=== PATIENT | female | born 1940 | race Caucasian/White ===

== ENCOUNTER 2016-12-08 21:10 | Inpatient (IN) | payer MEDICARE, OTHER ==
[~2016-12-08] VITALS: Ht 160 cm; Wt 63.1 kg
[~2016-12-08 21:10] MED LIST: ADVAI250I PO; AMIT25TA20 PO; CALCCHW6 CHEW; CEPH250 PO; DOCU1CAP39 PO; FERR500T PO; FLAXOIL4 PO; MULT-65 PO; PERC5TAB12 PO; SALM10002 PO
[2016-12-09 19:50] VITALS: BP 138/74; PULSE 93; RESP 16; TEMP 97.3; O2SAT 95
[2016-12-09 20:00] VITALS: PULSE 92
[2016-12-09] MEDS ORDERED: SODIUM CHLORIDE 0.9% FLUSH 5 ML FLUSH FLUSH PRN (21:15)
[2016-12-09] MEDS ORDERED: NALOXONE HCL 0.4 MG/ML AMP IV PRN (21:15)
[2016-12-09] MEDS ORDERED: traMADol HCL 50 MG TAB PO PRN (22:15)
--- NOTE | 2016-12-09 23:37 | HHI.HP ---
[facility] Unknown Admission Diagnosis Diagnoses: Chief Complaint: Transferred from [facility] Travel History International Travel<30 Days: No Contact w/Intl Traveler <30 Da: No Traveled to Known Affected Are: No History of Present Illness This is a 76-year-old female patient with past medical history which includes 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 difficile 2013, pulmonary embolism status post IVC filter. Patient follows with medical oncologist Dr. Leach and radiation oncologist Dr. Osullivan. Patient was in [place] at the [facility] seeking treatment for her when patient began to feel cold. And on Monday12/04/2016 patient proceeded to [facility] she continued to feel unwell mostly feeling chills as well as diarrhea and vomiting. Patient was found to have C. difficile colitis as well as acute kidney injury with a creatinine of 11. Patient was started on by mouth Flagyl was also started on hemodialysis and underwent bilateral nephrostomy tube placement as the acute kidney injury was placed to be secondary to obstructive uropathy with bilateral hydronephrosis.. Patient reports she had 2 treatments of hemodialysis on 12/06/2016 and 12/07/2016. Patient believes that she had her nephrostomy tubes placed on 12/07/2016. Patient reports at this time she is feeling much better than she was is no longer having diarrhea fevers or chills. 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 difficile 2013, pulmonary embolism status post IVC filter Past Surgical History Left mastectomy and left axillary lymph node dissection, right ureteral stent 2014 replaced [address] Sierra, appendectomy, hysterectomy, IVC filter Reported Medications Percocet 5-325 mg (Oxycodone/Acetaminophen) 1 Tab 1-2 Tab PO Q6H PRN Keflex 250 mg Cap (Cephalexin Monohydrate) 250 Mg Cap 250 Mg PO TID Flax Oil (Flaxseed (Linseed)) Oil 1 Cap PO BID Ferriprox (Deferiprone) 500 Mg Tab 1,500 Mg PO BID [place] Oil (Nutritional Supplements) 1,000 Mg Cap 1 Cap PO BID Advair Diskus 250/50 (Salmeterol Xinafoate/Fluticasone) Fluticasone/Salmeterol 250/50 Inh 1 Puff PO BID Viactiv (Calcium Carbonate) Chw 1 Chew CHEW BID Elavil (Amitriptyline HCl) 25 Mg Tab 25 Mg PO HS Colace 100 Mg Cap (Docusate Sodium) 100 Mg Cap 100 Mg PO DAILY Multi-Vitamin Daily (Multivitamins) Daily Tab 1 Tab PO DAILY Allergies: Coded Allergies: Benadryl (Verified Allergy, Severe, THROAT CLOSES, 06/20/16) Active Ordered Medications Current Medications Medications (Trade) Dose Ordered Sig/Randell Route Start Time Stop Time Status Last Admin (NS Flush) 2 ml UNSCH PRN FLUSH 12/09/16 21:15 (NS Flush) 2 ml BID FLUSH 12/10/16 09:00 (Heparin Inj) 5,000 units Q8H SQ 12/10/16 09:00 (Narcan Inj) 0.4 mg UNSCH PRN IV 12/09/16 21:15 (Ultram) 50 mg Q8H PRN PO 12/09/16 22:15 12/10/16 00:59 Family History Denies family medical history including hypertension diabetes CAD or cancer Social History Denies EtOH use tobacco use or illicit drug use currently living with Physical Exam Vital Signs Vital Signs Date Time Temp Pulse Resp B/P Pulse Ox O2 Delivery O2 Flow Rate FiO2 12/09/16 19:50 97.3 93 16 138/74 95 Physical Exam GENERAL: This is a frail 76-year-old female patient, in no apparent distress. SKIN: No rashes, ecchymoses or lesions. Cool and dry. Pale HEAD: Atraumatic. Normocephalic. No temporal or scalp tenderness. EYES: Extraocular motions intact. No scleral icterus. No injection or drainage. ENT: Nose without bleeding, purulent drainage or septal hematoma. Throat without erythema, tonsillar hypertrophy or exudate. Uvula midline. Airway patent. NECK: Trachea midline. No JVD or lymphadenopathy. Supple, nontender, no meningeal signs. CARDIOVASCULAR: Regular rate and rhythm without murmurs, gallops, or rubs. RESPIRATORY: Clear to auscultation. Breath sounds equal bilaterally. No wheezes , rales, or rhonchi. GASTROINTESTINAL: Abdomen soft, non-tender, nondistended. No guarding. GENITOURINARY: Bilateral nephrostomy tubes draining pink tinged urine MUSCULOSKELETAL: Extremities without clubbing, cyanosis, or edema. No joint tenderness, effusion, or edema noted. No calf tenderness. Negative Homans sign bilaterally. NEUROLOGICAL: Awake and alert. No focal deficit appreciated. Motor and sensory grossly within normal limits. 4 out of 5 muscle strength in all muscle groups. Normal speech. 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 difficile 2013, pulmonary embolism status post IVC filter. Patient follows with medical oncologist Dr. Leach and radiation oncologist Dr. Osullivan. Patient was in [place] at the [facility] seeking treatment for her when patient began to feel cold. And on Monday12/04/2016 patient proceeded to [facility] she continued to feel unwell mostly feeling chills as well as diarrhea and vomiting. Patient was found to have C. difficile colitis as well as acute kidney injury with a creatinine of 11. C. difficile colitis- continue oral Flagyl stop date 12/19/2016 Acute kidney injury status post hemodialysis 2 treatments, now with bilateral percutaneous nephrostomy tubes in place BMP in a.m. Consult urology patient known to Dr. Sierra Metastatic breast cancer Patient known to Dr. Leach consult placed Patient with history of pulmonary embolism status post IVC filter placed DVT prophylaxis subcutaneous heparin Awaiting med reconciliation by RN Code status DNR Discussed plan of care with Dr. Leach, patient and RN Written by Aurelia Abdullahi, acting as scribe for Dr. Martinez on 12/10/16 at 01: 47. All or portions of this note were transcribed by scribe [Aurelia Abdullahi]. I , Dr. Kristin Martinez personally performed the history, physical exam, and medical decision making; and confirmed the accuracy of the information in the transcribed note. Authenticated by Dr. Kristin Martinez on 12/10/16 at 0147 Physician Certification 2 Midnight Certification Type: Admission for Inpatient Services Order for Inpatient Services The services are ordered in accordance with Medicare regulations or non- Medicare payer requirements, as applicable. In the case of services not specified as inpatient-only, they are appropriately provided as inpatient services in accordance with the 2-midnight benchmark. Estimated LOS (days): 4 days is the estimated time the patient will need to remain in the hospital, assuming treatment plan goals are met and no additional complications. Post-Hospital Plan: Home Aurelia Abdullahi Dec 09, 2016 23:36 Kristin Martinez MD Dec 28, 2016 08:17
[2016-12-10] VITALS (11 sets, daily range): BP systolic 119–143; BP diastolic 58–73; PULSE 68–104; RESP 16–20; TEMP 96.2–98.7; O2SAT 92–98
[2016-12-10] MEDS: metroNIDAZOLE 500 MG TAB PO SCH ×3 (06:04→22:08)
[2016-12-10 07:17] LABS: AUTOMATED NEUTROPHIL # 6.6 TH/MM3 (1.8-7.7); BASOPHIL % 0.2 % (0.0-2.0); EOSINOPHIL # 0.3 TH/MM3 (0-0.4); EOSINOPHIL % 3.5 % (0.0-4.0); HEMATOCRIT 21.8 % (35.0-46.0); HEMO FLAGS DIFF FINAL; LYMPH % 6.8 % (9.0-44.0); LYMPHOCYTE # 0.5 TH/MM3 (1.0-4.8); MEAN CELL VOLUME 97.7 FL (80.0-100.0); MEAN CORPUSCULAR HEMOGLOBIN 32.5 PG (27.0-34.0); MEAN CORPUSCULAR HGB CONC 33.3 % (32.0-36.0); MONO % 7.3 % (0.0-8.0); NEUT % 82.2 % (16.0-70.0); PLATELET COUNT 172 TH/MM3 (150-450); RED BLOOD COUNT 2.23 MIL/MM3 (4.00-5.30); RED CELL DISTRIBUTION WIDTH 15.1 % (11.6-17.2)
[2016-12-10 07:47] LABS: BICARBONATE 28.2 MEQ/L (21.0-32.0); POTASSIUM 3.8 MEQ/L (3.5-5.1)
[2016-12-10 08:00] LABS: CALCIUM-PROTEIN CORRECTED 8.3 MG/DL (8.5-10.1)
[2016-12-10] MEDS: HEPARIN SODIUM - SQ 10,000 UNITS/ML VIAL SQ SCH ×2 (09:27→17:48)
[2016-12-10] MEDS: SODIUM CHLORIDE 0.9% FLUSH 5 ML FLUSH FLUSH SCH ×2 (09:28→22:08)
[2016-12-10] MEDS ORDERED: ACETAMINOPHEN 325 MG TAB PO PRN (10:30)
[2016-12-10] MEDS ORDERED: SODIUM CHLOR 0.9% 250 ML INJ 250 ML IV ONE (10:30)
[2016-12-10] MEDS: DOCUSATE SODIUM 100 MG CAP PO SCH ×2 (12:29→17:47)
[2016-12-10] MEDS: ONDANSETRON HCL 4 MG/2 ML VIAL IV PUSH PRN (12:32)
--- NOTE | 2016-12-10 13:09 | MB ---
cc: TORRIE SCHAEFER M.D. DATE OF CONSULTATION: 12/10/2016. REASON FOR CONSULTATION: Oncology was consulted to render opinion regarding a patient with metastatic breast cancer transferred here from [place] with C. difficile colitis and renal failure. ATTENDING PHYSICIAN: Dr. Higginbotham. HISTORY OF PRESENT ILLNESS: The patient is very pleasant 76-year-old female with a long history of metastatic breast cancer who transferred here from [facility] in [place] yesterday for further management. She has been under the care of Dr. Leach. She most recently received Herceptin and Navelbine. In October she was found to have new brain metastasis. She just completed palliative whole-brain radiation about a week and a half ago. Last week she went to [place] because her needed back surgery. While she was there she fell ill. She developed chills, diarrhea and vomiting. She was admitted to [facility] in [place] and was found to have C. difficile colitis. She also was found to have acute renal failure with a creatinine of 11. She was given dialysis twice on December 06 and December 07. She also had bilateral nephrostomy tubes placed for obstructive uropathy. She was also started on Flagyl. She stated that her diarrhea has resolved. She however is still very weak. She had pain in the nephrostomy tube site. She took some pain medicine last night and she had dry heaves. She denies any fever or chills. Denies abdominal pain. Denies any bone pain. She has not had any headache. She denies visual changes. She had hearing loss which has not changed. PAST MEDICAL HISTORY: 1. Metastatic breast cancer. 2. Anemia. 3. Pericarditis. 4. Pneumonia. 5. Hydronephrosis. 6. C. difficile colitis. 7. Pulmonary embolism. 8. Cutaneous herpes simplex. PAST SURGICAL HISTORY: 1. IVC filter placement in 2008. 2. Port placement. 3. Left mastectomy. 4. Right ureteral stent placement in May of 2015 and May of 2016. 5. Appendectomy. 6. Hysterectomy. 7. Dialysis catheter placement and removal. FAMILY HISTORY: Noncontributory. SOCIAL HISTORY: No tobacco or alcohol use. ALLERGIES: Benadryl. CURRENT MEDICATIONS: 1. Colace. 2. Heparin. 3. Flagyl. 4. PRN. REVIEW OF SYSTEMS: CONSTITUTIONAL: She has had increased weakness and fatigue. EYES: Denies any blurry vision or double vision. ENT: Denies any mouth sores or voice changes. CARDIOVASCULAR: Denies any chest pressure or palpitations. RESPIRATORY: Denies shortness of breath or cough. GI: As above. : As above. MUSCULOSKELETAL: Has pain around the nephrostomy site. HEMATOLOGIC: Denies any bleeding or bruising. ENDOCRINE: Negative. DERMATOLOGIC: Negative. PSYCHIATRIC: Feels a little depressed. NEUROLOGIC: Negative. PHYSICAL EXAMINATION: VITAL SIGNS: Temperature 98.7, blood pressure 134/73, 02 saturation 93%. GENERAL: She is alert and oriented x3. She looks very weak and cachectic. HEAD, EYES, EARS, NOSE, THROAT: Normocephalic and atraumatic. Pupils equal, round and light. Extraocular muscles intact. No scleral icterus. Oropharynx - dry mucosa. No lesions. NECK: No thyromegaly. No palpable mass. The dressing on the right neck is dry. LYMPHATIC: No palpable cervical, clavicular, axillary lymph nodes. CARDIOVASCULAR: Regular S1 and S2. No murmurs. LUNGS: Clear to auscultation anteriorly. ABDOMEN: Abdomen soft and nontender. Could not palpate liver or spleen. EXTREMITIES: No cyanosis. Trace ankle edema. No calf tenderness. BACK: No paravertebral tenderness. SKIN: No rash or petechiae right chest port site. No erythema. NEUROLOGIC EXAM: Nonfocal. LABORATORY DATA: Data reviewed ASSESSMENT: 1. Metastatic breast cancer. She was first diagnosed with left breast cancer in 2008. She had neoadjuvant dose-dense chemotherapy followed by mastectomy and radiation. She was maintained on letrozole but developed a bone metastasis in April of 2013. She was treated with Xeloda. In August of 2014 she developed liver metastasis. She was given a Faslodex without any improvement. She was then treated with weekly Taxol. Around June of 2015, she was started on Herceptin and Perjeta. She had a reaction to Perjeta and was switched to Herceptin and Navelbine. In October of 2016, she was found to have a new brain metastasis. She just completed whole-brain radiation about a week and a half ago. Her prognosis is very poor. She has a poor performance status at this time. I am not sure she could tolerate any more chemotherapy. Initially she was thinking about going to [facility] for a clinical trial but given her current performance status I do not think she will be a candidate. I have talked to her about hospice care and she agrees to talk to hospice. I told her she could always consider revoking hospice and seek treatment if her performance status improves. She also decided not to have any resuscitation. 2. Acute renal failure due to obstructive uropathy. She had dialysis twice when she was in [place]. She also had bilateral nephrostomy tube placement. Her renal function has trended down. Creatinine has trended down to almost her baseline. She is awaiting evaluation by Dr. Sierra. 3. Anemia, likely a combination of cancer treatment and renal failure. Her hemoglobin trended down to 7.2. We will give her a unit of packed red blood cells transfusion, which may help her feel stronger. 4. C. difficile colitis. She is currently on Flagyl. Her diarrhea has resolved. 5. History of pericarditis. She has no symptoms. 6. History of pulmonary embolism status post IVC filter placement. She is not on anticoagulation. RECOMMENDATIONS: 1. I had an extensive discussion with the patient as above. 2. Consult hospice. 3. Agree with the DNR. 4. Arrange for her to have packed red blood cell transfusion. Thank you, Dr. Higginbotham, for asking me to see this patient. MD THEODORE Mcwilliams/JARET /10:35 AM /12:37 PM KEATON
--- NOTE | 2016-12-10 14:43 | HHI.PR ---
Subjective Remarks no pain complains no nausea or vomiting Objective Vitals Vital Signs Date Time Temp Pulse Resp B/P Pulse Ox O2 Delivery O2 Flow Rate FiO2 12/10/16 14:19 97.8 99 16 120/58 94 12/10/16 13:41 96.4 104 16 126/65 93 12/10/16 12:00 98.5 101 16 143/71 95 12/10/16 08:00 98.7 68 20 134/73 93 12/10/16 07:57 92 12/10/16 04:00 97.5 94 18 119/69 92 12/10/16 00:00 97.5 90 18 136/69 94 12/09/16 20:00 92 12/09/16 19:50 97.3 93 16 138/74 95 I/O 12/09/16 12/09/16 12/09/16 12/10/16 12/10/16 12/10/16 07:00 15:00 23:00 07:00 15:00 23:00 Intake Total 480 ml 630 ml Output Total 200 ml 2150 ml Balance 280 ml -1520 ml Intake Oral 480 ml 630 ml Output Urine Total 200 ml Drainage Total 2150 ml # Voids 1 Result Diagram: 12/10/16 0610 12/10/16 0610 Objective Remarks awake and alert, oriented x 3 anicteric lungs no rales regular rhythm abdomen soft, nontender bilateral nephrostomy tubes in place- extremities no edema neuro exam- unremarkable A/P Assessment and Plan This is a 76-year-old female patient with past medical history which includes 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 difficile 2012, pulmonary embolism status post IVC filter. Patient follows with medical oncologist Dr. Leach and radiation oncologist Dr. Osullivan. Patient was in [place] at the [facility] [place] seeking treatment for her when patient began to feel cold. And on Monday12/04/2016 patient proceeded to [facility] she continued to feel unwell mostly feeling chills as well as diarrhea and vomiting. Patient was found to have C. difficile colitis as well as acute kidney injury with a creatinine of 11. C. difficile colitis- continue oral Flagyl stop date 12/19/2016 Obstructive uropathy bilateral percutaneous nephrostomy tubes in place renal functions near baseline per Oncology service notes Urology ff Metastatic breast cancer Patient known to Dr. Leach prn pain meds Anemia- acute on top of chronic for 1 unit blood transfusion per Oncology Patient with history of pulmonary embolism status post IVC filter placed DVT prophylaxis subcutaneous heparin Code status DNR Gely Higginbotham MD Dec 10, 2016 14:43
--- NOTE | 2016-12-10 18:04 | PD.CONS ---
HPI Service Urology Consult Requested By Reason for Consult Bilateral ureteral obstruction Primary Care Physician Unknown Diagnosis: History of Present Illness 76yo female with history of metastatic breast cancer with bilateral ureteral obstruction seen in consultation for bilateral nephrostomy tubes. Patient was in [place] recently where she developed acute renal failure with Cr >10. Bilateral nephrostomy tubes were placed and her Cr has improved. She currently reports no pain. Patient has been seen by Dr. Sierra where a ureteral stent was placed however this appeared to have failed to extrinsic compression from the metastatic disease, thereby requiring the bilateral nephrostomy tubes. She is also followed by Dr. Leach. Patient currently denies fevers, chills, N/V. 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 difficile 2012, pulmonary embolism status post IVC filter Past Surgical History Left mastectomy and left axillary lymph node dissection, right ureteral stent 05/2015 replaced 05/[address] Sierra appendectomy, hysterectomy, IVC filter Reported Medications Reported Meds & Active Scripts Active Percocet 5-325 mg (Oxycodone/Acetaminophen) 1 Tab 1-2 Tab PO Q6H PRN Keflex 250 mg Cap (Cephalexin Monohydrate) 250 Mg Cap 250 Mg PO TID Reported Flax Oil (Flaxseed (Linseed)) Oil 1 Cap PO BID Ferriprox (Deferiprone) 500 Mg Tab 1,500 Mg PO BID [place] Oil (Nutritional Supplements) 1,000 Mg Cap 1 Cap PO BID Advair Diskus 250/50 (Salmeterol Xinafoate/Fluticasone) Fluticasone/Salmeterol 250/50 Inh 1 Puff PO BID Viactiv (Calcium Carbonate) Chw 1 Chew CHEW BID Elavil (Amitriptyline HCl) 25 Mg Tab 25 Mg PO HS Colace 100 Mg Cap (Docusate Sodium) 100 Mg Cap 100 Mg PO DAILY Multi-Vitamin Daily (Multivitamins) Daily Tab 1 Tab PO DAILY Allergies: Coded Allergies: Benadryl (Verified Allergy, Severe, THROAT CLOSES, 06/20/16) Active Ordered Medications Current Medications Medications (Trade) Dose Ordered Sig/Randell Route Start Time Stop Time Status Last Admin (NS Flush) 2 ml UNSCH PRN FLUSH 12/09/16 21:15 (NS Flush) 2 ml BID FLUSH 12/10/16 09:00 12/10/16 09:28 (Heparin Inj) 5,000 units Q8H SQ 12/10/16 09:00 12/10/16 17:48 (Narcan Inj) 0.4 mg UNSCH PRN IV 12/09/16 21:15 Metronidazole 500 mg 500 mg Q8HR PO 12/10/16 06:00 12/19/16 05:59 12/10/16 13:09 (NS 250 ml Inj) 250 ml @ 15 mls/hr ONCE ONCE IV 12/10/16 10:30 12/11/16 03:09 12/10/16 13:55 (Colace) 100 mg TID PO 12/10/16 13:00 12/10/16 17:47 (Zofran Inj) 4 mg Q6HR PRN IV PUSH 12/10/16 10:30 12/10/16 12:32 (Otis 5-325 Mg) 1 tab Q4H PRN PO 12/10/16 10:45 (Otis 10-325 Mg) 1 tab Q4H PRN PO 12/10/16 10:45 (Phenergan) 25 mg Q4H PRN PO 12/10/16 10:45 Family History Denies family medical history including hypertension diabetes CAD or cancer Social History Denies EtOH use tobacco use or illicit drug use currently living with Physical Exam Vital Signs Vital Signs Date Time Temp Pulse Resp B/P Pulse Ox O2 Delivery O2 Flow Rate FiO2 12/10/16 16:00 97.5 88 18 122/62 98 12/10/16 14:19 97.8 99 16 120/58 94 12/10/16 13:41 96.4 104 16 126/65 93 2/18/17 12:00 98.5 101 16 143/71 95 12/10/16 08:00 98.7 68 20 134/73 93 12/10/16 07:57 92 12/10/16 04:00 97.5 94 18 119/69 92 12/10/16 00:00 97.5 90 18 136/69 94 12/09/16 20:00 92 12/09/16 19:50 97.3 93 16 138/74 95 Physical Exam GENERAL: This is a well-nourished, well-developed patient, in no apparent distress. SKIN: No rashes, ecchymoses or lesions. Cool and dry. HEAD: Atraumatic. Normocephalic. EYES: Extraocular motions intact. No scleral icterus. No injection or drainage. ENT: Nose without bleeding, purulent drainage. Airway patent. NECK: Trachea midline. No JVD or lymphadenopathy. CARDIOVASCULAR: Normal pulses, extremities well perfused RESPIRATORY: nonlabored respiration, equal chest rise GASTROINTESTINAL: Abdomen soft, non-tender, nondistended. GENITOURINARY: Bilateral nephrostomy tubes in place, draining light pink urine. Insertion site clean and dry, dressings in place MUSCULOSKELETAL: Extremities without clubbing, cyanosis NEUROLOGICAL: Awake and alert. Motor and sensory grossly within normal limits. Normal speech. Laboratory Laboratory Tests Test 12/10/16 12/10/16 06:10 10:40 White Blood Count 8.0 Red Blood Count 2.23 Hemoglobin 7.2 Hematocrit 21.8 Mean Corpuscular Volume 97.7 Mean Corpuscular Hemoglobin 32.5 Mean Corpuscular Hemoglobin 33.3 Concent Red Cell Distribution Width 15.1 Platelet Count 172 Mean Platelet Volume 7.7 Neutrophils (%) (Auto) 82.2 Lymphocytes (%) (Auto) 6.8 Monocytes (%) (Auto) 7.3 Eosinophils (%) (Auto) 3.5 Basophils (%) (Auto) 0.2 Neutrophils # (Auto) 6.6 Lymphocytes # (Auto) 0.5 Monocytes # (Auto) 0.6 Eosinophils # (Auto) 0.3 Basophils # (Auto) 0.0 CBC Comment DIFF FINAL Differential Comment Sodium Level 143 Potassium Level 3.8 Chloride Level 109 Carbon Dioxide Level 28.2 Anion Gap 6 Blood Urea Nitrogen 18 Creatinine 1.57 Estimat Glomerular Filtration 32 Rate Random Glucose 116 Calcium Level 7.1 Protein Corrected Calcium 8.3 Total Protein 4.9 Blood Type B POSITIVE Antibody Screen NEGATIVE Crossmatch Leukocyte-Reduced Red Blood Cells Blood Bank Comment Result Diagram: 12/10/1660912/10/16609 Assessment and Plan Problem List: (1) CKD (chronic kidney disease) stage 3, GFR 30-59 ml/min ICD Code: N18.3 Status: Chronic (2) Metastatic breast cancer ICD Code: C50.919 Status: Chronic (3) Breast carcinoma metastatic to multiple sites ICD Code: C50.919 Status: Acute Assessment and Plan 76yo female with metastatic breast cancer and bilateral nephrostomy tubes due to obstruction and renal failure Cr improved to 1.57 Maintain bilateral nephrostomy tubes in place until evaluation by Dr. Leach. If any further treatment planned, recommend maintaining nephrostomy tubes in place to allow adequate renal drainage May consider internalization of tubes if no treatment planned, however given her history of indwelling stent and recent episode of renal failure due to obstruction, it is likely any internal stents would fail due to the extrinsic compression of her ureters. Will notify Dr. Sierra regarding patient on Monday David Dudley MD Dec 10, 2016 18:04
[2016-12-10] MEDS: ACETAMINOPHEN/HYDROcodone 325 MG/5 MG TAB PO PRN (22:09)
[2016-12-11] VITALS (7 sets, daily range): BP systolic 116–125; BP diastolic 58–69; PULSE 73–108; RESP 14–17; TEMP 97.3–98.1; O2SAT 92–99
[2016-12-11] MEDS: HEPARIN SODIUM - SQ 10,000 UNITS/ML VIAL SQ SCH ×3 (01:59→16:54)
[2016-12-11] MEDS: metroNIDAZOLE 500 MG TAB PO SCH ×3 (04:10→21:08)
[2016-12-11] MEDS: ONDANSETRON HCL 4 MG/2 ML VIAL IV PUSH PRN (04:10)
[2016-12-11] MEDS: DOCUSATE SODIUM 100 MG CAP PO SCH (09:12)
[2016-12-11] MEDS: SODIUM CHLORIDE 0.9% FLUSH 5 ML FLUSH FLUSH SCH ×2 (09:13→21:08)
--- NOTE | 2016-12-11 09:23 | PD.ONC.PN ---
Subjective Subjective Remarks Afebrile overnight. Patient talked with hospice yesterday and has decided to wait until Monday to meet with Dr. Leach before making a final decision. She slept ok overnight. pain is controlled. She is concerned about how she will manage her bilateral PN tubes at home. Objective Data Date Time Temp Pulse Resp B/P Pulse Ox O2 Delivery O2 Flow Rate FiO2 12/11/16 08:00 97.9 73 14 116/65 94 12/11/16 04:00 97.8 81 16 123/69 92 12/10/16 23:00 96.2 92 18 126/58 92 12/10/16 20:16 94 12/10/16 19:00 96.8 99 18 143/67 96 12/10/16 16:00 97.5 88 18 122/62 98 12/10/16 14:19 97.8 99 16 120/58 94 12/10/16 13:41 96.4 104 16 126/65 93 12/10/16 12:00 98.5 101 16 143/71 95 12/11/16 12/11/16 12/11/16 07:00 15:00 23:00 Intake Total 120 ml Output Total 950 ml 700 ml Balance -830 ml -700 ml Result Diagram: 12/10/16 0610 12/10/16 0610 Laboratory Results Laboratory Tests Test 12/10/16 10:40 Blood Type B POSITIVE Antibody Screen NEGATIVE Crossmatch Leukocyte-Reduced Red Blood Cells Blood Bank Comment Administered Medications Medications (Trade) Dose Ordered Sig/Randell Route PRN Reason Start Time Stop Time Status Last Admin Dose Admin IV Flush (NS Flush) 2 ml BID FLUSH 12/10/16 09:00 12/10/16 22:08 Heparin Sodium (Porcine) (Heparin Inj) 5,000 units Q8H SQ 12/10/16 09:00 12/11/16 01:59 Metronidazole (Flagyl) 500 mg Q8HR PO 12/10/16 06:00 12/19/16 05:59 12/11/16 04:10 Docusate Sodium (Colace) 100 mg TID PO 12/10/16 13:00 12/10/16 17:47 Ondansetron HCl (Zofran Inj) 4 mg Q6HR PRN IV PUSH nausea 12/10/16 10:30 12/11/16 04:10 Acetaminophen/ Hydrocodone Bitart ([place] 5-325 Mg) 1 tab Q4H PRN PO PAIN SCALE 1 TO 5 12/10/16 10:45 12/10/16 22:09 Objective Remarks GENERAL: Chronically ill appearing female, lying in bed in nad. SKIN: Warm and dry. HEAD: Normocephalic. EYES: No injection or drainage. NECK: Supple, trachea midline. CARDIOVASCULAR: +S1/S2 RESPIRATORY: anterior charles clear. GASTROINTESTINAL: Abdomen soft, non-tender, nondistended. EXTREMITIES: No cyanosis BACK: percutaneous nephrostomy tubes in place NEUROLOGICAL: No obvious focal deficit. Awake, alert, and oriented x3. Assessment/Plan Problem List: (1) Metastatic breast cancer Status: Chronic Plan: --she is currently considering hospice. History: --first diagnosed [id number]. had neoadjuvant dose-dense chemotherapy followed by mastectomy and radiation. --maintained on letrozole but developed a bone metastasis in April of 2013. then treated with Xeloda. --August of 2014 developed liver metastasis. given a Faslodex without any improvement. then treated with weekly Taxol. --June of 2015, started on Herceptin and Perjeta. had a reaction to Perjeta and was switched to Herceptin and Navelbine. 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 --had dialysis twice when she was in [place]. --had bilateral nephrostomy tube placement. --Creatinine has now trended to almost her baseline. --urology following-->they recommend consider internalization of tubes if no treatment planned, however given her history of indwelling stent and recent episode of renal failure due to obstruction, it is likely any internal stents would fail due to the extrinsic compression of her ureters. (3) History of Clostridium difficile Status: Acute Plan: -- currently on Flagyl. Her diarrhea has resolved. Now she is constipated Assessment 76y/o female with metastatic breast cancer transferred here from [place] with C. difficile colitis and renal failure. h/o Anemia. Pericarditis. Pneumonia. Hydronephrosis. C. difficile colitis. Pulmonary embolism--IVC filter, 2009 Cutaneous herpes simplex. +Port placement. Left mastectomy. Right ureteral stent placement in May of 2015 and May of 2016. Appendectomy. Hysterectomy. Dialysis catheter placement and removal. Plan 1. will start on naveen-colace for constipation 2. continue supportive care 3. check H/H and creatinine Attending Statement The exam, history, and the medical decision-making described in the above note were completed with the assistance of the mid-level provider. I reviewed and agree with the findings presented. I attest that I had a [id number] encounter with the patient on the same day, and personally performed and documented my assessment and findings in the medical record. Feeling stronger after the transfusion. +Constipation. No abdominal pain. Talked to hospice yesterday but she would like to discuss with tomorrow before deciding on hospice. Monitor CBC and renal function. Mallory Agosto Dec 11, 2016 09:23 Jamil Juarez MD Dec 11, 2016 11:15
[2016-12-11] MEDS ORDERED: MAGNESIUM HYDROXIDE SUSP 30 ML CUP PO PRN (09:30)
[2016-12-11 12:32] LABS: HEMATOCRIT 28.4 % (35.0-46.0); REVIEW FLAG FINAL
[2016-12-11] MEDS: DOCUSATE SODIUM 50 MG/SENNA 8.6 MG TAB PO PRN (13:28)
--- NOTE | 2016-12-11 14:19 | HHI.PR ---
Subjective Remarks no complains her concern is how to get around with the nephrostomy tubes Objective Vitals Vital Signs Date Time Temp Pulse Resp B/P Pulse Ox O2 Delivery O2 Flow Rate FiO2 12/11/16 08:00 97.9 73 14 116/65 94 12/11/16 07:48 84 12/11/16 04:00 97.8 81 16 123/69 92 12/10/16 23:00 96.2 92 18 126/58 92 12/10/16 20:16 94 12/10/16 19:00 96.8 99 18 143/67 96 12/10/16 16:00 97.5 88 18 122/62 98 12/10/16 14:19 97.8 99 16 120/58 94 I/O 12/10/16 12/10/16 12/10/16 12/11/16 12/11/16 12/11/16 07:00 15:00 23:00 07:00 15:00 23:00 Intake Total 480 ml 630 ml 120 ml 600 ml Output Total 200 ml 2150 ml 950 ml 700 ml Balance 280 ml -1520 ml -830 ml -100 ml Intake Oral 480 ml 630 ml 120 ml 600 ml Output Urine Total 200 ml Drainage Total 2150 ml 950 ml 700 ml # Voids 1 # Bowel Movements 0 Result Diagram: 12/11/16 1200 12/11/16 1200 Objective Remarks awake and alert, oriented x 3 anicteric lungs no rales regular rhythm abdomen soft, nontender bilateral nephrostomy tubes in place- left tube- draining light pink urine, right tue draining clear urine extremities no edema neuro exam- unremarkable A/P Assessment and Plan This is a 76-year-old female patient with past medical history which includes 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 difficile 2013, pulmonary embolism status post IVC filter. Patient follows with medical oncologist Dr. Leach and radiation oncologist Dr. Osullivan. Patient was in [place] at the [facility] [place] seeking treatment for her when patient began to feel cold. And on Monday12/04/2016 patient proceeded to [facility] she continued to feel unwell mostly feeling chills as well as diarrhea and vomiting. Patient was found to have C. difficile colitis as well as acute kidney injury with a creatinine of 11. C. difficile colitis- no episodes of diarrhea while here. continue oral Flagyl stop date 12/19/2016 Obstructive uropathy bilateral percutaneous nephrostomy tubes in place renal functions near baseline Urology ff will consult PT to recommend- gadgets, ? belt instead of leg bags to get around with grayson. nephrostomy tubes Metastatic breast cancer Patient known to Dr. Leach prn pain meds Anemia- acute on top of chronic S/P 1 unit of RBC Patient with history of pulmonary embolism status post IVC filter placed DVT prophylaxis subcutaneous heparin Code status DNR CM consult for [facility] nursing arrangement- going home with nephrostomy tubes Gely Higginbotham MD Dec 11, 2016 14:19
--- NOTE | 2016-12-11 14:20 | HHI.FF ---
Face to Face Verification Diagnosis: (1) bilateral nephrostomy tube Physical Therapy Order: Improve ambulation Home Health Nursing Order: Medication education-adverse effect Wound care and dressing changes Gallegos catheter maintenance Legal Billing Specialist Order: To Evaluate: Support services I have seen patient Kandy Carrion on 12/11/16. My clinical findings support the need for the requested home health care services because: Ltd mobility - disease progression I certify that my clinical findings support that this patient is homebound because: Unsafe to leave home unassisted Need for psychosocial assistance Gely Higginbotham MD Dec 11, 2016 14:20
[2016-12-12] VITALS (8 sets, daily range): BP systolic 114–144; BP diastolic 62–78; PULSE 71–91; RESP 16–19; TEMP 96.5–98.7; O2SAT 94–99
[2016-12-12] MEDS: HEPARIN SODIUM - SQ 10,000 UNITS/ML VIAL SQ SCH ×4 (02:40→23:28)
[2016-12-12] MEDS: DOCUSATE SODIUM 50 MG/SENNA 8.6 MG TAB PO PRN (02:46)
[2016-12-12] MEDS: metroNIDAZOLE 500 MG TAB PO SCH ×3 (05:14→21:46)
--- NOTE | 2016-12-12 08:12 | PD.ONC.PN ---
Subjective Subjective Remarks Patient was seen and examined today, she reports feeling improved today, yesterday she was able to walk in the hallways without difficulty. She continues to have swelling of the lower extremities. The patient's chart from the [facility] in [place] as well as events from over the weekend were reviewed. Her renal function is improving, she is no longer requiring hemodialysis. Her dialysis catheter has been removed. She has bilateral percutaneous nephrostomy tubes. She tells me she has not urinated over the past 24 hours or so. Objective Data Date Time Temp Pulse Resp B/P Pulse Ox O2 Delivery O2 Flow Rate FiO2 12/12/16 05:00 97.5 86 19 136/62 94 12/12/16 00:00 98.7 91 17 114/68 95 12/11/16 20:07 108 12/11/16 20:00 98.1 89 17 124/58 99 12/11/16 16:00 97.3 91 14 125/67 96 12/11/16 12:00 97.8 88 16 116/65 94 Result Diagram: 12/11/16 1200 12/11/16 1200 Laboratory Results Laboratory Tests Test 12/11/16 12:00 Hemoglobin 9.6 GM/DL Hematocrit 28.4 % Creatinine 1.36 MG/DL Estimat Glomerular Filtration 38 ML/MIN Rate Administered Medications Medications (Trade) Dose Ordered Sig/Randell Route PRN Reason Start Time Stop Time Status Last Admin Dose Admin IV Flush (NS Flush) 2 ml BID FLUSH 12/10/16 09:00 12/11/16 21:08 Heparin Sodium (Porcine) (Heparin Inj) 5,000 units Q8H SQ 12/10/16 09:00 12/12/16 02:40 Metronidazole (Flagyl) 500 mg Q8HR PO 12/10/16 06:00 12/19/16 05:59 12/12/16 05:14 Ondansetron HCl (Zofran Inj) 4 mg Q6HR PRN IV PUSH nausea 12/10/16 10:30 12/11/16 04:10 Acetaminophen/ Hydrocodone Bitart ([place] 5-325 Mg) 1 tab Q4H PRN PO PAIN SCALE 1 TO 5 12/10/16 10:45 12/10/16 22:09 Senna/Docusate Sodium (Licha-Colace) 1 tab BID PRN PO constipation 12/11/16 09:30 12/12/16 02:46 Heparin Sodium (Porcine) (Heparin Central Flush) 250 units UNSCH PRN IVF SEE PROTOCOL TABLE 12/11/16 13:00 12/12/16 05:25 Objective Remarks GENERAL: Elderly female, sitting up in bed, appears to be no acute distress. Somewhat pale appearing. SKIN: No rashes, ecchymoses or lesions. Cool and dry. HEAD: Atraumatic. Normocephalic. EYES: Extraocular motions intact. No scleral icterus. No injection or drainage. ENT: Nose without bleeding, purulent drainage. Airway patent. NECK: Trachea midline. No JVD or lymphadenopathy. CARDIOVASCULAR: Normal pulses, extremities well perfused RESPIRATORY: nonlabored respiration, equal chest rise GASTROINTESTINAL: Abdomen soft, non-tender, nondistended. Bruising over the lower abdomen at the site of injections. GENITOURINARY: Bilateral nephrostomy tubes in place, draining light pink urine. Insertion site clean and dry, dressings in place MUSCULOSKELETAL: Extremities without clubbing, cyanosis NEUROLOGICAL: Awake and alert. Motor and sensory grossly within normal limits. Normal speech. Assessment/Plan Problem List: (1) Metastatic breast cancer Status: Chronic Plan: History: --first diagnosed [id number]. had neoadjuvant dose-dense chemotherapy followed by mastectomy and radiation. --maintained on letrozole but developed a bone metastasis in April of 2013. then treated with Xeloda. --August of 2014 developed liver metastasis. given a Faslodex without any improvement. then treated with weekly Taxol. --June of 2015 disease was rebiopsied and she was now found to have HER-2 positive disease (previously HER-2 negative), started on Herceptin and Perjeta. had a reaction to Perjeta and was switched to Herceptin and Navelbine. --October of 2016, found to have a new brain metastasis.completed WBRT, this was completed about a week ago. The plan was to initiate intrathecal chemotherapy with cytarabine. While continuing systemic therapy with Herceptin based chemotherapy. (2) CKD (chronic kidney disease) stage 3, GFR 30-59 ml/min Status: Chronic Plan: -- Acute renal failure due to obstructive uropathy. -- had dialysis twice when he was in [place]. -- had bilateral nephrostomy tube placement. -- Creatinine has now trended to almost her baseline. -- Urology following--> they recommend consider internalization of tubes if no treatment planned, however given her history of indwelling stent and recent episode of renal failure due to obstruction, it is likely any internal stents would fail due to the extrinsic compression of her ureters. (3) History of Clostridium difficile Status: Acute Plan: -- currently on Flagyl. Her diarrhea has resolved. Now she is constipated Assessment 76y/o female with metastatic breast cancer transferred here from [place] with C. difficile colitis and renal failure. h/o Anemia. Pericarditis. Pneumonia. Hydronephrosis. C. difficile colitis. Pulmonary embolism--IVC filter, 2008 Cutaneous herpes simplex. +Port placement. Left mastectomy. Right ureteral stent placement in May of 2015 and May of 2016. Appendectomy. Hysterectomy. Dialysis catheter placement and removal. Plan 1. Metastatic breast carcinoma (systemic disease to the liver and extensive bone involvement, leptomeningeal metastases as well as brain parenchymal metastases ) her disease is HER-2/sosa amplified. I did talk to the patient today about goals of care, I think we should continue to aim for intrathecal injection of palliative chemotherapy for management of her intracranial disease as well as consider resumption of systemic chemotherapy to help prolong survival. 2. Acute renal failure: Likely secondary to post renal obstruction versus prerenal failure, perhaps she had a combination of both given her diarrhea. Her creatinine is back to baseline, she continues to have percutaneous nephrostomy tubes in place. I appreciate the urology attending's recommendations from over the weekend. Internalization of the percutaneous nephrostomy tubes can be considered, however those run the risk of obstruction. However, the patient's quality of life is impacted negatively by having the percutaneous nephrostomy tubes in place indefinitely as it impacts her mobility. I will discuss the case with urology. Continue supportive care. Demario Leach MD Dec 12, 2016 08:12
[2016-12-12] MEDS: SODIUM CHLORIDE 0.9% FLUSH 5 ML FLUSH FLUSH SCH ×2 (09:49→21:00)
[2016-12-12] MEDS ORDERED: ALTEPLASE RECOMBINANT 2 MG VIAL INTRACATH ONE (11:30)
--- NOTE | 2016-12-12 12:21 | HHI.PR ---
Subjective Remarks Tolerating bilateral nephrostomy tubes well however would like to have them internalized if possible. Denies hematuria. Spontaneously voiding small amounts of urine. Objective Vital Signs Vital Signs Date Time Temp Pulse Resp B/P Pulse Ox O2 Delivery O2 Flow Rate FiO2 12/12/16 08:05 77 12/12/16 08:00 96.9 71 18 136/70 95 12/12/16 05:00 97.5 86 19 136/62 94 12/12/16 00:00 98.7 91 17 114/68 95 12/11/16 20:07 108 12/11/16 20:00 98.1 89 17 124/58 99 12/11/16 16:00 97.3 91 14 125/67 96 I/O 12/11/16 12/11/16 12/11/16 12/12/16 12/12/16 12/12/16 07:00 15:00 23:00 07:00 15:00 23:00 Intake Total 120 ml 600 ml Output Total 950 ml 700 ml 300 ml 600 ml Balance -830 ml -100 ml -300 ml -600 ml Intake Oral 120 ml 600 ml Drainage Total 950 ml 700 ml 300 ml 600 ml # Bowel Movements 0 0 Result Diagram: 12/11/16 1200 12/11/16 1200 Objective Remarks Bilateral nephrostomy tubes in place and draining nubia urine. Increased output from the left side in comparison to the right. Assessment and Plan Problem List: (1) CKD (chronic kidney disease) stage 3, GFR 30-59 ml/min ICD Code: N18.3 Status: Chronic (2) Metastatic breast cancer ICD Code: C50.919 Status: Chronic (3) Breast carcinoma metastatic to multiple sites ICD Code: C50.919 Status: Acute Assessment and Plan Urologic impression: Bilateral ureteral obstruction related to metastatic breast cancer status post placement of nephrostomy tubes. Plan: #1 nothing by mouth after midnight #2 patient scheduled for cystoscopy, bilateral retrograde pyelogram studies and bilateral alf ureteral stent placement tomorrow #3 discussed that I would leave the nephrostomy tubes in place but capped off and assess stent function prior to removing the nephrostomy tubes Iban Sierra MD Dec 12, 2016 12:21
--- NOTE | 2016-12-12 13:21 | HHI.PR ---
Subjective Remarks no complains voided a little Objective Vitals Vital Signs Date Time Temp Pulse Resp B/P Pulse Ox O2 Delivery O2 Flow Rate FiO2 12/12/16 08:05 77 12/12/16 08:00 96.9 71 18 136/70 95 12/12/16 05:00 97.5 86 19 136/62 94 12/12/16 00:00 98.7 91 17 114/68 95 12/11/16 20:07 108 12/11/16 20:00 98.1 89 17 124/58 99 12/11/16 16:00 97.3 91 14 125/67 96 I/O 12/11/16 12/11/16 12/11/16 12/12/16 12/12/16 12/12/16 07:00 15:00 23:00 07:00 15:00 23:00 Intake Total 120 ml 600 ml Output Total 950 ml 700 ml 300 ml 600 ml Balance -830 ml -100 ml -300 ml -600 ml Intake Oral 120 ml 600 ml Drainage Total 950 ml 700 ml 300 ml 600 ml # Bowel Movements 0 0 Result Diagram: 12/11/16 1200 12/11/16 1200 Objective Remarks awake and alert, oriented x 3 anicteric lungs no rales regular rhythm abdomen soft, nontender bilateral nephrostomy tubes in place- extremities no edema neuro exam- unremarkable A/P Assessment and Plan This is a 76-year-old female patient with past medical history which includes 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 difficile 2012, pulmonary embolism status post IVC filter. Patient follows with medical oncologist Dr. Leach and radiation oncologist Dr. Osullivan. Patient was in [place] at the [facility] [place] seeking treatment for her when patient began to feel cold. And on Monday12/04/2016 patient proceeded to [facility] she continued to feel unwell mostly feeling chills as well as diarrhea and vomiting. Patient was found to have C. difficile colitis as well as acute kidney injury with a creatinine of 11. C. difficile colitis- improved continue oral Flagyl stop date 12/19/2016 Obstructive uropathy bilateral percutaneous nephrostomy tubes in place renal functions near baseline Urology ff - plan for cystoscopy with stent placement in am Metastatic breast cancer Patient known to Dr. Leach prn pain meds Anemia- acute on top of chronic S/P 1 unit of RBC Patient with history of pulmonary embolism status post IVC filter placed DVT prophylaxis subcutaneous heparin Code status DNR CM consult for [facility] nursing arrangement- going home with nephrostomy tubes Gely Higginbotham MD Dec 12, 2016 13:21
[2016-12-12 15:46] LABS: AUTOMATED NEUTROPHIL # 5.2 TH/MM3 (1.8-7.7); BASOPHIL % 0.3 % (0.0-2.0); EOSINOPHIL # 0.2 TH/MM3 (0-0.4); HEMATOCRIT 25.9 % (35.0-46.0); HEMO FLAGS DIFF FINAL; LYMPHOCYTE # 0.4 TH/MM3 (1.0-4.8); MEAN CELL VOLUME 94.4 FL (80.0-100.0); MEAN CORPUSCULAR HEMOGLOBIN 31.4 PG (27.0-34.0); MEAN CORPUSCULAR HGB CONC 33.3 % (32.0-36.0); MONO % 6.6 % (0.0-8.0); NEUT % 83.1 % (16.0-70.0); PLATELET COUNT 173 TH/MM3 (150-450); RED BLOOD COUNT 2.75 MIL/MM3 (4.00-5.30); RED CELL DISTRIBUTION WIDTH 17.1 % (11.6-17.2); WHITE BLOOD COUNT 6.3 TH/MM3 (4.0-11.0)
[2016-12-12 16:14] LABS: ALT (GPT) 13 U/L (10-53); ANION GAP 8 MEQ/L (5-15); AST (GOT) 15 U/L (15-37); BICARBONATE 25.9 MEQ/L (21.0-32.0); BLOOD UREA NITROGEN 12 MG/DL (7-18); CHLORIDE 108 MEQ/L (98-107); GLOMERULAR FILTRATION RATE 45 ML/MIN (>89); POTASSIUM 3.9 MEQ/L (3.5-5.1); SODIUM (NA) 142 MEQ/L (136-145)
[2016-12-12 16:17] LABS: ALKALINE PHOSPHATASE 60 U/L (45-117); TOTAL BILIRUBIN ADULT 0.4 MG/DL (0.2-1.0)
[2016-12-13 00:30] VITALS: BP 135/64; PULSE 84; RESP 16; TEMP 97.7; O2SAT 94
[2016-12-13 04:45] VITALS: BP 156/75; PULSE 81; RESP 18; TEMP 97.4; O2SAT 95
[2016-12-13] MEDS: metroNIDAZOLE 500 MG TAB PO SCH ×3 (05:14→21:30)
[2016-12-13 07:01] VITALS: PULSE 76
[2016-12-13 08:00] VITALS: BP 142/65; PULSE 79; RESP 18; TEMP 97.5; O2SAT 95
--- NOTE | 2016-12-13 08:34 | PD.ONC.PN ---
Subjective Subjective Remarks Patient denies acute complaints, she reports not having had a bowel movement in over 3 days despite laxatives. She is awaiting her cystoscopy with replacement of the ureteric stents later this morning. And is hoping to be discharged home tomorrow or the day after. Objective Data Date Time Temp Pulse Resp B/P Pulse Ox O2 Delivery O2 Flow Rate FiO2 12/13/16 04:45 97.4 81 18 156/75 95 12/13/16 00:30 97.7 84 16 135/64 94 12/12/16 21:00 97.3 82 16 139/65 95 12/12/16 20:00 79 12/12/16 16:00 97.4 75 16 144/78 99 12/12/16 12:00 96.5 75 18 136/78 97 12/13/16 12/13/16 12/13/16 07:00 15:00 23:00 Output Total 1125 ml Balance -1125 ml Result Diagram: 12/12/16 1425 12/12/16 1425 Laboratory Results Laboratory Tests Test 12/12/16 14:25 White Blood Count 6.3 TH/MM3 Red Blood Count 2.75 MIL/MM3 Hemoglobin 8.6 GM/DL Hematocrit 25.9 % Mean Corpuscular Volume 94.4 FL Mean Corpuscular Hemoglobin 31.4 PG Mean Corpuscular Hemoglobin 33.3 % Concent Red Cell Distribution Width 17.1 % Platelet Count 173 TH/MM3 Mean Platelet Volume 8.2 FL Neutrophils (%) (Auto) 83.1 % Lymphocytes (%) (Auto) 7.0 % Monocytes (%) (Auto) 6.6 % Eosinophils (%) (Auto) 3.0 % Basophils (%) (Auto) 0.3 % Neutrophils # (Auto) 5.2 TH/MM3 Lymphocytes # (Auto) 0.4 TH/MM3 Monocytes # (Auto) 0.4 TH/MM3 Eosinophils # (Auto) 0.2 TH/MM3 Basophils # (Auto) 0.0 TH/MM3 CBC Comment DIFF FINAL Differential Comment Sodium Level 142 MEQ/L Potassium Level 3.9 MEQ/L Chloride Level 108 MEQ/L Carbon Dioxide Level 25.9 MEQ/L Anion Gap 8 MEQ/L Blood Urea Nitrogen 12 MG/DL Creatinine 1.16 MG/DL Estimat Glomerular Filtration 45 ML/MIN Rate Random Glucose 78 MG/DL Calcium Level 7.6 MG/DL Total Bilirubin 0.4 MG/DL Aspartate Amino Transf 15 U/L (AST/SGOT) Alanine Aminotransferase 13 U/L (ALT/SGPT) Alkaline Phosphatase 60 U/L Total Protein 5.6 GM/DL Albumin 2.7 GM/DL Administered Medications Medications (Trade) Dose Ordered Sig/Randell Route PRN Reason Start Time Stop Time Status Last Admin Dose Admin IV Flush (NS Flush) 2 ml BID FLUSH 12/10/16 09:00 12/12/16 21:00 Heparin Sodium (Porcine) (Heparin Inj) 5,000 units Q8H SQ 12/10/16 09:00 12/12/16 09:49 Metronidazole (Flagyl) 500 mg Q8HR PO 12/10/16 06:00 12/19/16 05:59 12/12/16 21:46 Ondansetron HCl (Zofran Inj) 4 mg Q6HR PRN IV PUSH nausea 12/10/16 10:30 12/11/16 04:10 Acetaminophen/ Hydrocodone Bitart ([place] 5-325 Mg) 1 tab Q4H PRN PO PAIN SCALE 1 TO 5 12/10/16 10:45 12/10/16 22:09 Senna/Docusate Sodium (Licha-Colace) 1 tab BID PRN PO constipation 12/11/16 09:30 12/12/16 02:46 Magnesium Hydroxide (Milk Of Magnesia Liq) 30 ml DAILY PRN PO constipation 12/11/16 09:30 12/12/16 17:23 Heparin Sodium (Porcine) (Heparin Central Flush) 250 units UNSCH PRN IVF SEE PROTOCOL TABLE 12/11/16 13:00 12/12/16 05:25 Objective Remarks GENERAL: Elderly female, sitting up in bed, appears to be no acute distress. Somewhat pale appearing. SKIN: No rashes, ecchymoses or lesions. Cool and dry. HEAD: Atraumatic. Normocephalic. EYES: Extraocular motions intact. No scleral icterus. No injection or drainage. ENT: Nose without bleeding, purulent drainage. Airway patent. NECK: Trachea midline. No JVD or lymphadenopathy. CARDIOVASCULAR: Normal pulses, extremities well perfused RESPIRATORY: nonlabored respiration, equal chest rise GASTROINTESTINAL: Abdomen soft, non-tender, nondistended. Bruising over the lower abdomen at the site of injections. GENITOURINARY: Bilateral nephrostomy tubes in place, draining light pink urine. Insertion site clean and dry, dressings in place MUSCULOSKELETAL: Extremities without clubbing, cyanosis NEUROLOGICAL: Awake and alert. Motor and sensory grossly within normal limits. Normal speech. Assessment/Plan Problem List: (1) Metastatic breast cancer Status: Chronic Plan: History: --first diagnosed [id number]. had neoadjuvant dose-dense chemotherapy followed by mastectomy and radiation. --maintained on letrozole but developed a bone metastasis in April of 2013. then treated with Xeloda. --August of 2014 developed liver metastasis. given a Faslodex without any improvement. then treated with weekly Taxol. --June of 2015 disease was rebiopsied and she was now found to have HER-2 positive disease (previously HER-2 negative), started on Herceptin and Perjeta. had a reaction to Perjeta and was switched to Herceptin and Navelbine. --October of 2016, found to have a new brain metastasis.completed WBRT, this was completed about a week ago. The plan was to initiate intrathecal chemotherapy with cytarabine. While continuing systemic therapy with Herceptin based chemotherapy. (2) CKD (chronic kidney disease) stage 3, GFR 30-59 ml/min Status: Chronic Plan: -- Acute renal failure due to obstructive uropathy. -- had dialysis twice when he was in [place]. -- had bilateral nephrostomy tube placement. -- Creatinine has now trended to almost her baseline. -- Urology following--> they recommend consider internalization of tubes if no treatment planned, however given her history of indwelling stent and recent episode of renal failure due to obstruction, it is likely any internal stents would fail due to the extrinsic compression of her ureters. (3) History of Clostridium difficile Status: Acute Plan: -- currently on Flagyl. Her diarrhea has resolved. Now she is constipated Assessment 76y/o female with metastatic breast cancer transferred here from [place] with C. difficile colitis and renal failure. h/o Anemia. Pericarditis. Pneumonia. Hydronephrosis. C. difficile colitis. Pulmonary embolism--IVC filter, 2008 Cutaneous herpes simplex. +Port placement. Left mastectomy. Right ureteral stent placement in May of 2015 and May of 2016. Appendectomy. Hysterectomy. Dialysis catheter placement and removal. Plan 1. Metastatic breast carcinoma (systemic disease to the liver and extensive bone involvement, leptomeningeal metastases as well as brain parenchymal metastases ) her disease is HER-2/sosa amplified. I did talk to the patient today about goals of care, I think we should continue to aim for intrathecal injection of palliative chemotherapy for management of her intracranial disease as well as consider resumption of systemic chemotherapy to help prolong survival. Goals remain unchanged. 2. Acute renal failure: Resolving with placement of bilateral percutaneous nephrostomy tubes. Later today she will undergo replacement of bilateral ureteric stents. Following this we will attempt to The percutaneous nephrostomy tubes to determine if she is able to maintain renal function and antegrade urine flow. Appreciate the assistance of our urology service as well as the hospitalist service. Continue supportive care. Demario Leach MD Dec 13, 2016 08:34
[2016-12-13] MEDS: HEPARIN SODIUM - SQ 10,000 UNITS/ML VIAL SQ SCH ×2 (09:46→18:02)
[2016-12-13] MEDS: SODIUM CHLORIDE 0.9% FLUSH 5 ML FLUSH FLUSH SCH ×2 (09:46→21:30)
[2016-12-13] MEDS ORDERED: IOHEXOL 300 MG/ML 50 ML BTL (for RAD DIAG) ONE (11:56)
[2016-12-13] MEDS ORDERED: ONDANSETRON HCL 4 MG/2 ML VIAL IV PUSH ONE (12:00)
[2016-12-13] MEDS ORDERED: PROPOFOL 200 MG/20 ML AMP IV ONE (12:00)
--- NOTE | 2016-12-13 12:11 | PD.OP ---
Operative Report Date of Surgery: Dec 13, 2016 Preoperative Diagnosis: (1) Bilateral ureteral obstruction Postoperative Diagnosis: (1) Bilateral ureteral obstruction Procedure: Cystoscopy, bilateral retrograde pyelograms, right ureteral stent exchange and left ureteral stent insertion Anesthesia: General Surgeon: Iban Sierra Fitness Instructor(s): None Operation and Findings: Indication for procedure: Case of a pleasant 76-year-old female with bilateral ureteral obstruction related to metastatic breast cancer. Presents today for cystoscopy, bilateral retrograde pyelogram studies, right ureteral stent exchange and placement of left ureteral stent. She is status post recent bilateral nephrostomy tube placement. Procedure in detail: Patient was brought to the operating room suite and placed supine on the cystoscopy table. She was then placed under general anesthesia. She was then repositioned in the dorsolithotomy position and prepped and draped in normal sterile fashion. After an appropriate timeout was undertaken I proceeded with cystoscopic evaluation utilizing the rigid cystoscope with a 20 Somali sheath and 30 lens. Upon immediately placing the cystoscope some purulent drainage was evacuated and a specimen sent for culture and sensitivity. Cystoscopic evaluation was next performed after the bladder was irrigated with sterile water. The distal aspect of the previously passed right ureteral stent could be seen protruding from the right orifice. There was no efflux of urine noted on the left side. I next used a flexible grasper and grasped the right stent and removed it in its entirety. A sensor 0.035 wire was then advanced up the patient's right ureter and a A 6 Somali open ended ureteral catheter was then advanced over the wire and the wire withdrawn. A right retrograde pyelogram study was performed. There was poor drainage of contrast from the collecting system. The wire was reintroduced and the open- ended catheter was exchanged for a 6 Somali 22 cm care home stent. The stent was passed in the both cystoscopic and fluoroscopic guidance without difficulty. Once the stent was in proper position the trailing string was removed. In similar fashion the contralateral side was accomplished. The left retrograde problem study again demonstrated poor drainage of contrast from the collecting system. With both ureteral stents in place the bladder was drained of clear fluid and the cystoscope was withdrawn. The patient tolerated the procedures without complications and was transferred to the PACU in satisfactory condition. Iban Sierra MD Dec 13, 2016 12:11
[2016-12-13] MEDS ORDERED: DO NOT ADM ANY ANTICOAGULANT DRUGS XX PRN (12:15)
[2016-12-13] MEDS ORDERED: fentaNYL CITRATE 250 MCG/5 ML AMP ONE (12:22)
[2016-12-13] MEDS ORDERED: *morphine SULFATE 8 MG/ML PERIprocedure ONLY ONE (12:36)
[2016-12-13] MEDS: ONDANSETRON HCL 4 MG/2 ML VIAL IV PUSH PRN (13:03)
[2016-12-13] MEDS: ACETAMINOPHEN/HYDROcodone 325 MG/10 MG TAB PO PRN ×2 (13:03→22:23)
--- NOTE | 2016-12-13 13:38 | HHI.PR ---
Subjective Remarks patient back from bilateral stent procedure no complains of pain feels tired patient voided spontaneously 700 cc Objective Vitals Vital Signs Date Time Temp Pulse Resp B/P Pulse Ox O2 Delivery O2 Flow Rate FiO2 12/13/16 12:45 97.2 71 12 158/80 96 Room Air 12/13/16 12:30 69 12 161/81 96 Room Air 12/13/16 12:15 97.2 70 12 157/86 99 Nasal Cannula 2 12/13/16 08:00 97.5 79 18 142/65 95 12/13/16 07:01 76 12/13/16 04:45 97.4 81 18 156/75 95 12/13/16 00:30 97.7 84 16 135/64 94 12/12/16 21:00 97.3 82 16 139/65 95 12/12/16 20:00 79 12/12/16 16:00 97.4 75 16 144/78 99 I/O 12/12/16 12/12/16 12/12/16 12/13/16 12/13/16 12/13/16 07:00 15:00 23:00 07:00 15:00 23:00 Intake Total 600 ml 300 ml Output Total 875 ml 1125 ml Balance -275 ml -825 ml Intake Oral 600 ml Other 300 ml Drainage Total 875 ml 1125 ml Result Diagram: 12/12/16 1425 12/12/16 1425 Objective Remarks awake and alert, oriented x 3 anicteric lungs no rales regular rhythm abdomen soft, nontender bilateral nephrostomy tubes in place- capped extremities no edema neuro exam- unremarkable Procedures 12/13- cystoscopy with bilateral stent insertion- right ureteral stent exchange, left ureteral stent insertion A/P Assessment and Plan This is a 76-year-old female patient with past medical history which includes Metastatic breast cancer with metastases included liver brain and bone currently undergoing chemotherapy/radiation, anemia, pericarditis, pneumonia, hydronephrosis with hydroureter, cutaneous herpes simplex, C. difficile 2012, pulmonary embolism status post IVC filter. Patient follows with medical oncologist Dr. Leach and radiation oncologist Dr. Osullivan. Patient was in [place] at the [facility] [place] seeking treatment for her when patient began to feel cold. And on Monday12/04/2016 patient proceeded to [facility] she continued to feel unwell mostly feeling chills as well as diarrhea and vomiting. Patient was found to have C. difficile colitis as well as acute kidney injury with a creatinine of 11. C. difficile colitis- improved continue oral Flagyl stop date 12/19/2016 Obstructive uropathy s/p cystoscopy with bilateral stent insertion 12/13 renal functions near baseline Dr. Mariela beck Metastatic breast cancer Patient known to Dr. Leach prn pain meds plan for chemotherapy Anemia- acute on top of chronic S/P 1 unit of RBC 12/12 Patient with history of pulmonary embolism status post IVC filter placed DVT prophylaxis subcutaneous heparin Code status DNR DC planning hopefully tomorrow CM consult for home health care nursing Gely Higginbotham MD Dec 13, 2016 13:38
--- NOTE | 2016-12-13 13:45 | HHI.FF ---
Face to Face Verification Diagnosis: (1) Metastatic breast cancer (2) History of Clostridium difficile (3) Bilateral ureteral obstruction Physical Therapy Order: Evaluate and Treat, Improve ambulation Occupational Therapy Order: Improve ADL Home Health Nursing Order: Medical education Signs/symptoms of disease process Wound care and dressing changes Regional Safety Manager Order: To Evaluate: Support services I have seen patient Kandy Carrion on 12/13/16. My clinical findings support the need for the requested home health care services because: Ltd mobility - disease progression Deconditioned w/ increased weakness Need for psychosocial assistance I certify that my clinical findings support that this patient is homebound because: Need for psychosocial assistance Gely Higginbotham MD Dec 13, 2016 13:45
[2016-12-13] MEDS: PROMETHAZINE HCL 25 MG TAB PO PRN (15:47)
[2016-12-13 16:00] VITALS: BP 139/67; PULSE 77; RESP 16; TEMP 96.8; O2SAT 94
[2016-12-13] MEDS: ACETAMINOPHEN/HYDROcodone 325 MG/5 MG TAB PO PRN (18:07)
[2016-12-13 20:00] VITALS: BP 125/62; PULSE 80; RESP 16; TEMP 96.4; O2SAT 95
[2016-12-14 00:30] VITALS: BP 118/57; PULSE 76; RESP 16; TEMP 97.1; O2SAT 94
[2016-12-14] MEDS: HEPARIN SODIUM - SQ 10,000 UNITS/ML VIAL SQ SCH ×3 (01:00→17:10)
[2016-12-14 04:00] VITALS: BP 134/62; PULSE 86; RESP 18; TEMP 97.7; O2SAT 94
[2016-12-14] MEDS: metroNIDAZOLE 500 MG TAB PO SCH ×3 (05:26→22:34)
[2016-12-14] MEDS ORDERED: LACTULOSE SYRUP 20 GM/30 ML CUP PO PRN (05:45)
[2016-12-14] MEDS ORDERED: BISACODYL 10 MG SUPP PR PRN (05:45)
[2016-12-14] MEDS ORDERED: HYDR-3583 PO (05:46)
[2016-12-14] MEDS ORDERED: WALKER WHEELS/F1 MIS (05:49)
[2016-12-14] MEDS ORDERED: LACTCHW3 CHEW (05:49)
--- NOTE | 2016-12-14 07:08 | EKG ---
Date Performed: 12/13/2016 Time Performed: 09:26:42 PTAGE: 76 years EKG: Sinus rhythm Compared to prior tracing ST elevation has almost completely resolved NORMAL ECG PREVIOUS TRACING : 01/10/2016 10.27 DOCTOR: Pavan Shore Interpretating Date/Time 12/14/2016 07:08:27
[2016-12-14] MEDS: ONDANSETRON HCL 4 MG/2 ML VIAL IV PUSH PRN ×3 (07:19→22:34)
[2016-12-14 08:00] VITALS: BP 104/67; PULSE 96; RESP 18; TEMP 98.4; O2SAT 94
[2016-12-14] MEDS: LACTOBACILLUS ACIDOPHILUS TAB PO SCH ×4 (09:00→17:09)
[2016-12-14] MEDS: DOCUSATE SODIUM 50 MG/SENNA 8.6 MG TAB PO SCH ×2 (09:00→20:05)
--- NOTE | 2016-12-14 09:28 | HHI.PR ---
Subjective Remarks Follow-up obstructive uropathy. Complains of nausea especially when she is standing. Vomited 1. Still no BM denies abdominal pain and distention. Discussed with RN Objective Vitals Vital Signs Date Time Temp Pulse Resp B/P Pulse Ox O2 Delivery O2 Flow Rate FiO2 12/14/16 08:00 98.4 96 18 104/67 94 12/14/16 04:00 97.7 86 18 134/62 94 12/14/16 00:30 97.1 76 16 118/57 94 12/13/16 20:00 96.4 80 16 125/62 95 12/13/16 19:07 16 12/13/16 16:00 96.8 77 16 139/67 94 12/13/16 15:57 16 12/13/16 12:45 97.2 71 12 158/80 96 Room Air 12/13/16 12:30 69 12 161/81 96 Room Air 12/13/16 12:15 97.2 70 12 157/86 99 Nasal Cannula 2 I/O 12/13/16 12/13/16 12/13/16 12/14/16 12/14/16 12/14/16 07:00 15:00 23:00 07:00 15:00 23:00 Intake Total 300 ml 240 ml Output Total 1825 ml 550 ml Balance -1525 ml -550 ml 240 ml Intake Oral 240 ml Other 300 ml Output Urine Total 700 ml 550 ml Drainage Total 1125 ml # Voids 1 Result Diagram: 12/12/16 1425 12/12/16 1425 Objective Remarks GENERAL: Well-developed, well-nourished in distress secondary to nausea SKIN: Warm and dry. HEAD: Atraumatic. Normocephalic. EYES: Pupils equal and round. No scleral icterus. No injection or drainage. ENT: No nasal bleeding or discharge. Mucous membranes pink and moist. NECK: Trachea midline. No JVD. CARDIOVASCULAR: Regular rate and rhythm. RESPIRATORY: No accessory muscle use. Clear to auscultation. Breath sounds equal bilaterally. GASTROINTESTINAL: Abdomen soft, non-tender, nondistended. Nephrostomy tubes MUSCULOSKELETAL: Extremities without clubbing, cyanosis, or edema. No obvious deformities. NEUROLOGICAL: Awake and alert. No obvious cranial nerve deficits. Motor grossly within normal limits. Five out of 5 muscle strength in the arms and legs. Normal speech. PSYCHIATRIC: Appropriate mood and affect; insight and judgment normal. Procedures 12/13- cystoscopy with bilateral stent insertion- right ureteral stent exchange, left ureteral stent insertion A/P Problem List: (1) Bilateral ureteral obstruction ICD Code: N13.5 Status: Acute (2) Metastatic breast cancer ICD Code: C50.919 Status: Chronic Assessment and Plan This is a 76-year-old female patient with past medical history which includes Metastatic breast cancer with metastases included liver brain and bone currently undergoing chemotherapy/radiation, anemia, pericarditis, pneumonia, hydronephrosis with hydroureter, cutaneous herpes simplex, C. difficile 2012, pulmonary embolism status post IVC filter. Patient follows with medical oncologist Dr. Leach and radiation oncologist Dr. Osullivan. Patient was in [place] at the [facility] spine [place] seeking treatment for her when patient began to feel cold. And on Monday12/04/2016 patient proceeded to [facility] she continued to feel unwell mostly feeling chills as well as diarrhea and vomiting. Patient was found to have C. difficile colitis as well as acute kidney injury with a creatinine of 11. C. difficile colitis- improved continue oral Flagyl stop date 12/19/2016 Constipation. Start Licha-Colace and Lactinex Obstructive uropathy s/p cystoscopy with bilateral stent insertion 12/13 renal functions near baseline Dr. Sierra ff Bilateral ureteral stents were placed and the nephrostomy tubes capped off. The bilateral ureteral stents appear to be working well. Will repeat a basic metabolic profile tomorrow interventional radiology to remove the bilateral nephrostomy tubes under fluoroscopy tomorrow. Metastatic breast cancer Patient known to Dr. Leach prn pain meds plan for chemotherapy Nausea secondary to above. Continue Zofran and start IV fluids. If persistent vomiting obtain KUB. Anemia- acute on top of chronic S/P 1 unit of RBC 12/12 Patient with history of pulmonary embolism status post IVC filter placed DVT prophylaxis subcutaneous heparin Code status DNR Discharge Planning DC planning hopefully tomorrow CM consult for home health care nursing Alvin Bernardo MD Dec 14, 2016 09:28
[2016-12-14] MEDS: PROMETHAZINE HCL 25 MG TAB PO PRN ×2 (09:31→17:09)
[2016-12-14] MEDS: SODIUM CHLORIDE 0.9% FLUSH 5 ML FLUSH FLUSH SCH ×2 (10:30→20:05)
--- NOTE | 2016-12-14 11:38 | HHI.PR ---
Subjective Remarks Status post placement of bilateral ureteral stents yesterday. Denies any pain or discomfort. Urinating well. Her only complaint is some leakage of urine from the left nephrostomy tube cap Objective Vital Signs Vital Signs Date Time Temp Pulse Resp B/P Pulse Ox O2 Delivery O2 Flow Rate FiO2 12/14/16 08:00 98.4 96 18 104/67 94 12/14/16 04:00 97.7 86 18 134/62 94 12/14/16 00:30 97.1 76 16 118/57 94 12/13/16 20:00 96.4 80 16 125/62 95 12/13/16 19:07 16 12/13/16 16:00 96.8 77 16 139/67 94 12/13/16 15:57 16 12/13/16 12:45 97.2 71 12 158/80 96 Room Air 12/13/16 12:30 69 12 161/81 96 Room Air 12/13/16 12:15 97.2 70 12 157/86 99 Nasal Cannula 2 I/O 12/13/16 12/13/16 12/13/16 12/14/16 12/14/16 12/14/16 07:00 15:00 23:00 07:00 15:00 23:00 Intake Total 300 ml 240 ml Output Total 1825 ml 550 ml Balance -1525 ml -550 ml 240 ml Intake Oral 240 ml Other 300 ml Output Urine Total 700 ml 550 ml Drainage Total 1125 ml # Voids 1 Result Diagram: 12/12/16 1425 12/12/16 1425 Objective Remarks Bilateral nephrostomy tubes clamped off. The left cap was loose and easily tightened. Assessment and Plan Problem List: (1) CKD (chronic kidney disease) stage 3, GFR 30-59 ml/min ICD Code: N18.3 Status: Chronic (2) Metastatic breast cancer ICD Code: C50.919 Status: Chronic (3) Breast carcinoma metastatic to multiple sites ICD Code: C50.919 Status: Acute Assessment and Plan Urologic impression: #1 Bilateral ureteral obstruction related to metastatic breast cancer status post placement of nephrostomy tubes. #2 Bilateral ureteral stents were placed yesterday and the nephrostomy tubes capped off. #3 The bilateral ureteral stents appear to be working well. Plan: #1 repeat a basic metabolic profile tomorrow #2 interventional radiology to remove the bilateral nephrostomy tubes under fluoroscopy tomorrow. Iban Sierra MD Dec 14, 2016 11:38
[2016-12-14 13:00] VITALS: BP 101/57; PULSE 91; RESP 18; TEMP 98.8; O2SAT 93
[2016-12-14 21:00] VITALS: BP 127/61; PULSE 90; RESP 18; TEMP 100.4; O2SAT 95
[2016-12-14] MEDS: ACETAMINOPHEN/HYDROcodone 325 MG/5 MG TAB PO PRN (22:34)
[2016-12-15] VITALS (13 sets, daily range): BP systolic 66–143; BP diastolic 34–76; PULSE 68–130; RESP 16–28; TEMP 96.8–102.9; O2SAT 90–98
[2016-12-15] MEDS: HEPARIN SODIUM - SQ 10,000 UNITS/ML VIAL SQ SCH ×3 (01:48→15:47)
[2016-12-15] MEDS: ACETAMINOPHEN/HYDROcodone 325 MG/5 MG TAB PO PRN (03:39)
[2016-12-15] MEDS: metroNIDAZOLE 500 MG TAB PO SCH ×3 (05:28→20:03)
[2016-12-15 06:39] LABS: BICARBONATE 26.1 MEQ/L (21.0-32.0); MAGNESIUM 1.8 MG/DL (1.5-2.5); POTASSIUM 3.9 MEQ/L (3.5-5.1)
--- NOTE | 2016-12-15 07:45 | HHI.PR ---
Subjective Remarks Follow-up nausea and vomiting. Had a total of 4 episodes of vomiting yesterday. Improved today. MAXIMUM TEMPERATURE 100.4. Urinary bladder fluid culture grew Morganella Morgagni sensitive to Levaquin. Discussed with , hold off with removal of nephrostomy chew secondary to elevated creatinine. If worsening creatinine, nephrostomy tubes to be uncapped. Patient to follow-up with outpatient Objective Vitals Vital Signs Date Time Temp Pulse Resp B/P Pulse Ox O2 Delivery O2 Flow Rate FiO2 12/15/16 04:00 100.2 99 18 143/76 96 12/15/16 00:30 99.3 89 18 123/57 96 12/14/16 21:00 100.4 90 18 127/61 95 12/14/16 13:00 98.8 91 18 101/57 93 12/14/16 08:00 98.4 96 18 104/67 94 I/O 12/14/16 12/14/16 12/14/16 12/15/16 12/15/16 12/15/16 07:00 15:00 23:00 07:00 15:00 23:00 Intake Total 240 ml 180 ml 240 ml Output Total 300 ml 500 ml 200 ml Balance 240 ml -120 ml -500 ml 40 ml Intake Oral 240 ml 180 ml 240 ml Output Urine Total 300 ml 500 ml 200 ml # Voids 1 Result Diagram: 12/12/16 1425 12/15/16 0530 Objective Remarks GENERAL: Well-developed, well-nourished in no distress. Signs of dehydration with dry oral mucosa SKIN: Warm and dry. HEAD: Atraumatic. Normocephalic. EYES: Pupils equal and round. No scleral icterus. No injection or drainage. ENT: No nasal bleeding or discharge. Mucous membranes pink and moist. NECK: Trachea midline. No JVD. CARDIOVASCULAR: Regular rate and rhythm. RESPIRATORY: No accessory muscle use. Clear to auscultation. Breath sounds equal bilaterally. GASTROINTESTINAL: Abdomen soft, non-tender, nondistended. Nephrostomy tubes in place MUSCULOSKELETAL: Extremities without clubbing, cyanosis, or edema. No obvious deformities. NEUROLOGICAL: Awake and alert. No obvious cranial nerve deficits. Motor grossly within normal limits. Five out of 5 muscle strength in the arms and legs. Normal speech. PSYCHIATRIC: Appropriate mood and affect; insight and judgment normal. Procedures 12/13- cystoscopy with bilateral stent insertion- right ureteral stent exchange, left ureteral stent insertion A/P Problem List: (1) Bilateral ureteral obstruction ICD Code: N13.5 Status: Acute (2) Metastatic breast cancer ICD Code: C50.919 Status: Chronic Assessment and Plan This is a 76-year-old female patient with past medical history which includes Metastatic breast cancer with metastases included liver brain and bone currently undergoing chemotherapy/radiation, anemia, pericarditis, pneumonia, hydronephrosis with hydroureter, cutaneous herpes simplex, C. difficile 2012, pulmonary embolism status post IVC filter. Patient follows with medical oncologist Dr. Leach and radiation oncologist Dr. Osullivan. Patient was in [place] at the [facility] spine [place] seeking treatment for her when patient began to feel cold. And on Monday12/04/2016 patient proceeded to [facility] she continued to feel unwell mostly feeling chills as well as diarrhea and vomiting. Patient was found to have C. difficile colitis as well as acute kidney injury with a creatinine of 11. C. difficile colitis- improved continue oral Flagyl stop date 12/19/2016 Constipation. Still no BM continue Licha-Colace and Lactinex and as needed medicines for constipation Obstructive uropathy s/p cystoscopy with bilateral stent insertion 12/13 renal functions slightly worse today, acute on chronic kidney disease stage III. Repeat BMP and magnesium in the morning. Avoid nephrotoxins Discussed with Dr. Sierra ff Bilateral ureteral stents were placed and the nephrostomy tubes capped off. Holding off to remove the bilateral nephrostomy tubes under fluoroscopy secondary to worsening kidney function may need nephrostomy tubes to be uncapped. Patient to follow-up with outpatient Metastatic breast cancer Patient known to Dr. Leach prn pain meds plan for chemotherapy Nausea secondary to above and UTI. Improved Continue Zofran and start IV fluids. If persistent vomiting obtain KUB. UTI. Urinary bladder fluid culture grew Morganella Morgagni sensitive to Levaquin. We'll start Levaquin Anemia- acute on top of chronic S/P 1 unit of RBC 12/12 Patient with history of pulmonary embolism status post IVC filter placed DVT prophylaxis subcutaneous heparin Code status DNR Discharge Planning DC planning hopefully tomorrow CM consult for home health care nursing Alvin Bernardo MD Dec 15, 2016 07:45
[2016-12-15] MEDS: SODIUM CHLORIDE 0.9% FLUSH 5 ML FLUSH FLUSH SCH ×2 (09:56→20:03)
[2016-12-15] MEDS: LACTOBACILLUS ACIDOPHILUS TAB PO SCH ×3 (09:56→17:20)
[2016-12-15] MEDS: DOCUSATE SODIUM 50 MG/SENNA 8.6 MG TAB PO SCH ×2 (09:56→20:03)
[2016-12-15] MEDS: SODIUM CHLOR 0.9% 1000 ML INJ 1,000 ML IV SCH ×2 (10:02→20:03)
[2016-12-15] MEDS ORDERED: LACT PO (12:12)
--- NOTE | 2016-12-15 12:21 | HHI.PR ---
Subjective Remarks Tolerating bilateral ureteral stents well Bilateral nephrostomy tubes have remained capped off and denies leakage from or around tubes. Was having problems with vomiting yesterday presently feels fine Objective Vital Signs Vital Signs Date Time Temp Pulse Resp B/P Pulse Ox O2 Delivery O2 Flow Rate FiO2 12/15/16 08:00 96.8 68 16 110/61 96 12/15/16 04:00 100.2 99 18 143/76 96 12/15/16 00:30 99.3 89 18 123/57 96 12/14/16 21:00 100.4 90 18 127/61 95 12/14/16 13:00 98.8 91 18 101/57 93 I/O 12/14/16 12/14/16 12/14/16 12/15/16 12/15/16 12/15/16 07:00 15:00 23:00 07:00 15:00 23:00 Intake Total 240 ml 180 ml 240 ml Output Total 300 ml 500 ml 200 ml 200 ml Balance 240 ml -120 ml -500 ml 40 ml -200 ml Intake Oral 240 ml 180 ml 240 ml Output Urine Total 300 ml 500 ml 200 ml 200 ml # Voids 1 Result Diagram: 12/12/16 1425 12/15/16 0530 Objective Remarks Bilateral nephrostomy tubes remain clamped off. Assessment and Plan Problem List: (1) CKD (chronic kidney disease) stage 3, GFR 30-59 ml/min ICD Code: N18.3 Status: Chronic (2) Metastatic breast cancer ICD Code: C50.919 Status: Chronic (3) Breast carcinoma metastatic to multiple sites ICD Code: C50.919 Status: Acute Assessment and Plan Urologic impression: #1 Bilateral ureteral obstruction related to metastatic breast cancer status post placement of nephrostomy tubes. #2 Bilateral ureteral stents were placed on the nephrostomy tubes capped off. #3 mild increase in serum creatinine this morning possibly related to bouts of vomiting Plan: #1 repeat a basic metabolic profile tomorrow #2 interventional radiology to remove the bilateral nephrostomy tubes under fluoroscopy tomorrow if serum creatinine levels improved. Iban Sierra MD Dec 15, 2016 12:21
[2016-12-15] MEDS ORDERED: LEVOFLOXACIN 250 MG TAB PO SCH (13:00)
[2016-12-15] MEDS: ONDANSETRON HCL 4 MG/2 ML VIAL IV PUSH PRN ×2 (13:49→20:02)
[2016-12-15] MEDS ORDERED: PROMETHAZINE INJ 25 MG/ML VIAL IV-CENTRAL STA (14:04)
--- NOTE | 2016-12-15 14:54 | PD.ONC.PN ---
Subjective Subjective Remarks Patient feeling very nauseated this afternoon. Per nurse she was well all morning then in the afternoon started to feel nauseated and starting vomiting. Nausea was made worse with sitting her head up. She denies abdominal pain or headache. There have been no neurologic deficits. Objective Data Date Time Temp Pulse Resp B/P Pulse Ox O2 Delivery O2 Flow Rate FiO2 12/15/16 12:00 97.8 93 16 131/69 98 12/15/16 08:00 96.8 68 16 110/61 96 12/15/16 04:00 100.2 99 18 143/76 96 12/15/16 00:30 99.3 89 18 123/57 96 12/14/16 21:00 100.4 90 18 127/61 95 12/15/16 12/15/16 12/15/16 07:00 15:00 23:00 Intake Total 240 ml 960 ml Output Total 200 ml 200 ml Balance 40 ml 760 ml Result Diagram: 12/12/16 1425 12/15/16 0530 Laboratory Results Laboratory Tests Test 12/15/16 05:30 Sodium Level 138 MEQ/L Potassium Level 3.9 MEQ/L Chloride Level 104 MEQ/L Carbon Dioxide Level 26.1 MEQ/L Anion Gap 8 MEQ/L Blood Urea Nitrogen 20 MG/DL Creatinine 1.82 MG/DL Estimat Glomerular Filtration 27 ML/MIN Rate Random Glucose 105 MG/DL Calcium Level 7.5 MG/DL Magnesium Level 1.8 MG/DL Culture Results Microbiology Date/Time Procedure Status Source Growth 12/13/16 11:44 Gram Stain - Final Complete Fluid Other 12/13/16 11:44 Body Fluid Culture - Final Complete Morganella Morganii 12/13/16 11:44 Acid Fast Stain - Final Resulted Fluid Other NO ACID FAST BACILLI SEEN 12/13/16 11:44 Mycobacterial Culture Resulted Fluid Other Pending 12/13/16 11:44 Fungal Smear - Final Resulted Fluid Other NO FUNGAL ELEMENTS SEEN. 12/13/16 11:44 Fungal Culture Resulted Fluid Other Pending Administered Medications Medications (Trade) Dose Ordered Sig/Randell Route PRN Reason Start Time Stop Time Status Last Admin Dose Admin IV Flush (NS Flush) 2 ml BID FLUSH 12/10/16 09:00 12/15/16 09:56 Heparin Sodium (Porcine) (Heparin Inj) 5,000 units Q8H SQ 12/10/16 09:00 12/15/16 09:56 Metronidazole (Flagyl) 500 mg Q8HR PO 12/10/16 06:00 12/19/16 05:59 12/15/16 05:28 Ondansetron HCl (Zofran Inj) 4 mg Q6HR PRN IV PUSH nausea 12/10/16 10:30 12/15/16 13:49 Acetaminophen/ Hydrocodone Bitart ([place] 5-325 Mg) 1 tab Q4H PRN PO PAIN SCALE 1 TO 5 12/10/16 10:45 12/15/16 03:39 Acetaminophen/ Hydrocodone Bitart ([place] 10-325 Mg) 1 tab Q4H PRN PO PAIN SCALE 6 TO 10 12/10/16 10:45 12/13/16 22:23 Promethazine HCl (Phenergan) 25 mg Q4H PRN PO nausea 12/10/16 10:45 12/14/16 17:09 Senna/Docusate Sodium (Licha-Colace) 1 tab BID PRN PO constipation 12/11/16 09:30 12/12/16 02:46 Heparin Sodium (Porcine) (Heparin Central Flush) 250 units UNSCH PRN IVF SEE PROTOCOL TABLE 12/11/16 13:00 12/12/16 05:25 Senna/Docusate Sodium (Licha-Colace) 2 tab BID PO 12/14/16 09:00 12/15/16 09:56 Lactulose (Lactulose Liq) 30 ml TID PRN PO CONSTIPATION 12/14/16 05:45 12/15/16 10:02 Lactobacillus Acidophilus 1 tab 1 tab TID PO 12/14/16 09:00 12/15/16 09:56 Sodium Chloride (NS 1000 ml Inj) 1,000 ml @ 70 mls/hr [id number] IV 12/15/16 07:45 12/15/16 10:02 Dexamethasone Sodium Phosphate (Decadron Inj) 4 mg ONCE ONCE IV PUSH 12/15/16 15:00 12/15/16 15:01 12/15/16 14:41 Pantoprazole Sodium (Protonix Inj) 40 mg ONCE ONCE IV PUSH 12/15/16 15:00 12/15/16 15:01 12/15/16 14:41 Objective Remarks GENERAL: Weak appearing female, sitting slumped over in chair next to bed, awake but very weak. SKIN: Warm and dry. HEAD: Normocephalic. EYES: No injection or drainage. NECK: Supple, trachea midline. CARDIOVASCULAR: tachycardic rate, regular rhythm. RESPIRATORY: Breath sounds equal bilaterally. No accessory muscle use. GASTROINTESTINAL: Abdomen soft, non-tender, nondistended. EXTREMITIES: No cyanosis NEUROLOGICAL: awake and alert but very lethargic. answers questions yes or no. Assessment/Plan Problem List: (1) Metastatic breast cancer Status: Chronic Plan: History: --first diagnosed in 2008. had neoadjuvant dose-dense chemotherapy followed by mastectomy and radiation. --maintained on letrozole but developed a bone metastasis in April of 2013. then treated with Xeloda. --August of 2014 developed liver metastasis. given a Faslodex without any improvement. then treated with weekly Taxol. --June of 2015 disease was rebiopsied and she was now found to have HER-2 positive disease (previously HER-2 negative), started on Herceptin and Perjeta. had a reaction to Perjeta and was switched to Herceptin and Navelbine. --October of 2016, found to have a new brain metastasis.completed WBRT, this was completed about a week ago. The plan was to initiate intrathecal chemotherapy with cytarabine. While continuing systemic therapy with Herceptin based chemotherapy. (2) CKD (chronic kidney disease) stage 3, GFR 30-59 ml/min Status: Chronic Plan: -- Acute renal failure due to obstructive uropathy. -- had dialysis twice when in [place]. -- had bilateral nephrostomy tube placement. -- Urology following, ureteral stents were placed bilaterally 12/13, nephrostomy tubes capped off. --creatinine trending back up. (3) History of Clostridium difficile Status: Acute Plan: -- currently on Flagyl. Her diarrhea has resolved. Now she is constipated Assessment 76y/o female with metastatic breast cancer transferred here from [place] with C. difficile colitis and renal failure. h/o Anemia. Pericarditis. Pneumonia. Hydronephrosis. C. difficile colitis. Pulmonary embolism--IVC filter, 2008 Cutaneous herpes simplex. +Port placement. Left mastectomy. Right ureteral stent placement in May of 2015 and May of 2016. Appendectomy. Hysterectomy. Dialysis catheter placement and removal. Plan 1. nausea/vomiting: unclear etiology. could be due to rising creatinine or anesthesia effect from recent procedure. could be due to brain mets will obtain CT brain, she does not have any acute deficits. will give IV phenergan, decadron and protonix for symptom control, as well Attending Statement The exam, history, and the medical decision-making described in the above note were completed with the assistance of the mid-level provider. I reviewed and agree with the findings presented. I attest that I had a [id number] encounter with the patient on the same day, and personally performed and documented my assessment and findings in the medical record. Ms. Carrion was seen and examined, she is experiencing profuse diarrhea, sensation of nausea associated with vomiting as well. She had a temp spike of 102.4F. She reports feeling too weak to even rollover from her side. I've ordered D5% normal saline 500 mL bolus now. Blood cultures and urine cultures have been ordered. 1 dose of vancomycin 1000 mg IV times one has been ordered. Cefepime 1 g IV every 12 hours is also been ordered. Heparin 5000 units subcutaneous every 8 hours has been put on hold for the time being; pending results of the CT scan of the head. Mallory Agosto Dec 15, 2016 14:54 Demario Leach MD Dec 15, 2016 17:07
[2016-12-15] MEDS ORDERED: DEXAMETHASONE SOD PHOS 4 MG/ML VIAL IV PUSH ONE (15:00)
[2016-12-15] MEDS ORDERED: PANTOPRAZOLE SODIUM 40 MG VIAL IV PUSH ONE (15:00)
[2016-12-15 15:25] LABS: AUTOMATED NEUTROPHIL # 1.9 TH/MM3 (1.8-7.7); EOSINOPHIL % 0.5 % (0.0-4.0); HEMATOCRIT 29.2 % (35.0-46.0); HEMO FLAGS DIFF FINAL; LYMPH % 2.5 % (9.0-44.0); LYMPHOCYTE # 0.1 TH/MM3 (1.0-4.8); MEAN CELL VOLUME 95.7 FL (80.0-100.0); MEAN CORPUSCULAR HEMOGLOBIN 30.6 PG (27.0-34.0); MONO % 0.4 % (0.0-8.0); NEUT % 96.6 % (16.0-70.0); PLATELET COUNT 183 TH/MM3 (150-450); RED BLOOD COUNT 3.04 MIL/MM3 (4.00-5.30); RED CELL DISTRIBUTION WIDTH 16.7 % (11.6-17.2)
[2016-12-15 15:42] LABS: INDIRECT BILIRUBIN 0.6 MG/DL (0.0-0.8); TOTAL BILIRUBIN ADULT 1.2 MG/DL (0.2-1.0)
[2016-12-15] MEDS ORDERED: PROMETHAZINE INJ 25 MG/ML VIAL IV-CENTRAL PRN (16:00)
[2016-12-15] MEDS ORDERED: VANCOMYCIN INJ 1,000 MG in SODIUM CHLOR 0.9% 250 ML INJ 250 ML IV ONE (16:45)
[2016-12-15] MEDS ORDERED: DEXT 5%-NACL 0.9% 500 ML INJ 500 ML IV ONE (16:45)
[2016-12-15] MEDS ORDERED: CEFEPIME INJ 1,000 MG in SODIUM CHLORIDE 0.9% INJ 100 ML IV SCH (17:00)
[2016-12-15] MEDS: ACETAMINOPHEN 650 MG/20.3 ML UDC PO PRN (17:18)
[2016-12-15] MEDS ORDERED: ACETAMINOPHEN 1000 MG/100 ML VIAL IV ONE (18:00)
[2016-12-15] MEDS ORDERED: SODIUM CHLORID 0.9% 500 ML INJ 500 ML IV ONE (20:45)
--- NOTE | 2016-12-15 20:47 | HHI.FPPN ---
Addendum to progress note ADDENDUM Reason for addendum: Additonal documentation Additional information [facility] Addendum Subjective: Resident Bitas notified team of [facility]. Team was not paged through [employer] system. Dr. Rod and Dr. Thorne reported to bedside ~8:30pm. [facility] nurse and floor nurse were present, were obtaining vitals, and gave sign out. Pt 76 year-old female, admitted for tx metastatic breast cancer, C. difficile, and CKD stage 3, presenting with hypotension to 74/49 after intractable nausea/ vomiting for the last five hours. Pt reports no nausea at present s/p zofran but does feel weak/fatigued. Denies CP, SOB, ESTRADA, syncope. Objective: VITALS: Afebrile. Pulse: 110. B/P: 72/42 O2: 94% on 2L NC. GEN: Thin, ill appearing female in NAD CV: Tachycardic. Regular rhythm. No murmurs RESP: Anterior lung exam CTAB. No wheezing. 2L NC. GI: Abd non-tender, non-distended. MSK: Moves all four limbs against gravity NEURO: Grossly motor and sensory intact Assessment 76 year-old female with metastatic breast cancer, CKD Stage 3, and intractable nausea/vomiting for the last 5 hours called for [facility] alert for hypotension to 72/42 at 8:30pm Strongly suspect hypotension secondary to fluid losses from vomiting. Has not received sedating mediations that would slow HR. S/p 500mL D5 NS bolus at 4pm and 500 NS bolus at 8:45pm. Has been receiving NS @70mL/hr. UOP poor- 200mL over past 24 hours. Electrolytes from 5:30am wnl Plan -1L bolus NS x1 -Continue monitor vitals with goal MAP 65+ -If remains hypotensive s/p bolus, consider increase MIVF vs further workup -Continue O2 supplementation to maintain saturations 89%+ -Monitor I&Os- consider re-evaluate Bun/Cr and/or bladder scan if no increased UOP -Continue control nausea with Zofran and Phenergan -Primary team was contacted by nursing staff, will follow up pt response to fluids and further management SDW: Jolene Hinojosa MD R1 Dec 15, 2016 20:47
[2016-12-15] MEDS ORDERED: VANCOMYCIN 500 MG/NS 100 ML IV ONE ×2 (21:00)
[2016-12-15] MEDS ORDERED: SODIUM CHLOR 0.9% 1000 ML INJ 1,000 ML IV ONE ×3 (21:00→23:30)
[2016-12-15] MEDS ORDERED: Vancomycin Consult Pharmacy 1 EA OTHER SCH (21:15)
[2016-12-15] MEDS ORDERED: VANCOMYCIN INJ 1,200 MG in SODIUM CHLOR 0.9% 250 ML INJ 250 ML IV ONE (21:15)
--- NOTE | 2016-12-15 21:30 | RADRPT ---
EXAM DATE/TIME: 12/15/2016 21:14 [facility] COMPARISON: CHEST SINGLE AP, January 09, 2016, 21:23. INDICATIONS : Fever. MEDICAL HISTORY : None. SURGICAL HISTORY : port placement. ENCOUNTER: Initial ACUITY: 1 day PAIN SCORE: 0/10 LOCATION: Bilateral chest FINDINGS: Relative to the prior examination the patient developed bibasilar opacities in the left base silhouet ting the hemidiaphragm consolidated in the lower lobe retrocardiac region and moderate groundglass ap pearance in the right lung base. CONCLUSION: Development of. bilateral basilar opacities infiltrates ground glass on the right consolidated on the left. Giovani Dimas MD on December 15, 2016 at 21:27 Board Certified Radiologist. This report was verified electronically.
[2016-12-15 22:29] LABS: BICARBONATE 19.5 MEQ/L (21.0-32.0); POTASSIUM 3.1 MEQ/L (3.5-5.1)
[2016-12-15 22:44] LABS: CALCIUM-PROTEIN CORRECTED 8.1 MG/DL (8.5-10.1)
[2016-12-16] VITALS (17 sets, daily range): BP systolic 65–114; BP diastolic 40–62; PULSE 98–126; RESP 20–31; TEMP 96.6–101.5; O2SAT 93–100
--- NOTE | 2016-12-16 00:33 | HHI.PR ---
Addendum to Inpatient Note Addendum Reason: Additional Documentation Additional Information Mrs. Carrion is a 76 year-old female with metastatic breast cancer with metastasis to liver, brain, and bone and a history of pericarditis, pneumonia, hydronephrosis, hydroureter, cutaneous herpes simplex, recent C. difficile colitis, and pulmonary embolism status post IVC filter and a DNR code status who has developed fevers throughout most of the day on 12/15/2016 with significant drop of blood pressure at around 8 PM to 69/35. A [facility] was called and the residents responded and we were also notified. I initiated a sepsis workup and 1 liter normal saline IV fluid bolus was given to the patient. CBC was done at 1500 shows significant neutrophilia despite leukopenia. Chest x-ray was done and findings are consistent with pneumonia. The patient was already on IV cefepime, so IV vancomycin was added. Lactic acid was checked and resulted at 4.6. Potassium was 3.1 on BMP and was replaced IV. Despite attempts at fluid resuscitation, she remained hypotensive with manual blood pressure of 60/31 at 2330 after a total of 2 liters NS IV bolus. Heart rate is tachycardic in the 110's. A third liter of normal saline was ordered but there is concern for fluid overload given the patient's December echocardiogram showed an EF of 35-40%. I saw the patient in her hospital room. She is startlingly asymptomatic with her hypotension. She denies dizziness, chest pain, shortness of breath. She is alert and oriented and able to participate in a discussion of medical options. I explained her medical condition to her and what we have been attempting to do to resolve it. I told her that if she was willing to receive vasopressors to bring her blood pressure up, we would need to transfer to the ICU. I discussed possible adverse effects from pressors such as distal extremity tissue damage. I also discussed the possibility of fluid overload if we continued to do IV fluid boluses. She has requested that I speak with her so that he can make the decision on what to do. I called her at home and explained the above to him as well. He is in agreement with transfer to ICU and initiation of vasopressors. I have placed an order to transfer the patient to ICU. I placed a call to Dr. Howard of the monogram technician. He has graciously agreed to assume the care of this patient. . Rosita Siu Dec 16, 2016 00:33
[2016-12-16] MEDS ORDERED: NOREPINEPHRINE-DEXTROSE DRIP 250 ML IV ONE (00:40)
--- NOTE | 2016-12-16 01:29 | PD.CONS ---
HPI Service Critical Care Medicine Consult Requested By Primary Care Physician Unknown History of Present Illness 76-year-old female patient with 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 difficile, pulmonary embolism status post IVC filter. Patient follows with medical oncologist Dr. Leach and radiation oncologist Dr. Osullivan. 12/04/2016 patient proceeded to [facility] she continued to feel unwell mostly feeling chills as well as diarrhea and vomiting. She was found to have C. difficile colitis as well as acute kidney injury with a creatinine of 11. Patient was started on by mouth Flagyl was also started on hemodialysis and underwent bilateral nephrostomy tube placement as the acute kidney injury was placed to be secondary to obstructive uropathy with bilateral hydronephrosis. Patient was transferred today December 16 ICU due to hypotension probably due to neutropenic sepsis. Review of Systems Constitutional: DENIES: Diaphoretic episodes, Fatigue, Fever, Weight gain, Weight loss, Chills, Dizziness, Change in appetite, Night Sweats Endocrine: DENIES: Abnorml menstrual pattern, Heat/cold intolerance, Polydipsia , Polyuria, Polyphagia Eyes: DENIES: Blurred vision, Diplopia, Eye inflammation, Eye pain, Vision loss , Photosensitivity, Double Vision Ears, nose, mouth, throat: DENIES: Tinnitus, Hearing loss, Vertigo, Nasal discharge, Oral lesions, Throat pain, Hoarseness, Ear Pain, Running Nose, Epistaxis, Sinus Pain, Toothache, Odynophagia Respiratory: DENIES: Apneas, Cough, Snoring, Wheezing, Hemoptysis, Sputum production, Shortness of breath Cardiovascular: DENIES: Chest pain, Palpitations, Syncope, Dyspnea on Exertion , PND, Lower Extremity Edema, Orthopnea, Claudication Gastrointestinal: DENIES: Abdominal pain, Black stools, Bloody stools, Constipation, Diarrhea, Nausea, Vomiting, Difficulty Swallowing, Anorexia Genitourinary: DENIES: Abnormal vaginal bleeding, Dysmenorrhea, Dyspareunia, Sexual dysfunction, Urinary frequency, Urinary incontinence, Urgency, Hematuria , Dysuria, Nocturia, Vaginal discharge Musculoskeletal: DENIES: Joint pain, Muscle aches, Stiffness, Joint Swelling, Back pain, Neck pain Integumentary: DENIES: Abnormal pigmentation, Pruritus, Rash, Nail changes, Breast masses, Breast skin changes, Nipple discharge Past Family Social History Allergies: Coded Allergies: Benadryl (Verified Allergy, Severe, THROAT CLOSES, 06/20/16) Past Medical History 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 difficile 2012, pulmonary embolism status post IVC filter Past Surgical History Left mastectomy and left axillary lymph node dissection, right ureteral stent 2014 replaced [address] Sierra, appendectomy, hysterectomy, IVC filter Reported Medications Reported Meds & Active Scripts Active Hydrocodone-Acetaminophen 10-325 mg Tab 1 Tab PO Q6HR PRN Percocet 5-325 mg (Oxycodone/Acetaminophen) 1 Tab 1-2 Tab PO Q6H PRN Keflex 250 mg Cap (Cephalexin Monohydrate) 250 Mg Cap 250 Mg PO TID Reported Flax Oil (Flaxseed (Linseed)) Oil 1 Cap PO BID Ferriprox (Deferiprone) 500 Mg Tab 1,500 Mg PO BID [place] Oil (Nutritional Supplements) 1,000 Mg Cap 1 Cap PO BID Advair Diskus 250/50 (Salmeterol Xinafoate/Fluticasone) Fluticasone/Salmeterol 250/50 Inh 1 Puff PO BID Viactiv (Calcium Carbonate) Chw 1 Chew CHEW BID Elavil (Amitriptyline HCl) 25 Mg Tab 25 Mg PO HS Colace 100 Mg Cap (Docusate Sodium) 100 Mg Cap 100 Mg PO DAILY Multi-Vitamin Daily (Multivitamins) Daily Tab 1 Tab PO DAILY Active Ordered Medications Current Medications Medications (Trade) Dose Ordered Sig/Randell Route PRN Reason Start Time Stop Time Status Last Admin Dose Admin IV Flush (NS Flush) 2 ml UNSCH PRN FLUSH FLUSH AFTER USING IV ACCESS 12/09/16 21:15 IV Flush (NS Flush) 2 ml BID FLUSH 12/10/16 09:00 12/15/16 09:56 Naloxone HCl (Narcan Inj) 0.4 mg UNSCH PRN IV SEE LABEL COMMENTS 12/09/16 21:15 Metronidazole (Flagyl) 500 mg Q8HR PO 12/10/16 06:00 12/19/16 05:59 12/15/16 05:28 Ondansetron HCl (Zofran Inj) 4 mg Q6HR PRN IV PUSH nausea 12/10/16 10:30 12/15/16 20:02 Acetaminophen/ Hydrocodone Bitart ([place] 5-325 Mg) 1 tab Q4H PRN PO PAIN SCALE 1 TO 5 12/10/16 10:45 12/15/16 03:39 Acetaminophen/ Hydrocodone Bitart ([place] 10-325 Mg) 1 tab Q4H PRN PO PAIN SCALE 6 TO 10 12/10/16 10:45 12/13/16 22:23 Senna/Docusate Sodium (Licha-Colace) 1 tab BID PRN PO constipation 12/11/16 09:30 12/12/16 02:46 Heparin Sodium (Porcine) (Heparin Central Flush) 250 units UNSCH PRN IVF SEE PROTOCOL TABLE 12/11/16 13:00 12/12/16 05:25 Heparin Sodium (Porcine) (Heparin Central Flush) 500 units UNSCH IVF 12/11/16 13:00 Senna/Docusate Sodium (Licha-Colace) 2 tab BID PO 12/14/16 09:00 12/15/16 09:56 Lactulose (Lactulose Liq) 30 ml TID PRN PO CONSTIPATION 12/14/16 05:45 12/15/16 10:02 Bisacodyl (Dulcolax Supp) 10 mg DAILY PRN [place] CONSTIPATION 12/14/16 05:45 Lactobacillus Acidophilus 1 tab 1 tab TID PO 12/14/16 09:00 12/15/16 09:56 Sodium Chloride (NS 1000 ml Inj) 1,000 ml @ 125 mls/hr Q8H IV 12/15/16 07:45 12/15/16 20:03 Promethazine HCl (Phenergan Inj) 12.5 mg Q4H PRN IV-CENTRAL nausea 12/15/16 16:00 Acetaminophen 650 mg 650 mg Q6H PRN PO FEVER 12/15/16 16:45 12/15/16 17:18 Cefepime HCl 1000 mg/Sodium Chloride 100 ml @ 200 mls/hr Q24H IV 12/15/16 17:00 12/15/16 17:16 Pharmacy Profile Note 0 ml @ 0 mls/hr UNSCH OTHER 12/15/16 21:15 Potassium Chloride (KCl 20 Meq Premix Inj) 100 ml @ 50 mls/hr Q2H IV 12/15/16 23:15 12/16/16 03:14 Albumin Human 25 gm 25 gm ONCE ONCE IV 12/16/16 01:30 12/16/16 01:31 Sodium Chloride (NS 1000 ml Inj) 1,000 ml @ 999 mls/hr BOLUS ONCE IV 12/16/16 01:30 12/16/16 02:30 Family History Noncontributory Social History Negative 3 Physical Exam Vital Signs Vital Signs Date Time Temp Pulse Resp B/P Pulse Ox O2 Delivery O2 Flow Rate FiO2 12/16/16 00:00 96.6 115 21 65/40 94 12/15/16 21:57 97.0 107 20 66/34 92 12/15/16 21:30 79/43 12/15/16 20:52 93 Nasal Cannula 2.00 12/15/16 20:30 97.8 109 72/42 90 12/15/16 20:20 97.3 109 21 69/35 90 12/15/16 20:00 93 2.00 12/15/16 17:15 101.2 130 28 95/69 94 12/15/16 16:40 102.9 12/15/16 16:00 100.2 110 24 112/66 94 12/15/16 14:00 100.5 115 18 127/60 93 12/15/16 12:00 97.8 93 16 131/69 98 12/15/16 08:00 96.8 68 16 110/61 96 12/15/16 04:00 100.2 99 18 143/76 96 Laboratory Laboratory Tests Test 12/15/16 12/15/16 12/15/16 05:30 15:00 21:10 Sodium Level 138 141 Potassium Level 3.9 3.1 Chloride Level 104 109 Carbon Dioxide Level 26.1 19.5 Anion Gap 8 13 Blood Urea Nitrogen 20 27 Creatinine 1.82 2.83 Estimat Glomerular Filtration 27 16 Rate Random Glucose 105 112 Calcium Level 7.5 6.7 Magnesium Level 1.8 White Blood Count 2.0 Red Blood Count 3.04 Hemoglobin 9.3 Hematocrit 29.2 Mean Corpuscular Volume 95.7 Mean Corpuscular Hemoglobin 30.6 Mean Corpuscular Hemoglobin 32.0 Concent Red Cell Distribution Width 16.7 Platelet Count 183 Mean Platelet Volume 7.4 Neutrophils (%) (Auto) 96.6 Lymphocytes (%) (Auto) 2.5 Monocytes (%) (Auto) 0.4 Eosinophils (%) (Auto) 0.5 Basophils (%) (Auto) 0.0 Neutrophils # (Auto) 1.9 Lymphocytes # (Auto) 0.1 Monocytes # (Auto) 0.0 Eosinophils # (Auto) 0.0 Basophils # (Auto) 0.0 CBC Comment DIFF FINAL Differential Comment Total Bilirubin 1.2 Direct Bilirubin 0.6 Indirect Bilirubin 0.6 Aspartate Amino Transf 52 (AST/SGOT) Alanine Aminotransferase 24 (ALT/SGPT) Alkaline Phosphatase 266 Ammonia 19 Total Protein 5.6 4.4 Albumin 2.7 Lactic Acid Level 4.7 Protein Corrected Calcium 8.1 Date/Time Procedure Status Source Growth 12/15/16 23:40 Aerobic Blood Culture Received Blood Peripheral Pending 12/15/16 23:40 Anaerobic Blood Culture Received Blood Peripheral Pending 12/15/16 21:30 Urine Culture Received Urine Random Urine Pending 12/13/16 11:44 Gram Stain - Final Complete Fluid Other 12/13/16 11:44 Body Fluid Culture - Final Complete Morganella Morganii 12/13/16 11:44 Fungal Smear - Final Resulted Fluid Other NO FUNGAL ELEMENTS SEEN. 12/13/16 11:44 Fungal Culture Resulted Fluid Other Pending 12/13/16 11:44 Acid Fast Stain - Final Resulted Fluid Other NO ACID FAST BACILLI SEEN 12/13/16 11:44 Mycobacterial Culture Resulted Fluid Other Pending Result Diagram: 12/15/16 1500 12/15/16 2110 Imaging Last 24 hours Impressions Chest X-Ray 12/15/162106 Signed Impressions: Service Date/Time: November 21:14 - CONCLUSION: Development of. bilateral basilar opacities infiltrates ground glass on the right consolidated on the left. Giovani Dimas MD Assessment and Plan Problem List: (1) Febrile neutropenia ICD Code: D70.9 Status: Acute (2) Myelosuppression after chemotherapy ICD Code: D75.89 Status: Acute (3) Metastatic breast cancer ICD Code: C50.919 Status: Chronic (4) bilateral nephrostomy tube Status: Acute Assessment and Plan Neutropenic sepsis - Broad-spectrum antibiotics - Infectious disease consultation - Both cultures urine cultures to follow-up Hypotension - Aggressive fluid resuscitation - Levophed as needed to keep MAP above 65 Metastatic breast cancer - Treatment per oncology and radiation oncology C. difficile colitis - Flagyl DVT GI prophylaxis - Heparin and Pepcid Critical Care: The total critical care time was 35 minutes. Time to perform other separately billable procedures was not included in the critical care time. Mariano Howard MD Dec 16, 2016 01:28
[2016-12-16] MEDS ORDERED: NOREPINEPHRINE-DEXTROSE DRIP 250 ML IV SCH (01:30)
[2016-12-16] MEDS ORDERED: ALBUMIN HUMAN 5% 25 GM/500 ML BOTTLE IV ONE (01:30)
[2016-12-16] MEDS ORDERED: SODIUM CHLOR 0.9% 1000 ML INJ 1,000 ML IV ONE (01:30)
[2016-12-16] MEDS ORDERED: TERBUTALINE INJ 1 MG/ML AMP SQ PRN (01:30)
[2016-12-16] MEDS ORDERED: Vancomycin Consult Pharmacy 1 EA OTHER SCH ×2 (02:30→13:30)
[2016-12-16] MEDS: POTASSIUM CHLOR 20 MEQ PREMIX 100 ML IV SCH ×2 (03:00→03:14)
[2016-12-16] MEDS: RESP: ALBUTEROL 2.5 MG/IPRATROPIUM 0.5 MG NEB (SCH) NEB ×5 (03:16→21:16)
[2016-12-16] MEDS ORDERED: LIDOCAINE HCL 2% 100 MG/5 ML SYRINGE ONE (04:16)
[2016-12-16] MEDS ORDERED: EPINEPHrine HCL (1:10,000) 1 MG/10 ML SYRINGE ONE (04:16)
[2016-12-16] MEDS ORDERED: ATROPINE SULFATE 1 MG/10 ML SYRINGE ONE (04:16)
--- NOTE | 2016-12-16 05:06 | RADRPT ---
EXAM DATE/TIME: 12/16/2016 04:29 [place] COMPARISON: No previous studies available for comparison. INDICATIONS : Weakness RADIATION DOSE: 56.35 CTDIvol (mGy) MEDICAL HISTORY : Chronic obstructive pulmonary disease. Carcinoma, breast. Liver disease SURGICAL HISTORY : Appendectomy. Hysterectomy. ENCOUNTER: Initial ACUITY: 1 day PAIN SCALE: 3/10 LOCATION: cranial TECHNIQUE: Multiple contiguous axial images were obtained of the head. Using automated exposure control and adj ustment of the mA and/or kV according to patient size, radiation dose was kept as low as reasonably a chievable to obtain optimal diagnostic quality images. FINDINGS: CEREBRUM: The ventricles are normal for age. No evidence of midline shift, mass lesion, hemorrhage or acute in farction. No extra-axial fluid collections are seen. POSTERIOR FOSSA: The cerebellum and brainstem are intact. The 4th ventricle is midline. The cerebellopontine angle i s unremarkable. EXTRACRANIAL: The visualized portion of the orbits is intact. SKULL: The calvaria is intact. No evidence of skull fracture. CONCLUSION: No acute disease. Jorden Grande MD on December 16, 2016 at 5:05 Board Certified Radiologist. This report was verified electronically.
[2016-12-16 05:24] LABS: AUTOMATED NEUTROPHIL # 14.1 TH/MM3 (1.8-7.7); BASOPHIL # 0.1 TH/MM3 (0-0.2); BASOPHIL % 0.6 % (0.0-2.0); HEMATOCRIT 22.3 % (35.0-46.0); LYMPH % 0.8 % (9.0-44.0); LYMPHOCYTE # 0.1 TH/MM3 (1.0-4.8); MEAN CELL VOLUME 96.2 FL (80.0-100.0); MEAN CORPUSCULAR HEMOGLOBIN 31.2 PG (27.0-34.0); MEAN CORPUSCULAR HGB CONC 32.4 % (32.0-36.0); MONO % 2.6 % (0.0-8.0); PLATELET COUNT 112 TH/MM3 (150-450); RED BLOOD COUNT 2.32 MIL/MM3 (4.00-5.30); RED CELL DISTRIBUTION WIDTH 16.6 % (11.6-17.2); WHITE BLOOD COUNT 14.7 TH/MM3 (4.0-11.0)
[2016-12-16 05:51] LABS: MAGNESIUM 1.4 MG/DL (1.5-2.5); POTASSIUM 4.1 MEQ/L (3.5-5.1)
[2016-12-16 05:57] LABS: TOTAL BILIRUBIN ADULT 0.7 MG/DL (0.2-1.0)
[2016-12-16] MEDS: metroNIDAZOLE 500 MG TAB PO SCH ×3 (05:58→20:26)
[2016-12-16] MEDS: SODIUM CHLOR 0.9% 1000 ML INJ 1,000 ML IV SCH ×4 (05:58→21:08)
[2016-12-16 06:03] LABS: CALCIUM-PROTEIN CORRECTED 7.3 MG/DL (8.5-10.1)
[2016-12-16 06:53] LABS: BANDS 24 % (0-6); EOSINOPHILS 1 % (0-4); METAMYELOCYTES 8 % (0-1); MYELOCYTES 3 % (0-0); POLYS (SEG NEUTROPHILS) 47 % (16-70); WBC DIFF SAMPLE 100
[2016-12-16 06:56] LABS: PLATELET ESTIMATE SMEAR NORMAL (NORMAL); ROULEAUX PRESENT (NORMAL); TEARDROP RBCS 1+ (NORMAL)
[2016-12-16 06:57] LABS: TOXIC VACUOLATION PRESENT (NONE SEEN)
[2016-12-16 06:58] LABS: PLATELET MORPHOLOGY NORMAL (NORMAL)
[2016-12-16 07:03] LABS: NEUTROPHIL # MANUAL DIFF 12.1 TH/MM3 (1.8-7.7)
[2016-12-16 07:04] LABS: HEMO FLAGS AUTO DIFF
[2016-12-16 07:05] LABS: SCAN/DIFF FINAL DIFF MANUAL
[2016-12-16 07:18] LABS: LACTIC ACID GHOST NOT REPORTABLE
[2016-12-16] MEDS ORDERED: SODIUM CHLOR 0.9% 250 ML INJ 250 ML IV ONE (09:00)
[2016-12-16] MEDS ORDERED: ACETAMINOPHEN 325 MG TAB PO PRN (09:00)
[2016-12-16] MEDS ORDERED: diphenhydrAMINE HCL 25 MG CAP PO PRN (09:00)
[2016-12-16] MEDS: LACTOBACILLUS ACIDOPHILUS TAB PO SCH ×3 (09:49→17:10)
[2016-12-16] MEDS: SODIUM CHLORIDE 0.9% FLUSH 5 ML FLUSH FLUSH SCH ×2 (09:50→20:21)
[2016-12-16] MEDS: FAMOTIDINE 20 MG/2 ML VIAL IV PUSH SCH ×2 (09:50→20:21)
[2016-12-16] MEDS: DOCUSATE SODIUM 50 MG/SENNA 8.6 MG TAB PO SCH ×2 (09:50→20:22)
[2016-12-16] MEDS: MAGNESIUM SULFATE 1 GM PREMIX 100 ML IV SCH ×2 (11:15→11:45)
--- NOTE | 2016-12-16 11:41 | PD.CONS ---
Consult Service Palliative Care Consult Requested By Dr. Keisha MD. Primary Care Physician Unknown Reason for Consultation a. To assist with evaluation and management of symptoms including: nausea and debility. b. To assist medical decision maker(s) with: better understanding of current medical conditions; weighing benefits/burdens of medical treatment options; making medical treatment decisions. . HPI History of Present Illness Mrs. Carrion is a 76 y/o female with a medical history significant for breast cancer status post mastectomy and radiation in 2008, and metastasis to bone, liver and brain. Other past medical history to include anemia, pericarditis, hydronephrosis with hydroureter, cutaneous herpes simplex, C. difficile, and pulmonary PE status post IVC filter placement. On 12/04/16, patient seek treatment at [facility] secondary to diarrhea, vomiting and chills. She was found to have a C differential colitis and acute renal failure with a creatinine of 11 for which she received renal replacement therapy 2 treatments on 12/06/16 and 12/07/16. She was also found to have obstructive uropathy for which she underwent bilateral nephrostomy tubes placement on 12/07/16. She was transferred from [facility] to [facility] for further management. Oncological history to include left breast cancer diagnosed in 2008 for which she underwent chemotherapy followed by mastectomy and radiation. In August 2014 she developed liver metastasis and in October 2016 she was found to have new brain metastasis. She recently underwent whole brain radiation. Patient has been under the care of Dr. Leach and radiation oncology Dr. Osullivan. Patient when seen on 12/10/[address] Juarez for further recommendations. Concerns regarding patient's candidacy to continue antineoplastic treatment secondary to poor performance status and clinical complications. At that time cut status and hospice were discussed. Patient elected for no code but wished to consult with Dr. Leach regarding further treatment. On 12/12/16 patient was seen by Dr. Leach, consideration for intrathecal palliative chemotherapy for management of intracranial disease and resumption of systemic chemotherapy for prolongation of survival. Urology -Dr. Dudley consulted on 12/10/16 for bilateral urethral obstruction. On 12/13/16 patient underwent cystoscopy, bilateral retrograde pyelograms and right urethral stent exchange and left urethral stent insertion. Patient's clinical course was complicated by sepsis. Halicat was called on 12/15/16 secondary to intractable nausea, vomiting and BP of 74/49. She was resuscitated with 2 L of normal saline but remained hypotensive with manual blood pressure of 60/31. Manager Sports was consulted and patient was transferred to ICU for further management. Patient was placed on Levophed drip to keep map above 65. Infectious disease has been consulted. During transfer to ICU lactic acid was found to be 4.7, renal function continued to worsen with BUN/ creatinine 25/2.73. Nephrology has been consulted and is pending. WBC sharp increase to 14.7 from 2.0 yesterday. Hemoglobin 7.2 pending blood transfusion, platelet count 112. Chest x-ray shows development of bilateral basilar opacities infiltrate on the right and consolidated on the left. Blood culture with preliminary gram negative rods. Palliative care consulted given patient's progressive metastatic disease and acute complications. Patient seen in ICU, and son Michael at bedside. Patient reports feeling much better than yesterday, denies nausea or vomiting. Vasopressor has been stopped since this morning, stable BP. A febrile, tachycardic with heart rate in the low 110s. O2 via nasal cannula at 3 L. Denies shortness of breath, feels weak but much improved since yesterday. Denies pain or discomfort. Review events leading to his hospitalization, review current treatment plan to include infectious disease, nephrology, and oncology consultations. Patient to receive one pack of red blood cells for hemoglobin of 7.2. Reviewed recommendations from nephrology to monitor urinary output. Plan to remove bilateral nephrostomy tubes tomorrow if his urine creatinine levels improved. Reviewed CODE STATUS, CPR, intubation and mechanical ventilation. Patient electing no code in the event of cardiopulmonary arrest. Goal at this time is for optimization of clinic and physical condition with the goal of continue antineoplastic treatment for prolongation of survival. Discussed the future role of hospice should her symptoms burden continues to increase or there is an additional functional decline. All questions were answered in great detail. Case discussed with Mallory PATRICIO and bedside RN. . Function/Cognitive Trajectory Progressive weakness for the past week secondary to acute nausea/vomiting and hospitalization. Patient residing with her prior to these hospitalization, fully independent with ADLs. No cognitive decline reported. . Review of Systems Constitutional: COMPLAINS OF: Fatigue, Fever, Chills, Change in appetite, Generalized weakness Endocrine: DENIES: Heat/cold intolerance Eyes: DENIES: Vision loss Ears, nose, mouth, throat: DENIES: Hearing loss, Nasal discharge Respiratory: DENIES: Cough, Shortness of breath Cardiovascular: DENIES: Chest pain, Orthopnea Gastrointestinal: COMPLAINS OF: Nausea, Vomiting, DENIES: Abdominal pain Genitourinary: DENIES: Abnormal vaginal bleeding Integumentary: DENIES: Rash Immunologic/Allergic: DENIES: Eczema Neurologic: DENIES: Abnormal gait Psychiatric: DENIES: Depression Past Family Social History Coded Allergies: Benadryl (Verified Allergy, Severe, THROAT CLOSES, 06/20/16) Past Medical History Metastatic breast cancer with metastases to liver, bone and brain Acute kidney injury requiring hemodialysis x 2 treatments Anemia Pericarditis Hydronephrosis with hydroureter Cutaneous herpes simplex Pulmonary embolism status post IVC filter Past Surgical History Left mastectomy and left axillary lymph node dissection Right ureteral stent 05/2015 replaced 05/2016 Cystoscopy, bilateral retrograde pyelograms, right ureteral stent exchange and left ureteral stent insertion on 12/13/16 Appendectomy Hysterectomy IVC filter placement in 2008 Port placement Dialysis catheter placement and removal Reported Medications Percocet 5-325 mg (Oxycodone/Acetaminophen) 1 Tab 1-2 Tab PO Q6H PRN Keflex 250 mg Cap (Cephalexin Monohydrate) 250 Mg Cap 250 Mg PO TID Flax Oil (Flaxseed (Linseed)) Oil 1 Cap PO BID Ferriprox (Deferiprone) 500 Mg Tab 1,500 Mg PO BID [place] Oil (Nutritional Supplements) 1,000 Mg Cap 1 Cap PO BID Advair Diskus 250/50 (Salmeterol Xinafoate/Fluticasone) Fluticasone/Salmeterol 250/50 Inh 1 Puff PO BID Viactiv (Calcium Carbonate) Chw 1 Chew CHEW BID Elavil (Amitriptyline HCl) 25 Mg Tab 25 Mg PO HS Colace 100 Mg Cap (Docusate Sodium) 100 Mg Cap 100 Mg PO DAILY Multi-Vitamin Daily (Multivitamins) Daily Tab 1 Tab PO DAILY . Current Medications Medications (Trade) Dose Ordered Sig/Randell Route Start Time Stop Time Status Last Admin (NS Flush) 2 ml UNSCH PRN FLUSH 12/09/16 21:15 (NS Flush) 2 ml BID FLUSH 12/10/16 09:00 12/16/16 09:50 (Narcan Inj) 0.4 mg UNSCH PRN IV 12/09/16 21:15 (Flagyl) 500 mg Q8HR PO 12/10/16 06:00 12/19/16 05:59 12/16/16 05:58 (Zofran Inj) 4 mg Q6HR PRN IV PUSH 12/10/16 10:30 12/15/16 20:02 (Valliant 5-325 Mg) 1 tab Q4H PRN PO 12/10/16 10:45 12/15/16 03:39 (Valliant 10-325 Mg) 1 tab Q4H PRN PO 12/10/16 10:45 12/13/16 22:23 (Licha-Colace) 1 tab BID PRN PO 12/11/16 09:30 12/12/16 02:46 (Heparin Central Flush) 250 units UNSCH PRN IVF 12/11/16 13:00 12/12/16 05:25 (Heparin Central Flush) 500 units UNSCH IVF 12/11/16 13:00 (Licha-Colace) 2 tab BID PO 12/14/16 09:00 12/16/16 09:50 (Lactulose Liq) 30 ml TID PRN PO 12/14/16 05:45 12/15/16 10:02 (Dulcolax Supp) 10 mg DAILY PRN VT 12/14/16 05:45 Lactobacillus Acidophilus 1 tab 1 tab TID PO 12/14/16 09:00 12/16/16 09:49 (NS 1000 ml Inj) 1,000 ml @ 200 mls/hr Q5H IV 12/15/16 07:45 12/16/16 05:58 (Phenergan Inj) 12.5 mg Q4H PRN IV-CENTRAL 12/15/16 16:00 Acetaminophen 650 mg 650 mg Q6H PRN PO 12/15/16 16:45 12/15/16 17:18 Cefepime HCl 1000 mg/Sodium Chloride 100 ml @ 200 mls/hr Q24H IV 12/15/16 17:00 12/15/16 17:16 Pharmacy Profile Note 0 ml @ 0 mls/hr UNSCH OTHER 12/15/16 21:15 (Levophed-Dextrose Drip) 250 ml @ 0 mls/hr TITRATE IV 12/16/16 01:30 (Brethine Inj) 1 mg UNSCH PRN SQ 12/16/16 01:30 Famotidine 10 mg 10 mg Q12HR IV PUSH 12/16/16 09:00 12/16/16 09:50 (NS 250 ml Inj) 250 ml @ 15 mls/hr ONCE ONCE IV 12/16/16 09:00 12/17/16 01:39 (Tylenol) 650 mg Q4H PRN PO 12/16/16 09:00 12/16/16 13:01 Diphenhydramine HCl 25 mg 25 mg Q4H PRN PO 12/16/16 09:00 12/16/16 13:01 Hold (Magnesium Sulfate 1 Gm Premix) 100 ml @ 100 mls/hr Q1H IV 12/16/16 10:30 12/16/16 12:29 Family History Denies family medical history including hypertension diabetes CAD or cancer Substance Use Tobacco: Denies. Alcohol: Denies. Prescription med abuse: Denies. Illicits: Denies. . Psychosocial History , has 2 children. Long time resident of [place]. 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 . Spiritual/Cultural Factors Yazdanism. . Living Will: Completed, but not made available Health Care Surrogate: Completed, but not made available Durable Power of Extension Service Specialist: Completed, but not made available Date completed: Pending copy. . Health Care Surrogate(s): As per patient, designated healthcare surrogate is patient's Epi Carrion. . Documented care wishes: Living will completed. Pending copy. . Today's verbally stated goals: No code. DNR/DNI. Patient's goal at this time is for ongoing aggressive attempts at clinical/physical optimization in order to be a candidate for additional antineoplastic therapy. . Family/friends goals: As stated above. . Ethical and Legal Issues No ethical legal issues have been identified. . Physical Exam Vital Signs Date Time Temp Pulse Resp B/P Pulse Ox O2 Delivery O2 Flow Rate FiO2 12/16/16 09:19 97 Nasal Cannula 3.00 12/16/16 08:00 97.7 121 29 109/57 97 12/16/16 08:00 120 12/16/16 07:00 96 2.00 12/16/16 06:00 102 12/16/16 04:00 110 12/16/16 04:00 97.8 110 31 105/62 98 12/16/16 03:15 100 Nasal Cannula 3.00 12/16/16 02:00 104 12/16/16 01:00 97.8 107 22 85/48 93 12/16/16 00:00 96.6 115 21 65/40 94 12/15/16 21:57 97.0 107 20 66/34 92 12/15/16 21:30 79/43 12/15/16 20:52 93 Nasal Cannula 2.00 12/15/16 20:30 97.8 109 72/42 90 12/15/16 20:20 97.3 109 21 69/35 90 12/15/16 20:00 93 2.00 12/15/16 17:15 101.2 130 28 95/69 94 12/15/16 16:40 102.9 12/15/16 16:00 100.2 110 24 112/66 94 12/15/16 14:00 100.5 115 18 127/60 93 12/15/16 12:00 97.8 93 16 131/69 98 12/15/16 12/16/16 19:00 07:00 Intake Total 1200 ml 5087 ml Output Total 200 ml 600 ml Balance 1000 ml 4487 ml Intake Oral 1200 ml 50 ml IV Total 4537 ml Albumin 500 ml Output Urine Total 200 ml 600 ml # Voids 2 1 # Bowel Movements 6 1 Exam CONSTITUTIONAL/GENERAL: This is a thin elderly female in no apparent distress. Verbal and able to communicate needs. TUBES/LINES/DRAINS: PIV's, Gallegos catheter. Nasal cannula. SKIN: No jaundice, rashes, or lesions. Ecchymoses on upper extremities. No wounds seen anteriorly. Skin temperature appropriate. Not diaphoretic. HEAD: Atraumatic. Normocephalic. EYES: Pupils equal and round and reactive. Extraocular motions intact. No scleral icterus. No injection or drainage. ENT: Hearing grossly normal. Nose without bleeding or purulent drainage. Throat without visible erythema, exudates, masses, or lesions. NECK: Trachea midline. Supple, nontender. CARDIOVASCULAR: Tachycardic. Regular rate and rhythm without murmurs, gallops, or rubs. No JVD. Peripheral pulses symmetric. RESPIRATORY/CHEST: Symmetric, unlabored respirations. Clear to auscultation. Breath sounds equal bilaterally. No wheezes, rales, or rhonchi. GASTROINTESTINAL: Abdomen soft, non-tender, nondistended. No guarding. Bowel sounds present. GENITOURINARY: Without palpable bladder distension. Gallegos catheter in place. Moderate amount of urinary output in bag. MUSCULOSKELETAL: Extremities without clubbing, cyanosis, or edema. No mottling or clubbing. NEUROLOGICAL: Awake and alert. Motor and sensory grossly within normal limits. Follows commands. Cognitively sharp. Moves all extremities. PSYCHIATRIC: No obvious anxiety/depression. Calm. Pleasant and cooperative. . Diagnostic Tests Laboratory Laboratory Tests Test 12/15/16 12/15/16 12/15/16 12/16/16 05:30 15:00 21:10 01:10 Sodium Level 138 MEQ/L 141 MEQ/L (136-145) (136-145) Potassium Level 3.9 MEQ/L 3.1 MEQ/L (3.5-5.1) (3.5-5.1) Chloride Level 104 MEQ/L 109 MEQ/L (98-107) (98-107) Carbon Dioxide Level 26.1 MEQ/L 19.5 MEQ/L (21.0-32.0) (21.0-32.0) Anion Gap 8 MEQ/L (5-15) 13 MEQ/L (5-15) Blood Urea Nitrogen 20 MG/DL (7-18) 27 MG/DL (7-18) Creatinine 1.82 MG/DL 2.83 MG/DL (0.50-1.00) (0.50-1.00) Estimat Glomerular Filtration 27 ML/MIN (>89) 16 ML/MIN (>89) Rate Random Glucose 105 MG/DL 112 MG/DL (74-106) (74-106) Calcium Level 7.5 MG/DL 6.7 MG/DL (8.5-10.1) (8.5-10.1) Magnesium Level 1.8 MG/DL (1.5-2.5) White Blood Count 2.0 TH/MM3 (4.0-11.0) Red Blood Count 3.04 MIL/MM3 (4.00-5.30) Hemoglobin 9.3 GM/DL (11.6-15.3) Hematocrit 29.2 % (35.0-46.0) Mean Corpuscular Volume 95.7 FL (80.0-100.0) Mean Corpuscular Hemoglobin 30.6 PG (27.0-34.0) Mean Corpuscular Hemoglobin 32.0 % Concent (32.0-36.0) Red Cell Distribution Width 16.7 % (11.6-17.2) Platelet Count 183 TH/MM3 (150-450) Mean Platelet Volume 7.4 FL (7.0-11.0) Neutrophils (%) (Auto) 96.6 % (16.0-70.0) Lymphocytes (%) (Auto) 2.5 % (9.0-44.0) Monocytes (%) (Auto) 0.4 % (0.0-8.0) Eosinophils (%) (Auto) 0.5 % (0.0-4.0) Basophils (%) (Auto) 0.0 % (0.0-2.0) Neutrophils # (Auto) 1.9 TH/MM3 (1.8-7.7) Lymphocytes # (Auto) 0.1 TH/MM3 (1.0-4.8) Monocytes # (Auto) 0.0 TH/MM3 (0-0.9) Eosinophils # (Auto) 0.0 TH/MM3 (0-0.4) Basophils # (Auto) 0.0 TH/MM3 (0-0.2) CBC Comment DIFF FINAL Differential Comment Total Bilirubin 1.2 MG/DL (0.2-1.0) Direct Bilirubin 0.6 MG/DL (0.0-0.2) Indirect Bilirubin 0.6 MG/DL (0.0-0.8) Aspartate Amino Transf 52 U/L (15-37) (AST/SGOT) Alanine Aminotransferase 24 U/L (10-53) (ALT/SGPT) Alkaline Phosphatase 266 U/L (45-117) Ammonia 19 MCMOL/L (11-32) Total Protein 5.6 GM/DL 4.4 GM/DL (6.4-8.2) (6.4-8.2) Albumin 2.7 GM/DL (3.4-5.0) Lactic Acid Level 4.7 mmol/L (0.4-2.0) Protein Corrected Calcium 8.1 MG/DL (8.5-10.1) Nasal Screen MRSA (PCR) NEGATIVE (NEGATIVE) Test 12/16/16 12/16/16 05:10 07:54 White Blood Count 14.7 TH/MM3 (4.0-11.0) Red Blood Count 2.32 MIL/MM3 (4.00-5.30) Hemoglobin 7.2 GM/DL (11.6-15.3) Hematocrit 22.3 % (35.0-46.0) Mean Corpuscular Volume 96.2 FL (80.0-100.0) Mean Corpuscular Hemoglobin 31.2 PG (27.0-34.0) Mean Corpuscular Hemoglobin 32.4 % Concent (32.0-36.0) Red Cell Distribution Width 16.6 % (11.6-17.2) Platelet Count 112 TH/MM3 (150-450) Mean Platelet Volume 7.7 FL (7.0-11.0) Neutrophils (%) (Auto) 96.0 % (16.0-70.0) Lymphocytes (%) (Auto) 0.8 % (9.0-44.0) Monocytes (%) (Auto) 2.6 % (0.0-8.0) Eosinophils (%) (Auto) 0.0 % (0.0-4.0) Basophils (%) (Auto) 0.6 % (0.0-2.0) Neutrophils # (Auto) 14.1 TH/MM3 (1.8-7.7) Lymphocytes # (Auto) 0.1 TH/MM3 (1.0-4.8) Monocytes # (Auto) 0.4 TH/MM3 (0-0.9) Eosinophils # (Auto) 0.0 TH/MM3 (0-0.4) Basophils # (Auto) 0.1 TH/MM3 (0-0.2) CBC Comment AUTO DIFF Differential Total Cells 100 Counted Neutrophils % (Manual) 47 % (16-70) Band Neutrophils % 24 % (0-6) Lymphocytes % 1 % (9-44) Monocytes % 16 % (0-8) Eosinophils % 1 % (0-4) Neutrophils # (Manual) 12.1 TH/MM3 (1.8-7.7) Metamyelocytes 8 % (0-1) Myelocytes 3 % (0-0) Differential Comment FINAL DIFF MANUAL Toxic Vacuolation PRESENT (NONE SEEN) Platelet Estimate NORMAL (NORMAL) Platelet Morphology Comment NORMAL (NORMAL) Tear Drop Cells 1+ (NORMAL) Rouleau PRESENT (NORMAL) Sodium Level 143 MEQ/L (136-145) Potassium Level 4.1 MEQ/L (3.5-5.1) Chloride Level 115 MEQ/L (98-107) Carbon Dioxide Level 17.0 MEQ/L (21.0-32.0) Anion Gap 11 MEQ/L (5-15) Blood Urea Nitrogen 25 MG/DL (7-18) Creatinine 2.73 MG/DL (0.50-1.00) Estimat Glomerular Filtration 17 ML/MIN (>89) Rate Random Glucose 89 MG/DL (74-106) Lactic Acid Level 3.3 mmol/L 2.4 mmol/L (0.4-2.0) (0.4-2.0) Calcium Level 6.4 MG/DL (8.5-10.1) Protein Corrected Calcium 7.3 MG/DL (8.5-10.1) Magnesium Level 1.4 MG/DL (1.5-2.5) Total Bilirubin 0.7 MG/DL (0.2-1.0) Aspartate Amino Transf 56 U/L (15-37) (AST/SGOT) Alanine Aminotransferase 27 U/L (10-53) (ALT/SGPT) Alkaline Phosphatase 176 U/L (45-117) Total Protein 5.2 GM/DL (6.4-8.2) Albumin 2.7 GM/DL (3.4-5.0) Result Diagram: 12/16/16 0510 12/16/16 0510 Microbiology Microbiology Date/Time Procedure Status Source Growth 12/13/16 11:44 Gram Stain - Final Complete Fluid Other 12/13/16 11:44 Body Fluid Culture - Final Complete Morganella Morganii 12/13/16 11:44 Acid Fast Stain - Final Resulted Fluid Other NO ACID FAST BACILLI SEEN 12/13/16 11:44 Mycobacterial Culture Resulted Fluid Other Pending 12/13/16 11:44 Fungal Smear - Final Resulted Fluid Other NO FUNGAL ELEMENTS SEEN. 12/13/16 11:44 Fungal Culture Resulted Fluid Other Pending 12/15/16 17:30 Aerobic Blood Culture - Preliminary Resulted Blood Peripheral Gram Negative Mark 12/15/16 17:30 Anaerobic Blood Culture - Preliminary Resulted Gram Negative Mark 12/15/16 21:30 Urine Culture Worksheet Urine Random Urine Pending 12/15/16 23:40 Aerobic Blood Culture Received Blood Peripheral Pending 12/15/16 23:40 Anaerobic Blood Culture Received Blood Peripheral Pending Imaging Last Impressions Chest X-Ray 12/15/167 Signed Impressions: Service Date/Time: November 21:14 - CONCLUSION: Development of. bilateral basilar opacities infiltrates ground glass on the right consolidated on the left. Giovani Dimas MD Head CT 12/15/16 0000 Signed Impressions: Service Date/Time: Friday, December 16, 2016 04:29 - CONCLUSION: No acute disease. Jorden Grande MD Procedures * 12/13/16 -Cystoscopy, bilateral retrograde pyelograms, right ureteral stent exchange and left ureteral stent insertion. Patient/Family Conference Present at Family Conference: Epi, son Michael and [id number] Luba. Family Conference Time (mins): 36 Family Conference Location: Bedside Issues Discussed: * Palliative care role, purpose, approach * Additional medical, psychosocial, and spiritual history * Patients general health, functional status, and cognitive changes in the months leading up to the current hospitalization * Patient/family understanding of the current medical problems * Patient/family understanding of prognosis * Patients goals of care as best understood from advance directives and/or conversations and/or values * Current medical treatment options and benefits/burdens of those options * Future role of hospice services should her symptoms burden continues to increase or there is additional functional decline. * Questions answered to the best of my ability * Palliative care contact information provided . Assessment and Plan Disease Oriented Problem List: (1) Neutropenic sepsis Comment: Appears to be resolving. Off Levophed. (2) Breast carcinoma metastatic to multiple sites (3) bilateral nephrostomy tube (4) Kidney failure Symptom Scale: (1) Nausea 0-10 Scale: 0 Comment: Resolving. Denies nausea at this time. (2) Debility 0-10 Scale: Unable to quantify Comment: Physical deconditioning, Progressive secondary to burden of disease. Pertinent Non-Medical Issues Psychosocial: . Spiritual: Yazdanism. Legal: Ethical issues impacting care: . Important Contacts Epi Carrion [phone]. . Prognosis Mrs. Carrion is a 76 y/o female with a medical history significant for breast cancer status post mastectomy and radiation in 2008, and metastasis to bone, liver and brain. Other past medical history to include anemia, pericarditis, hydronephrosis with hydroureter, cutaneous herpes simplex, C. difficile, and pulmonary PE status post IVC filter placement. On 12/04/16, patient seek treatment at [facility] secondary to diarrhea, vomiting and chills. She was found to have a C differential colitis and acute renal failure with a creatinine of 11 for which she received renal replacement therapy 2 treatments on 12/06/16 and 12/07/16. She was also found to have obstructive uropathy for which she underwent bilateral nephrostomy tubes placement on 12/07/16. Clinical course has been complicated by sepsis requiring vasopressor. Unclear at this time if patient will be a candidate or tolerate additional antineoplastic therapy. Patient is a high risk of complications, further decline and . . Code Status: No Code Plan * CODE STATUS: NO CODE. * Community DNR to be signed. Form left with patient. * HEALTHCARE DECISION-MAKER: Patient decisional at this time. As per patient, designated healthcare surrogate is patient's Epi Carrion. Pending copy of living well and healthcare surrogate designation. * GOALS OF CARE: DNR/DNI. Patient's goal at this time is for ongoing aggressive attempts at clinical/physical optimization in order to be a candidate for additional antineoplastic therapy. Discussed the future role of hospice services should symptoms burden continues to increase or there is additional functional decline. Patient familiar with hospice philosophy and services. * SYMPTOMS: == Nausea, control at this time. Phenergan as needed. == Debility, physical deconditioning secondary to burden of disease. PT following. * Case has been discussed with SINTIA Delgadillo and bedside RN. * All questions have been answering great detail. * Palliative care contact information has been provided to patient and family. * Palliative care will continue to follow-up as needed. Goals of care are clear at this time. . Time Spent Total Floor Time (mins): 72 (Total time to include review and summarization of medical records to include prior hospitalizations, physical exam, conversation with patient and family, and case discussion with oncology and bedside RN.) >50% Counseling/Coord of Care: Yes Thank you for the opportunity to participate in the care of Ms. Carrion. Attestation To help prompt me to consider important information that might be impacting today's encounter and assessment, information from prior notes written by myself or my colleagues may have been "brought forward" into today's note. My signature on this note, however, is an attestation that I personally performed the exam, history, and/or decision-making noted today, and, unless otherwise indicated, the interactions with patient, family, and staff as well as the review of records all occurred today. I also attest that the listed assessment and stated plan reflect my best clinical judgment today based on the combination of historical information, prior notes, and today's exam/ interactions. When time spent is documented, it refers only to time spent today by the signer, or if indicated, combined time spent today by collaborating physician/nurse practitioner. Christa Willis Dec 16, 2016 11:41
[2016-12-16] MEDS ORDERED: ALTEPLASE RECOMBINANT 2 MG VIAL INTRACATH ONE (11:45)
--- NOTE | 2016-12-16 12:05 | HHI.PR ---
Subjective Remarks Events noted Reports that the vomiting episodes have resolved Denies flank pain Objective Vital Signs Vital Signs Date Time Temp Pulse Resp B/P Pulse Ox O2 Delivery O2 Flow Rate FiO2 12/16/16 10:00 118 12/16/16 09:19 97 Nasal Cannula 3.00 12/16/16 08:00 97.7 121 29 109/57 97 12/16/16 08:00 120 12/16/16 07:00 96 2.00 12/16/16 06:00 102 12/16/16 04:00 110 12/16/16 04:00 97.8 110 31 105/62 98 12/16/16 03:15 100 Nasal Cannula 3.00 12/16/16 02:00 104 12/16/16 01:00 97.8 107 22 85/48 93 12/16/16 00:00 96.6 115 21 65/40 94 12/15/16 21:57 97.0 107 20 66/34 92 12/15/16 21:30 79/43 12/15/16 20:52 93 Nasal Cannula 2.00 12/15/16 20:30 97.8 109 72/42 90 12/15/16 20:20 97.3 109 21 69/35 90 12/15/16 20:00 93 2.00 12/15/16 17:15 101.2 130 28 95/69 94 12/15/16 16:40 102.9 12/15/16 16:00 100.2 110 24 112/66 94 12/15/16 14:00 100.5 115 18 127/60 93 I/O 12/15/16 12/15/16 12/15/16 12/16/16 12/16/16 12/16/16 07:00 15:00 23:00 07:00 15:00 23:00 Intake Total 240 ml 1200 ml 5087 ml Output Total 200 ml 200 ml 250 ml 350 ml Balance 40 ml 1000 ml -250 ml 4737 ml Intake Oral 240 ml 1200 ml 50 ml IV Total 4537 ml Albumin 500 ml Output Urine Total 200 ml 200 ml 250 ml 350 ml # Voids 1 1 1 # Bowel Movements 1 5 1 Result Diagram: 12/16/16 0510 12/16/16 0510 Objective Remarks Bilateral nephrostomy tubes remain clamped off. Assessment and Plan Problem List: (1) CKD (chronic kidney disease) stage 3, GFR 30-59 ml/min ICD Code: N18.3 Status: Chronic (2) Metastatic breast cancer ICD Code: C50.919 Status: Chronic (3) Breast carcinoma metastatic to multiple sites ICD Code: C50.919 Status: Acute Assessment and Plan Urologic impression: #1 Bilateral ureteral obstruction related to metastatic breast cancer status post placement of nephrostomy tubes. #2 Bilateral ureteral stents were placed on the nephrostomy tubes capped off. #3 increase in serum creatinine most likely related to recent episodes of protracted vomiting Recommendations: #1 keep nephrostomy tubes capped off and monitor serum creatinine #2 if serum creatinine continues on a downward trend then patient may have the nephrostomy tubes removed under fluoroscopy by interventional radiology Iban Sierra MD Dec 16, 2016 12:05
--- NOTE | 2016-12-16 12:29 | PD.CONS ---
HPI Service Nephrology Consult Requested By Dr. Leach Reason for Consult Acute renal failure and chronic kidney disease Primary Care Physician Unknown History of Present Illness 76 -year-old female with history of metastatic breast cancer to bone, liver and brain, obstructive uropathy history of nephrostomies and recent stent exchange the patient is passing urine however she developed septicemia has gram-negative rods patient has been transferred to intensive care unit, I spoke to Dr. Sierra who is monitoring the stent. She is passing more urine she has a Gallegos catheter in place at creatinine is 2.73, patient reports that she receive 2 sessions of hemodialysis at [facility] but then it was stopped as she started making urine and the port was taken out. Review of Systems Constitutional: COMPLAINS OF: Fatigue, Fever Respiratory: COMPLAINS OF: Wheezing Cardiovascular: COMPLAINS OF: Lower Extremity Edema Past Family Social History Allergies: Coded Allergies: Benadryl (Verified Allergy, Severe, THROAT CLOSES, 06/20/16) Past Medical History Breast cancer with metastasis to liver, brain and bone Obstructive uropathy nephrostomy Stent Anemia COPD IVC filter Pulmonary embolism C. difficile colitis Past Surgical History Port placement to the right IVC filter Stent placement Nephrostomy Breast surgery Hysterectomy Cataract Reported Medications Reported Meds & Active Scripts Active Hydrocodone-Acetaminophen 10-325 mg Tab 1 Tab PO Q6HR PRN Percocet 5-325 mg (Oxycodone/Acetaminophen) 1 Tab 1-2 Tab PO Q6H PRN Keflex 250 mg Cap (Cephalexin Monohydrate) 250 Mg Cap 250 Mg PO TID Reported Flax Oil (Flaxseed (Linseed)) Oil 1 Cap PO BID Ferriprox (Deferiprone) 500 Mg Tab 1,500 Mg PO BID [place] Oil (Nutritional Supplements) 1,000 Mg Cap 1 Cap PO BID Advair Diskus 250/50 (Salmeterol Xinafoate/Fluticasone) Fluticasone/Salmeterol 250/50 Inh 1 Puff PO BID Viactiv (Calcium Carbonate) Chw 1 Chew CHEW BID Elavil (Amitriptyline HCl) 25 Mg Tab 25 Mg PO HS Colace 100 Mg Cap (Docusate Sodium) 100 Mg Cap 100 Mg PO DAILY Multi-Vitamin Daily (Multivitamins) Daily Tab 1 Tab PO DAILY Active Ordered Medications Current Medications Medications (Trade) Dose Ordered Sig/Randell Route Start Time Stop Time Status Last Admin (NS Flush) 2 ml UNSCH PRN FLUSH 12/09/16 21:15 (NS Flush) 2 ml BID FLUSH 12/10/16 09:00 12/16/16 09:50 (Narcan Inj) 0.4 mg UNSCH PRN IV 12/09/16 21:15 (Flagyl) 500 mg Q8HR PO 12/10/16 06:00 12/19/16 05:59 12/16/16 05:58 (Zofran Inj) 4 mg Q6HR PRN IV PUSH 12/10/16 10:30 12/15/16 20:02 ([place] 5-325 Mg) 1 tab Q4H PRN PO 12/10/16 10:45 12/15/16 03:39 ([place] 10-325 Mg) 1 tab Q4H PRN PO 12/10/16 10:45 12/13/16 22:23 (Licha-Colace) 1 tab BID PRN PO 12/11/16 09:30 12/12/16 02:46 (Heparin Central Flush) 250 units UNSCH PRN IVF 12/11/16 13:00 12/12/16 05:25 (Heparin Central Flush) 500 units UNSCH IVF 12/11/16 13:00 (Licha-Colace) 2 tab BID PO 12/14/16 09:00 12/16/16 09:50 (Lactulose Liq) 30 ml TID PRN PO 12/14/16 05:45 12/15/16 10:02 (Dulcolax Supp) 10 mg DAILY PRN SC 12/14/16 05:45 Lactobacillus Acidophilus 1 tab 1 tab TID PO 12/14/16 09:00 12/16/16 09:49 (NS 1000 ml Inj) 1,000 ml @ 200 mls/hr Q5H IV 12/15/16 07:45 12/16/16 11:44 (Phenergan Inj) 12.5 mg Q4H PRN IV-CENTRAL 12/15/16 16:00 Acetaminophen 650 mg 650 mg Q6H PRN PO 12/15/16 16:45 12/15/16 17:18 Cefepime HCl 1000 mg/Sodium Chloride 100 ml @ 200 mls/hr Q24H IV 12/15/16 17:00 12/15/16 17:16 Pharmacy Profile Note 0 ml @ 0 mls/hr UNSCH OTHER 12/15/16 21:15 (Levophed-Dextrose Drip) 250 ml @ 0 mls/hr TITRATE IV 12/16/16 01:30 (Brethine Inj) 1 mg UNSCH PRN SQ 12/16/16 01:30 Famotidine 10 mg 10 mg Q12HR IV PUSH 12/16/16 09:00 12/16/16 09:50 (NS 250 ml Inj) 250 ml @ 15 mls/hr ONCE ONCE IV 12/16/16 09:00 12/17/16 01:39 (Tylenol) 650 mg Q4H PRN PO 12/16/16 09:00 12/16/16 13:01 Diphenhydramine HCl 25 mg 25 mg Q4H PRN PO 12/16/16 09:00 12/16/16 13:01 Hold (Magnesium Sulfate 1 Gm Premix) 100 ml @ 100 mls/hr Q1H IV 12/16/16 10:30 12/16/16 12:29 12/16/16 11:45 Family History Noncontributory Social History Current no smoking or alcohol Physical Exam Vital Signs Vital Signs Date Time Temp Pulse Resp B/P Pulse Ox O2 Delivery O2 Flow Rate FiO2 12/16/16 10:00 118 12/16/16 09:19 97 Nasal Cannula 3.00 12/16/16 08:00 97.7 121 29 109/57 97 12/16/16 08:00 120 12/16/16 07:00 96 2.00 12/16/16 06:00 102 12/16/16 04:00 110 12/16/16 04:00 97.8 110 31 105/62 98 12/16/16 03:15 100 Nasal Cannula 3.00 12/16/16 02:00 104 12/16/16 01:00 97.8 107 22 85/48 93 12/16/16 00:00 96.6 115 21 65/40 94 12/15/16 21:57 97.0 107 20 66/34 92 12/15/16 21:30 79/43 12/15/16 20:52 93 Nasal Cannula 2.00 12/15/16 20:30 97.8 109 72/42 90 12/15/16 20:20 97.3 109 21 69/35 90 12/15/16 20:00 93 2.00 12/15/16 17:15 101.2 130 28 95/69 94 12/15/16 16:40 102.9 12/15/16 16:00 100.2 110 24 112/66 94 12/15/16 14:00 100.5 115 18 127/60 93 Physical Exam GENERAL: Well-nourished, well-developed patient. SKIN: Warm and dry. HEAD: Normocephalic. EYES: No scleral icterus. No injection or drainage. NECK: Supple, trachea midline. No JVD or lymphadenopathy. CARDIOVASCULAR: Regular rate and rhythm without murmurs, gallops, or rubs. RESPIRATORY: Breath sounds diminished at bases GASTROINTESTINAL: Abdomen soft, non-tender, nondistended. EXTREMITIES: No cyanosis, 1+ edema. NEUROLOGICAL: Awake, alert, and oriented x 3. Non-focal. Laboratory Laboratory Tests Test 12/15/16 12/15/16 12/16/16 12/16/16 15:00 21:10 01:10 05:10 White Blood Count 2.0 14.7 Red Blood Count 3.04 2.32 Hemoglobin 9.3 7.2 Hematocrit 29.2 22.3 Mean Corpuscular Volume 95.7 96.2 Mean Corpuscular Hemoglobin 30.6 31.2 Mean Corpuscular Hemoglobin 32.0 32.4 Concent Red Cell Distribution Width 16.7 16.6 Platelet Count 183 112 Mean Platelet Volume 7.4 7.7 Neutrophils (%) (Auto) 96.6 96.0 Lymphocytes (%) (Auto) 2.5 0.8 Monocytes (%) (Auto) 0.4 2.6 Eosinophils (%) (Auto) 0.5 0.0 Basophils (%) (Auto) 0.0 0.6 Neutrophils # (Auto) 1.9 14.1 Lymphocytes # (Auto) 0.1 0.1 Monocytes # (Auto) 0.0 0.4 Eosinophils # (Auto) 0.0 0.0 Basophils # (Auto) 0.0 0.1 CBC Comment DIFF FINAL AUTO DIFF Differential Comment FINAL DIFF MANUAL Total Bilirubin 1.2 0.7 Direct Bilirubin 0.6 Indirect Bilirubin 0.6 Aspartate Amino Transf 52 56 (AST/SGOT) Alanine Aminotransferase 24 27 (ALT/SGPT) Alkaline Phosphatase 266 176 Ammonia 19 Total Protein 5.6 4.4 5.2 Albumin 2.7 2.7 Sodium Level 141 143 Potassium Level 3.1 4.1 Chloride Level 109 115 Carbon Dioxide Level 19.5 17.0 Anion Gap 13 11 Blood Urea Nitrogen 27 25 Creatinine 2.83 2.73 Estimat Glomerular Filtration 16 17 Rate Random Glucose 112 89 Lactic Acid Level 4.7 3.3 Calcium Level 6.7 6.4 Protein Corrected Calcium 8.1 7.3 Nasal Screen MRSA (PCR) NEGATIVE Differential Total Cells 100 Counted Neutrophils % (Manual) 47 Band Neutrophils % 24 Lymphocytes % 1 Monocytes % 16 Eosinophils % 1 Neutrophils # (Manual) 12.1 Metamyelocytes 8 Myelocytes 3 Toxic Vacuolation PRESENT Platelet Estimate NORMAL Platelet Morphology Comment NORMAL Tear Drop Cells 1+ Rouleau PRESENT Magnesium Level 1.4 Test 12/16/16 07:54 Lactic Acid Level 2.4 Date/Time Procedure Status Source Growth 12/15/16 23:40 Aerobic Blood Culture Received Blood Peripheral Pending 12/15/16 23:40 Anaerobic Blood Culture Received Blood Peripheral Pending 12/15/16 21:30 Urine Culture Worksheet Urine Random Urine Pending 12/15/16 17:30 Aerobic Blood Culture - Preliminary Resulted Blood Peripheral Gram Negative Mark 12/15/16 17:30 Anaerobic Blood Culture - Preliminary Resulted Blood Peripheral 12/13/16 11:44 Gram Stain - Final Complete Fluid Other 12/13/16 11:44 Body Fluid Culture - Final Complete Morganella Morganii 12/13/16 11:44 Fungal Smear - Final Resulted Fluid Other NO FUNGAL ELEMENTS SEEN. 12/13/16 11:44 Fungal Culture Resulted Fluid Other Pending 12/13/16 11:44 Acid Fast Stain - Final Resulted Fluid Other NO ACID FAST BACILLI SEEN 12/13/16 11:44 Mycobacterial Culture Resulted Fluid Other Pending Result Diagram: 12/16/16 0510 12/16/16 0510 Imaging Last Impressions Chest X-Ray 12/15/162106 Signed Impressions: Service Date/Time: November 21:14 - CONCLUSION: Development of. bilateral basilar opacities infiltrates ground glass on the right consolidated on the left. Giovani Dimas MD Head CT 12/15/16 0000 Signed Impressions: Service Date/Time: Friday, December 16, 2016 04:29 - CONCLUSION: No acute disease. Jorden Grande MD Assessment and Plan Problem List: (1) Kidney failure Plan: Patient is a nonoliguric discussed. Dr. Sierra and he stated that he keep the stents in as she is producing more urine She Has Stent Placed She Has Been Treated for Gram-Negative Sepsis Continued to Hydrate Her Treat with Antibiotics Avoid Nephrotoxin There Is No Acute Indication for Hemodialysis but This Will Be Monitored on Daily Basis Discussed with Patient (2) Breast carcinoma metastatic to multiple sites Plan: Patient has chronic problem followed by oncology (3) Sepsis Plan: Gram-negative awaiting culture results patient has been started on cefepime Heidy Leach MD Dec 16, 2016 12:29
--- NOTE | 2016-12-16 13:45 | PD.ONC.PN ---
Subjective Subjective Remarks Ms. Carrion feeling much improved this morning,she reports her diarrhea and nausea are improved. the events from overnight were reviewed,she became hypotensive and required multiple fluid boluses, she was transferred to the ICU for closer monitoring. She did not require pressor support. Objective Data Date Time Temp Pulse Resp B/P Pulse Ox O2 Delivery O2 Flow Rate FiO2 12/16/16 10:00 118 12/16/16 09:19 97 Nasal Cannula 3.00 12/16/16 08:00 97.7 121 29 109/57 97 12/16/16 08:00 120 12/16/16 07:00 96 2.00 12/16/16 06:00 102 12/16/16 04:00 110 12/16/16 04:00 97.8 110 31 105/62 98 12/16/16 03:15 100 Nasal Cannula 3.00 12/16/16 02:00 104 12/16/16 01:00 97.8 107 22 85/48 93 12/16/16 00:00 96.6 115 21 65/40 94 12/15/16 21:57 97.0 107 20 66/34 92 12/15/16 21:30 79/43 12/15/16 20:52 93 Nasal Cannula 2.00 12/15/16 20:30 97.8 109 72/42 90 12/15/16 20:20 97.3 109 21 69/35 90 12/15/16 20:00 93 2.00 12/15/16 17:15 101.2 130 28 95/69 94 12/15/16 16:40 102.9 12/15/16 16:00 100.2 110 24 112/66 94 12/15/16 14:00 100.5 115 18 127/60 93 12/16/16 12/16/16 12/16/16 07:00 15:00 23:00 Intake Total 5087 ml Output Total 350 ml Balance 4737 ml Result Diagram: 12/16/16 0510 12/16/16 0510 Laboratory Results Laboratory Tests Test 12/15/16 12/15/16 12/16/16 12/16/16 15:00 21:10 01:10 05:10 White Blood Count 2.0 TH/MM3 14.7 TH/MM3 Red Blood Count 3.04 MIL/MM3 2.32 MIL/MM3 Hemoglobin 9.3 GM/DL 7.2 GM/DL Hematocrit 29.2 % 22.3 % Mean Corpuscular Volume 95.7 FL 96.2 FL Mean Corpuscular Hemoglobin 30.6 PG 31.2 PG Mean Corpuscular Hemoglobin 32.0 % 32.4 % Concent Red Cell Distribution Width 16.7 % 16.6 % Platelet Count 183 TH/MM3 112 TH/MM3 Mean Platelet Volume 7.4 FL 7.7 FL Neutrophils (%) (Auto) 96.6 % 96.0 % Lymphocytes (%) (Auto) 2.5 % 0.8 % Monocytes (%) (Auto) 0.4 % 2.6 % Eosinophils (%) (Auto) 0.5 % 0.0 % Basophils (%) (Auto) 0.0 % 0.6 % Neutrophils # (Auto) 1.9 TH/MM3 14.1 TH/MM3 Lymphocytes # (Auto) 0.1 TH/MM3 0.1 TH/MM3 Monocytes # (Auto) 0.0 TH/MM3 0.4 TH/MM3 Eosinophils # (Auto) 0.0 TH/MM3 0.0 TH/MM3 Basophils # (Auto) 0.0 TH/MM3 0.1 TH/MM3 CBC Comment DIFF FINAL AUTO DIFF Differential Comment FINAL DIFF MANUAL Total Bilirubin 1.2 MG/DL 0.7 MG/DL Direct Bilirubin 0.6 MG/DL Indirect Bilirubin 0.6 MG/DL Aspartate Amino Transf 52 U/L 56 U/L (AST/SGOT) Alanine Aminotransferase 24 U/L 27 U/L (ALT/SGPT) Alkaline Phosphatase 266 U/L 176 U/L Ammonia 19 MCMOL/L Total Protein 5.6 GM/DL 4.4 GM/DL 5.2 GM/DL Albumin 2.7 GM/DL 2.7 GM/DL Sodium Level 141 MEQ/L 143 MEQ/L Potassium Level 3.1 MEQ/L 4.1 MEQ/L Chloride Level 109 MEQ/L 115 MEQ/L Carbon Dioxide Level 19.5 MEQ/L 17.0 MEQ/L Anion Gap 13 MEQ/L 11 MEQ/L Blood Urea Nitrogen 27 MG/DL 25 MG/DL Creatinine 2.83 MG/DL 2.73 MG/DL Estimat Glomerular Filtration 16 ML/MIN 17 ML/MIN Rate Random Glucose 112 MG/DL 89 MG/DL Lactic Acid Level 4.7 mmol/L 3.3 mmol/L Calcium Level 6.7 MG/DL 6.4 MG/DL Protein Corrected Calcium 8.1 MG/DL 7.3 MG/DL Nasal Screen MRSA (PCR) NEGATIVE Differential Total Cells 100 Counted Neutrophils % (Manual) 47 % Band Neutrophils % 24 % Lymphocytes % 1 % Monocytes % 16 % Eosinophils % 1 % Neutrophils # (Manual) 12.1 TH/MM3 Metamyelocytes 8 % Myelocytes 3 % Toxic Vacuolation PRESENT Platelet Estimate NORMAL Platelet Morphology Comment NORMAL Tear Drop Cells 1+ Rouleau PRESENT Magnesium Level 1.4 MG/DL Test 12/16/16 12/16/16 07:54 12:18 Lactic Acid Level 2.4 mmol/L Blood Type B POSITIVE Antibody Screen NEGATIVE Crossmatch Leukocyte-Reduced Red Blood Cells Blood Bank Comment Culture Results Microbiology Date/Time Procedure Status Source Growth 12/15/16 17:30 Aerobic Blood Culture - Preliminary Resulted Blood Peripheral Gram Negative Mark 12/15/16 17:30 Anaerobic Blood Culture - Preliminary Resulted Blood Peripheral 12/15/16 21:30 Urine Culture Worksheet Urine Random Urine Pending 12/15/16 23:40 Aerobic Blood Culture Received Blood Peripheral Pending 12/15/16 23:40 Anaerobic Blood Culture Received Blood Peripheral Pending Imaging Studies Last 24 hours Impressions Chest X-Ray 12/15/162106 Signed Impressions: Service Date/Time: November 21:14 - CONCLUSION: Development of. bilateral basilar opacities infiltrates ground glass on the right consolidated on the left. Giovani Dimas MD Administered Medications Medications (Trade) Dose Ordered Sig/Randell Route PRN Reason Start Time Stop Time Status Last Admin Dose Admin IV Flush (NS Flush) 2 ml BID FLUSH 12/10/16 09:00 12/16/16 09:50 Metronidazole (Flagyl) 500 mg Q8HR PO 12/10/16 06:00 12/19/16 05:59 12/16/16 13:17 Ondansetron HCl (Zofran Inj) 4 mg Q6HR PRN IV PUSH nausea 12/10/16 10:30 12/15/16 20:02 Acetaminophen/ Hydrocodone Bitart ([place] 5-325 Mg) 1 tab Q4H PRN PO PAIN SCALE 1 TO 5 12/10/16 10:45 12/15/16 03:39 Acetaminophen/ Hydrocodone Bitart ([place] 10-325 Mg) 1 tab Q4H PRN PO PAIN SCALE 6 TO 10 12/10/16 10:45 12/13/16 22:23 Senna/Docusate Sodium ([place]-Colace) 1 tab BID PRN PO constipation 12/11/16 09:30 12/12/16 02:46 Heparin Sodium (Porcine) (Heparin Central Flush) 250 units UNSCH PRN IVF SEE PROTOCOL TABLE 12/11/16 13:00 12/12/16 05:25 Senna/Docusate Sodium ([place]-Colace) 2 tab BID PO 12/14/16 09:00 12/16/16 09:50 Lactulose (Lactulose Liq) 30 ml TID PRN PO CONSTIPATION 12/14/16 05:45 12/15/16 10:02 Lactobacillus Acidophilus 1 tab 1 tab TID PO 12/14/16 09:00 12/16/16 13:17 Sodium Chloride (NS 1000 ml Inj) 1,000 ml @ 200 mls/hr Q5H IV 12/15/16 07:45 12/16/16 11:44 Acetaminophen 650 mg 650 mg Q6H PRN PO FEVER 12/15/16 16:45 12/15/16 17:18 Cefepime HCl/ Sodium Chloride (Maxipime Inj/NS Inj) 100 ml @ 200 mls/hr Q24H IV 12/15/16 17:00 12/15/16 17:16 Famotidine (Pepcid Inj) 10 mg Q12HR IV PUSH 12/16/16 09:00 12/16/16 09:50 Objective Remarks GENERAL: Elderly female, sitting up in bed, appears to be no acute distress. Somewhat pale appearing. SKIN: No rashes, ecchymoses or lesions. Cool and dry. HEAD: Atraumatic. Normocephalic. EYES: Extraocular motions intact. No scleral icterus. No injection or drainage. ENT: Nose without bleeding, purulent drainage. Airway patent. NECK: Trachea midline. No JVD or lymphadenopathy. CARDIOVASCULAR: Normal pulses, extremities well perfused RESPIRATORY: nonlabored respiration, equal chest rise GASTROINTESTINAL: Abdomen soft, non-tender, nondistended. Bruising over the lower abdomen at the site of injections. GENITOURINARY: Bilateral nephrostomy tubes in place, draining light pink urine. Insertion site clean and dry, dressings in place MUSCULOSKELETAL: Extremities without clubbing, cyanosis NEUROLOGICAL: Awake and alert. Motor and sensory grossly within normal limits. Normal speech. Assessment/Plan Problem List: (1) Metastatic breast cancer Status: Chronic Plan: History: -- First diagnosed in 2008. had neoadjuvant dose-dense chemotherapy followed by mastectomy and radiation. -- Maintained on letrozole but developed a bone metastasis in April of 2013. then treated with Xeloda. -- August of 2014 developed liver metastasis. given a Faslodex without any improvement. then treated with weekly Taxol. -- June of 2015 disease was rebiopsied and she was now found to have HER-2 positive disease (previously HER-2 negative), started on Herceptin and Perjeta. had a reaction to Perjeta and was switched to Herceptin and Navelbine. -- October of 2016, found to have a new brain metastasis.completed WBRT, this was completed about a week ago. The plan was to initiate intrathecal chemotherapy with cytarabine. While continuing systemic therapy with Herceptin based chemotherapy. Systemic therapy on hold. (2) CKD (chronic kidney disease) stage 3, GFR 30-59 ml/min Status: Chronic Plan: -- Acute renal failure due to obstructive uropathy. -- had dialysis twice when in [place]. -- had bilateral nephrostomy tube placement. -- Urology following, ureteral stents were placed bilaterally 12/13, nephrostomy tubes capped off. -- Cr was trending up as of 12/15, slightly improved today. Nephrology asked to see the patient. (3) History of Clostridium difficile Status: Acute Plan: -- currently on Flagyl. Assessment 76y/o female with metastatic breast cancer transferred here from [place] with C. difficile colitis and renal failure. h/o Anemia. Pericarditis. Pneumonia. Hydronephrosis. C. difficile colitis. Pulmonary embolism--IVC filter, 2008 Cutaneous herpes simplex. +Port placement. Left mastectomy. Right ureteral stent placement in May of 2015 and May of 2016. Appendectomy. Hysterectomy. Dialysis catheter placement and removal. Plan 1. Sepsis: Gram Neg Mark sepsis. Started Cefepime 1gm q12hrs, await further characterization. Vancomycin was also empirically started, pharmacy to dose given renal insufficiency. 2. Breast ca with brain mets: Overall her prognosis is poor, she has a median survival of about 6-8 months. I had recommended IT chemo injections with resumption of systemic chemotherapy once her acute issues are resolved. She had been doing fairly well until her condition acutely worsened last week. 3. C. Diff colitis: Clinically doing better, the diarrhea is improved today. If she worsens clinically over the weekend, I would advise transitioning her to oral vancomycin liquid 125mg po qid (and d/cing the flagyl). 4. Renal failure: Leave the nephrostomy tubes in for now, they are capped for the time being. Urine flow is antegrade through the recently replaced ureteric stents. I suspect the recent worsening renal function may have been due to sepsis and hypotension + sepsis. The case was discussed with Dr. Sierra. 5. Anemia: 1 unit pRBCs ordered for today. Demario Leach MD Dec 16, 2016 13:45
[2016-12-16] MEDS: RESP: ALBUTEROL 2.5 MG/IPRATROPIUM 0.5 MG NEB (PRN) NEB (13:59)
[2016-12-16] MEDS ORDERED: FUROSEMIDE 40 MG/4 ML VIAL IV PUSH ONE (14:00)
--- NOTE | 2016-12-16 14:04 | PD.ID.CON ---
History of Present Illness Service ID Consult Requested By Dr Howard Reason for Consult neutropenic fever Primary Care Physician Unknown Diagnoses: History of Present Illness 76 -year-old female with history of metastatic breast cancer to bone, liver and brain, obstructive uropathy history of nephrostomies and recent stent exchange the patient is passing urine Pt got seek around 2 weeks ago and was admitted to [facility] where she was diagnosed with ARF, obstructive uropahty, had b/l nephprostomies placed and was on HD She also was diagnosed with C.diff Patient has been transferred to intensive care unit last night after developped resp distress, hypotension Yusef responded to IVF, no pressors She feels much better today She reported 6 liquid BMs yday, none today Pt was on hemodyalisis at some, point but not any more She grew out Morganella morganii out of urine and blood clx has GNB in 1 of aerobic bottles from yday Pt was neutropenic at presentation, but today WBC went up from 2.0 to 14.7 Review of Systems Except as stated in HPI: all other systems reviewed are Neg Past Family Social History Allergies: Coded Allergies: Benadryl (Verified Allergy, Severe, THROAT CLOSES, 06/20/16) Past Medical History Breast cancer with metastasis to liver, brain and bone Obstructive uropathy nephrostomy Stent Anemia COPD IVC filter Pulmonary embolism C. difficile colitis Past Surgical History Port placement to the right IVC filter Stent placement Nephrostomy Breast surgery Hysterectomy Cataract Active Ordered Medications Medications where reviewed in EMR Antibiotics Include: vanco cefepime 1 gm q 24 flagyl Family History Noncontributory Social History Current no smoking or alcohol Physical Exam Vital Signs Vital Signs Date Time Temp Pulse Resp B/P Pulse Ox O2 Delivery O2 Flow Rate FiO2 12/16/16 12:00 97.9 113 28 114/54 98 12/16/16 12:00 113 12/16/16 10:00 118 12/16/16 09:19 97 Nasal Cannula 3.00 12/16/16 08:00 97.7 121 29 109/57 97 12/16/16 08:00 120 12/16/16 07:00 96 2.00 12/16/16 06:00 102 12/16/16 04:00 110 12/16/16 04:00 97.8 110 31 105/62 98 12/16/16 03:15 100 Nasal Cannula 3.00 12/16/16 02:00 104 12/16/16 01:00 97.8 107 22 85/48 93 12/16/16 00:00 96.6 115 21 65/40 94 12/15/16 21:57 97.0 107 20 66/34 92 12/15/16 21:30 79/43 12/15/16 20:52 93 Nasal Cannula 2.00 12/15/16 20:30 97.8 109 72/42 90 12/15/16 20:20 97.3 109 21 69/35 90 12/15/16 20:00 93 2.00 12/15/16 17:15 101.2 130 28 95/69 94 12/15/16 16:40 102.9 12/15/16 16:00 100.2 110 24 112/66 94 12/15/16 14:00 100.5 115 18 127/60 93 Physical Exam CONSTITUTIONAL/GENERAL: This is an adequately nourished patient, in no apparent distress. TUBES/LINES/DRAINS: PORT in place in R chest SKIN: No jaundice, rashes, or lesions. Skin temperature appropriate. Not diaphoretic. HEAD: Atraumatic. Normocephalic. EYES: Pupils equal and round and reactive. Extraocular motions intact. No scleral icterus. No injection or drainage. Fundi not examined. ENT: Hearing grossly normal. Nose without bleeding or purulent drainage. Throat without visible erythema, exudates, masses, or lesions. Breast: well healed scar p L mastectomy NECK: Trachea midline. Supple, nontender. CARDIOVASCULAR: Regular rate and rhythm without murmurs, gallops, or rubs. No JVD. Peripheral pulses symmetric. RESPIRATORY/CHEST: Symmetric, unlabored respirations. Clear to auscultation. Breath sounds equal bilaterally. No wheezes, rales, or rhonchi. GASTROINTESTINAL: Abdomen soft, non-tender, nondistended. No hepato-splenomegaly , or palpable masses. No guarding. Bowel sounds present. GENITOURINARY: Without palpable bladder distension. Gallegos catheter in place with nubia colored urine MUSCULOSKELETAL: Extremities without clubbing, cyanosis, 2+ edema in dependent areas. No joint tenderness or effusion noted. No calf tenderness. No mottling or clubbing. Nephrostomiies in place, not draining LYMPHATICS: No palpable cervical or supraclavicular adenopathy. NEUROLOGICAL: Awake and alert. Motor and sensory grossly within normal limits. Follows commands. Cognitively sharp. Moves all extremities. PSYCHIATRIC: No obvious anxiety/depression. no apparent hallucinations or other psychotic thought process. Laboratory Laboratory Tests Test 12/15/16 12/15/16 12/16/16 12/16/16 15:00 21:10 01:10 05:10 White Blood Count 2.0 14.7 Red Blood Count 3.04 2.32 Hemoglobin 9.3 7.2 Hematocrit 29.2 22.3 Mean Corpuscular Volume 95.7 96.2 Mean Corpuscular Hemoglobin 30.6 31.2 Mean Corpuscular Hemoglobin 32.0 32.4 Concent Red Cell Distribution Width 16.7 16.6 Platelet Count 183 112 Mean Platelet Volume 7.4 7.7 Neutrophils (%) (Auto) 96.6 96.0 Lymphocytes (%) (Auto) 2.5 0.8 Monocytes (%) (Auto) 0.4 2.6 Eosinophils (%) (Auto) 0.5 0.0 Basophils (%) (Auto) 0.0 0.6 Neutrophils # (Auto) 1.9 14.1 Lymphocytes # (Auto) 0.1 0.1 Monocytes # (Auto) 0.0 0.4 Eosinophils # (Auto) 0.0 0.0 Basophils # (Auto) 0.0 0.1 CBC Comment DIFF FINAL AUTO DIFF Differential Comment FINAL DIFF MANUAL Total Bilirubin 1.2 0.7 Direct Bilirubin 0.6 Indirect Bilirubin 0.6 Aspartate Amino Transf 52 56 (AST/SGOT) Alanine Aminotransferase 24 27 (ALT/SGPT) Alkaline Phosphatase 266 176 Ammonia 19 Total Protein 5.6 4.4 5.2 Albumin 2.7 2.7 Sodium Level 141 143 Potassium Level 3.1 4.1 Chloride Level 109 115 Carbon Dioxide Level 19.5 17.0 Anion Gap 13 11 Blood Urea Nitrogen 27 25 Creatinine 2.83 2.73 Estimat Glomerular Filtration 16 17 Rate Random Glucose 112 89 Lactic Acid Level 4.7 3.3 Calcium Level 6.7 6.4 Protein Corrected Calcium 8.1 7.3 Nasal Screen MRSA (PCR) NEGATIVE Differential Total Cells 100 Counted Neutrophils % (Manual) 47 Band Neutrophils % 24 Lymphocytes % 1 Monocytes % 16 Eosinophils % 1 Neutrophils # (Manual) 12.1 Metamyelocytes 8 Myelocytes 3 Toxic Vacuolation PRESENT Platelet Estimate NORMAL Platelet Morphology Comment NORMAL Tear Drop Cells 1+ Rouleau PRESENT Magnesium Level 1.4 Test 12/16/16 12/16/16 07:54 12:18 Lactic Acid Level 2.4 Blood Type B POSITIVE Antibody Screen NEGATIVE Crossmatch Leukocyte-Reduced Red Blood Cells Blood Bank Comment Date/Time Procedure Status Source Growth 12/15/16 23:40 Aerobic Blood Culture Received Blood Peripheral Pending 12/15/16 23:40 Anaerobic Blood Culture Received Blood Peripheral Pending 12/15/16 21:30 Urine Culture Worksheet Urine Random Urine Pending 12/15/16 17:30 Aerobic Blood Culture - Preliminary Resulted Blood Peripheral Gram Negative Mark 12/15/16 17:30 Anaerobic Blood Culture - Preliminary Resulted Blood Peripheral 12/13/16 11:44 Gram Stain - Final Complete Fluid Other 12/13/16 11:44 Body Fluid Culture - Final Complete Morganella Morganii 12/13/16 11:44 Fungal Smear - Final Resulted Fluid Other NO FUNGAL ELEMENTS SEEN. 12/13/16 11:44 Fungal Culture Resulted Fluid Other Pending 12/13/16 11:44 Acid Fast Stain - Final Resulted Fluid Other NO ACID FAST BACILLI SEEN 12/13/16 11:44 Mycobacterial Culture Resulted Fluid Other Pending Result Diagram: 12/16/16 0510 12/16/16 0510 Imaging Last Impressions Chest X-Ray 12/15/167 Signed Impressions: Service Date/Time: November 21:14 - CONCLUSION: Development of. bilateral basilar opacities infiltrates ground glass on the right consolidated on the left. Giovani Dimas MD Head CT 12/15/16 0000 Signed Impressions: Service Date/Time: Friday, December 16, 2016 04:29 - CONCLUSION: No acute disease. Jorden Grande MD Assessment and Plan Assessment and Plan Metastatis breast ca (bone, liver, brain) Sepsis, GNB Source - urinary - Morganella in urine Neutropenic- resolved Metastatic breast ca Doarrhea, h/o C.diff - r/o recuirrence Obstructive uropahty 2/2 mets sp strents, post renal ARF with improving renal fnx, no oliguric - chk stool for C.diff - cont cefepime, increase the dose - dc IV vanco - cont po flagyl for now - if C.diff + will switch to po vancomcin Discussed Condition With Angelita Lopez MD Dec 16, 2016 14:04
[2016-12-16] MEDS: ACETAMINOPHEN 650 MG/20.3 ML UDC PO PRN (15:06)
[2016-12-16] MEDS: CEFEPIME INJ 2,000 MG in SODIUM CHLORIDE 0.9% INJ 100 ML IV SCH (17:10)
[2016-12-16 18:29] LABS: C. DIFF EPI 027 PRESUMPTIVE NEGATIVE (NEGATIVE)
[2016-12-16 19:11] LABS: C. DIFF TOXIN PCR POSITIVE (NEGATIVE)
[2016-12-16 23:11] LABS: REVIEW FLAG FINAL
[2016-12-17] VITALS (14 sets, daily range): BP systolic 100–171; BP diastolic 56–89; PULSE 92–122; RESP 15–24; TEMP 96.4–98; O2SAT 94–100
[2016-12-17] MEDS: SODIUM CHLOR 0.9% 1000 ML INJ 1,000 ML IV SCH ×2 (00:50→05:43)
[2016-12-17] MEDS: RESP: ALBUTEROL 2.5 MG/IPRATROPIUM 0.5 MG NEB (SCH) NEB ×4 (03:50→21:39)
[2016-12-17] MEDS: ACETAMINOPHEN/HYDROcodone 325 MG/10 MG TAB PO PRN (04:28)
[2016-12-17 04:36] LABS: HEMATOCRIT 23.9 % (35.0-46.0); MEAN CELL VOLUME 91.3 FL (80.0-100.0); MEAN CORPUSCULAR HEMOGLOBIN 30.4 PG (27.0-34.0); MEAN CORPUSCULAR HGB CONC 33.3 % (32.0-36.0); PLATELET COUNT 95 TH/MM3 (150-450); RED BLOOD COUNT 2.62 MIL/MM3 (4.00-5.30); RED CELL DISTRIBUTION WIDTH 20.3 % (11.6-17.2); WHITE BLOOD COUNT 17.4 TH/MM3 (4.0-11.0)
[2016-12-17 04:40] LABS: REVIEW FLAG FINAL
[2016-12-17 05:05] LABS: BICARBONATE 17.6 MEQ/L (21.0-32.0); POTASSIUM 3.7 MEQ/L (3.5-5.1)
[2016-12-17 05:25] LABS: CALCIUM-PROTEIN CORRECTED 7.3 MG/DL (8.5-10.1)
[2016-12-17] MEDS: metroNIDAZOLE 500 MG TAB PO SCH ×2 (05:43→13:51)
--- NOTE | 2016-12-17 06:46 | HHI.CCPN ---
Subjective Remarks/Hospital Course Hospital Course: 76-year-old female patient with 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 difficile, pulmonary embolism status post IVC filter. Patient follows with medical oncologist Dr. Leach and radiation oncologist Dr. Osullivan. 12/04/2016 [facility] she continued to feel unwell mostly feeling chills as well as diarrhea and vomiting. She was found to have C. difficile colitis as well as acute kidney injury with a creatinine of 11. Patient was started on by mouth Flagyl was also started on hemodialysis and underwent bilateral nephrostomy tube placement as the acute kidney injury was placed to be secondary to obstructive uropathy with bilateral hydronephrosis. Patient was transferred today December 16 2 ICU due to hypotension probably due to neutropenic sepsis. Subjective: 12/17: clinically much improved. feels much better. slight headache this AM which is resolving with prn meds. blood growing GNRs, speciation to follow. lactate clearing. hypotension resolved. Objective Vital Signs Date Time Temp Pulse Resp B/P Pulse Ox O2 Delivery O2 Flow Rate FiO2 12/17/16 04:00 102 12/17/16 04:00 98.0 23 122/67 100 12/16/16 21:00 Nasal Cannula 3.00 Intake and Output 12/16/16 12/16/16 12/17/16 08:00 16:00 00:00 Intake Total 5087 ml 1322 ml 1661 ml Output Total 350 ml 450 ml 350 ml Balance 4737 ml 872 ml 1311 ml Result Diagram: 12/17/16 0422 12/17/16 042 Imaging Last 24 hours Impressions Chest X-Ray 12/15/162106 Signed Impressions: Service Date/Time: November 21:14 - CONCLUSION: Development of. bilateral basilar opacities infiltrates ground glass on the right consolidated on the left. Giovani Dimas MD Objective Remarks gen: elderly female, frail, awake, alert. heent: PERRL. mucous membranes moist. neck: no jvd. trachea midline chest: unlabored. equal chest rise. cv: tachycardic rate, regular rhythm. abd: soft, nontender, nondistended. no guarding. extr: no peripheral edema. 2+ distal pulses neuro: awake, alert, oriented x 3. follows commands. RASS 0. Procedures 12/13- cystoscopy with bilateral stent insertion- right ureteral stent exchange, left ureteral stent insertion A/P Problem List: (1) Febrile neutropenia ICD Code: D70.9 Status: Acute (2) Myelosuppression after chemotherapy ICD Code: D75.89 Status: Acute (3) Metastatic breast cancer ICD Code: C50.919 Status: Chronic (4) bilateral nephrostomy tube Status: Acute Assessment and Plan Assessment: 76yF with metastatic breast cancer and now resolving septic shock with gram negative jerry bacteremia. clinically improving. stable for transfer to floor, out of icu. Neutropenic sepsis - continue cefepime, vancomycin d/c'd yesterday afternoon. - Infectious disease consultation, Dr. Shore following. - f/u blood culture speciation Hypotension- resolved. - saline lock ivf. Metastatic breast cancer - Treatment per oncology and radiation oncology Acute protein calorie malnutrition- moderate - regular diet with boost shakes C. difficile colitis - Flagyl DVT GI prophylaxis - Heparin and Pepcid Dispo: transfer to floor with hospitalist following. Edmundo Bernal MD Dec 17, 2016 06:45
[2016-12-17] MEDS: DOCUSATE SODIUM 50 MG/SENNA 8.6 MG TAB PO SCH ×2 (07:35→20:35)
[2016-12-17] MEDS: FAMOTIDINE 20 MG TAB PO SCH ×2 (08:23→20:35)
[2016-12-17] MEDS: SODIUM CHLORIDE 0.9% FLUSH 5 ML FLUSH FLUSH SCH ×2 (08:23→20:37)
[2016-12-17] MEDS: LACTOBACILLUS ACIDOPHILUS TAB PO SCH ×3 (08:23→17:26)
[2016-12-17] MEDS: ONDANSETRON HCL 4 MG/2 ML VIAL IV PUSH PRN ×2 (08:32→16:45)
--- NOTE | 2016-12-17 12:56 | HHI.NPPN ---
Subjective General Problems: Anemia, Edema, Mebatolic Acidosis Renal Failure: Chronic, Acute History of Present Illness 76 -year-old female with history of metastatic breast cancer to bone, liver and brain, obstructive uropathy history of nephrostomies and recent stent exchange the patient is passing urine however she developed septicemia has gram-negative rods patient has been transferred to intensive care unit. Additional Remarks Patient is alert, has some headache, now better. Objective Data Data 12/16/16 12/17/16 19:00 07:00 Intake Total 1322 ml 2750 ml Output Total 450 ml 500 ml Balance 872 ml 2250 ml Intake Oral 300 ml 550 ml IV Total 772 ml 2200 ml Packed Cells 250 ml Output Urine Total 450 ml 500 ml # Bowel Movements 0 Vital Signs Date Time Temp Pulse Resp B/P Pulse Ox O2 Delivery O2 Flow Rate FiO2 12/17/16 11:07 99 Nasal Cannula 3.00 12/17/16 08:00 97.7 101 23 125/63 97 12/17/16 08:00 101 12/17/16 07:00 97 2.00 12/17/16 07:00 99 12/17/16 06:00 110 12/17/16 04:00 102 12/17/16 04:00 98.0 102 23 122/67 100 12/17/16 02:00 92 12/17/16 00:00 97.9 114 17 100/56 96 12/17/16 00:00 114 12/16/16 22:00 110 12/16/16 21:00 99 Nasal Cannula 3.00 12/16/16 20:00 98 12/16/16 20:00 97.9 98 26 100/55 100 12/16/16 19:00 100 Nasal Cannula 2.00 12/16/16 18:00 116 12/16/16 16:00 126 12/16/16 16:00 101.5 126 26 97/54 98 12/16/16 14:48 99.1 126 20 96/51 97 12/16/16 14:00 126 -: 12/17/16 0422 12/17/16 0422 Physical Exam General Appearance: No Acute Distress, Comfortable Eyes Eye Exam: Pupils Equal Throat Throat Exam: Oral Mucosa [place] & Moist Pulmonary Resp Exam: No Distress, Rhonchi, Decreased Bases, Diminished Breath Sounds Cardiology CV Exam: Regular, Normal Sinus Rhythm Gastrointestinal/Abdomen GI Exam: Soft, Non-Tender, Bowel Sounds Present, Distended Extremeties Extremities Exam: Trace Edema Neurologic Neuro Exam: Alert, Awake Assessment/Plan Assessment Summary: REENA/Acute Renal Failure Problem List: (1) Kidney failure Plan: Patient is a nonoliguric discussed. Dr. Sierra and he stated that he keep the stents in as she is producing more urine. She Has Stent Placed She Has Been Treated for Gram-Negative Sepsis Continued to Hydrate Her Treat with Antibiotics Avoid Nephrotoxin. 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 Creatinine is slightly better. (2) Breast carcinoma metastatic to multiple sites Plan: Patient has chronic problem followed by oncology (3) Sepsis Plan: Gram-negative awaiting culture results patient has been started on cefepime Farrukh Zuniga MD Dec 17, 2016 12:56
[2016-12-17] MEDS ORDERED: RELPAX PO SCH (16:00)
--- NOTE | 2016-12-17 16:03 | PD.ONC.PN ---
Subjective Subjective Remarks Afebrile overnight. Pt resting in bed with family at bedside. She states she has had some nausea today associated with a headache. She is asking why she isn' t taking her amitriptyline. Per RN she sent a sample from nephrostomy tube for culture. Vitals stable. Objective Data Date Time Temp Pulse Resp B/P Pulse Ox O2 Delivery O2 Flow Rate FiO2 12/17/16 14:00 106 12/17/16 12:00 97.7 99 15 113/59 98 12/17/16 12:00 99 12/17/16 11:07 99 Nasal Cannula 3.00 12/17/16 10:00 94 12/17/16 08:00 97.7 101 23 125/63 97 12/17/16 08:00 101 12/17/16 07:00 97 2.00 12/17/16 07:00 99 12/17/16 06:00 110 12/17/16 04:00 102 12/17/16 04:00 98.0 102 23 122/67 100 12/17/16 02:00 92 12/17/16 00:00 97.9 114 17 100/56 96 12/17/16 00:00 114 12/16/16 22:00 110 12/16/16 21:00 99 Nasal Cannula 3.00 12/16/16 20:00 98 12/16/16 20:00 97.9 98 26 100/55 100 12/16/16 19:00 100 Nasal Cannula 2.00 12/16/16 18:00 116 12/16/16 16:00 126 12/16/16 16:00 101.5 126 26 97/54 98 12/17/16 12/17/16 12/17/16 07:00 15:00 23:00 Intake Total 1089 ml 509 ml Output Total 150 ml 195 ml Balance 939 ml 314 ml Result Diagram: 12/17/1642112/17/16421 Laboratory Results Laboratory Tests Test 12/16/16 12/16/16 12/17/16 16:00 22:48 04:22 Stool C. difficile Toxin (PCR) POSITIVE Stl C. difficile Toxin PRESUMPTIVE Epiderm 027 NEGATIVE Hemoglobin 7.4 GM/DL 8.0 GM/DL Hematocrit 23.0 % 23.9 % White Blood Count 17.4 TH/MM3 Red Blood Count 2.62 MIL/MM3 Mean Corpuscular Volume 91.3 FL Mean Corpuscular Hemoglobin 30.4 PG Mean Corpuscular Hemoglobin 33.3 % Concent Red Cell Distribution Width 20.3 % Platelet Count 95 TH/MM3 Mean Platelet Volume 8.1 FL Sodium Level 145 MEQ/L Potassium Level 3.7 MEQ/L Chloride Level 117 MEQ/L Carbon Dioxide Level 17.6 MEQ/L Anion Gap 10 MEQ/L Blood Urea Nitrogen 30 MG/DL Creatinine 2.30 MG/DL Estimat Glomerular Filtration 21 ML/MIN Rate Random Glucose 109 MG/DL Calcium Level 6.3 MG/DL Protein Corrected Calcium 7.3 MG/DL Total Protein 5.0 GM/DL Random Vancomycin Level 9.5 COMMENT Culture Results Microbiology Date/Time Procedure Status Source Growth 12/15/16 17:30 Aerobic Blood Culture - Preliminary Resulted Blood Peripheral Gram Negative Mark 12/15/16 17:30 Anaerobic Blood Culture - Preliminary Resulted Blood Peripheral 12/15/16 21:30 Urine Culture - Preliminary Resulted Urine Random Urine Gram Negative Mark 12/15/16 23:40 Aerobic Blood Culture - Preliminary Resulted Blood Peripheral NO GROWTH IN 1 DAY 12/15/16 23:40 Anaerobic Blood Culture - Preliminary Resulted Blood Peripheral NO GROWTH IN 1 DAY Administered Medications Medications (Trade) Dose Ordered Sig/Randell Route PRN Reason Start Time Stop Time Status Last Admin Dose Admin IV Flush (NS Flush) 2 ml BID FLUSH 12/10/16 09:00 12/17/16 08:23 Metronidazole (Flagyl) 500 mg Q8HR PO 12/10/16 06:00 12/19/16 05:59 12/17/16 13:51 Ondansetron HCl (Zofran Inj) 4 mg Q6HR PRN IV PUSH nausea 12/10/16 10:30 12/17/16 08:32 Senna/Docusate Sodium (Licha-Colace) 1 tab BID PRN PO constipation 12/11/16 09:30 12/12/16 02:46 Heparin Sodium (Porcine) (Heparin Central Flush) 250 units UNSCH PRN IVF SEE PROTOCOL TABLE 12/11/16 13:00 12/12/16 05:25 Senna/Docusate Sodium (Licha-Colace) 2 tab BID PO 12/14/16 09:00 12/16/16 09:50 Lactulose (Lactulose Liq) 30 ml TID PRN PO CONSTIPATION 12/14/16 05:45 12/15/16 10:02 Lactobacillus Acidophilus (Lactinex) 1 tab TID PO 12/14/16 09:00 12/17/16 13:51 Promethazine HCl (Phenergan Inj) 12.5 mg Q4H PRN IV-CENTRAL nausea 12/15/16 16:00 12/17/16 10:34 Acetaminophen 650 mg 650 mg Q6H PRN PO FEVER 12/15/16 16:45 12/16/16 15:06 Cefepime HCl/ Sodium Chloride (Maxipime Inj/NS Inj) 100 ml @ 200 mls/hr Q24H IV 12/16/16 17:00 12/16/16 17:10 Famotidine (Pepcid) 10 mg BID PO 12/17/16 09:00 12/17/16 08:23 Objective Remarks GENERAL: Elderly female, sitting up in bed in no distress. SKIN: Warm and dry. HEAD: Normocephalic. EYES: No injection or drainage. NECK: Supple, trachea midline. CARDIOVASCULAR:+S1/S2. RESPIRATORY: Lungs clear anteriorly. GASTROINTESTINAL: Abdomen soft, non-tender, nondistended. EXTREMITIES: LUE edema. NEUROLOGICAL: No obvious focal deficit. Awake, alert, and oriented x3. Assessment/Plan Problem List: (1) Metastatic breast cancer Status: Chronic Plan: History: -- First diagnosed in 2008. had neoadjuvant dose-dense chemotherapy followed by mastectomy and radiation. -- Maintained on letrozole but developed a bone metastasis in April of 2013. then treated with Xeloda. -- August of 2014 developed liver metastasis. given a Faslodex without any improvement. then treated with weekly Taxol. -- June of 2015 disease was rebiopsied and she was now found to have HER-2 positive disease (previously HER-2 negative), started on Herceptin and Perjeta. had a reaction to Perjeta and was switched to Herceptin and Navelbine. -- October of 2016, found to have a new brain metastasis. completed WBRT. The plan was to initiate intrathecal chemotherapy with cytarabine. While continuing systemic therapy with Herceptin based chemotherapy. Systemic therapy on hold. (2) CKD (chronic kidney disease) stage 3, GFR 30-59 ml/min Status: Chronic Plan: -- Acute renal failure due to obstructive uropathy. -- had dialysis twice when in [place]. -- had bilateral nephrostomy tube placement. -- Urology following, ureteral stents were placed bilaterally 12/13, nephrostomy tubes capped off. -- Nephrology following (3) History of Clostridium difficile Status: Acute Plan: -- currently on Flagyl. Assessment 76y/o female with metastatic breast cancer transferred here from [place] with C. difficile colitis and renal failure. h/o Anemia. Pericarditis. Pneumonia. Hydronephrosis. C. difficile colitis. Pulmonary embolism--IVC filter, 2008 Cutaneous herpes simplex. +Port placement. Left mastectomy. Right ureteral stent placement in May of 2015 and May of 2016. Appendectomy. Hysterectomy. Dialysis catheter placement and removal. Plan 1. Obtain LUE US to r/o DVT. Per pt she has some degree of lymphedema to this arm but it is more swollen than normal. 2. Continue cefepime, Vanco. Await further micro results. 3. Resume systemic chemotherapy once acute issues resolve. 4. If diarrhea worsens, would recommend oral vancomycin. 5. CBC in am. Transfuse as needed. Attending Statement The exam, history, and the medical decision-making described in the above note were completed with the assistance of the mid-level provider. I reviewed and agree with the findings presented. I attest that I had a [id number] encounter with the patient on the same day, and personally performed and documented my assessment and findings in the medical record. Pt seen and examined. Report nausea is due to narcotic pain medication. Nausea subsiding. Discussed lorazepam for nausea prn. Clinically improving from infection. Follow US results. Mona Wang Dec 17, 2016 16:03 Cinthya Benavidez MD Dec 17, 2016 16:49
[2016-12-17] MEDS: CEFEPIME INJ 2,000 MG in SODIUM CHLORIDE 0.9% INJ 100 ML IV SCH (16:23)
[2016-12-17] MEDS ORDERED: LORazepam 0.5 MG TAB PO PRN (17:00)
[2016-12-17] MEDS ORDERED: LORazepam 2 MG/ML VIAL IV PUSH PRN (17:00)
--- NOTE | 2016-12-17 18:44 | HHI.PR ---
Addendum to Inpatient Note Additional Information C.diff + dc flagyl po Angelita Arriaga MD Dec 17, 2016 18:44
[2016-12-17] MEDS: VANCOMYCIN 500 MG VIAL (FOR ORAL USE ONLY) PO SCH (20:36)
[2016-12-17 21:16] LABS: BLOOD GAS BASE EXCESS -10.7 mmol/L (-2-2); BLOOD GAS CARBOXYHEMOGLOBIN 1.4 % (0-4); BLOOD GAS HCO3 15 mmol/L (22-26); BLOOD GAS METHEMOGLOBIN 1.2 % (0-2); BLOOD GAS O2 HGB SATURATION 96 % (90-100); BLOOD GAS OXYGEN CONTENT 14.3 Vol % (12.0-20.0); BLOOD GAS PCO2 32 mmHg (38-42); BLOOD GAS PO2 132 mmHg (61-120); BLOOD GAS TOTAL HGB 10.5 G/DL (12.0-16.0); TEMP CORR TO 98.6
[2016-12-17 21:17] LABS: CRITICAL VALUE YES
[2016-12-17 21:18] LABS: DRAW SITE RT RADIAL; LITER FLOW 4 L/M; NUMBER OF ARTERIAL PUNCTURES 1; OXYGEN DEVICE NASAL CANNULA; STAT YES; ULNAR PULSE PRESENT
[2016-12-17] MEDS: AMITRIPTYLINE HCL 25 MG TAB PO SCH (21:23)
--- NOTE | 2016-12-17 21:29 | RADRPT ---
EXAM DATE/TIME: 12/17/2016 21:10 [facility] COMPARISON: CHEST SINGLE AP, December 15, 2016, 21:14. INDICATIONS : Patient has felt short of breath for two days. MEDICAL HISTORY : Metastatic, breast. Chronic obstructive pulmonary disease. Deep venous SURGICAL HISTORY : Hysterectomy. Mastectomy, left. Vena cava filter. ENCOUNTER: Subsequent ACUITY: 2 days PAIN SCORE: 0/10 LOCATION: chest FINDINGS: A single view of the chest demonstrates bilateral airspace disease. Right sided regino catheter with t ip in the cavoatrial junction. The cardiomediastinal contours are unremarkable. Osseous structures a re intact. CONCLUSION: Bilateral airspace disease likely pulmonary edema. Buddy Lundberg MD on December 17, 2016 at 21:27 Board Certified Radiologist. This report was verified electronically.
[2016-12-17] MEDS ORDERED: FUROSEMIDE 40 MG/4 ML VIAL IV PUSH ONE (21:45)
[2016-12-17 22:00] LABS: AUTOMATED NEUTROPHIL # 22.7 TH/MM3 (1.8-7.7); BASOPHIL # 0.1 TH/MM3 (0-0.2); BASOPHIL % 0.2 % (0.0-2.0); EOSINOPHIL # 0.1 TH/MM3 (0-0.4); EOSINOPHIL % 0.5 % (0.0-4.0); HEMATOCRIT 30.4 % (35.0-46.0); LYMPH % 1.6 % (9.0-44.0); LYMPHOCYTE # 0.4 TH/MM3 (1.0-4.8); MEAN CELL VOLUME 90.4 FL (80.0-100.0); MEAN CORPUSCULAR HEMOGLOBIN 29.4 PG (27.0-34.0); MEAN CORPUSCULAR HGB CONC 32.6 % (32.0-36.0); MONO % 2.1 % (0.0-8.0); NEUT % 95.6 % (16.0-70.0); PLATELET COUNT 119 TH/MM3 (150-450); RED BLOOD COUNT 3.36 MIL/MM3 (4.00-5.30); RED CELL DISTRIBUTION WIDTH 19.7 % (11.6-17.2); WHITE BLOOD COUNT 23.8 TH/MM3 (4.0-11.0)
[2016-12-17 22:02] LABS: HEMO FLAGS AUTO DIFF
[2016-12-17 22:40] LABS: BANDS 15 % (0-6); EOSINOPHILS 1 % (0-4); METAMYELOCYTES 1 % (0-1); NEUTROPHIL # MANUAL DIFF 22.8 TH/MM3 (1.8-7.7); POLYS (SEG NEUTROPHILS) 80 % (16-70); WBC DIFF SAMPLE 100
[2016-12-17 22:41] LABS: PLATELET ESTIMATE SMEAR LOW (NORMAL); PLATELET MORPHOLOGY NORMAL (NORMAL); SCAN/DIFF FINAL DIFF MANUAL
[2016-12-17 22:45] LABS: BICARBONATE 17.7 MEQ/L (21.0-32.0); POTASSIUM 3.8 MEQ/L (3.5-5.1)
[2016-12-17 23:07] LABS: CALCIUM-PROTEIN CORRECTED 7.1 MG/DL (8.5-10.1)
--- NOTE | 2016-12-17 23:14 | HHI.PR ---
Addendum to Inpatient Note Addendum Reason: Additional Documentation Additional Information Mrs. Carrion is a 76 year-old female with metastatic breast cancer with metastasis to liver, brain, and bone and a history of pericarditis, pneumonia, hydronephrosis, hydroureter, cutaneous herpes simplex, recent C. difficile colitis, and pulmonary embolism status post IVC filter and a DNR code status who was transferred back to [address] [place] [address] after being treated in ICU for severe sepsis with hypotension. She was diagnosed with C. difficile colitis 12/04/2016 at [facility] in [place] . I was called by the registered nurse alisa because the patient was experiencing an abrupt onset of shortness of breath. I am familiar with the patient from 12/15/16 when I treated her for sepsis. I placed an order for chest x-ray and ABGs to be performed stat and arrived at the bedside. The patient was complaining of severe shortness of breath. Symptoms began about 30 minutes prior to my arrival. She feels warm and slightly diaphoretic with tachypnea and posterior and anterior bilateral lower lobe crackles - somewhat worse on right. She denies chest pain. She had some nausea and vomiting at around 5 PM but none since. ABGs resulted with pH of 7.29, PCO2 low at 32, and PO2 high at 132 on 4 liters nasal cannula - chest x-ray demonstrates bilateral airspace disease consistent with pulmonary edema - January 10, 2016 echocardiogram showed an EF of 35-40% and patient is status post fluid resuscitation for sepsis. BNP elevated at 1107. Lasix 40 mg IV ordered. She also has left arm erythema and swelling and a routine Doppler ultrasound was ordered today by the Oncology [employer]IST. I changed the order to stat as there is concern that given the abrupt onset of her symptomatology and history of cancer, she could have a PE. I cannot perform pulmonary angiogram with her estimated GFR of 27. I will wait and see if her symptoms improve after Lasix and follow the results of the left upper extremity ultrasound before further workup for PE. Will also check a d-dimer though it will likely be abnormal given pulmonary edema and pneumonia; however, if within normal parameters, this will be reassuring. Lactic Acid is normal at 0.8 now. WBC has increased - stress may be a contributing factor but I am uncertain of the exact etiology of this; she is on IV antibiotics and p.o. vancomycin for c. difficile colitis currently; infectious disease specialty is involved in patient management. Calcium is low at 7.1. Replacement ordered. 12/18/160 - occlusive thrombus is noted within the left brachial vein proximal and distal. IVC filter will only protect from thromboembolism arising from lower extremities. Given renal failure, will start on heparin drip and defer further management to hematology who will be rounding on the patient in the morning. D-dimer is currently pending but results will not alter management decisions at this point. I spoke with the patient's registered nurse and she states that the patient is now asymptomatic and resting comfortably with no further respiratory complaints. Oxygen saturation is 97% on 4 L nasal cannula. . Rosita Siu Dec 17, 2016 23:14
[2016-12-17] MEDS ORDERED: CALCIUM GLUCONATE INJ 1 GM in SODIUM CHLORIDE 0.9% INJ 90 ML IV ONE (23:15)
--- NOTE | 2016-12-17 23:19 | EKG ---
Date Performed: 12/17/2016 Time Performed: 21:46:05 PTAGE: 76 years EKG: SINUS TACHYCARDIA ABNORMAL RHYTHM ECG PREVIOUS TRACING : 12/13/2016 09.26 Compared to previous tracing, heart rate has increased. DOCTOR: Stone Monzon Interpretating Date/Time 12/17/2016 23:18:19
--- NOTE | 2016-12-17 23:45 | RADRPT ---
EXAM DATE/TIME: 12/17/2016 22:26 [place] COMPARISON: No previous studies available for comparison. INDICATIONS : Left arm swelling. MEDICAL HISTORY : Chronic obstructive pulmonary disease. Deep venous thrombosis. Migraines. Pulmonary emboli. Pneumoni a. Osteoarthritis. Liver disease. C.diff. Breast cancer with mets to liver and bones. Chemotherapy. R adiation therapy. Blood tranfusion. SURGICAL HISTORY : Hysterectomy. Appendectomy. Tonsillectomy. Left mastectomy with lymph node removal. Right port impla nted. Right ureteral stent. Bilateral cataract removal. ENCOUNTER: Initial ACUITY: 1 day PAIN SCORE: 0/10 LOCATION: Left arm. FINDINGS: There is spontaneous flow documented in the basilic, cephalic, axillary, and subclavian veins. The v essels are compressible and augmentation response is documented. No filling defects are seen. The f low is phasic with respiration. Direction of flow in the jugular vein is caudal. Occlusive thrombus noted within the brachial vein. CONCLUSION: Occlusive thrombus is noted within the brachial vein proximal and distal. Otherwise patent venous sys tem. Jorden Grande MD on December 17, 2016 at 23:41 Board Certified Radiologist. This report was verified electronically.
[2016-12-18] VITALS (8 sets, daily range): BP systolic 96–125; BP diastolic 60–71; PULSE 102–134; RESP 18–24; TEMP 96.6–98.3; O2SAT 96–99
[2016-12-18] MEDS ORDERED: HEPARIN-D5W INJ 250 ML IV SCH (00:15)
[2016-12-18 00:48] LABS: APTT (PATIENT) 35.4 SEC (24.3-30.1); INTERNATIONAL NORMALIZED RATIO 1.1 RATIO; PROTHROMBIN TIME - PATIENT 12.7 SEC (9.8-11.6)
[2016-12-18] MEDS: VANCOMYCIN 500 MG VIAL (FOR ORAL USE ONLY) PO SCH ×4 (01:10→20:18)
[2016-12-18] MEDS: RESP: ALBUTEROL 2.5 MG/IPRATROPIUM 0.5 MG NEB (SCH) NEB ×4 (01:38→18:58)
[2016-12-18] MEDS: RESP: ALBUTEROL 2.5 MG/IPRATROPIUM 0.5 MG NEB (PRN) NEB (04:39)
[2016-12-18 06:55] LABS: HEMATOCRIT 28.3 % (35.0-46.0); MEAN CELL VOLUME 91.1 FL (80.0-100.0); MEAN CORPUSCULAR HEMOGLOBIN 29.4 PG (27.0-34.0); MEAN CORPUSCULAR HGB CONC 32.3 % (32.0-36.0); PLATELET COUNT 104 TH/MM3 (150-450); RED BLOOD COUNT 3.11 MIL/MM3 (4.00-5.30); RED CELL DISTRIBUTION WIDTH 19.6 % (11.6-17.2)
[2016-12-18 07:11] LABS: BICARBONATE 18.7 MEQ/L (21.0-32.0); POTASSIUM 3.6 MEQ/L (3.5-5.1)
[2016-12-18 07:19] LABS: APTT (PATIENT) 56.3 SEC (24.3-30.1)
[2016-12-18 07:37] LABS: CALCIUM-PROTEIN CORRECTED 7.9 MG/DL (8.5-10.1); REVIEW FLAG FINAL
[2016-12-18] MEDS: DOCUSATE SODIUM 50 MG/SENNA 8.6 MG TAB PO SCH ×2 (09:00→20:18)
[2016-12-18] MEDS: SODIUM CHLORIDE 0.9% FLUSH 5 ML FLUSH FLUSH SCH ×2 (09:00→20:18)
[2016-12-18] MEDS: FAMOTIDINE 20 MG TAB PO SCH ×2 (09:41→20:18)
[2016-12-18] MEDS: LACTOBACILLUS ACIDOPHILUS TAB PO SCH ×3 (09:42→16:34)
--- NOTE | 2016-12-18 10:45 | PD.ONC.PN ---
Subjective Subjective Remarks Afebrile overnight. Pt states she feels much better today. No headache. No nausea. She has a cough and some mild SOB that she reports is improved from overnight. Son at bedside. Objective Data Date Time Temp Pulse Resp B/P Pulse Ox O2 Delivery O2 Flow Rate FiO2 12/18/16 04:00 98.0 102 18 117/61 96 12/18/16 00:18 96.6 103 18 121/71 97 12/17/16 21:05 96.4 122 24 171/89 95 12/17/16 21:00 94 4.00 12/17/16 21:00 98 Nasal Cannula 4.00 12/17/16 21:00 95 4.00 12/17/16 20:00 97.3 102 18 142/78 95 12/17/16 20:00 Nasal Cannula 3.00 12/17/16 16:59 Nasal Cannula 3.00 12/17/16 16:30 96.9 104 20 149/80 94 12/17/16 14:00 106 12/17/16 12:00 97.7 99 15 113/59 98 12/17/16 12:00 99 12/17/16 11:07 99 Nasal Cannula 3.00 12/18/16 12/18/16 12/18/16 07:00 15:00 23:00 Output Total 3750 ml Balance -3750 ml Result Diagram: 12/18/16 0630 12/18/16 0630 Laboratory Results Laboratory Tests Test 12/17/16 12/17/16 12/18/16 12/18/16 21:00 21:44 00:19 06:30 Blood Gas Puncture Site RT RADIAL Blood Gas Patient Temperature 98.6 Blood Gas HCO3 15 mmol/L Blood Gas Base Excess -10.7 mmol/L Blood Gas Oxygen Saturation 96 % Arterial Blood pH 7.29 Arterial Blood Partial 32 mmHg Pressure CO2 Arterial Blood Partial 132 mmHg Pressure O2 Arterial Blood Oxygen Content 14.3 Vol % Arterial Blood 1.4 % Carboxyhemoglobin Arterial Blood Methemoglobin 1.2 % Blood Gas Hemoglobin 10.5 G/DL Oxygen Delivery Device NASAL CANNULA Blood Gas Liter Flow 4 L/M White Blood Count 23.8 TH/MM3 20.0 TH/MM3 Red Blood Count 3.36 MIL/MM3 3.11 MIL/MM3 Hemoglobin 9.9 GM/DL 9.1 GM/DL Hematocrit 30.4 % 28.3 % Mean Corpuscular Volume 90.4 FL 91.1 FL Mean Corpuscular Hemoglobin 29.4 PG 29.4 PG Mean Corpuscular Hemoglobin 32.6 % 32.3 % Concent Red Cell Distribution Width 19.7 % 19.6 % Platelet Count 119 TH/MM3 104 TH/MM3 Mean Platelet Volume 8.6 FL 9.0 FL Neutrophils (%) (Auto) 95.6 % Lymphocytes (%) (Auto) 1.6 % Monocytes (%) (Auto) 2.1 % Eosinophils (%) (Auto) 0.5 % Basophils (%) (Auto) 0.2 % Neutrophils # (Auto) 22.7 TH/MM3 Lymphocytes # (Auto) 0.4 TH/MM3 Monocytes # (Auto) 0.5 TH/MM3 Eosinophils # (Auto) 0.1 TH/MM3 Basophils # (Auto) 0.1 TH/MM3 CBC Comment AUTO DIFF Differential Total Cells 100 Counted Neutrophils % (Manual) 80 % Band Neutrophils % 15 % Lymphocytes % 2 % Monocytes % 1 % Eosinophils % 1 % Neutrophils # (Manual) 22.8 TH/MM3 Metamyelocytes 1 % Differential Comment FINAL DIFF MANUAL Platelet Estimate LOW Platelet Morphology Comment NORMAL Sodium Level 143 MEQ/L 145 MEQ/L Potassium Level 3.8 MEQ/L 3.6 MEQ/L Chloride Level 113 MEQ/L 114 MEQ/L Carbon Dioxide Level 17.7 MEQ/L 18.7 MEQ/L Anion Gap 12 MEQ/L 12 MEQ/L Blood Urea Nitrogen 30 MG/DL 29 MG/DL Creatinine 1.84 MG/DL 1.84 MG/DL Estimat Glomerular Filtration 27 ML/MIN 27 ML/MIN Rate Random Glucose 82 MG/DL 87 MG/DL Lactic Acid Level 0.8 mmol/L Calcium Level 6.4 MG/DL 6.9 MG/DL Protein Corrected Calcium 7.1 MG/DL 7.9 MG/DL Magnesium Level 2.0 MG/DL B-Type Natriuretic Peptide 1107 PG/ML Total Protein 5.7 GM/DL 5.2 GM/DL Prothrombin Time 12.7 SEC Prothromb Time International 1.1 RATIO Ratio Activated Partial 35.4 SEC 56.3 SEC Thromboplast Time D-Dimer Quantitative (PE/DVT) 9.13 MG/L FEU Culture Results Microbiology Date/Time Procedure Status Source Growth 12/15/16 17:30 Aerobic Blood Culture - Preliminary Resulted Blood Peripheral Gram Negative Mark 12/15/16 17:30 Anaerobic Blood Culture - Preliminary Resulted Blood Peripheral 12/15/16 21:30 Urine Culture - Preliminary Resulted Urine Random Urine Gram Negative Mark 12/15/16 23:40 Aerobic Blood Culture - Preliminary Resulted Blood Peripheral NO GROWTH IN 1 DAY 12/15/16 23:40 Anaerobic Blood Culture - Preliminary Resulted Blood Peripheral NO GROWTH IN 1 DAY 12/17/16 13:55 Gram Stain - Final Resulted Fluid Other 12/17/16 13:55 Body Fluid Culture Resulted Fluid Other Pending Imaging Studies Last 24 hours Impressions Upper Extremity Ultrasound 12/17/162134 Signed Impressions: Service Date/Time: Monday, December 17, 2016 22:26 - CONCLUSION: Occlusive thrombus is noted within the brachial vein proximal and distal. Otherwise patent venous system. Joredn Grande MD Administered Medications Medications (Trade) Dose Ordered Sig/Randell Route PRN Reason Start Time Stop Time Status Last Admin Dose Admin IV Flush (NS Flush) 2 ml BID FLUSH 12/10/16 09:00 12/17/16 20:37 Ondansetron HCl (Zofran Inj) 4 mg Q6HR PRN IV PUSH nausea 12/10/16 10:30 12/17/16 16:45 Senna/Docusate Sodium (Licha-Colace) 1 tab BID PRN PO constipation 12/11/16 09:30 12/12/16 02:46 Heparin Sodium (Porcine) (Heparin Central Flush) 250 units UNSCH PRN IVF SEE PROTOCOL TABLE 12/11/16 13:00 12/12/16 05:25 Senna/Docusate Sodium (Licha-Colace) 2 tab BID PO 12/14/16 09:00 12/17/16 20:35 Lactulose (Lactulose Liq) 30 ml TID PRN PO CONSTIPATION 12/14/16 05:45 12/15/16 10:02 Lactobacillus Acidophilus (Lactinex) 1 tab TID PO 12/14/16 09:00 12/18/16 09:42 Promethazine HCl (Phenergan Inj) 12.5 mg Q4H PRN IV-CENTRAL nausea 12/15/16 16:00 12/17/16 10:34 Acetaminophen 650 mg 650 mg Q6H PRN PO FEVER 12/15/16 16:45 12/16/16 15:06 Cefepime HCl/ Sodium Chloride (Maxipime Inj/NS Inj) 100 ml @ 200 mls/hr Q24H IV 12/16/16 17:00 12/17/16 16:23 Famotidine (Pepcid) 10 mg BID PO 12/17/16 09:00 12/18/16 09:41 Amitriptyline HCl (Elavil) 25 mg HS PO 12/17/16 21:00 12/17/16 21:23 Lorazepam (Ativan Inj) 0.5 mg Q6H PRN IV PUSH nausea 12/17/16 17:00 12/17/16 17:35 Vancomycin HCl 500 mg 500 mg Q6H PO 12/17/16 20:00 12/18/16 01:10 Heparin Sodium/ Dextrose (Heparin-D5W Inj) 250 ml @ 0 mls/hr TITRATE IV 12/18/16 00:15 12/18/16 01:12 Objective Remarks GENERAL: Elderly female, sitting up in bed in no distress. SKIN: Warm and dry. HEAD: Normocephalic. EYES: No injection or drainage. NECK: Supple, trachea midline. CARDIOVASCULAR:+S1/S2. RESPIRATORY: Lungs clear anteriorly. GENITOURINARY: Bilateral nephrostomy tubes draining clear yellow fluid. GASTROINTESTINAL: Abdomen soft, non-tender, nondistended. EXTREMITIES: LUE edema. NEUROLOGICAL: No obvious focal deficit. Awake, alert, and oriented x3. Assessment/Plan Problem List: (1) Metastatic breast cancer Status: Chronic Plan: History: -- First diagnosed in 2008. had neoadjuvant dose-dense chemotherapy followed by mastectomy and radiation. -- Maintained on letrozole but developed a bone metastasis in April of 2013. then treated with Xeloda. -- August of 2014 developed liver metastasis. given a Faslodex without any improvement. then treated with weekly Taxol. -- June of 2015 disease was rebiopsied and she was now found to have HER-2 positive disease (previously HER-2 negative), started on Herceptin and Perjeta. had a reaction to Perjeta and was switched to Herceptin and Navelbine. -- October of 2016, found to have a new brain metastasis. completed WBRT. The plan was to initiate intrathecal chemotherapy with cytarabine. While continuing systemic therapy with Herceptin based chemotherapy. Systemic therapy on hold. (2) Thrombosis of arm Status: Acute Plan: -- Started heparin gtt -- Will start her on oral warfarin once no procedures planned. -- Not a candidate for factor 10 agents due to kidney function. (3) CKD (chronic kidney disease) stage 3, GFR 30-59 ml/min Status: Chronic Plan: -- Acute renal failure due to obstructive uropathy. -- had dialysis twice when in [place]. -- had bilateral nephrostomy tube placement. -- Urology following, ureteral stents were placed bilaterally 12/13, nephrostomy tubes capped off. -- Nephrology following (4) History of Clostridium difficile Status: Acute Plan: -- currently on Flagyl. Assessment 76y/o female with metastatic breast cancer transferred here from [place] with C. difficile colitis and renal failure. h/o Anemia. Pericarditis. Pneumonia. Hydronephrosis. C. difficile colitis. Pulmonary embolism--IVC filter, 2008 Cutaneous herpes simplex. +Port placement. Left mastectomy. Right ureteral stent placement in May of 2015 and May of 2016. Appendectomy. Hysterectomy. Dialysis catheter placement and removal. Plan 1. Will change heparin gtt to once daily Lovenox; kidney function improving. 2. DVT to L brachial vein. 3. Resume systemic chemotherapy once acute issues resolve. 4 CBC in am. Transfuse as needed. Problem Qualifiers (1) Thrombosis of arm: Qualified Code: I82.602 - Thrombosis of arm, left Mona Wang SINTIA Dec 18, 2016 10:45
--- NOTE | 2016-12-18 12:05 | HHI.PR ---
Subjective Remarks Patient went to respiratory distress overnight. Chest x-ray revealed pulmonary edema. She was given IV Lasix. Ultrasound of the left arm also showed the brachial DVT. She was started on heparin. She reports feeling much better this morning. Breathing more comfortable. No chest pain. She denies any history of CHF. Reportedly saw Dr. Webster previously and had a normal stress test. Objective Vitals Vital Signs Date Time Temp Pulse Resp B/P Pulse Ox O2 Delivery O2 Flow Rate FiO2 12/18/16 10:48 98 Nasal Cannula 4.00 12/18/16 10:32 Nasal Cannula 4.00 Humidified 12/18/16 08:00 97.1 106 24 125/68 97 12/18/16 04:00 98.0 102 18 117/61 96 12/18/16 00:18 96.6 103 18 121/71 97 12/17/16 21:05 96.4 122 24 171/89 95 12/17/16 21:00 94 4.00 12/17/16 21:00 98 Nasal Cannula 4.00 12/17/16 21:00 95 4.00 12/17/16 20:00 97.3 102 18 142/78 95 12/17/16 20:00 Nasal Cannula 3.00 12/17/16 16:59 Nasal Cannula 3.00 12/17/16 16:30 96.9 104 20 149/80 94 12/17/16 14:00 106 12/17/16 12:00 97.7 99 15 113/59 98 12/17/16 12:00 99 I/O 12/17/16 12/17/16 12/17/16 12/18/16 12/18/16 12/18/16 07:00 15:00 23:00 07:00 15:00 23:00 Intake Total 1089 ml 509 ml Output Total 150 ml 195 ml 3750 ml Balance 939 ml 314 ml -3750 ml Intake Oral 150 ml 240 ml IV Total 939 ml 269 ml Output Urine Total 150 ml 20 ml Drainage Total 175 ml 3750 ml # Bowel Movements 0 0 Result Diagram: 12/18/16 0630 12/18/16 0630 Imaging Last Impressions Upper Extremity Ultrasound 12/17/16 0695 Signed Impressions: Service Date/Time: Saturday, December 17, 2016 22:26 - CONCLUSION: Occlusive thrombus is noted within the brachial vein proximal and distal. Otherwise patent venous system. Jorden Grande MD Chest X-Ray 12/17/16 0000 Signed Impressions: Service Date/Time: Saturday, December 17, 2016 21:10 - CONCLUSION: Bilateral airspace disease likely pulmonary edema. Buddy Lundberg MD Head CT 12/15/16 0000 Signed Impressions: Service Date/Time: Friday, December 16, 2016 04:29 - CONCLUSION: No acute disease. Jorden Grande MD Objective Remarks GENERAL: Elderly female in no apparent distress. CARDIOVASCULAR: Normal rate and regular rhythm without murmurs, gallops, or rubs. RESPIRATORY: Good respiratory efforts. Diminished breath sounds at the bases bilaterally otherwise clear to auscultation. GASTROINTESTINAL: Abdomen soft, non-tender, non-distended. Normal active bowel sounds MUSCULOSKELETAL: Bilateral lower extremity with 1+ edema. NEURO: Alert & Oriented x4 to person, place, time, situation. Moves all ext x4 PSYCH: Appropriate mood and affect. Procedures 12/13- cystoscopy with bilateral stent insertion- right ureteral stent exchange, left ureteral stent insertion Location: Internal A/P Problem List: (1) Bilateral ureteral obstruction ICD Code: N13.5 Status: Acute (2) Metastatic breast cancer ICD Code: C50.919 Status: Chronic Assessment and Plan 76-year-old female with history of metastatic breast cancer to the liver, brain , and bone. Patient also has a history of pulmonary alcoholism status post IVC filter placement. Patient recently diagnosed with obstructive uropathy and bilateral nephrostomy tubes were She has been in the ICU and treated for severe sepsis. She was diagnosed with C. difficile colitis at an outside hospital on 12/04/16. Patient clinically improved and transferred out of the ICU. Neutropenic sepsis: Secondary UTI. Patient also with C. difficile colitis. - Appreciate infectious disease following. Continue cefepime, vancomycin by mouth. - Continue to follow cultures. Probable acute on chronic systolic CHF: Patient was aggressively treated for sepsis with IV fluid. Respiratory distress overnight and was found to have pulmonary edema and elevated BNP. She denies history of CHF but echocardiogram from 01/15/16 showed EF of 35-40%. Does not appear she was on medication for heart failure outpatient. Repeat a 2-D echo. Consult cardiology - We'll give 1 more dose of IV Lasix today. Renal function stable today. Will need to monitor closely with diuretics. Renal failure/obstructive uropathy: Appreciate nephrology and urology following. Patient is a nonoliguric. Bilateral nephrostomy. - Follow BMP. Avoid nephrotoxins. Metastatic breast cancer - Treatment per oncology and radiation oncology C. difficile colitis: Improving -Patient was on Flagyl. This was switched to oral vancomycin per infectious disease. DVT GI prophylaxis - Heparin and Pepcid Jeannette Hedrick MD Dec 18, 2016 12:05
[2016-12-18 13:36] LABS: APTT (PATIENT) 98.6 SEC (24.3-30.1)
--- NOTE | 2016-12-18 13:42 | HHI.NPPN ---
Subjective General Problems: Anemia, Edema, Mebatolic Acidosis Renal Failure: Chronic, Acute History of Present Illness 76 -year-old female with history of metastatic breast cancer to bone, liver and brain, obstructive uropathy history of nephrostomies and recent stent exchange the patient is passing urine however she developed septicemia has gram-negative rods patient has been transferred to intensive care unit. Additional Remarks Patient is alert, sitting on chair, not in distress. Objective Data Data 12/17/16 12/18/16 19:00 07:00 Intake Total 509 ml Output Total 195 ml 3750 ml Balance 314 ml -3750 ml Intake Oral 240 ml IV Total 269 ml Output Urine Total 20 ml Drainage Total 175 ml 3750 ml # Bowel Movements 0 Vital Signs Date Time Temp Pulse Resp B/P Pulse Ox O2 Delivery O2 Flow Rate FiO2 12/18/16 12:00 98.3 113 20 123/64 99 12/18/16 10:48 98 Nasal Cannula 4.00 12/18/16 10:32 Nasal Cannula 4.00 Humidified 12/18/16 08:00 97.1 106 24 125/68 97 12/18/16 04:00 98.0 102 18 117/61 96 12/18/16 00:18 96.6 103 18 121/71 97 12/17/16 21:05 96.4 122 24 171/89 95 12/17/16 21:00 94 4.00 12/17/16 21:00 98 Nasal Cannula 4.00 12/17/16 21:00 95 4.00 12/17/16 20:00 97.3 102 18 142/78 95 12/17/16 20:00 Nasal Cannula 3.00 12/17/16 16:59 Nasal Cannula 3.00 12/17/16 16:30 96.9 104 20 149/80 94 12/17/16 14:00 106 -: 12/18/16 0630 12/18/16 0630 Microbiology 12/17/16 Gram Stain - Final, Resulted 12/17/16 Body Fluid Culture, Resulted Pending Physical Exam General Appearance: No Acute Distress, Comfortable Eyes Eye Exam: Pupils Equal Throat Throat Exam: Oral Mucosa [place] & Moist Pulmonary Resp Exam: No Distress, Rhonchi, Decreased Bases, Diminished Breath Sounds Cardiology CV Exam: Regular, Normal Sinus Rhythm Gastrointestinal/Abdomen GI Exam: Soft, Non-Tender, Bowel Sounds Present, Distended Extremeties Extremities Exam: Trace Edema Neurologic Neuro Exam: Alert, Awake Assessment/Plan Assessment Summary: REENA/Acute Renal Failure Problem List: (1) Kidney failure Plan: Patient is a nonoliguric following by Dr. Sierra and he stated that he keep the stents in as she is producing more urine. She Has Stent Placed She Has Been Treated for Gram-Negative Sepsis Continued to Hydrate Her Treat with Antibiotics Avoid Nephrotoxin. 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 Creatinine is almost same. Continue antibiotics, urology follow up. (2) Breast carcinoma metastatic to multiple sites Plan: Patient has chronic problem followed by oncology (3) Sepsis Plan: Gram-negative awaiting culture results patient has been started on cefepime Farrukh Zuniga MD Dec 18, 2016 13:42
[2016-12-18] MEDS ORDERED: FUROSEMIDE 40 MG/4 ML VIAL IV PUSH ONE (15:00)
[2016-12-18 15:54] LABS: APTT (PATIENT) 32.2 SEC (24.3-30.1)
[2016-12-18] MEDS: ENOXAPARIN SODIUM 60 MG/0.6 ML SYRINGE SQ SCH (16:33)
[2016-12-18] MEDS: CEFEPIME INJ 2,000 MG in SODIUM CHLORIDE 0.9% INJ 100 ML IV SCH (16:33)
--- NOTE | 2016-12-18 17:11 | MB ---
cc: MANDY WEBSTER M.D., BARTON G. DO DATE OF CONSULTATION 12/18/2016 IMPRESSIONS 1. Pulmonary edema likely noncardiogenic. The patient is not examined as if she has congestive heart failure at this point in time. 2. Widely metastatic breast cancer, apparently brain and liver mets in addition to bone mets, documented. 3. Hypotension, gram-negative sepsis with necrosis. 4. History of multiple renal problems including hydronephrosis, hydroureter. 5. Questionable history of pericarditis. 6. History of cutaneous herpes simplex. 7. History of pulmonary embolism status post IVC filter. 8. History of Clostridium difficile in the remote past. 9. Hypotension, prompting transfer to the intensive care unit. RECOMMENDATIONS 1. Judicious use of diuretics. The patient is not dyspneic nor tachypneic at this point in time. 2. We will check an echocardiogram for left ventricular size and function. The patient states she has a functional testing with a nuclear stress test by Dr. Webster in the remote past and it was normal. CLINICAL DATA Mrs. Carrion is a very pleasant 76-year-old female who was transferred from [facility] in [place] apparently after receiving chemo and radiation therapy. She also had problems with renal failure and apparently had dialysis earlier this month. She is being treated with chemo and radiation and apparently developed hypotension. She was neutropenic and blood cultures apparently were positive for gram-negative rods and she was moved to the intensive care unit. She is currently laying in bed but in no apparent distress. She is not on pressors at this point in time. She has no history of atherosclerotic heart disease, myocardial infarction, congestive heart failure, cardiac arrhythmias. She has no history of hypertension. No history of diabetes. She does have a history of dyslipidemia. She was treated with statins in the past, however, these were discontinued when she started chemotherapy. She has never smoked. She denies a history of seizure, stroke, TIA. There is no history of asthma, bronchitis, emphysema. No history of GI bleeding. There is a history of metastatic cancer to liver. There is a history of DVT. No history of thyroid disease. She apparently had a fever earlier. She denies any recent chills. She is having no back pain at this point in time. No nausea and vomiting. She has had no chest pain, arm, neck, shoulder or jaw discomfort. She has noted mild dependent type lower-extremity edema in the past. PHYSICAL EXAMINATION GENERAL: At this time demonstrates an alert, oriented female in no apparent distress. VITAL SIGNS: Blood pressure 120/70. Her heart rate is approximately 90 and regular. She is afebrile. HEENT: Anicteric sclerae. NECK: Jugular venous pulses are not elevated. LUNGS: She has scattered wheezes in the right base. No definite rales are heard at this point in time. CARDIOVASCULAR: Cardiac exam demonstrates a regular rate and rhythm. She has a hyperdynamic precordium. There is no S3. There is a 1/6 systolic ejection type murmur. ABDOMEN: Exam limited. The abdomen is soft, nontender. EXTREMITIES: Free of clubbing, cyanosis or edema. EKG A 12-lead electrocardiogram dated 12/17 at 2146 demonstrates a sinus tachycardia, rate of 110. Normal ventricular axis. Essentially normal EKG. No significant ST-T changes are noted. LABORATORY DATA The most recent albumin is 2.7. Lytes 145, 3.7, 117 with a carbon dioxide content of 17.6. BUN 30, creatinine 2.3. GFR estimated at 21 mL. White cell count 14,700 on the . CBC on the , white cell count 20,000. There was a left shift and bandemia yesterday. Her hematocrit is 28%, platelet count is 104,000. IMAGING Chest x-ray demonstrates reticular nodular infiltrates bilaterally with normal heart size. No significant effusions were seen. DISCUSSION This is a 76-year-old female with widely metastatic breast cancer. She is noted to be developing pulmonary infiltrates. This may represent atypical pneumonia in an immunosuppressed patient and noncardiogenic pulmonary edema / ARDS. We will check an echocardiogram for LV size and function. Nephrology is on the case. Would use low dose diuretics on a p.r.n. basis at this point in time. The patient's prognosis appears to be poor. DO JUAN C Almendarez /3:36 PM /4:51 PM
[2016-12-18] MEDS: AMITRIPTYLINE HCL 25 MG TAB PO SCH (20:18)
[2016-12-18] MEDS ORDERED: SODIUM CHLOR 0.9% 250 ML INJ 250 ML IV ONE (20:45)
[2016-12-19] VITALS (8 sets, daily range): BP systolic 107–137; BP diastolic 56–74; PULSE 95–110; RESP 17–22; TEMP 97.4–98.1; O2SAT 96–100
[2016-12-19] MEDS: VANCOMYCIN 500 MG VIAL (FOR ORAL USE ONLY) PO SCH ×4 (03:26→21:20)
[2016-12-19] MEDS: RESP: ALBUTEROL 2.5 MG/IPRATROPIUM 0.5 MG NEB (SCH) NEB ×4 (04:08→21:13)
[2016-12-19 06:51] LABS: HEMATOCRIT 25.1 % (35.0-46.0); MEAN CELL VOLUME 90.1 FL (80.0-100.0); MEAN CORPUSCULAR HEMOGLOBIN 29.7 PG (27.0-34.0); MEAN CORPUSCULAR HGB CONC 32.9 % (32.0-36.0); PLATELET COUNT 91 TH/MM3 (150-450); RED BLOOD COUNT 2.79 MIL/MM3 (4.00-5.30); WHITE BLOOD COUNT 10.5 TH/MM3 (4.0-11.0)
--- NOTE | 2016-12-19 06:57 | RADRPT ---
EXAM DATE/TIME: 12/19/2016 05:47 [place] COMPARISON: No previous studies available for comparison. INDICATIONS : Short of breath and coughing for one week, evaluate congestive heart failure MEDICAL HISTORY : Carcinoma, breast. Chronic obstructive pulmonary disease. Deep venous thrombosis. SURGICAL HISTORY : Mastectomy, left. Hysterectomy. IVC Filter placement. infusaport ENCOUNTER: Subsequent ACUITY: 1 week PAIN SCORE: 2/10 LOCATION: Bilateral chest FINDINGS: Right [id number] in superior vena cava. Bilateral mostly basilar and perihilar airspace disease si milar to December 17. Widespread sclerotic bone lesions again noted. Left mastectomy. CONCLUSION: 1. Basilar and perihilar airspace disease with small effusions similar to December 17. Gurwinder Stoll MD on December 19, 2016 at 6:54 Board Certified Radiologist. This report was verified electronically.
[2016-12-19 07:02] LABS: REVIEW FLAG FINAL
[2016-12-19 07:13] LABS: BICARBONATE 24.4 MEQ/L (21.0-32.0); POTASSIUM 3.1 MEQ/L (3.5-5.1)
[2016-12-19 07:27] LABS: CALCIUM-PROTEIN CORRECTED 8.1 MG/DL (8.5-10.1)
[2016-12-19] MEDS ORDERED: POTASSIUM CHLORIDE 10 MEQ CONTROLLED RELEASE TAB PO ONE (08:30)
--- NOTE | 2016-12-19 08:30 | PD.ONC.PN ---
Subjective Subjective Remarks Ms. Carrion was seen and examined this morning, she has been transferred out of the intensive care unit and is back on the oncology unit. She reports feeling gradually better as far as diarrhea is concerned, her appetite is somewhat better and she denies pain. She does however have a new onset dry cough which produces scant phlegm. She denies fevers or chills. The patient's renal function continues to improve but she requires a Gallegos catheter as well as bilateral percutaneous nephrostomy tubes which have been draining to gravity. Additionally over the weekend she was found to have a deep venous thrombosis involving the left upper extremity, she has been initiated on anticoagulation with Lovenox. Objective Data Date Time Temp Pulse Resp B/P Pulse Ox O2 Delivery O2 Flow Rate FiO2 12/19/16 04:00 98.0 106 17 116/68 96 12/19/16 00:00 98.1 100 17 107/56 99 12/18/16 20:00 97.6 134 18 96/60 97 12/18/16 20:00 106 12/18/16 20:00 Nasal Cannula 3.00 Humidified 12/18/16 18:58 96 Nasal Cannula 3.00 12/18/16 16:00 98.1 131 20 107/66 97 12/18/16 12:00 98.3 113 20 123/64 99 12/18/16 10:48 98 Nasal Cannula 4.00 12/18/16 10:32 Nasal Cannula 4.00 Humidified Result Diagram: 12/19/16 0540 12/19/16 0540 Laboratory Results Laboratory Tests Test 12/18/16 12/18/16 12/19/16 12:30 15:20 05:40 Activated Partial 98.6 SEC 32.2 SEC Thromboplast Time White Blood Count 10.5 TH/MM3 Red Blood Count 2.79 MIL/MM3 Hemoglobin 8.3 GM/DL Hematocrit 25.1 % Mean Corpuscular Volume 90.1 FL Mean Corpuscular Hemoglobin 29.7 PG Mean Corpuscular Hemoglobin 32.9 % Concent Red Cell Distribution Width 19.0 % Platelet Count 91 TH/MM3 Mean Platelet Volume 8.8 FL Sodium Level 143 MEQ/L Potassium Level 3.1 MEQ/L Chloride Level 109 MEQ/L Carbon Dioxide Level 24.4 MEQ/L Anion Gap 10 MEQ/L Blood Urea Nitrogen 23 MG/DL Creatinine 1.46 MG/DL Estimat Glomerular Filtration 35 ML/MIN Rate Random Glucose 100 MG/DL Calcium Level 6.9 MG/DL Protein Corrected Calcium 8.1 MG/DL Total Protein 4.8 GM/DL Culture Results Microbiology Date/Time Procedure Status Source Growth 12/17/16 13:55 Gram Stain - Final Resulted Fluid Other 12/17/16 13:55 Body Fluid Culture - Preliminary Resulted Fluid Other NO GROWTH IN 24 HOURS. Imaging Studies Last 24 hours Impressions Chest X-Ray 12/19/16 0600 Signed Impressions: Service Date/Time: Monday, December 19, 2016 05:47 - CONCLUSION: 1. Basilar and perihilar airspace disease with small effusions similar to December 17. Gurwinder Stoll MD Administered Medications Medications (Trade) Dose Ordered Sig/Randell Route PRN Reason Start Time Stop Time Status Last Admin Dose Admin IV Flush (NS Flush) 2 ml BID FLUSH 12/10/16 09:00 12/18/16 20:18 Ondansetron HCl (Zofran Inj) 4 mg Q6HR PRN IV PUSH nausea 12/10/16 10:30 12/17/16 16:45 Senna/Docusate Sodium (Licha-Colace) 1 tab BID PRN PO constipation 12/11/16 09:30 12/12/16 02:46 Heparin Sodium (Porcine) (Heparin Central Flush) 250 units UNSCH PRN IVF SEE PROTOCOL TABLE 12/11/16 13:00 12/12/16 05:25 Senna/Docusate Sodium (Licha-Colace) 2 tab BID PO 12/14/16 09:00 12/18/16 20:18 Lactulose (Lactulose Liq) 30 ml TID PRN PO CONSTIPATION 12/14/16 05:45 12/15/16 10:02 Lactobacillus Acidophilus (Lactinex) 1 tab TID PO 12/14/16 09:00 12/18/16 16:34 Promethazine HCl (Phenergan Inj) 12.5 mg Q4H PRN IV-CENTRAL nausea 12/15/16 16:00 12/17/16 10:34 Acetaminophen 650 mg 650 mg Q6H PRN PO FEVER 12/15/16 16:45 12/16/16 15:06 Cefepime HCl/ Sodium Chloride (Maxipime Inj/NS Inj) 100 ml @ 200 mls/hr Q24H IV 12/16/16 17:00 12/18/16 16:33 Famotidine (Pepcid) 10 mg BID PO 12/17/16 09:00 12/18/16 20:18 Amitriptyline HCl (Elavil) 25 mg HS PO 12/17/16 21:00 12/18/16 20:18 Lorazepam (Ativan Inj) 0.5 mg Q6H PRN IV PUSH nausea 12/17/16 17:00 12/17/16 17:35 Vancomycin HCl (VANCOMYCIN for oral use only) 500 mg Q6H PO 12/17/16 20:00 12/19/16 03:26 Enoxaparin Sodium (Lovenox Inj) 60 mg Q24H SQ 12/18/16 15:00 12/18/16 16:33 Objective Remarks GENERAL: Elderly female, sitting up in bed, appears to be no acute distress. Somewhat pale appearing. SKIN: No rashes, ecchymoses or lesions. Cool and dry. HEAD: Atraumatic. Normocephalic. EYES: Extraocular motions intact. No scleral icterus. No injection or drainage. ENT: Nose without bleeding, purulent drainage. Airway patent. NECK: Trachea midline. No JVD or lymphadenopathy. CARDIOVASCULAR: Normal pulses, extremities well perfused RESPIRATORY: nonlabored respiration, equal chest rise GASTROINTESTINAL: Abdomen soft, non-tender, nondistended. Bruising over the lower abdomen at the site of injections. GENITOURINARY: Bilateral nephrostomy tubes in place, draining light pink urine. Insertion site clean and dry, dressings in place MUSCULOSKELETAL: Left upper extremity edema. NEUROLOGICAL: Awake and alert. Motor and sensory grossly within normal limits. Normal speech. Assessment/Plan Problem List: (1) Metastatic breast cancer Status: Chronic Plan: History: -- First diagnosed in 2008. had neoadjuvant dose-dense chemotherapy followed by mastectomy and radiation. -- Maintained on letrozole but developed a bone metastasis in April of 2013. then treated with Xeloda. -- August of 2014 developed liver metastasis. given a Faslodex without any improvement. then treated with weekly Taxol. -- June of 2015 disease was rebiopsied and she was now found to have HER-2 positive disease (previously HER-2 negative), started on Herceptin and Perjeta. had a reaction to Perjeta and was switched to Herceptin and Navelbine. -- October of 2016, found to have a new brain metastasis. completed WBRT. The plan was to initiate intrathecal chemotherapy with cytarabine. While continuing systemic therapy with Herceptin based chemotherapy. Systemic therapy on hold. (2) Thrombosis of arm Status: Acute Plan: Transitioned to Lovenox 60 mg subcutaneous every 12 hours. Initiate warfarin after 48 hours of continuous therapeutic anticoagulation with Lovenox. (3) CKD (chronic kidney disease) stage 3, GFR 30-59 ml/min Status: Chronic Plan: -- Acute renal failure due to obstructive uropathy. -- had dialysis twice when in [place]. -- had bilateral nephrostomy tube placement; with improvement/normalization of renal function. -- Urology following, ureteral stents were placed bilaterally 12/13, nephrostomy tubes capped off; renal function worsened but this was in the setting of sepsis and hypotension. -- Renal function is stable to improved, her nephrostomies have been draining. (4) History of Clostridium difficile Status: Acute Plan: -- currently on Flagyl. Assessment 76y/o female with metastatic breast cancer transferred here from [place] with C. difficile colitis and renal failure. h/o Anemia. Pericarditis. Pneumonia. Hydronephrosis. C. difficile colitis. Pulmonary embolism--IVC filter, 2008 Cutaneous herpes simplex. +Port placement. Left mastectomy. Right ureteral stent placement in May of 2015 and May of 2016. Appendectomy. Hysterectomy. Dialysis catheter placement and removal. Plan 1. Metastatic breast carcinoma with intracranial metastases: She had been on palliative therapy with palliative whole brain radiation and palliative systemic therapy as well. At present she has too many acute issues including infectious issues to allow resumption of systemic therapy. 2. C. difficile colitis: Clinically improved. 3. Renal function: Acute on chronic renal failure, her renal function is very sensitive to fluctuations in her blood pressure. She seems to do best when her percutaneous nephrostomy tubes are draining and when she has a Gallegos catheter. I will rely on our urologists and nephrologists to help guide us as far as how to manage this in the long-term. 4. Left upper extremity deep venous thrombosis: Continue anticoagulation. Disposition: I did have a discussion with Mrs. Carrion this morning, we talked about the multiple acute and chronic medical issues which are proven to be barriers to delivery of palliative cancer directed care. I explained to her that at present her performance status is not conducive to resumption of palliative systemic treatment also explained to her that it is quite possible that further treatment may not be possible unless she significantly improves from an overall standpoint i.e. nutritional and functional. Mrs. Carrion made it quite clear to me that she values the importance of quality of life and functional independence. She has indicated to me on multiple previous meetings that she would choose not to prolong her dying process. She is open to additional disease directed treatments should she be able to maintain a good functional status and a good quality of life. Prior to her acute medical issues over the past 2 weeks, Mrs. Carrion had been fully functional, she managed her household, she participated in ballet and Pilates on a weekly basis at her gym, she drove anything to care for her . Because her performance status was as good as this we had been treating her aggressively over the past 3 years. Problem Qualifiers (1) Thrombosis of arm: Qualified Code: I82.602 - Thrombosis of arm, left Demario Leach MD Dec 19, 2016 08:30
[2016-12-19] MEDS: LACTOBACILLUS ACIDOPHILUS TAB PO SCH ×3 (09:02→17:17)
[2016-12-19] MEDS: FAMOTIDINE 20 MG TAB PO SCH ×2 (09:02→21:21)
[2016-12-19] MEDS: DOCUSATE SODIUM 50 MG/SENNA 8.6 MG TAB PO SCH ×2 (09:02→21:00)
[2016-12-19] MEDS: SODIUM CHLORIDE 0.9% FLUSH 5 ML FLUSH FLUSH SCH ×2 (09:04→21:21)
--- NOTE | 2016-12-19 09:42 | HHI.PR ---
Subjective Remarks Patient reports that she is feeling slightly better overall. Breathing is about the same compared to yesterday. Patient and her son inquired about why the left kidney will not drain without a nephrostomy tube. No fevers or chills. She does have a dry cough. No diarrhea. Objective Vitals Vital Signs Date Time Temp Pulse Resp B/P Pulse Ox O2 Delivery O2 Flow Rate FiO2 12/19/16 09:11 98 Nasal Cannula 3.00 12/19/16 04:00 98.0 106 17 116/68 96 12/19/16 00:00 98.1 100 17 107/56 99 12/18/16 20:00 97.6 134 18 96/60 97 12/18/16 20:00 106 12/18/16 20:00 Nasal Cannula 3.00 Humidified 12/18/16 18:58 96 Nasal Cannula 3.00 12/18/16 16:00 98.1 131 20 107/66 97 12/18/16 12:00 98.3 113 20 123/64 99 12/18/16 10:48 98 Nasal Cannula 4.00 12/18/16 10:32 Nasal Cannula 4.00 Humidified I/O 12/18/16 12/18/16 12/18/16 12/19/16 12/19/16 12/19/16 07:00 15:00 23:00 07:00 15:00 23:00 Intake Total 480 ml Output Total 3750 ml 750 ml 1300 ml 1100 ml Balance -3750 ml -270 ml -1300 ml -1100 ml Intake Oral 480 ml Output Urine Total 750 ml 800 ml Drainage Total 3750 ml 500 ml 1100 ml Result Diagram: 12/19/16 0540 12/19/16 0540 Imaging Last Impressions Chest X-Ray 12/19/16 0600 Signed Impressions: Service Date/Time: Monday, December 19, 2016 05:47 - CONCLUSION: 1. Basilar and perihilar airspace disease with small effusions similar to December 17. Gurwinder Stoll MD Upper Extremity Ultrasound [id number] Signed Impressions: Service Date/Time: Saturday, December 17, 2016 22:26 - CONCLUSION: Occlusive thrombus is noted within the brachial vein proximal and distal. Otherwise patent venous system. Jorden Grande MD Head CT 12/15/16 0000 Signed Impressions: Service Date/Time: Friday, December 16, 2016 04:29 - CONCLUSION: No acute disease. Jorden Grande MD Objective Remarks GENERAL: Elderly female in no apparent distress. CARDIOVASCULAR: Normal rate and regular rhythm without murmurs, gallops, or rubs. RESPIRATORY: Good respiratory efforts. Diminished breath sounds at the bases bilaterally otherwise clear to auscultation. GASTROINTESTINAL: Abdomen soft, non-tender, non-distended. Normal active bowel sounds MUSCULOSKELETAL: Bilateral lower extremity with 1+ edema. NEURO: Alert & Oriented x4 to person, place, time, situation. Moves all ext x4 PSYCH: Appropriate mood and affect. Procedures 12/13- cystoscopy with bilateral stent insertion- right ureteral stent exchange, left ureteral stent insertion Location: Internal A/P Problem List: (1) Bilateral ureteral obstruction ICD Code: N13.5 Status: Acute (2) Metastatic breast cancer ICD Code: C50.919 Status: Chronic Assessment and Plan 76-year-old female with history of metastatic breast cancer to the liver, brain , and bone. Patient also has a history of pulmonary alcoholism status post IVC filter placement. Patient recently diagnosed with obstructive uropathy and bilateral nephrostomy tubes were She has been in the ICU and treated for severe sepsis. She was diagnosed with C. difficile colitis at an outside hospital on 12/04/16. Patient clinically improved and transferred out of the ICU. Neutropenic sepsis: Secondary UTI. Patient also with C. difficile colitis. - Appreciate infectious disease following. Continue cefepime, vancomycin by mouth. - Continue to follow cultures. Pulmonary edema: Possible CHF: Patient was hydrated for sepsis in the ICU prior to transfer to the floor. Respiratory distress overnight on 12/17/15 and was found to have pulmonary edema and elevated BNP of 1100. She denies history of CHF but echocardiogram from 01/15/16 showed LVEF of 35-40%. - Cardiology consulted who suggested pulmonary edema is likely noncardiogenic and to consider atypical pneumonia. Patient has been on cefepime and IV vancomycin in the ICU. - A 2-D echocardiogram is pending. - Continue supplemental oxygen and supportive care. Incentive spirometry. Renal failure/obstructive uropathy: Appreciate nephrology and urology following. Patient is a nonoliguric. Bilateral nephrostomy appear to be draining well. - Follow BMP. Avoid nephrotoxins. - Awaiting further input from urology regarding nephrostomy tubes. Metastatic breast cancer - Systemic chemotherapy is on hold due to the patient's functional status. Discussed with Dr. Leach - Treatment per oncology and radiation oncology Thrombosis of left arm - On Lovenox 60 mg subcutaneous every 12 hours. To transition to Coumadin after 48 hours on Lovenox. C. difficile colitis: Improving -Patient was on Flagyl. This was switched to oral vancomycin per infectious disease. DVT GI prophylaxis -Lovenox and Pepcid Discharge Planning Patient wants to return home. PT to evaluate. Jeannette Hedrick MD Dec 19, 2016 09:42
--- NOTE | 2016-12-19 11:08 | HHI.NPPN ---
Subjective General Problems: Anemia, Edema, Mebatolic Acidosis Renal Failure: Chronic, Acute History of Present Illness 76 -year-old female with history of metastatic breast cancer to bone, liver and brain, obstructive uropathy history of nephrostomies and recent stent exchange the patient is passing urine however she developed septicemia has gram-negative rods patient has been transferred to intensive care unit. Additional Remarks Patient is alert Review of Systems General Constitutional: Fatigue Objective Data Data 12/18/16 12/19/16 19:00 07:00 Intake Total 480 ml Output Total 1550 ml 1600 ml Balance -1070 ml -1600 ml Intake Oral 480 ml Output Urine Total 1550 ml Drainage Total 1600 ml Vital Signs Date Time Temp Pulse Resp B/P Pulse Ox O2 Delivery O2 Flow Rate FiO2 12/19/16 09:11 98 Nasal Cannula 3.00 12/19/16 08:59 Nasal Cannula 3.00 Humidified 12/19/16 04:00 98.0 106 17 116/68 96 12/19/16 00:00 98.1 100 17 107/56 99 12/18/16 20:00 97.6 134 18 96/60 97 12/18/16 20:00 106 12/18/16 20:00 Nasal Cannula 3.00 Humidified 12/18/16 18:58 96 Nasal Cannula 3.00 12/18/16 16:00 98.1 131 20 107/66 97 12/18/16 12:00 98.3 113 20 123/64 99 -: 12/19/16 0540 12/19/16 0540 Physical Exam General Appearance: No Acute Distress, Comfortable Eyes Eye Exam: Pupils Equal Throat Throat Exam: Oral Mucosa [place] & Moist Pulmonary Resp Exam: No Distress, Rhonchi, Decreased Bases, Diminished Breath Sounds Cardiology CV Exam: Regular, Normal Sinus Rhythm Gastrointestinal/Abdomen GI Exam: Soft, Non-Tender, Bowel Sounds Present, Distended Extremeties Extremities Exam: Trace Edema Neurologic Neuro Exam: Alert, Awake Assessment/Plan Assessment Summary: REENA/Acute Renal Failure Problem List: (1) Kidney failure Plan: Patient is a nonoliguric following by Dr. Sierra and he stated that he keep the stents in as she is producing more urine. She Has Stent Placed She Has Been Treated for Gram-Negative Sepsis Continued to Hydrate Her Treat with Antibiotics Avoid Nephrotoxin. k replaced. both Nephrostomy draining and attached to the bags per Urology. Creatinine has improved urology follow up. I will s/o as Cr improved 1.4 (2) Breast carcinoma metastatic to multiple sites Plan: Patient has chronic problem followed by oncology (3) Sepsis Plan: Gram-negative Morganella morganii treated with Cefepime Heidy Leach MD Dec 19, 2016 11:08
--- NOTE | 2016-12-19 12:53 | HHI.PR ---
Subjective Remarks Events over the weekend noted. Patient reports that since the nephrostomy tubes were unclamped they have been draining well with the left side producing more urine than the right. Reports that initially the output from the right side was cloudy but has subsequently cleared. Denies flank pain. Denies nausea or vomiting. Objective Vital Signs Vital Signs Date Time Temp Pulse Resp B/P Pulse Ox O2 Delivery O2 Flow Rate FiO2 12/19/16 10:00 97.8 108 22 121/69 99 12/19/16 09:11 98 Nasal Cannula 3.00 12/19/16 08:59 Nasal Cannula 3.00 Humidified 12/19/16 04:00 98.0 106 17 116/68 96 12/19/16 00:00 98.1 100 17 107/56 99 12/18/16 20:00 97.6 134 18 96/60 97 12/18/16 20:00 106 12/18/16 20:00 Nasal Cannula 3.00 Humidified 12/18/16 18:58 96 Nasal Cannula 3.00 12/18/16 16:00 98.1 131 20 107/66 97 I/O 12/18/16 12/18/16 12/18/16 12/19/16 12/19/16 12/19/16 07:00 15:00 23:00 07:00 15:00 23:00 Intake Total 480 ml Output Total 3750 ml 750 ml 1300 ml 1100 ml Balance -3750 ml -270 ml -1300 ml -1100 ml Intake Oral 480 ml Output Urine Total 750 ml 800 ml Drainage Total 3750 ml 500 ml 1100 ml Result Diagram: 12/19/16 0540 12/19/16 0540 Objective Remarks Bilateral nephrostomy tubes remain clamped in place and draining nubia urine. Gallegos catheter draining nubia urine as well. Assessment and Plan Problem List: (1) CKD (chronic kidney disease) stage 3, GFR 30-59 ml/min ICD Code: N18.3 Status: Chronic (2) Metastatic breast cancer ICD Code: C50.919 Status: Chronic (3) Breast carcinoma metastatic to multiple sites ICD Code: C50.919 Status: Acute Assessment and Plan Urologic impression: #1 Bilateral ureteral obstruction related to metastatic breast cancer status post placement of nephrostomy tubes. #2 Bilateral ureteral stents were placed on nd the nephrostomy tubes capped off. #3 increase in serum creatinine most likely related to combined effects of protracted vomiting and inefficient drainage of the kidneys via the internal stents. #4 clinically improved with normalization of the serum creatinine since the nephrostomy tubes were noted to gravity drainage. Recommendations: #1 keep nephrostomy tubes to gravity drainage and have them replaced by interventional radiology at least every 3 months. #2 patient advised that she may cap off the nephrostomy tubes after discharge home for a maximum period of 2 hours at a time to facilitate quality of life activities. #3 DC Gallegos catheter #4 office follow up in approximately 3-4 weeks. Iban Sierra MD Dec 19, 2016 12:53
--- NOTE | 2016-12-19 14:18 | PD.CARD.PN ---
Subjective Subjective Remarks Feels like she is breathing better today Objective Vital Signs / I&O Vital Signs Date Time Temp Pulse Resp B/P Pulse Ox O2 Delivery O2 Flow Rate FiO2 12/19/16 10:00 97.8 108 22 121/69 99 12/19/16 09:11 98 Nasal Cannula 3.00 12/19/16 08:59 Nasal Cannula 3.00 Humidified 12/19/16 04:00 98.0 106 17 116/68 96 12/19/16 00:00 98.1 100 17 107/56 99 12/18/16 20:00 97.6 134 18 96/60 97 12/18/16 20:00 106 12/18/16 20:00 Nasal Cannula 3.00 Humidified 12/18/16 18:58 96 Nasal Cannula 3.00 12/18/16 16:00 98.1 131 20 107/66 97 I/O 12/18/16 12/18/16 12/18/16 12/19/16 12/19/16 12/19/16 07:00 15:00 23:00 07:00 15:00 23:00 Intake Total 480 ml Output Total 3750 ml 750 ml 1300 ml 1100 ml Balance -3750 ml -270 ml -1300 ml -1100 ml Intake Oral 480 ml Output Urine Total 750 ml 800 ml Drainage Total 3750 ml 500 ml 1100 ml Physical Exam GENERAL: Up in the chair SKIN: Warm and dry. HEAD: Normocephalic. EYES: No scleral icterus. No injection or drainage. NECK: Supple, trachea midline. No JVD or lymphadenopathy. CARDIOVASCULAR: Regular rate and rhythm without murmurs, gallops, or rubs. RESPIRATORY: Breath sounds equal bilaterally. No accessory muscle use. Scattered wheezing GASTROINTESTINAL: Abdomen soft, non-tender, nondistended. MUSCULOSKELETAL: No cyanosis, or edema. BACK: Nontender without obvious deformity. No CVA tenderness. Laboratory Laboratory Tests Test 12/18/16 12/19/16 15:20 05:40 Activated Partial 32.2 SEC Thromboplast Time White Blood Count 10.5 TH/MM3 Red Blood Count 2.79 MIL/MM3 Hemoglobin 8.3 GM/DL Hematocrit 25.1 % Mean Corpuscular Volume 90.1 FL Mean Corpuscular Hemoglobin 29.7 PG Mean Corpuscular Hemoglobin 32.9 % Concent Red Cell Distribution Width 19.0 % Platelet Count 91 TH/MM3 Mean Platelet Volume 8.8 FL Sodium Level 143 MEQ/L Potassium Level 3.1 MEQ/L Chloride Level 109 MEQ/L Carbon Dioxide Level 24.4 MEQ/L Anion Gap 10 MEQ/L Blood Urea Nitrogen 23 MG/DL Creatinine 1.46 MG/DL Estimat Glomerular Filtration 35 ML/MIN Rate Random Glucose 100 MG/DL Calcium Level 6.9 MG/DL Protein Corrected Calcium 8.1 MG/DL Total Protein 4.8 GM/DL Imaging Last 48 hours Impressions Chest X-Ray 12/19/16 0600 Signed Impressions: Service Date/Time: Monday, December 19, 2016 05:47 - CONCLUSION: 1. Basilar and perihilar airspace disease with small effusions similar to December 17. Gurwinder Stoll MD Upper Extremity Ultrasound [id number]/17/[id number] Signed Impressions: Service Date/Time: Saturday, December 17, 2016 22:26 - CONCLUSION: Occlusive thrombus is noted within the brachial vein proximal and distal. Otherwise patent venous system. Jorden Grande MD Assessment and Plan Assessment and Plan Abnormal CXR with bilateral infiltrates with elevated BNP. Concern for CHF exacerbation. Sepsis CDiff + Metastatic breast cancer Acute on chronic renal insufficiency Hypokalemia PLAN: Patient clinical status improving. Pending cardiac echo to evaluate left ventricular function. Patient seen and evaluated by Francesca Durham Dec 19, 2016 14:18
--- NOTE | 2016-12-19 16:21 | HHI.HCPN ---
Reason for visit a. To assist with evaluation and management of symptoms including: nausea and debility. b. To assist medical decision maker(s) with: better understanding of current medical conditions; weighing benefits/burdens of medical treatment options; making medical treatment decisions. . Subjective/Interval History Patient seen in oncology floor. she was sitting in in recliner chain in no acute distress. Awake, alert and oriented. Verbal and able to communicate needs. at bedside. Patient reports feeling much better than Monday and overall better than yesterday. Tolerating short distance ambulation, worked today with PT. Denies pain, shortness of breath or abdominal discomfort. Reports being eager to return home. Patient afebrile, stable BP. Slight tachycardia with HR in the low 100's -asymptomatic. On O2 via NC at 3L. Labs today WBC 10.5, Hgb 8.3, Pl 91. Na 143, K 3.1, improving renal function -Bun/ creat 23/1.46. Blood cultures 12/15 growing Morganella Morgani. Chest x-ray today showing airspace disease with small effusion similar to previous imaging on 12/17/16. Patient being followed by cardiology for concerns of CHF exacerbation, pending echo to evaluate left ventricular function. Urology and nephrology following, bilateral nephrostomy tubes in place. Left side with more output than right side. No flank pain reported. Oncology following, Dr. Leach shared concerns today with patient regarding her ability to receive any further systemic antineoplastic therapy secondary to acute events, current clinical condition and physical deconditioning/performance status. Patient verbalized her understanding and has been introduced to hospice philosophy and benefits should her symptom burden continues to increase or there is additional decline in functional status. Patient wishing to be discharge home with home health/PT, declines rehab placement. . Family/friend interactions See interval note. . Advance Directives Living Will: Completed, but not made available Health Care Surrogate: Completed, but not made available Durable Power of Stripper And Taper: Completed, but not made available Advance Directive Specifics Date completed: Pending copy. . Health Care Surrogate(s): As per patient, designated healthcare surrogate is patient's Epi Carrion. . Documented care wishes: Living will completed. Pending copy. . Significant change in goals: NO CODE. Continue aggressive treatment short of no code. . Objective Vital Signs Date Time Temp Pulse Resp B/P Pulse Ox O2 Delivery O2 Flow Rate FiO2 12/19/16 15:42 100 Nasal Cannula 3.00 12/19/16 12:00 97.4 101 20 118/74 100 12/19/16 10:00 97.8 108 22 121/69 99 12/19/16 09:11 98 Nasal Cannula 3.00 12/19/16 08:59 Nasal Cannula 3.00 Humidified 12/19/16 04:00 98.0 106 17 116/68 96 12/19/16 00:00 98.1 100 17 107/56 99 12/18/16 20:00 97.6 134 18 96/60 97 12/18/16 20:00 106 12/18/16 20:00 Nasal Cannula 3.00 Humidified 12/18/16 18:58 96 Nasal Cannula 3.00 Intake & Output 12/19/16 12/19/16 07:00 19:00 Intake Total 480 ml Output Total 1600 ml 800 ml Balance -1600 ml -320 ml Intake Oral 480 ml Output Urine Total 425 ml Drainage Total 1600 ml 375 ml Physical Exam CONSTITUTIONAL/GENERAL: This is a thin elderly female in no apparent distress. Verbal and able to communicate needs. TUBES/LINES/DRAINS: PIV's, bilateral nephrostomy tubes with moderate amount of urinary output. Nasal cannula. SKIN: No jaundice, rashes, or lesions. Ecchymoses on upper extremities. No wounds seen anteriorly. Skin temperature appropriate. Not diaphoretic. HEAD: Atraumatic. Normocephalic. EYES: Pupils equal and round and reactive. Extraocular motions intact. No scleral icterus. No injection or drainage. ENT: Hearing grossly normal. Nose without bleeding or purulent drainage. Throat without visible erythema, exudates, masses, or lesions. NECK: Trachea midline. Supple, nontender. CARDIOVASCULAR: Tachycardic. Regular rate and rhythm without murmurs, gallops, or rubs. No JVD. Peripheral pulses symmetric. RESPIRATORY/CHEST: Symmetric, unlabored respirations. Clear to auscultation. Breath sounds equal bilaterally. No wheezes, rales, or rhonchi. GASTROINTESTINAL: Abdomen soft, non-tender, nondistended. No guarding. Bowel sounds present. GENITOURINARY: Without palpable bladder distension. bilateral nephrostomy tubes with moderate amount of urinary output. MUSCULOSKELETAL: Extremities without clubbing, cyanosis, or edema. No mottling or clubbing. NEUROLOGICAL: Awake and alert. Motor and sensory grossly within normal limits. Follows commands. Cognitively sharp. Moves all extremities. PSYCHIATRIC: No obvious anxiety/depression. Calm. Pleasant and cooperative. . Diagnostic Tests Laboratory Laboratory Tests Test 12/16/16 12/17/16 12/17/16 12/17/16 22:48 04:22 21:00 21:44 Hemoglobin 7.4 GM/DL 8.0 GM/DL 9.9 GM/DL (11.6-15.3) (11.6-15.3) (11.6-15.3) Hematocrit 23.0 % 23.9 % 30.4 % (35.0-46.0) (35.0-46.0) (35.0-46.0) White Blood Count 17.4 TH/MM3 23.8 TH/MM3 (4.0-11.0) (4.0-11.0) Red Blood Count 2.62 MIL/MM3 3.36 MIL/MM3 (4.00-5.30) (4.00-5.30) Mean Corpuscular Volume 91.3 FL 90.4 FL (80.0-100.0) (80.0-100.0) Mean Corpuscular Hemoglobin 30.4 PG 29.4 PG (27.0-34.0) (27.0-34.0) Mean Corpuscular Hemoglobin 33.3 % 32.6 % Concent (32.0-36.0) (32.0-36.0) Red Cell Distribution Width 20.3 % 19.7 % (11.6-17.2) (11.6-17.2) Platelet Count 95 TH/MM3 119 TH/MM3 (150-450) (150-450) Mean Platelet Volume 8.1 FL 8.6 FL (7.0-11.0) (7.0-11.0) Sodium Level 145 MEQ/L 143 MEQ/L (136-145) (136-145) Potassium Level 3.7 MEQ/L 3.8 MEQ/L (3.5-5.1) (3.5-5.1) Chloride Level 117 MEQ/L 113 MEQ/L (98-107) (98-107) Carbon Dioxide Level 17.6 MEQ/L 17.7 MEQ/L (21.0-32.0) (21.0-32.0) Anion Gap 10 MEQ/L (5-15) 12 MEQ/L (5-15) Blood Urea Nitrogen 30 MG/DL (7-18) 30 MG/DL (7-18) Creatinine 2.30 MG/DL 1.84 MG/DL (0.50-1.00) (0.50-1.00) Estimat Glomerular Filtration 21 ML/MIN (>89) 27 ML/MIN (>89) Rate Random Glucose 109 MG/DL 82 MG/DL (74-106) (74-106) Calcium Level 6.3 MG/DL 6.4 MG/DL (8.5-10.1) (8.5-10.1) Protein Corrected Calcium 7.3 MG/DL 7.1 MG/DL (8.5-10.1) (8.5-10.1) Total Protein 5.0 GM/DL 5.7 GM/DL (6.4-8.2) (6.4-8.2) Random Vancomycin Level 9.5 COMMENT Blood Gas Puncture Site RT RADIAL Blood Gas Patient Temperature 98.6 Blood Gas HCO3 15 mmol/L (22-26) Blood Gas Base Excess -10.7 mmol/L (-2-2) Blood Gas Oxygen Saturation 96 % (90-100) Arterial Blood pH 7.29 (7.380-7.420) Arterial Blood Partial 32 mmHg (38-42) Pressure CO2 Arterial Blood Partial 132 mmHg Pressure O2 (61-120) Arterial Blood Oxygen Content 14.3 Vol % (12.0-20.0) Arterial Blood 1.4 % (0-4) Carboxyhemoglobin Arterial Blood Methemoglobin 1.2 % (0-2) Blood Gas Hemoglobin 10.5 G/DL (12.0-16.0) Oxygen Delivery Device NASAL CANNULA Blood Gas Liter Flow 4 L/M Neutrophils (%) (Auto) 95.6 % (16.0-70.0) Lymphocytes (%) (Auto) 1.6 % (9.0-44.0) Monocytes (%) (Auto) 2.1 % (0.0-8.0) Eosinophils (%) (Auto) 0.5 % (0.0-4.0) Basophils (%) (Auto) 0.2 % (0.0-2.0) Neutrophils # (Auto) 22.7 TH/MM3 (1.8-7.7) Lymphocytes # (Auto) 0.4 TH/MM3 (1.0-4.8) Monocytes # (Auto) 0.5 TH/MM3 (0-0.9) Eosinophils # (Auto) 0.1 TH/MM3 (0-0.4) Basophils # (Auto) 0.1 TH/MM3 (0-0.2) CBC Comment AUTO DIFF Differential Total Cells 100 Counted Neutrophils % (Manual) 80 % (16-70) Band Neutrophils % 15 % (0-6) Lymphocytes % 2 % (9-44) Monocytes % 1 % (0-8) Eosinophils % 1 % (0-4) Neutrophils # (Manual) 22.8 TH/MM3 (1.8-7.7) Metamyelocytes 1 % (0-1) Differential Comment FINAL DIFF MANUAL Platelet Estimate LOW (NORMAL) Platelet Morphology Comment NORMAL (NORMAL) Lactic Acid Level 0.8 mmol/L (0.4-2.0) Magnesium Level 2.0 MG/DL (1.5-2.5) B-Type Natriuretic Peptide 1107 PG/ML (0-100) Test 12/18/16 12/18/16 12/18/16 12/18/16 00:19 06:30 12:30 15:20 Prothrombin Time 12.7 SEC (9.8-11.6) Prothromb Time International 1.1 RATIO Ratio Activated Partial 35.4 SEC 56.3 SEC 98.6 SEC 32.2 SEC Thromboplast Time (24.3-30.1) (24.3-30.1) (24.3-30.1) (24.3-30.1) D-Dimer Quantitative (PE/DVT) 9.13 MG/L FEU (0.00-0.50) White Blood Count 20.0 TH/MM3 (4.0-11.0) Red Blood Count 3.11 MIL/MM3 (4.00-5.30) Hemoglobin 9.1 GM/DL (11.6-15.3) Hematocrit 28.3 % (35.0-46.0) Mean Corpuscular Volume 91.1 FL (80.0-100.0) Mean Corpuscular Hemoglobin 29.4 PG (27.0-34.0) Mean Corpuscular Hemoglobin 32.3 % Concent (32.0-36.0) Red Cell Distribution Width 19.6 % (11.6-17.2) Platelet Count 104 TH/MM3 (150-450) Mean Platelet Volume 9.0 FL (7.0-11.0) Sodium Level 145 MEQ/L (136-145) Potassium Level 3.6 MEQ/L (3.5-5.1) Chloride Level 114 MEQ/L (98-107) Carbon Dioxide Level 18.7 MEQ/L (21.0-32.0) Anion Gap 12 MEQ/L (5-15) Blood Urea Nitrogen 29 MG/DL (7-18) Creatinine 1.84 MG/DL (0.50-1.00) Estimat Glomerular Filtration 27 ML/MIN (>89) Rate Random Glucose 87 MG/DL (74-106) Calcium Level 6.9 MG/DL (8.5-10.1) Protein Corrected Calcium 7.9 MG/DL (8.5-10.1) Total Protein 5.2 GM/DL (6.4-8.2) Test 12/19/16 05:40 White Blood Count 10.5 TH/MM3 (4.0-11.0) Red Blood Count 2.79 MIL/MM3 (4.00-5.30) Hemoglobin 8.3 GM/DL (11.6-15.3) Hematocrit 25.1 % (35.0-46.0) Mean Corpuscular Volume 90.1 FL (80.0-100.0) Mean Corpuscular Hemoglobin 29.7 PG (27.0-34.0) Mean Corpuscular Hemoglobin 32.9 % Concent (32.0-36.0) Red Cell Distribution Width 19.0 % (11.6-17.2) Platelet Count 91 TH/MM3 (150-450) Mean Platelet Volume 8.8 FL (7.0-11.0) Sodium Level 143 MEQ/L (136-145) Potassium Level 3.1 MEQ/L (3.5-5.1) Chloride Level 109 MEQ/L (98-107) Carbon Dioxide Level 24.4 MEQ/L (21.0-32.0) Anion Gap 10 MEQ/L (5-15) Blood Urea Nitrogen 23 MG/DL (7-18) Creatinine 1.46 MG/DL (0.50-1.00) Estimat Glomerular Filtration 35 ML/MIN (>89) Rate Random Glucose 100 MG/DL (74-106) Calcium Level 6.9 MG/DL (8.5-10.1) Protein Corrected Calcium 8.1 MG/DL (8.5-10.1) Total Protein 4.8 GM/DL (6.4-8.2) Result Diagram: 12/19/1640 12/19/16 0540 Microbiology Microbiology Date/Time Procedure Status Source Growth 12/17/16 13:55 Gram Stain - Final Resulted Fluid Other 12/17/16 13:55 Body Fluid Culture - Preliminary Resulted Fluid Other NO GROWTH IN 48 HOURS. Imaging To help prompt me to consider important information that might be impacting today's encounter and assessment, information from prior notes written by myself or my colleagues may have been "brought forward" into today's note. My signature on this note, however, is an attestation that I personally performed the exam, history, and/or decision-making noted today, and, unless otherwise indicated, the interactions with patient, family, and staff as well as the review of records all occurred today. I also attest that the listed assessment and stated plan reflect my best clinical judgment today based on the combination of historical information, prior notes, and today's exam/ interactions. When time spent is documented, it refers only to time spent today by the signer, or if indicated, combined time spent today by collaborating physician/nurse practitioner. Procedures * 12/13/16 -Cystoscopy, bilateral retrograde pyelograms, right ureteral stent exchange and left ureteral stent insertion. Assessment and Plan Disease Oriented Problem List: (1) Breast carcinoma metastatic to multiple sites (2) bilateral nephrostomy tube (3) Kidney failure (4) Neutropenic sepsis Comment: Appears to be resolving. Off Levophed. Symptom Scale: (1) Debility 0-10 Scale: Unable to quantify Comment: Physical deconditioning, Progressive secondary to burden of disease. (2) Nausea 0-10 Scale: 0 Comment: resolved. Pertinent Non-Medical Issues Psychosocial: . Spiritual: Orthodox. Legal: Ethical issues impacting care: . Important Contacts Epi Carrion [phone]. . Prognosis Mrs. Carrion is a 76 y/o female with a medical history significant for breast cancer status post mastectomy and radiation in 2008, and metastasis to bone, liver and brain. Other past medical history to include anemia, pericarditis, hydronephrosis with hydroureter, cutaneous herpes simplex, C. difficile, and pulmonary PE status post IVC filter placement. On 12/04/16, patient seek treatment at [facility] secondary to diarrhea, vomiting and chills. She was found to have a C differential colitis and acute renal failure with a creatinine of 11 for which she received renal replacement therapy 2 treatments on 12/06/16 and 12/07/16. She was also found to have obstructive uropathy for which she underwent bilateral nephrostomy tubes placement on 12/07/16. Clinical course has been complicated by sepsis requiring vasopressor. Unclear at this time if patient will be a candidate or tolerate additional antineoplastic therapy. Patient is a high risk of complications, further decline and . . Code Status: No Code Plan * CODE STATUS: NO CODE. DNR/DNI -allow natural . * Community DNR to be signed. Form left with patient. * HEALTHCARE DECISION-MAKER: Patient decisional at this time. As per patient, designated healthcare surrogate is patient's Epi Carrion. Pending copy of living well and healthcare surrogate designation. * GOALS OF CARE: DNR/DNI. Patient's goal at this time is for ongoing aggressive attempts at clinical/physical optimization in order to be a candidate for additional antineoplastic therapy. Oncology following, Dr. Leach shared concerns today with patient regarding her ability to receive any further systemic antineoplastic therapy secondary to acute events, current clinical condition and physical deconditioning/performance status. * Hospice philosophy and benefits introduced. Discussed the future role of hospice services should symptoms burden continues to increase or there is additional functional decline. Patient familiar with hospice philosophy and services. * SYMPTOMS: == Debility, physical deconditioning secondary to burden of disease. PT following.== Nausea, control at this time. Phenergan as needed. * All questions have been answering great detail. * Palliative care contact information has been provided to patient and family. * Palliative care will continue to follow-up as needed. Goals of care are clear at this time. . Time Spent Total Floor Time (mins): 33 (Total time to include review of medical records, physical exam and conversation with patient and . ) >50% Counseling/Coord of Care: Yes Attestation To help prompt me to consider important information that might be impacting today's encounter and assessment, information from prior notes written by myself or my colleagues may have been "brought forward" into today's note. My signature on this note, however, is an attestation that I personally performed the exam, history, and/or decision-making noted today, and, unless otherwise indicated, the interactions with patient, family, and staff as well as the review of records all occurred today. I also attest that the listed assessment and stated plan reflect my best clinical judgment today based on the combination of historical information, prior notes, and today's exam/ interactions. When time spent is documented, it refers only to time spent today by the signer, or if indicated, combined time spent today by collaborating physician/nurse practitioner. Christa Willis Dec 19, 2016 16:21
--- NOTE | 2016-12-19 16:37 | EC ---
Study Study Date:12/19/2016 STUDY CONCLUSIONS SUMMARY LEFT VENTRICLE: The cavity size was dilated. Wall thickness was normal. Systolic function was moderately to severely reduced. The estimated ejection fraction was 30%. Wall motion was normal; there were no regional wall motion abnormalities. If LV function is below 40, please consider prescribing an ACEI or ARB or document rationale for non-use. PROCEDURE DATA STUDY STATUS: Elective. Procedure: Transthoracic echocardiography. Image quality was good. Scanning was performed from the parasternal, apical, and subcostal acoustic windows. Study completion: The patient tolerated the procedure well. Transthoracic echocardiography. M-mode, complete 2D, complete spectral Doppler, and color Doppler. Height: Height: 63in. Weight: Weight: 146.7lb. Body mass index: BMI: 26kg/m^2. Body surface area: BSA: 1.7m^2. Patient status: Inpatient. CARDIAC ANATOMY LEFT VENTRICLE: The cavity size was dilated. Wall thickness was normal. Systolic function was moderately to severely reduced. The estimated ejection fraction was 30%. Wall motion was normal; there were no regional wall motion abnormalities. AORTIC VALVE: Trileaflet; normal thickness leaflets. Doppler: Transvalvular velocity was within the normal range. There was no stenosis. No regurgitation. Valve area: 1.96cm^2(VTI). Indexed valve area: 1.15cm^2/m^2 (VTI). Valve area: 1.73cm^2 (Vmax). Indexed valve area: 1.02cm^2/m^2 (Vmax). Mean gradient: 3mm Hg (S). AORTA: Aortic root: The aortic root was normal in size. MITRAL VALVE: Structurally normal valve. Doppler: Transvalvular velocity was within the normal range. There was no evidence for stenosis. Trace regurgitation. LEFT ATRIUM: The atrium was normal in size. RIGHT VENTRICLE: The cavity size was normal. Wall thickness was normal. PULMONIC VALVE: Doppler: Transvalvular velocity was within the normal range. There was no evidence for stenosis. No regurgitation. TRICUSPID VALVE: Structurally normal valve. Doppler: Transvalvular velocity was within the normal range. Trace regurgitation. PULMONARY ARTERY: The main pulmonary artery was normal-sized. Systolic pressure was within the normal range. RIGHT ATRIUM: The atrium was normal in size. PERICARDIUM: There was no pericardial effusion. SYSTEMIC VEINS: Inferior vena cava: The vessel was normal in size. Patient weight: 146.7lb _Ejection fraction:_ 65-75% _Fractional shortening:_ 32% up to 5Kg 5-11.5Kg 11.6-22.9Kg 23-45Kg 45-57Kg Aortic Root 7-13 <17 13-22 17-27 17-27 LA diam 6-13 <23 24-38 33-47 37-40 RVID 10-17 7-15 7-15 7-18 8-17 LVIDd 12-22 <32 24-38 33-47 37-40 LVPW 2-4 3-6 5-7 6-8 7-8 IVS 2-4 3-6 5-7 6-8 7-8 BASIC MEASUREMENTS ADULT NORMAL Left ventricle LV internal dimension, ED, chordal *42.9 mm 43-52 level, PLAX LV internal dimension, ES, chordal *39.8 mm 23-38 level, PLAX Fractional shortening, chordal level, *7 % >29 PLAX LV posterior wall thickness, ED 7.63 mm IVS/LVPW ratio, ED 0.98 <1.3 Volume, ED, MOD, 1-plane 67 ml Volume, ES, MOD, 1-plane 51 ml Ejection fraction, MOD, 1-plane 24 % Stroke volume, MOD, 1-plane 16 ml Volume index, ED, MOD, 1-plane 39 ml/m^2 Volume index, ES, MOD, 1-plane 30 ml/m^2 Stroke index, MOD, 1-plane 9.4 ml/m^2 Volume, ED, MOD, 2-plane 81 ml Volume, ES, MOD, 2-plane 57 ml Ejection fraction, MOD, 2-plane 30 % Stroke volume, MOD, 2-plane 24 ml Volume index, ED, MOD, 2-plane 48 ml/m^2 Volume index, ES, MOD, 2-plane 34 ml/m^2 Stroke index, MOD, 2-plane 14.1 ml/m^2 Ventricular septum Septal thickness, ED 7.44 mm Aortic valve Leaflet separation *11 mm 15-26 Aorta Root diameter, ED 30 mm Left atrium Anterior-posterior dimension 15 mm Anterior-posterior dimension index 0.88 cm/m^2 <2.2 BASIC MEASUREMENTS ADULT NORMAL Aortic valve Leaflet separation *11 mm 15-26 DOPPLER MEASUREMENTS ADULT NORMAL Main pulmonary artery Pressure, S 30 mm Hg =30 Aortic valve Peak velocity, S 108 cm/s Mean velocity, S 83.7 cm/s VTI, S 16.2 cm Mean gradient, S 3 mm Hg Valve area, VTI 1.96 cm^2 Valve area index, VTI 1.15 cm^2/m^2 Valve area, Vmax 1.73 cm^2 Valve area index, Vmax 1.02 cm^2/m^2 Mitral valve Peak E-wave velocity 59.7 cm/s Peak A-wave velocity 79 cm/s Peak E/A ratio 0.8 Tricuspid valve Regurgitant peak velocity 257 cm/s Peak RV-RA gradient, S 26 mm Hg Maximal regurgitant velocity 257 cm/s Systemic veins Estimated CVP 5 mm Hg Right ventricle RV pressure, S *31 mm Hg <30 Pulmonic valve Peak velocity, S 39.7 cm/s LEGEND: Mean values are shown as u=mean value. Asterisk (*) orantes values outside specified normal range. Prepared and signed by Saurabh Parada [id number]
--- NOTE | 2016-12-19 17:13 | HHI.IDPN ---
Subjective Subjective Remarks pt feels well denies diarrhea denies fever denies abd pain or cramps Antibiotics cefepime po vancomycin Allergies: Coded Allergies: Benadryl (Verified Allergy, Severe, THROAT CLOSES, 06/20/16) Objective . Vital Signs Date Time Temp Pulse Resp B/P Pulse Ox O2 Delivery O2 Flow Rate FiO2 12/19/16 15:42 100 Nasal Cannula 3.00 12/19/16 12:00 97.4 101 20 118/74 100 12/19/16 10:00 97.8 108 22 121/69 99 12/19/16 09:11 98 Nasal Cannula 3.00 12/19/16 08:59 Nasal Cannula 3.00 Humidified 12/19/16 04:00 98.0 106 17 116/68 96 12/19/16 00:00 98.1 100 17 107/56 99 12/18/16 20:00 97.6 134 18 96/60 97 12/18/16 20:00 106 12/18/16 20:00 Nasal Cannula 3.00 Humidified 12/18/16 18:58 96 Nasal Cannula 3.00 12/18/16 12/18/16 12/19/16 15:00 23:00 07:00 Intake Total 480 ml Output Total 750 ml 1300 ml 1100 ml Balance -270 ml -1300 ml -1100 ml Intake Oral 480 ml Output Urine Total 750 ml 800 ml Drainage Total 500 ml 1100 ml . Laboratory Tests Test 12/17/16 12/18/16 12/19/16 21:44 06:30 05:40 White Blood Count 23.8 TH/MM3 20.0 TH/MM3 10.5 TH/MM3 Red Blood Count 3.36 MIL/MM3 3.11 MIL/MM3 2.79 MIL/MM3 Hemoglobin 9.9 GM/DL 9.1 GM/DL 8.3 GM/DL Hematocrit 30.4 % 28.3 % 25.1 % Mean Corpuscular Volume 90.4 FL 91.1 FL 90.1 FL Mean Corpuscular Hemoglobin 29.4 PG 29.4 PG 29.7 PG Mean Corpuscular Hemoglobin 32.6 % 32.3 % 32.9 % Concent Red Cell Distribution Width 19.7 % 19.6 % 19.0 % Platelet Count 119 TH/MM3 104 TH/MM3 91 TH/MM3 Mean Platelet Volume 8.6 FL 9.0 FL 8.8 FL Neutrophils (%) (Auto) 95.6 % Lymphocytes (%) (Auto) 1.6 % Monocytes (%) (Auto) 2.1 % Eosinophils (%) (Auto) 0.5 % Basophils (%) (Auto) 0.2 % Neutrophils # (Auto) 22.7 TH/MM3 Lymphocytes # (Auto) 0.4 TH/MM3 Monocytes # (Auto) 0.5 TH/MM3 Eosinophils # (Auto) 0.1 TH/MM3 Basophils # (Auto) 0.1 TH/MM3 CBC Comment AUTO DIFF Differential Total Cells 100 Counted Neutrophils % (Manual) 80 % Band Neutrophils % 15 % Lymphocytes % 2 % Monocytes % 1 % Eosinophils % 1 % Neutrophils # (Manual) 22.8 TH/MM3 Metamyelocytes 1 % Differential Comment FINAL DIFF MANUAL Platelet Estimate LOW Platelet Morphology Comment NORMAL Laboratory Tests Test 12/17/16 12/18/16 12/19/16 21:44 06:30 05:40 Sodium Level 143 MEQ/L 145 MEQ/L 143 MEQ/L Potassium Level 3.8 MEQ/L 3.6 MEQ/L 3.1 MEQ/L Chloride Level 113 MEQ/L 114 MEQ/L 109 MEQ/L Carbon Dioxide Level 17.7 MEQ/L 18.7 MEQ/L 24.4 MEQ/L Anion Gap 12 MEQ/L 12 MEQ/L 10 MEQ/L Blood Urea Nitrogen 30 MG/DL 29 MG/DL 23 MG/DL Creatinine 1.84 MG/DL 1.84 MG/DL 1.46 MG/DL Estimat Glomerular Filtration 27 ML/MIN 27 ML/MIN 35 ML/MIN Rate Random Glucose 82 MG/DL 87 MG/DL 100 MG/DL Lactic Acid Level 0.8 mmol/L Calcium Level 6.4 MG/DL 6.9 MG/DL 6.9 MG/DL Protein Corrected Calcium 7.1 MG/DL 7.9 MG/DL 8.1 MG/DL Magnesium Level 2.0 MG/DL B-Type Natriuretic Peptide 1107 PG/ML Total Protein 5.7 GM/DL 5.2 GM/DL 4.8 GM/DL Microbiology Date/Time Procedure Status Source Growth 12/17/16 13:55 Gram Stain - Final Resulted Fluid Other 12/17/16 13:55 Body Fluid Culture - Preliminary Resulted Fluid Other NO GROWTH IN 48 HOURS. Imaging Last Impressions Chest X-Ray 12/19/16 0600 Signed Impressions: Service Date/Time: Monday, December 19, 2016 05:47 - CONCLUSION: 1. Basilar and perihilar airspace disease with small effusions similar to December 17. Gurwinder Stoll MD Upper Extremity Ultrasound 12/17/162134 Signed Impressions: Service Date/Time: Saturday, December 17, 2016 22:26 - CONCLUSION: Occlusive thrombus is noted within the brachial vein proximal and distal. Otherwise patent venous system. Jorden Grande MD Head CT 12/15/16 0000 Signed Impressions: Service Date/Time: Friday, December 16, 2016 04:29 - CONCLUSION: No acute disease. Jorden Grande MD Physical Exam CONSTITUTIONAL/GENERAL: This is an adequately nourished patient, in no apparent distress. TUBES/LINES/DRAINS: PORT in place in R chest SKIN: No jaundice, rashes, or lesions. Skin temperature appropriate. Not diaphoretic. HEAD: Atraumatic. Normocephalic. EYES: Pupils equal and round and reactive. Extraocular motions intact. No scleral icterus. No injection or drainage. Fundi not examined. ENT: Hearing grossly normal. Nose without bleeding or purulent drainage. Throat without visible erythema, exudates, masses, or lesions. Breast: well healed scar p L mastectomy NECK: Trachea midline. Supple, nontender. CARDIOVASCULAR: Regular rate and rhythm without murmurs, gallops, or rubs. No JVD. Peripheral pulses symmetric. RESPIRATORY/CHEST: Symmetric, unlabored respirations. Clear to auscultation. Breath sounds equal bilaterally. No wheezes, rales, or rhonchi. GASTROINTESTINAL: Abdomen soft, non-tender, nondistended. No hepato-splenomegaly , or palpable masses. No guarding. Bowel sounds present. GENITOURINARY: Without palpable bladder distension. Gallegos catheter in place with nubia colored urine MUSCULOSKELETAL: Extremities without clubbing, cyanosis, 2+ edema in dependent areas. No joint tenderness or effusion noted. No calf tenderness. No mottling or clubbing. Nephrostomiies in place, draining fairly clear intense yellow urine LYMPHATICS: No palpable cervical or supraclavicular adenopathy. NEUROLOGICAL: Awake and alert. Motor and sensory grossly within normal limits. Follows commands. Cognitively sharp. Moves all extremities. PSYCHIATRIC: No obvious anxiety/depression. no apparent hallucinations or other psychotic thought process. Laboratory Laboratory Tests Test 2/23/17 2/23/17 2/24/17 2/24/17 15:00 21:10 01:10 05:10 White Blood Count 2.0 14.7 Red Blood Count 3.04 2.32 Hemoglobin 9.3 7.2 Hematocrit 29.2 22.3 Mean Corpuscular Volume 95.7 96.2 Mean Corpuscular Hemoglobin 30.6 31.2 Mean Corpuscular Hemoglobin 32.0 32.4 Concent Red Cell Distribution Width 16.7 16.6 Platelet Count 183 112 Mean Platelet Volume 7.4 7.7 Neutrophils (%) (Auto) 96.6 96.0 Lymphocytes (%) (Auto) 2.5 0.8 Monocytes (%) (Auto) 0.4 2.6 Eosinophils (%) (Auto) 0.5 0.0 Basophils (%) (Auto) 0.0 0.6 Neutrophils # (Auto) 1.9 14.1 Lymphocytes # (Auto) 0.1 0.1 Monocytes # (Auto) 0.0 0.4 Eosinophils # (Auto) 0.0 0.0 Basophils # (Auto) 0.0 0.1 CBC Comment DIFF FINAL AUTO DIFF Differential Comment FINAL DIFF MANUAL Total Bilirubin 1.2 0.7 Direct Bilirubin 0.6 Indirect Bilirubin 0.6 Aspartate Amino Transf 52 56 (AST/SGOT) Alanine Aminotransferase 24 27 (ALT/SGPT) Alkaline Phosphatase 266 176 Ammonia 19 Total Protein 5.6 4.4 5.2 Albumin 2.7 2.7 Sodium Level 141 143 Potassium Level 3.1 4.1 Chloride Level 109 115 Carbon Dioxide Level 19.5 17.0 Anion Gap 13 11 Blood Urea Nitrogen 27 25 Creatinine 2.83 2.73 Estimat Glomerular Filtration 16 17 Rate Random Glucose 112 89 Lactic Acid Level 4.7 3.3 Calcium Level 6.7 6.4 Protein Corrected Calcium 8.1 7.3 Nasal Screen MRSA (PCR) NEGATIVE Differential Total Cells 100 Counted Neutrophils % (Manual) 47 Band Neutrophils % 24 Lymphocytes % 1 Monocytes % 16 Eosinophils % 1 Neutrophils # (Manual) 12.1 Metamyelocytes 8 Myelocytes 3 Toxic Vacuolation PRESENT Platelet Estimate NORMAL Platelet Morphology Comment NORMAL Tear Drop Cells 1+ Rouleau PRESENT Magnesium Level 1.4 Test 12/16/16 12/16/16 07:54 12:18 Lactic Acid Level 2.4 Blood Type B POSITIVE Antibody Screen NEGATIVE Crossmatch Leukocyte-Reduced Red Blood Cells Blood Bank Comment Date/Time Procedure Status Source Growth 12/15/16 23:40 Aerobic Blood Culture Received Blood Peripheral Pending 12/15/16 23:40 Anaerobic Blood Culture Received Blood Peripheral Pending 12/15/16 21:30 Urine Culture Worksheet Urine Random Urine Pending 12/15/16 17:30 Aerobic Blood Culture - Preliminary Resulted Blood Peripheral Gram Negative Mark 12/15/16 17:30 Anaerobic Blood Culture - Preliminary Resulted Blood Peripheral 12/13/16 11:44 Gram Stain - Final Complete Fluid Other 12/13/16 11:44 Body Fluid Culture - Final Complete Morganella Morganii 12/13/16 11:44 Fungal Smear - Final Resulted Fluid Other NO FUNGAL ELEMENTS SEEN. 12/13/16 11:44 Fungal Culture Resulted Fluid Other Pending 12/13/16 11:44 Acid Fast Stain - Final Resulted Fluid Other NO ACID FAST BACILLI SEEN 12/13/16 11:44 Mycobacterial Culture Resulted Fluid Other Pending Result Diagram: 12/16/16 0510 12/16/16 0510 Imaging Last Impressions Chest X-Ray 12/15/167 Signed Impressions: Service Date/Time: November 21:14 - CONCLUSION: Development of. bilateral basilar opacities infiltrates ground glass on the right consolidated on the left. Giovani Dimas MD Head CT 12/15/16 0000 Signed Impressions: Service Date/Time: Friday, December 16, 2016 04:29 - CONCLUSION: No acute disease. Jorden Grande MD Assessment and Plan Assessment and Plan Assessment & Plan Remarks Metastatis breast ca (bone, liver, brain) Sepsis, Morganella Complicated UTI, sp nephrostomies 2/2 obstructiv uropahty - Morganella in urine Neutropenic- resolved Metastatic breast ca Diarrhea, h/o C.diff - + confirmed recuirrence Obstructive uropahty 2/2 mets sp strents, post renal ARF with improving renal fnx, no oliguric - chk stool for C.diff - dc cefepime, start CFTX - cont po vanco x 14 days - anticipate transition to po evaquine 500 daily when is ready to be dc'd to complete tx for complicated UTI/sepsis Angelita Shore MD Dec 19, 2016 17:13
[2016-12-19] MEDS: ENOXAPARIN SODIUM 60 MG/0.6 ML SYRINGE SQ SCH (17:18)
[2016-12-19] MEDS ORDERED: cefTRIAXone INJ 2,000 MG in SODIUM CHLORIDE 0.9% INJ 100 ML IV SCH ×2 (18:00→18:30)
[2016-12-19] MEDS: cefTRIAXone INJ 2,000 MG in SODIUM CHLORIDE 0.9% INJ 100 ML IV SCH (21:20)
[2016-12-19] MEDS: AMITRIPTYLINE HCL 25 MG TAB PO SCH (21:21)
[2016-12-20] VITALS (8 sets, daily range): BP systolic 124–145; BP diastolic 68–79; PULSE 92–111; RESP 16–20; TEMP 97.4–98.2; O2SAT 95–98
[2016-12-20] MEDS: VANCOMYCIN 500 MG VIAL (FOR ORAL USE ONLY) PO SCH ×4 (02:36→21:12)
[2016-12-20 06:30] LABS: MEAN CELL VOLUME 90.8 FL (80.0-100.0); MEAN CORPUSCULAR HEMOGLOBIN 30.1 PG (27.0-34.0); MEAN CORPUSCULAR HGB CONC 33.2 % (32.0-36.0); PLATELET COUNT 91 TH/MM3 (150-450); RED BLOOD COUNT 2.75 MIL/MM3 (4.00-5.30); RED CELL DISTRIBUTION WIDTH 18.7 % (11.6-17.2); WHITE BLOOD COUNT 6.2 TH/MM3 (4.0-11.0)
[2016-12-20 06:41] LABS: REVIEW FLAG FINAL
[2016-12-20 07:11] LABS: BICARBONATE 23.7 MEQ/L (21.0-32.0); POTASSIUM 4.1 MEQ/L (3.5-5.1)
--- NOTE | 2016-12-20 07:44 | PD.ONC.PN ---
Subjective Subjective Remarks Patient reports feeling marginally stronger, she reports being able to get up out of bed with assistance and she actually walked with the help of physical therapist. 3 days prior she was unable to stand on her own or walk. Additionally patient reports continued cough producing scant phlegm, she denies fevers or chills. Gallegos catheter was discontinued yesterday, the patient reports producing minimal urine; most of the urine has been draining out of the bilateral nephrostomy tubes. She wishes to know what a reasonable plan of action would be to get her her home from this point forward. Objective Data Date Time Temp Pulse Resp B/P Pulse Ox O2 Delivery O2 Flow Rate FiO2 12/20/16 04:00 97.9 94 18 132/76 98 12/20/16 00:00 97.9 97 20 126/68 98 12/19/16 21:21 Nasal Cannula 3.00 Humidified 12/19/16 20:00 102 12/19/16 20:00 98.0 95 20 137/65 99 12/19/16 16:00 97.6 110 20 120/72 100 12/19/16 15:42 100 Nasal Cannula 3.00 12/19/16 12:00 97.4 101 20 118/74 100 12/19/16 10:00 97.8 108 22 121/69 99 12/19/16 09:11 98 Nasal Cannula 3.00 12/19/16 08:59 Nasal Cannula 3.00 Humidified 12/20/16 12/20/16 12/20/16 07:00 15:00 23:00 Intake Total 240 ml Output Total 425 ml Balance -185 ml Result Diagram: 12/20/16 0509 12/20/16 0509 Laboratory Results Laboratory Tests Test 12/20/16 05:09 White Blood Count 6.2 TH/MM3 Red Blood Count 2.75 MIL/MM3 Hemoglobin 8.3 GM/DL Hematocrit 25.0 % Mean Corpuscular Volume 90.8 FL Mean Corpuscular Hemoglobin 30.1 PG Mean Corpuscular Hemoglobin 33.2 % Concent Red Cell Distribution Width 18.7 % Platelet Count 91 TH/MM3 Mean Platelet Volume 9.3 FL Sodium Level 145 MEQ/L Potassium Level 4.1 MEQ/L Chloride Level 111 MEQ/L Carbon Dioxide Level 23.7 MEQ/L Anion Gap 10 MEQ/L Blood Urea Nitrogen 23 MG/DL Creatinine 1.12 MG/DL Estimat Glomerular Filtration 47 ML/MIN Rate Random Glucose 76 MG/DL Calcium Level 7.5 MG/DL Culture Results Microbiology Date/Time Procedure Status Source Growth 12/17/16 13:55 Gram Stain - Final Resulted Fluid Other 12/17/16 13:55 Body Fluid Culture - Preliminary Resulted Fluid Other NO GROWTH IN 48 HOURS. Administered Medications Medications (Trade) Dose Ordered Sig/Randell Route PRN Reason Start Time Stop Time Status Last Admin Dose Admin IV Flush (NS Flush) 2 ml BID FLUSH 12/10/16 09:00 12/19/16 21:21 Ondansetron HCl (Zofran Inj) 4 mg Q6HR PRN IV PUSH nausea 12/10/16 10:30 12/17/16 16:45 Senna/Docusate Sodium (Licha-Colace) 1 tab BID PRN PO constipation 12/11/16 09:30 12/12/16 02:46 Heparin Sodium (Porcine) (Heparin Central Flush) 250 units UNSCH PRN IVF SEE PROTOCOL TABLE 12/11/16 13:00 12/12/16 05:25 Senna/Docusate Sodium (Licha-Colace) 2 tab BID PO 12/14/16 09:00 12/19/16 21:00 Lactulose (Lactulose Liq) 30 ml TID PRN PO CONSTIPATION 12/14/16 05:45 12/15/16 10:02 Lactobacillus Acidophilus (Lactinex) 1 tab TID PO 12/14/16 09:00 12/19/16 17:17 Promethazine HCl (Phenergan Inj) 12.5 mg Q4H PRN IV-CENTRAL nausea 12/15/16 16:00 12/17/16 10:34 Acetaminophen (Tylenol 650 Mg/ 20 ml Liq) 650 mg Q6H PRN PO FEVER 12/15/16 16:45 12/16/16 15:06 Famotidine (Pepcid) 10 mg BID PO 12/17/16 09:00 12/19/16 21:21 Amitriptyline HCl (Elavil) 25 mg HS PO 12/17/16 21:00 12/19/16 21:21 Lorazepam (Ativan Inj) 0.5 mg Q6H PRN IV PUSH nausea 12/17/16 17:00 12/17/16 17:35 Vancomycin HCl (VANCOMYCIN for oral use only) 500 mg Q6H PO 12/17/16 20:00 12/20/16 02:36 Enoxaparin Sodium 60 mg 60 mg Q24H SQ 12/18/16 15:00 12/19/16 17:18 Ceftriaxone Sodium/Sodium Chloride (Rocephin Inj/NS Inj) 100 ml @ 200 mls/hr Q24H IV 12/19/16 20:00 12/19/16 21:20 Objective Remarks GENERAL: Elderly female, sitting up in bed, appears to be no acute distress. Somewhat pale appearing. SKIN: No rashes, ecchymoses or lesions. Cool and dry. HEAD: Atraumatic. Normocephalic. EYES: Extraocular motions intact. No scleral icterus. No injection or drainage. ENT: Nose without bleeding, purulent drainage. Airway patent. NECK: Trachea midline. No JVD or lymphadenopathy. CARDIOVASCULAR: Normal pulses, extremities well perfused RESPIRATORY: Frequent cough, decreased bibasilar breath sounds, good air movement over the upper and middle lung zones. GASTROINTESTINAL: Abdomen soft, non-tender, nondistended. Bruising over the lower abdomen at the site of injections. GENITOURINARY: Bilateral nephrostomy tubes in place, draining light pink urine. Insertion site clean and dry, dressings in place MUSCULOSKELETAL: Left upper extremity edema. NEUROLOGICAL: Awake and alert. Motor and sensory grossly within normal limits. Normal speech. Assessment/Plan Problem List: (1) Metastatic breast cancer Status: Chronic Plan: 12/20/2016: Plan to resume systemic palliative therapy should she recover sufficiently from a performance, nutritional and functional standpoint. History: -- First diagnosed in 2008. had neoadjuvant dose-dense chemotherapy followed by mastectomy and radiation. -- Maintained on letrozole but developed a bone metastasis in April of 2013. then treated with Xeloda. -- August of 2014 developed liver metastasis. given a Faslodex without any improvement. then treated with weekly Taxol. -- June of 2015 disease was rebiopsied and she was now found to have HER-2 positive disease (previously HER-2 negative), started on Herceptin and Perjeta. had a reaction to Perjeta and was switched to Herceptin and Navelbine. -- October of 2016, found to have a new brain metastasis. completed WBRT. The plan was to initiate intrathecal chemotherapy with cytarabine. While continuing systemic therapy with Herceptin based chemotherapy. Systemic therapy on hold. (2) Thrombosis of arm Status: Acute Plan: Transitioned to Lovenox 60 mg subcutaneous every 12 hours. I would recommend continuing Lovenox for the time being, I would recommend discharging her home with Lovenox, I should be able to transition her to warfarin as an outpatient. (3) CKD (chronic kidney disease) stage 3, GFR 30-59 ml/min Status: Chronic Plan: -- Acute renal failure due to obstructive uropathy. -- had dialysis twice when in [place]. -- had bilateral nephrostomy tube placement; with improvement/normalization of renal function. -- Urology following, ureteral stents were placed bilaterally 12/13, nephrostomy tubes capped off; renal function worsened but this was in the setting of sepsis and hypotension. -- Renal function is stable to improved, her nephrostomies have been draining. -- 12/20/2016: Renal function improved and stable, urology progress note was reviewed, it is advised the patient maintain the percutaneous nephrostomy tubes , these will need to be changed every 3 months by interventional radiology. (4) History of Clostridium difficile Status: Acute Plan: -- currently on Flagyl, and clinically improved. Assessment 76y/o female with metastatic breast cancer transferred here from [place] with C. difficile colitis and renal failure. h/o Anemia. Pericarditis. Pneumonia. Hydronephrosis. C. difficile colitis. Pulmonary embolism--IVC filter, 2009 Cutaneous herpes simplex. +Port placement. Left mastectomy. Right ureteral stent placement in May of 2015 and May of 2016. Appendectomy. Hysterectomy. Dialysis catheter placement and removal. Plan 1. Metastatic breast carcinoma with intracranial metastases: She had been on palliative therapy with palliative whole brain radiation and palliative systemic therapy as well. At present she has too many acute issues including infectious issues to allow resumption of systemic therapy. 2. C. difficile colitis: Clinically improved. 3. Renal function: Acute on chronic renal failure, her renal function is very sensitive to fluctuations in her blood pressure. Percutaneous nephrostomy tubes will remain in place. 4. Left upper extremity deep venous thrombosis: Continue anticoagulation with Lovenox. Disposition: I did have a discussion with Mrs. Carrion this morning, we talked about the multiple acute and chronic medical issues which are proven to be barriers to delivery of palliative cancer directed care. I explained to her that at present her performance status is not conducive to resumption of palliative systemic treatment also explained to her that it is quite possible that further treatment may not be possible unless she significantly improves from an overall standpoint i.e. nutritional and functional. Mrs. Carrion made it quite clear to me that she values the importance of quality of life and functional independence. She has indicated to me on multiple previous meetings that she would choose not to prolong her dying process. She is open to additional disease directed treatments should she be able to maintain a good functional status and a good quality of life. Prior to her acute medical issues over the past 2 weeks, Mrs. Carrion had been fully functional, she managed her household, she participated in ballet and Pilates on a weekly basis at her gym, she drove anything to care for her . Because her performance status was as good as this we had been treating her aggressively over the past 3 years. Overall, the patient seems to be gradually improving. She may be approaching the point where she may be discharged home. I explained to her that we will need to transition her IV antibiotics to oral antibiotics at the time of discharge, arrange home oxygen if this is needed, physical therapy recommendations will also need to be reviewed to determine if she will be a safe discharged home or whether she may benefit from short-term rehabilitation. Anticoagulation with Lovenox may be continued at discharge. Problem Qualifiers (1) Thrombosis of arm: Qualified Code: I82.602 - Thrombosis of arm, left Demario Leach MD Dec 20, 2016 07:44
[2016-12-20] MEDS: DOCUSATE SODIUM 50 MG/SENNA 8.6 MG TAB PO SCH ×2 (09:00→21:00)
[2016-12-20] MEDS: LACTOBACILLUS ACIDOPHILUS TAB PO SCH ×3 (09:31→18:01)
[2016-12-20] MEDS: FAMOTIDINE 20 MG TAB PO SCH ×2 (09:31→21:13)
[2016-12-20] MEDS: SODIUM CHLORIDE 0.9% FLUSH 5 ML FLUSH FLUSH SCH ×2 (09:34→21:12)
--- NOTE | 2016-12-20 09:50 | HHI.PR ---
Subjective Remarks Follow up: Neutropenic sepsis, UTI, C. difficile colitis, CHF, obstructive uropathy and thrombosis left arm. Patient reports she is feeling slightly better on overall but is not yet near her baseline. Patient reports breathing is much better with the oxygen but feels as though she may need oxygen therapy at home. She is currently requiring 3 L via nasal cannula at this time. Patient reports she did have loose bowel movement times one this a.m. Patient does have a occasional cough productive of clear phlegm. Patient denies fevers or chills. Objective Vitals Vital Signs Date Time Temp Pulse Resp B/P Pulse Ox O2 Delivery O2 Flow Rate FiO2 12/20/16 04:00 97.9 94 18 132/76 98 12/20/16 00:00 97.9 97 20 126/68 98 12/19/16 21:21 Nasal Cannula 3.00 Humidified 12/19/16 20:00 102 12/19/16 20:00 98.0 95 20 137/65 99 12/19/16 16:00 97.6 110 20 120/72 100 12/19/16 15:42 100 Nasal Cannula 3.00 12/19/16 12:00 97.4 101 20 118/74 100 12/19/16 10:00 97.8 108 22 121/69 99 I/O 12/19/16 12/19/16 12/19/16 12/20/16 12/20/16 12/20/16 07:00 15:00 23:00 07:00 15:00 23:00 Intake Total 480 ml 370 ml 240 ml Output Total 1100 ml 800 ml 225 ml 425 ml Balance -1100 ml -320 ml 145 ml -185 ml Intake Oral 480 ml 240 ml 240 ml IV Total 130 ml Output Urine Total 425 ml Drainage Total 1100 ml 375 ml 225 ml 425 ml Result Diagram: 12/20/16 0509 12/20/16 0509 Imaging Last Impressions Chest X-Ray 12/19/16 0600 Signed Impressions: Service Date/Time: Monday, December 19, 2016 05:47 - CONCLUSION: 1. Basilar and perihilar airspace disease with small effusions similar to December 17. Gurwinder Stoll MD Upper Extremity Ultrasound 12/17/169 Signed Impressions: Service Date/Time: Saturday, December 17, 2016 22:26 - CONCLUSION: Occlusive thrombus is noted within the brachial vein proximal and distal. Otherwise patent venous system. Jorden Grande MD Head CT 12/15/16 0000 Signed Impressions: Service Date/Time: Friday, December 16, 2016 04:29 - CONCLUSION: No acute disease. Jorden Grande MD Objective Remarks GENERAL: Elderly female in no apparent distress. CARDIOVASCULAR: Normal rate and regular rhythm without murmurs, gallops, or rubs. RESPIRATORY: Scattered rhonchi throughout GASTROINTESTINAL: Abdomen soft, non-tender, non-distended. Normal active bowel sounds MUSCULOSKELETAL: Bilateral lower extremity with trace edema. NEURO: Alert & Oriented x4 to person, place, time, situation. Moves all ext x4 PSYCH: Appropriate mood and affect. Procedures 12/13- cystoscopy with bilateral stent insertion- right ureteral stent exchange, left ureteral stent insertion Medications and IVs Current Medications Medications (Trade) Dose Ordered Sig/Randell Route Start Time Stop Time Status Last Admin (NS Flush) 2 ml UNSCH PRN FLUSH 12/09/16 21:15 (NS Flush) 2 ml BID FLUSH 12/10/16 09:00 12/20/16 09:34 (Narcan Inj) 0.4 mg UNSCH PRN IV 12/09/16 21:15 (Zofran Inj) 4 mg Q6HR PRN IV PUSH 12/10/16 10:30 12/17/16 16:45 (Licha-Colace) 1 tab BID PRN PO 12/11/16 09:30 12/12/16 02:46 (Heparin Central Flush) 250 units UNSCH PRN IVF 12/11/16 13:00 12/12/16 05:25 (Heparin Central Flush) 500 units UNSCH IVF 12/11/16 13:00 (Licha-Colace) 2 tab BID PO 12/14/16 09:00 12/19/16 21:00 (Lactulose Liq) 30 ml TID PRN PO 12/14/16 05:45 12/15/16 10:02 (Dulcolax Supp) 10 mg DAILY PRN MI 12/14/16 05:45 (Lactinex) 1 tab TID PO 12/14/16 09:00 12/20/16 09:31 (Phenergan Inj) 12.5 mg Q4H PRN IV-CENTRAL 12/15/16 16:00 12/17/16 10:34 (Tylenol 650 Mg/ 20 ml Liq) 650 mg Q6H PRN PO 12/15/16 16:45 12/16/16 15:06 (Pepcid) 10 mg BID PO 12/17/16 09:00 12/20/16 09:31 (Elavil) 25 mg HS PO 12/17/16 21:00 12/19/16 21:21 Patient Own Medication PT OWN MED: RELPAX UNSCH PO 12/17/16 16:00 Hold (Ativan Inj) 0.5 mg Q6H PRN IV PUSH 12/17/16 17:00 12/17/16 17:35 (VANCOMYCIN for oral use only) 500 mg Q6H PO 12/17/16 20:00 12/20/16 09:31 Enoxaparin Sodium 60 mg 60 mg Q24H SQ 12/18/16 15:00 12/19/16 17:18 (Rocephin Inj/NS Inj) 100 ml @ 200 mls/hr Q24H IV 12/19/16 20:00 12/19/16 21:20 (Coreg) 3.125 mg Q12HR PO 12/20/16 21:00 Location: Internal A/P Problem List: (1) Bilateral ureteral obstruction ICD Code: N13.5 Status: Acute (2) Metastatic breast cancer ICD Code: C50.919 Status: Chronic Assessment and Plan 76-year-old female with history of metastatic breast cancer to the liver, brain , and bone. Patient also has a history of pulmonary alcoholism status post IVC filter placement. Patient recently diagnosed with obstructive uropathy and bilateral nephrostomy tubes were She has been in the ICU and treated for severe sepsis. She was diagnosed with C. difficile colitis at an outside hospital on 12/04/16. Patient clinically improved and transferred out of the ICU. Neutropenic sepsis: Secondary UTI. Patient also with C. difficile colitis. - Appreciate infectious disease following. Continue ceftriaxone-ID plans to change to Lovenox upon discharge - Flagyl by mouth changed to vancomycin by mouth. - Continue to follow cultures urine culture reveals Morganella morganii, blood culture reveals Morganella morganii in 1 of 2 bottles and no growth for 3 days in second bottle Pulmonary edema with systolic CHF: Patient was hydrated for sepsis in the ICU prior to transfer to the floor. Respiratory distress overnight on 12/17/15 and was found to have pulmonary edema and elevated BNP of 1100. She denies history of CHF but echocardiogram from 01/15/16 showed LVEF of 35-40%. - Cardiology consulted and following - A 2-D echocardiogram 12/19/2016 shows ejection fraction of 30%- start Coreg 3.125 twice a day, unable to start Rishabh or diuretic secondary to renal failure, platelet count 91 hold off on aspirin at this time, check lipid profile consider adding statin depending on results - Continue supplemental oxygen and supportive care. Incentive spirometry. Renal failure/obstructive uropathy: Appreciate nephrology and urology following. Patient is nonoliguric. Bilateral nephrostomy appear to be draining well. - Follow BMP. Avoid nephrotoxins. - Awaiting further input from urology regarding nephrostomy tubes. Metastatic breast cancer - Systemic chemotherapy is on hold due to the patient's functional status. Discussed with Dr. Leach - Treatment per oncology and radiation oncology Thrombosis of left arm - On Lovenox 60 mg subcutaneous every 12 hours. Per hematology recommendations continue Lovenox for anticoagulation - Home teaching for Lovenox injections DVT GI prophylaxis -Lovenox and Pepcid Discharge Planning Patient wants to return home. PT recommends home walker with no further PT recommendations. Walk test ordered as patient may need home oxygen Discussed plan of care with patient and nursing Written by Aurelia Abdullahi, acting as scribe for Dr. Jauregui on 12/20/16 at 09:48. Attending Statement The documentation accurately reflects the work performed [id number] by me on at 09:48. Aurelia Abdullahi Dec 20, 2016 09:50 Palomo Jauregui DO Dec 20, 2016 13:04
[2016-12-20] MEDS: RESP: ALBUTEROL 2.5 MG/IPRATROPIUM 0.5 MG NEB (PRN) NEB (11:45)
--- NOTE | 2016-12-20 14:05 | PD.CARD.PN ---
Subjective Subjective Remarks Patient feels better, bilateral lower extremity edema. Breathing better. Breathing treatments help. Has productive cough with green sputum. Bowel movements are improving Objective Vital Signs / I&O Vital Signs Date Time Temp Pulse Resp B/P Pulse Ox O2 Delivery O2 Flow Rate FiO2 12/20/16 12:00 98.2 102 18 124/76 98 12/20/16 11:45 95 21 12/20/16 09:25 Nasal Cannula 3.00 Humidified 12/20/16 08:00 97.4 92 20 145/79 98 12/20/16 04:00 97.9 94 18 132/76 98 12/20/16 00:00 97.9 97 20 126/68 98 12/19/16 21:21 Nasal Cannula 3.00 Humidified 12/19/16 20:00 102 12/19/16 20:00 98.0 95 20 137/65 99 12/19/16 16:00 97.6 110 20 120/72 100 12/19/16 15:42 100 Nasal Cannula 3.00 I/O 12/19/16 12/19/16 12/19/16 12/20/16 12/20/16 12/20/16 07:00 15:00 23:00 07:00 15:00 23:00 Intake Total 480 ml 370 ml 240 ml Output Total 1100 ml 800 ml 225 ml 425 ml Balance -1100 ml -320 ml 145 ml -185 ml Intake Oral 480 ml 240 ml 240 ml IV Total 130 ml Output Urine Total 425 ml Drainage Total 1100 ml 375 ml 225 ml 425 ml Physical Exam GENERAL: Up in the chair eating lunch SKIN: Warm and dry. HEAD: Normocephalic. EYES: No scleral icterus. No injection or drainage. NECK: Supple, trachea midline. 2 cm JVD CARDIOVASCULAR: Regular rate and rhythm without murmurs, gallops, or rubs. RESPIRATORY: Breath sounds equal bilaterally. No accessory muscle use. Scattered wheezing GASTROINTESTINAL: Abdomen soft, non-tender, nondistended. MUSCULOSKELETAL: No cyanosis, pretibial edema BACK: Nontender without obvious deformity. No CVA tenderness. Laboratory Laboratory Tests Test 12/20/16 05:09 White Blood Count 6.2 TH/MM3 Red Blood Count 2.75 MIL/MM3 Hemoglobin 8.3 GM/DL Hematocrit 25.0 % Mean Corpuscular Volume 90.8 FL Mean Corpuscular Hemoglobin 30.1 PG Mean Corpuscular Hemoglobin 33.2 % Concent Red Cell Distribution Width 18.7 % Platelet Count 91 TH/MM3 Mean Platelet Volume 9.3 FL Sodium Level 145 MEQ/L Potassium Level 4.1 MEQ/L Chloride Level 111 MEQ/L Carbon Dioxide Level 23.7 MEQ/L Anion Gap 10 MEQ/L Blood Urea Nitrogen 23 MG/DL Creatinine 1.12 MG/DL Estimat Glomerular Filtration 47 ML/MIN Rate Random Glucose 76 MG/DL Calcium Level 7.5 MG/DL Imaging Last 72 hours Impressions Chest X-Ray 12/19/16 0600 Signed Impressions: Service Date/Time: Monday, December 19, 2016 05:47 - CONCLUSION: 1. Basilar and perihilar airspace disease with small effusions similar to December 17. Gurwinder Stoll MD Upper Extremity Ultrasound 12/17/162134 Signed Impressions: Service Date/Time: Saturday, December 17, 2016 22:26 - CONCLUSION: Occlusive thrombus is noted within the brachial vein proximal and distal. Otherwise patent venous system. Jorden Grande MD Assessment and Plan Assessment and Plan Acute systolic CHF exacerbation Cardiomyopathy EF 30% CDiff + Metastatic breast cancer Acute on chronic renal insufficiency Hypokalemia DVT PLAN: Start Aldactone and monitor electrolytes Coreg started Patient is a DNR and does not want aggressive evaluation. Will continue Aldactone and Coreg. She is DNR. Will continue to follow with you. Assessment and plan discussed with Francesca Durham Dec 20, 2016 14:05
[2016-12-20] MEDS: ENOXAPARIN SODIUM 60 MG/0.6 ML SYRINGE SQ SCH (14:28)
[2016-12-20] MEDS: RESP: ALBUTEROL 2.5 MG/IPRATROPIUM 0.5 MG NEB (SCH) NEB ×2 (16:18→22:03)
[2016-12-20] MEDS: SPIRONOLACTONE 25 MG TAB PO SCH (18:01)
[2016-12-20] MEDS: cefTRIAXone INJ 2,000 MG in SODIUM CHLORIDE 0.9% INJ 100 ML IV SCH (21:11)
[2016-12-20] MEDS: AMITRIPTYLINE HCL 25 MG TAB PO SCH (21:13)
[2016-12-20] MEDS: CARVEDILOL 3.125 MG TAB PO SCH (21:13)
[2016-12-21] VITALS (8 sets, daily range): BP systolic 124–143; BP diastolic 67–78; PULSE 99–107; RESP 16–20; TEMP 96.4–98.1; O2SAT 94–99
[2016-12-21] MEDS: VANCOMYCIN 500 MG VIAL (FOR ORAL USE ONLY) PO SCH ×4 (02:59→20:16)
[2016-12-21] MEDS: RESP: ALBUTEROL 2.5 MG/IPRATROPIUM 0.5 MG NEB (PRN) NEB (04:26)
[2016-12-21 05:14] LABS: HEMATOCRIT 24.5 % (35.0-46.0); MEAN CELL VOLUME 90.9 FL (80.0-100.0); MEAN CORPUSCULAR HEMOGLOBIN 29.8 PG (27.0-34.0); MEAN CORPUSCULAR HGB CONC 32.8 % (32.0-36.0); PLATELET COUNT 109 TH/MM3 (150-450); RED BLOOD COUNT 2.69 MIL/MM3 (4.00-5.30); RED CELL DISTRIBUTION WIDTH 18.7 % (11.6-17.2); REVIEW FLAG FINAL; WHITE BLOOD COUNT 5.2 TH/MM3 (4.0-11.0)
[2016-12-21 05:41] LABS: HDL CHOLESTEROL 15.3 MG/DL (40.0-60.0)
[2016-12-21 05:56] LABS: CALCIUM-PROTEIN CORRECTED 8.6 MG/DL (8.5-10.1)
[2016-12-21] MEDS: RESP: ALBUTEROL 2.5 MG/IPRATROPIUM 0.5 MG NEB (SCH) NEB ×3 (07:59→19:17)
--- NOTE | 2016-12-21 08:18 | PD.ONC.PN ---
Subjective Subjective Remarks Feels better, reports breathing is improved. No longer needs O2 supplementation. Wants to know if the Nephrostomy tube length can be shortened. Was able to ambulate in the room with the assistance of physical therapy yesterday. Denies additional episodes of diarrhea. Once know she is ready to go home. Objective Data Date Time Temp Pulse Resp B/P Pulse Ox O2 Delivery O2 Flow Rate FiO2 12/21/16 08:01 96 21 12/21/16 03:00 97.4 99 18 138/74 94 12/21/16 00:00 98.0 107 16 127/67 95 12/20/16 22:03 95 Nasal Cannula 12/20/16 21:11 95 Room Air 12/20/16 20:00 97.6 111 16 134/76 97 12/20/16 16:00 97.6 103 18 133/68 97 12/20/16 12:00 98.2 102 18 124/76 98 12/20/16 11:45 95 21 12/20/16 09:25 Nasal Cannula 3.00 Humidified 12/21/16 12/21/16 12/21/16 07:00 15:00 23:00 Intake Total 150 ml Balance 150 ml Result Diagram: 12/21/16 0430 12/21/16 0430 Laboratory Results Laboratory Tests Test 12/21/16 04:30 White Blood Count 5.2 TH/MM3 Red Blood Count 2.69 MIL/MM3 Hemoglobin 8.0 GM/DL Hematocrit 24.5 % Mean Corpuscular Volume 90.9 FL Mean Corpuscular Hemoglobin 29.8 PG Mean Corpuscular Hemoglobin 32.8 % Concent Red Cell Distribution Width 18.7 % Platelet Count 109 TH/MM3 Mean Platelet Volume 9.0 FL Sodium Level 143 MEQ/L Potassium Level 4.0 MEQ/L Chloride Level 109 MEQ/L Carbon Dioxide Level 24.0 MEQ/L Anion Gap 10 MEQ/L Blood Urea Nitrogen 19 MG/DL Creatinine 1.10 MG/DL Estimat Glomerular Filtration 48 ML/MIN Rate Random Glucose 82 MG/DL Calcium Level 7.4 MG/DL Protein Corrected Calcium 8.6 MG/DL Total Protein 5.0 GM/DL Triglycerides Level 187 MG/DL Cholesterol Level 126 MG/DL LDL Cholesterol 73 MG/DL HDL Cholesterol 15.3 MG/DL Cholesterol/HDL Ratio 8.23 RATIO Administered Medications Medications (Trade) Dose Ordered Sig/Randell Route PRN Reason Start Time Stop Time Status Last Admin Dose Admin IV Flush (NS Flush) 2 ml BID FLUSH 12/10/16 09:00 12/20/16 21:12 Ondansetron HCl (Zofran Inj) 4 mg Q6HR PRN IV PUSH nausea 12/10/16 10:30 12/17/16 16:45 Senna/Docusate Sodium (Licha-Colace) 1 tab BID PRN PO constipation 12/11/16 09:30 12/12/16 02:46 Heparin Sodium (Porcine) (Heparin Central Flush) 250 units UNSCH PRN IVF SEE PROTOCOL TABLE 12/11/16 13:00 12/12/16 05:25 Senna/Docusate Sodium (Licha-Colace) 2 tab BID PO 12/14/16 09:00 12/19/16 21:00 Lactulose (Lactulose Liq) 30 ml TID PRN PO CONSTIPATION 12/14/16 05:45 12/15/16 10:02 Lactobacillus Acidophilus (Lactinex) 1 tab TID PO 12/14/16 09:00 12/20/16 18:01 Promethazine HCl (Phenergan Inj) 12.5 mg Q4H PRN IV-CENTRAL nausea 12/15/16 16:00 12/17/16 10:34 Acetaminophen (Tylenol 650 Mg/ 20 ml Liq) 650 mg Q6H PRN PO FEVER 12/15/16 16:45 12/16/16 15:06 Famotidine (Pepcid) 10 mg BID PO 12/17/16 09:00 12/20/16 21:13 Amitriptyline HCl (Elavil) 25 mg HS PO 12/17/16 21:00 12/20/16 21:13 Lorazepam (Ativan Inj) 0.5 mg Q6H PRN IV PUSH nausea 12/17/16 17:00 12/17/16 17:35 Vancomycin HCl (VANCOMYCIN for oral use only) 500 mg Q6H PO 12/17/16 20:00 12/21/16 02:59 Enoxaparin Sodium 60 mg 60 mg Q24H SQ 12/18/16 15:00 12/20/16 14:28 Ceftriaxone Sodium/Sodium Chloride (Rocephin Inj/NS Inj) 100 ml @ 200 mls/hr Q24H IV 12/19/16 20:00 12/20/16 21:11 Carvedilol (Coreg) 3.125 mg Q12HR PO 12/20/16 21:00 12/20/16 21:13 Spironolactone (Aldactone) 25 mg BID@09,18 PO 12/20/16 18:00 12/20/16 18:01 Objective Remarks GENERAL: Elderly female, sitting up in bed, appears to be no acute distress. Somewhat pale appearing. SKIN: No rashes, ecchymoses or lesions. Cool and dry. HEAD: Atraumatic. Normocephalic. EYES: Extraocular motions intact. No scleral icterus. No injection or drainage. ENT: Nose without bleeding, purulent drainage. Airway patent. NECK: Trachea midline. No JVD or lymphadenopathy. CARDIOVASCULAR: Normal pulses, extremities well perfused RESPIRATORY: Frequent cough, decreased bibasilar breath sounds, good air movement over the upper and middle lung zones. GASTROINTESTINAL: Abdomen soft, non-tender, nondistended. Bruising over the lower abdomen at the site of injections. GENITOURINARY: Bilateral nephrostomy tubes in place, draining light pink urine. Insertion site clean and dry, dressings in place MUSCULOSKELETAL: Left upper extremity edema. NEUROLOGICAL: Awake and alert. Motor and sensory grossly within normal limits. Normal speech. Assessment/Plan Problem List: (1) Metastatic breast cancer Status: Chronic Plan: 12/20/2016: Plan to resume systemic palliative therapy should she recover sufficiently from a performance, nutritional and functional standpoint. History: -- First diagnosed in 2008. had neoadjuvant dose-dense chemotherapy followed by mastectomy and radiation. -- Maintained on letrozole but developed a bone metastasis in April of 2013. then treated with Xeloda. -- August of 2014 developed liver metastasis. given a Faslodex without any improvement. then treated with weekly Taxol. -- June of 2015 disease was rebiopsied and she was now found to have HER-2 positive disease (previously HER-2 negative), started on Herceptin and Perjeta. had a reaction to Perjeta and was switched to Herceptin and Navelbine. -- October of 2016, found to have a new brain metastasis. completed WBRT. The plan was to initiate intrathecal chemotherapy with cytarabine. While continuing systemic therapy with Herceptin based chemotherapy. Systemic therapy on hold. (2) Thrombosis of arm Status: Acute Plan: Transitioned to Lovenox 60 mg subcutaneous every 12 hours. I would recommend continuing Lovenox for the time being, I would recommend discharging her home with Lovenox, I should be able to transition her to warfarin as an outpatient. (3) CKD (chronic kidney disease) stage 3, GFR 30-59 ml/min Status: Chronic Plan: -- Acute renal failure due to obstructive uropathy. -- had dialysis twice when in [place]. -- had bilateral nephrostomy tube placement; with improvement/normalization of renal function. -- Urology following, ureteral stents were placed bilaterally 12/13, nephrostomy tubes capped off; renal function worsened but this was in the setting of sepsis and hypotension. -- Renal function is stable to improved, her nephrostomies have been draining. -- 12/20/2016: Renal function improved and stable, urology progress note was reviewed, it is advised the patient maintain the percutaneous nephrostomy tubes , these will need to be changed every 3 months by interventional radiology. (4) History of Clostridium difficile Status: Acute Plan: -- currently on Flagyl, and clinically improved. Assessment 76y/o female with metastatic breast cancer transferred here from [place] with C. difficile colitis and renal failure. h/o Anemia. Pericarditis. Pneumonia. Hydronephrosis. C. difficile colitis. Pulmonary embolism--IVC filter, 2009 Cutaneous herpes simplex. +Port placement. Left mastectomy. Right ureteral stent placement in May of 2015 and May of 2016. Appendectomy. Hysterectomy. Dialysis catheter placement and removal. Plan 1. Metastatic breast carcinoma with intracranial metastases: She had been on palliative therapy with palliative whole brain radiation and palliative systemic therapy as well. At present she has too many acute issues including infectious issues to allow resumption of systemic therapy. 2. C. difficile colitis: Clinically improved. 3. Renal function: Acute on chronic renal failure, her renal function is very sensitive to fluctuations in her blood pressure. Percutaneous nephrostomy tubes will remain in place. 4. Left upper extremity deep venous thrombosis: Continue anticoagulation with Lovenox. Disposition: I did have a discussion with Mrs. Carrion this morning, we talked about the multiple acute and chronic medical issues which are proven to be barriers to delivery of palliative cancer directed care. I explained to her that at present her performance status is not conducive to resumption of palliative systemic treatment also explained to her that it is quite possible that further treatment may not be possible unless she significantly improves from an overall standpoint i.e. nutritional and functional. Mrs. Carrion made it quite clear to me that she values the importance of quality of life and functional independence. She has indicated to me on multiple previous meetings that she would choose not to prolong her dying process. She is open to additional disease directed treatments should she be able to maintain a good functional status and a good quality of life. Prior to her acute medical issues over the past 2 weeks, Mrs. Carrion had been fully functional, she managed her household, she participated in ballet and Pilates on a weekly basis at her gym, she drove anything to care for her . Because her performance status was as good as this we had been treating her aggressively over the past 3 years. Cleared for discharge from oncology standpoint, she will need to have her IV antibiotics transitioned to oral. Outpatient follow-up to be arranged. Problem Qualifiers (1) Thrombosis of arm: Qualified Code: I82.602 - Thrombosis of arm, left Demario Leach MD Dec 21, 2016 08:17
[2016-12-21] MEDS: DOCUSATE SODIUM 50 MG/SENNA 8.6 MG TAB PO SCH ×2 (08:52→20:17)
[2016-12-21] MEDS: LACTOBACILLUS ACIDOPHILUS TAB PO SCH ×3 (08:59→18:16)
[2016-12-21] MEDS: FAMOTIDINE 20 MG TAB PO SCH ×2 (09:00→20:17)
[2016-12-21] MEDS: SPIRONOLACTONE 25 MG TAB PO SCH ×2 (09:00→18:16)
[2016-12-21] MEDS: CARVEDILOL 3.125 MG TAB PO SCH ×2 (09:00→20:17)
[2016-12-21] MEDS: SODIUM CHLORIDE 0.9% FLUSH 5 ML FLUSH FLUSH SCH ×2 (09:01→20:16)
[2016-12-21] MEDS: ONDANSETRON HCL 4 MG/2 ML VIAL IV PUSH PRN (11:58)
--- NOTE | 2016-12-21 12:30 | HHI.PR ---
Subjective Remarks The patient wants to go home. She says she has no pain. She says she had bowel movements earlier today. She says she doesn't think she needs home physical therapy. She would like her nephrostomy tubes shortened. Discussed with nursing. Objective Vitals Vital Signs Date Time Temp Pulse Resp B/P Pulse Ox O2 Delivery O2 Flow Rate FiO2 12/21/16 11:50 98.1 100 20 131/67 99 12/21/16 10:53 Room Air 12/21/16 08:01 96 21 12/21/16 07:50 97.1 105 20 132/78 99 12/21/16 03:00 97.4 99 18 138/74 94 12/21/16 00:00 98.0 107 16 127/67 95 12/20/16 22:03 95 Nasal Cannula 12/20/16 21:11 95 Room Air 12/20/16 20:00 97.6 111 16 134/76 97 12/20/16 16:00 97.6 103 18 133/68 97 I/O 12/20/16 12/20/16 12/20/16 12/21/16 12/21/16 12/21/16 07:00 15:00 23:00 07:00 15:00 23:00 Intake Total 240 ml 720 ml 240 ml 150 ml Output Total 425 ml 1100 ml 250 ml 550 ml Balance -185 ml -380 ml -10 ml 150 ml -550 ml Intake Oral 240 ml 720 ml 240 ml 150 ml Output Urine Total 550 ml Drainage Total 425 ml 550 ml 250 ml 550 ml # Voids 1 2 # Bowel Movements 0 2 Result Diagram: 12/21/16 0430 12/21/16 0430 Imaging Last Impressions Chest X-Ray 12/19/16 0600 Signed Impressions: Service Date/Time: Monday, December 19, 2016 05:47 - CONCLUSION: 1. Basilar and perihilar airspace disease with small effusions similar to December 17. Gurwinder Stoll MD Upper Extremity Ultrasound [id number]/[id number] Signed Impressions: Service Date/Time: Saturday, December 17, 2016 22:26 - CONCLUSION: Occlusive thrombus is noted within the brachial vein proximal and distal. Otherwise patent venous system. Jorden Grande MD Head CT 12/15/16 0000 Signed Impressions: Service Date/Time: Friday, December 16, 2016 04:29 - CONCLUSION: No acute disease. Jorden Grande MD Objective Remarks GENERAL: Elderly female in no apparent distress. HEENT: NC, AT. CARDIOVASCULAR: Normal rate and regular rhythm without murmurs, gallops, or rubs. RESPIRATORY: Scattered rhonchi throughout. GASTROINTESTINAL: Abdomen soft, non-tender, non-distended. Normal active bowel sounds. MUSCULOSKELETAL: Bilateral lower extremity with trace edema. Nephrostomy tubes in place. NEURO: Alert & Oriented x4 to person, place, time, situation. Moves all ext x4 PSYCH: Appropriate mood and affect. Procedures 12/13- cystoscopy with bilateral stent insertion- right ureteral stent exchange, left ureteral stent insertion Medications and IVs Current Medications Medications (Trade) Dose Ordered Sig/Randell Route Start Time Stop Time Status Last Admin (NS Flush) 2 ml UNSCH PRN FLUSH 12/09/16 21:15 (NS Flush) 2 ml BID FLUSH 12/10/16 09:00 12/21/16 09:01 (Narcan Inj) 0.4 mg UNSCH PRN IV 12/09/16 21:15 (Zofran Inj) 4 mg Q6HR PRN IV PUSH 12/10/16 10:30 12/21/16 11:58 (Licha-Colace) 1 tab BID PRN PO 12/11/16 09:30 12/12/16 02:46 (Heparin Central Flush) 250 units UNSCH PRN IVF 12/11/16 13:00 12/12/16 05:25 (Heparin Central Flush) 500 units UNSCH IVF 12/11/16 13:00 (Licha-Colace) 2 tab BID PO 12/14/16 09:00 12/19/16 21:00 (Lactulose Liq) 30 ml TID PRN PO 12/14/16 05:45 12/15/16 10:02 (Dulcolax Supp) 10 mg DAILY PRN HI 12/14/16 05:45 (Lactinex) 1 tab TID PO 12/14/16 09:00 12/21/16 08:59 (Phenergan Inj) 12.5 mg Q4H PRN IV-CENTRAL 12/15/16 16:00 12/17/16 10:34 (Tylenol 650 Mg/ 20 ml Liq) 650 mg Q6H PRN PO 12/15/16 16:45 12/16/16 15:06 (Pepcid) 10 mg BID PO 12/17/16 09:00 12/21/16 09:00 (Elavil) 25 mg HS PO 12/17/16 21:00 12/20/16 21:13 Patient Own Medication PT OWN MED: RELPAX UNSCH PO 12/17/16 16:00 Hold (Ativan Inj) 0.5 mg Q6H PRN IV PUSH 12/17/16 17:00 12/17/16 17:35 (VANCOMYCIN for oral use only) 500 mg Q6H PO 12/17/16 20:00 12/21/16 08:59 Enoxaparin Sodium 60 mg 60 mg Q24H SQ 12/18/16 15:00 12/20/16 14:28 (Rocephin Inj/NS Inj) 100 ml @ 200 mls/hr Q24H IV 12/19/16 20:00 12/20/16 21:11 (Coreg) 3.125 mg Q12HR PO 12/20/16 21:00 12/21/16 09:00 (Aldactone) 25 mg BID@09,18 PO 12/20/16 18:00 12/21/16 09:00 Location: Internal A/P Problem List: (1) Bilateral ureteral obstruction ICD Code: N13.5 Status: Acute (2) Metastatic breast cancer ICD Code: C50.919 Status: Chronic Assessment and Plan 76-year-old female with history of metastatic breast cancer to the liver, brain , and bone. Patient also has a history of pulmonary alcoholism status post IVC filter placement. Patient recently diagnosed with obstructive uropathy and bilateral nephrostomy tubes were She has been in the ICU and treated for severe sepsis. She was diagnosed with C. difficile colitis at an outside hospital on 12/04/16. Patient clinically improved and transferred out of the ICU. Neutropenic sepsis: Secondary UTI. Patient also with C. difficile colitis. - Appreciate infectious disease following. Continue ceftriaxone-ID plans to change to Levaquin upon discharge - Flagyl by mouth changed to vancomycin by mouth for 14 days of treatment. - Continue to follow cultures urine culture reveals Morganella morganii, blood culture reveals Morganella morganii in 1 of 2 bottles. Pulmonary edema with systolic CHF: Patient was hydrated for sepsis in the ICU prior to transfer to the floor. Respiratory distress overnight on 12/17/15 and was found to have pulmonary edema and elevated BNP of 1100. She denies history of CHF but echocardiogram from 01/15/16 showed LVEF of 35-40%. - Cardiology consulted and following - A 2-D echocardiogram 12/19/2016 shows ejection fraction of 30%- start Coreg 3.125 twice a day, unable to start Rishabh or diuretic secondary to renal failure, platelet count 91 hold off on aspirin at this time, check lipid profile consider adding statin depending on results. LDL not elevated. Aldactone started per cardiology. - Continue supplemental oxygen and supportive care. Incentive spirometry. No oxygen per walk test. Renal failure/obstructive uropathy: Appreciate nephrology and urology following. Patient is nonoliguric. Bilateral nephrostomy tubes appear to be draining well. - Follow BMP. Avoid nephrotoxins. - IR consult to shorten nephrostomy tubes prior to discharge. - follow up with urology as an outpt. Metastatic breast cancer - Systemic chemotherapy is on hold due to the patient's functional status. Discussed with Dr. Leach - Treatment per oncology and radiation oncology Thrombosis of left arm - On Lovenox 60 mg subcutaneous every 12 hours. Per hematology recommendations continue Lovenox for anticoagulation - Home teaching for Lovenox injections DVT GI prophylaxis -Lovenox and Pepcid Discharge Planning Anticipate d/c home with [facility] in AM. Palomo Jauregui DO Dec 21, 2016 12:30
[2016-12-21] MEDS: ENOXAPARIN SODIUM 60 MG/0.6 ML SYRINGE SQ SCH (15:40)
[2016-12-21] MEDS ORDERED: ENOX60P SQ (15:42)
[2016-12-21] MEDS: cefTRIAXone INJ 2,000 MG in SODIUM CHLORIDE 0.9% INJ 100 ML IV SCH (20:16)
[2016-12-21] MEDS: AMITRIPTYLINE HCL 25 MG TAB PO SCH (20:17)
[2016-12-21 23:11] LABS: C. DIFF EPI 027 PRESUMPTIVE NEGATIVE (NEGATIVE)
[2016-12-22] VITALS: BP 135/73; PULSE 90; RESP 18; TEMP 97.3; O2SAT 94
[2016-12-22 00:29] LABS: C. DIFF TOXIN PCR POSITIVE (NEGATIVE)
[2016-12-22] MEDS: VANCOMYCIN 500 MG VIAL (FOR ORAL USE ONLY) PO SCH ×2 (03:07→08:36)
[2016-12-22] MEDS: RESP: ALBUTEROL 2.5 MG/IPRATROPIUM 0.5 MG NEB (PRN) NEB (03:29)
[2016-12-22 04:00] VITALS: BP 135/68; PULSE 90; RESP 18; TEMP 97.4; O2SAT 96
[2016-12-22 05:43] LABS: HEMATOCRIT 25.1 % (35.0-46.0); MEAN CELL VOLUME 90.9 FL (80.0-100.0); MEAN CORPUSCULAR HEMOGLOBIN 29.9 PG (27.0-34.0); MEAN CORPUSCULAR HGB CONC 32.9 % (32.0-36.0); PLATELET COUNT 126 TH/MM3 (150-450); RED BLOOD COUNT 2.76 MIL/MM3 (4.00-5.30); REVIEW FLAG FINAL; WHITE BLOOD COUNT 5.4 TH/MM3 (4.0-11.0)
[2016-12-22 06:01] LABS: BICARBONATE 25.3 MEQ/L (21.0-32.0); MAGNESIUM 1.3 MG/DL (1.5-2.5)
[2016-12-22 07:50] VITALS: BP 125/78; PULSE 94; RESP 20; TEMP 98.1; O2SAT 94
[2016-12-22] MEDS: RESP: ALBUTEROL 2.5 MG/IPRATROPIUM 0.5 MG NEB (SCH) NEB ×2 (08:00→13:20)
[2016-12-22] MEDS: FAMOTIDINE 20 MG TAB PO SCH (08:36)
[2016-12-22] MEDS: LACTOBACILLUS ACIDOPHILUS TAB PO SCH (08:36)
[2016-12-22] MEDS: SODIUM CHLORIDE 0.9% FLUSH 5 ML FLUSH FLUSH SCH (08:36)
[2016-12-22] MEDS: CARVEDILOL 3.125 MG TAB PO SCH (08:36)
[2016-12-22] MEDS: SPIRONOLACTONE 25 MG TAB PO SCH (08:36)
[2016-12-22] MEDS: DOCUSATE SODIUM 50 MG/SENNA 8.6 MG TAB PO SCH (08:37)
[2016-12-22] MEDS ORDERED: CARV3.125 PO (08:42)
[2016-12-22] MEDS ORDERED: SPIR25 PO (08:42)
[2016-12-22] MEDS ORDERED: LEVA500T PO (08:42)
[2016-12-22] MEDS ORDERED: AMIT1TAB79 PO (08:42)
[2016-12-22] MEDS ORDERED: VANC500I3 PO (08:42)
--- NOTE | 2016-12-22 08:54 | HHI.DCPOC ---
Discharge Care Plan Diagnosis: (1) Breast carcinoma metastatic to multiple sites (2) Thrombosis of arm (3) Sepsis (4) Kidney failure (5) Bilateral ureteral obstruction (6) bilateral nephrostomy tube (7) History of Clostridium difficile (8) CKD (chronic kidney disease) stage 3, GFR 30-59 ml/min Goals to Promote Your Health * To prevent worsening of your condition and complications * To maintain your health at the optimal level Directions to Meet Your Goals Take your medications as prescribed Follow your dietary instruction Follow activity as directed Keep your appointments as scheduled Take your immunizations and boosters as scheduled If your symptoms worsen call your PCP, if no PCP go to Urgent Care Center or Emergency Room Smoking is Dangerous to Your Health. Avoid second hand smoke Call the 24-hour hour crisis hotline for domestic abuse at Palomo Jauregui DO Dec 22, 2016 08:54
[2016-12-22] MEDS ORDERED: MAGN400T2 PO (08:58)
--- NOTE | 2016-12-22 09:02 | HHI.DS ---
Discharge Summary Admission Date Dec 09, 2016 at 20:57 Discharge Date: Dec 22, 2016 Admitting Diagnosis (1) Bilateral ureteral obstruction ICD Code: N13.5 Diagnosis: Principal (2) Metastatic breast cancer ICD Code: C50.919 Diagnosis: Principal (3) Kidney failure ICD Code: N19 (4) Thrombosis of arm ICD Code: I82.609 (5) Cardiomyopathy ICD Code: I42.9 (6) Sepsis ICD Code: A41.9 Diagnosis: Principal Procedures 12/13- cystoscopy with bilateral stent insertion- right ureteral stent exchange, left ureteral stent insertion Brief History - From Admission This is a 76-year-old female patient with past medical history which includes 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 difficile 2012, pulmonary embolism status post IVC filter. Patient follows with medical oncologist Dr. Leach and radiation oncologist Dr. Osullivan. Patient was in [place] at the [facility] [place] seeking treatment for her when patient began to feel cold. And on Monday12/04/2016 patient proceeded to [facility] she continued to feel unwell mostly feeling chills as well as diarrhea and vomiting. Patient was found to have C. difficile colitis as well as acute kidney injury with a creatinine of 11. Patient was started on by mouth Flagyl was also started on hemodialysis and underwent bilateral nephrostomy tube placement as the acute kidney injury was placed to be secondary to obstructive uropathy with bilateral hydronephrosis.. Patient reports she had 2 treatments of hemodialysis on 12/06/2016 and 12/07/2016. Patient believes that she had her nephrostomy tubes placed on 12/07/2016. Patient reports at this time she is feeling much better than she was is no longer having diarrhea fevers or chills. CBC/BMP: 12/22/16 0400 12/22/16 0400 Significant Findings Laboratory Tests Test 12/20/16 12/21/16 12/21/16 12/22/16 05:09 04:30 08:45 04:00 Red Blood Count 2.75 MIL/MM3 2.69 MIL/MM3 2.76 MIL/MM3 (4.00-5.30) (4.00-5.30) (4.00-5.30) Hemoglobin 8.3 GM/DL 8.0 GM/DL 8.2 GM/DL (11.6-15.3) (11.6-15.3) (11.6-15.3) Hematocrit 25.0 % 24.5 % 25.1 % (35.0-46.0) (35.0-46.0) (35.0-46.0) Red Cell Distribution Width 18.7 % 18.7 % 19.0 % (11.6-17.2) (11.6-17.2) (11.6-17.2) Platelet Count 91 TH/MM3 109 TH/MM3 126 TH/MM3 (150-450) (150-450) (150-450) Chloride Level 111 MEQ/L 109 MEQ/L 110 MEQ/L (98-107) (98-107) (98-107) Blood Urea Nitrogen 23 MG/DL (7-18) 19 MG/DL (7-18) 21 MG/DL (7-18) Creatinine 1.12 MG/DL 1.10 MG/DL 1.18 MG/DL (0.50-1.00) (0.50-1.00) (0.50-1.00) Estimat Glomerular Filtration 47 ML/MIN (>89) 48 ML/MIN (>89) 44 ML/MIN (>89) Rate Calcium Level 7.5 MG/DL 7.4 MG/DL 7.9 MG/DL (8.5-10.1) (8.5-10.1) (8.5-10.1) Total Protein 5.0 GM/DL (6.4-8.2) Triglycerides Level 187 MG/DL (42-150) HDL Cholesterol 15.3 MG/DL (40.0-60.0) Stool C. difficile Toxin (PCR) POSITIVE (NEGATIVE) Magnesium Level 1.3 MG/DL (1.5-2.5) Imaging Last Impressions Chest X-Ray 12/19/16 0600 Signed Impressions: Service Date/Time: Monday, December 19, 2016 05:47 - CONCLUSION: 1. Basilar and perihilar airspace disease with small effusions similar to December 17. Gurwinder Stoll MD Upper Extremity Ultrasound [id number]/[id number] Signed Impressions: Service Date/Time: Saturday, December 17, 2016 22:26 - CONCLUSION: Occlusive thrombus is noted within the brachial vein proximal and distal. Otherwise patent venous system. Jorden Grande MD Head CT 12/15/16 0000 Signed Impressions: Service Date/Time: Friday, December 16, 2016 04:29 - CONCLUSION: No acute disease. Jorden Grande MD PE at Discharge GENERAL: Elderly female in no apparent distress. HEENT: NC, AT. CARDIOVASCULAR: Tachycardic without murmurs, gallops, or rubs. RESPIRATORY: CTAB. No W/R/R. GASTROINTESTINAL: Abdomen soft, non-tender, non-distended. Normal active bowel sounds. MUSCULOSKELETAL: Bilateral lower extremity with trace edema. Nephrostomy tubes in place. NEURO: Alert & Oriented x4 to person, place, time, situation. Moves all ext x4 PSYCH: Appropriate mood and affect. Pt update on day of discharge The pt said she received [employer] teaching. She was upset her nephrostomy tubes couldn't be shortened. Otherwise feeling well and anxious to go home. Discussed with nursing. Hospital Course 76-year-old female with history of metastatic breast cancer to the liver, brain , and bone. Patient also has a history of pulmonary embolism status post IVC filter placement. Patient recently was diagnosed with obstructive uropathy and bilateral nephrostomy tubes were placed. She has been in the ICU and treated for severe sepsis. She was diagnosed with C. difficile colitis at an outside hospital on 12/04/16. Neutropenic sepsis Secondary UTI and C. difficile colitis. Urine culture and one blood culture revealed Morganella morganii. Infectious disease was consulted. She was continued on IV antibiotics which were changed to ceftriaxone and PO vancomycin. Ceftriaxone will be changed to Levaquin upon discharge and she will complete vancomycin by mouth for a total of 14 days of treatment. Pulmonary edema with systolic CHF The patient was hydrated for sepsis in the ICU. She was found to have pulmonary edema and an elevated BNP of 1100. A 2-D echocardiogram 12/19/2016 showed ejection fraction of 30%. Cardiology was consulted. She was started on Coreg and Aldactone. She received incentive spirometry. She does not need home oxygen per walk test. She will follow up with cardiology as an outpt. Renal failure/obstructive uropathy Nephrology and urology were consulted. She will need to keep the nephrostomy tubes in place and will follow up with urology as an outpt. She will be discharged with home health nursing. Metastatic breast cancer Systemic chemotherapy is on hold due to the patient's functional status. She will follow up with oncology as an outpt. Thrombosis of left arm On Lovenox 60 mg subcutaneous every 12 hours. Per hematology recommendations will continue Lovenox for anticoagulation. She received home teaching for Lovenox. Pt Condition on Discharge: Stable Discharge Disposition: Disch w/ Home Health Serv Discharge Time: > 30 minutes Discharge Instructions DIET: Follow Instructions for: As Tolerated, No Restrictions Activities you can perform: Weight Bearing as [place] Follow up Referrals: Cardiology - [address] Webster Oncology - 1 Week PCP Follow-up - 1 Week Urology - 12/21/16 with Iban Sierra MD New Medications: Lactobacillus Acidophilus (Lactinex) 1 Chew 1 TAB CHEW TID Nutritional Supplement #30 Ref 0 TAB Levofloxacin (Levaquin) 500 Mg Tab 500 MG PO DAILY Infection #5 Ref 0 TAB Magnesium Oxide (Magnesium Oxide) 400 Mg Tab 400 MG PO BID Nutritional Supplement #30 Ref 0 TAB Spironolactone (Aldactone) 25 Mg Tab 25 MG PO BIDPC Diuretic #60 Ref 0 TAB Walker with Front Wheels (Walker with Front Wheels) 1 Mis Mis 1 EA .ROUTE DIRECTED #1 Ref 0 EA Amitriptyline HCl (Elavil) 25 Mg Tab 25 MG PO HS Mood #30 TAB Carvedilol (Coreg) 3.125 Mg Tab 3.125 MG PO Q12HR Blood Pressure Management #60 TAB Enoxaparin Inj (Lovenox Inj) 60 Mg/0.6 Ml Syr 60 MG SQ Q24H Prevent Blood Clot Days 30 INJECTION Lactobacillus Acidophilus (Acidophilus/l-Sporogenes) 1 Tab Tab 1 TAB PO TID Bowel Management #30 TAB Vancomycin Inj (Vancomycin Inj) 500 Mg Inj 500 MG PO Q6H Infection #32 INJECTION Continued Medications: Amitriptyline Hcl (Elavil) 25 Mg Tab 25 MG PO HS TAB Calcium W/ Vitamins D & K (Viactiv) Chw 1 CHEW CHEW BID CHW Deferiprone (Ferriprox) 500 Mg Tab 1500 MG PO BID Docusate Sodium (Colace 100 Mg Cap) 100 Mg Cap 100 MG PO DAILY CAP Flaxseed (Linseed) (Flax Oil) Oil 1 CAP PO BID Fluticasone/Salmeterol 250 mcg/50 mcg (Advair Diskus 250/50) Fluticasone/ Salmeterol 250/50 Inh 1 PUFF PO BID INHALER Multiple Vitamin (Multi-Vitamin Daily) Daily Tab 1 TAB PO DAILY TAB Nutritional Supplements ([place] Oil) 1,000 Mg Cap 1 CAP PO BID Oxycodone-Acetaminophen 5-325 mg (Percocet 5-325 mg) 1 Tab 1-2 TAB PO Q6H PRN PAIN SCALE 1 TO 10 #20 TAB Discontinued Medications: Cephalexin Monohydrate (Keflex 250 mg Cap) 250 Mg Cap 250 MG PO TID post-op #15 CAP Palomo Jauregui DO Dec 22, 2016 09:02 1 TAB PO DAILY TAB Nutritional Supplements ([place] Oil) 1,000 Mg Cap 1 CAP PO BID Oxycodone-Acetaminophen 5-325 mg (Percocet 5-325 mg) 1 Tab 1-2 TAB PO Q6H PRN PAIN SCALE 1 TO 10 #20 TAB Discontinued Medications: Cephalexin Monohydrate (Keflex 250 mg Cap) 250 Mg Cap 250 MG PO TID post-op #15 Palomo Matos DO Dec 22, 2016 09:02
[2016-12-22] MEDS: MAGNESIUM SULFATE 1 GM PREMIX 100 ML IV SCH ×2 (10:00→10:35)
[2016-12-22 11:50] VITALS: BP 121/76; PULSE 91; RESP 20; TEMP 96.9; O2SAT 97
[2017-01-18] MEDS ORDERED: VANC250C2 PO (10:51)
== END 2016-12-22 16:28 | disposition home health service (06) | DRG 693 ==
LOC: HOCA 12-09 20:57 → N03B 12-16 01:11 → HOCB 12-17 16:12
PROVIDERS: ADMIT Family Medicine; ATTEND Hospitalist
PROC: 30233N1 Transfusion of Nonautologous Red Blood Cells into Peripheral Vein, Percutaneous Approach (ICD-10-PCS; 2016-12-10)
PROC: 0TP98DZ Removal of Intraluminal Device from Ureter, Via Natural or Artificial Opening Endoscopic (ICD-10-PCS; 2016-12-13)
PROC: 0T768DZ Dilation of Right Ureter with Intraluminal Device, Via Natural or Artificial Opening Endoscopic (ICD-10-PCS; 2016-12-13)
PROC: BT141ZZ Fluoroscopy of Kidneys, Ureters and Bladder using Low Osmolar Contrast (ICD-10-PCS; 2016-12-13)
PROC: 0T778DZ Dilation of Left Ureter with Intraluminal Device, Via Natural or Artificial Opening Endoscopic (ICD-10-PCS; principal; 2016-12-13 11:10)
DX: N13.1 Hydronephrosis with ureteral stricture, not elsewhere classified (principal); A41.50 Gram-negative sepsis, unspecified; R65.21 Severe sepsis with septic shock; N17.9 Acute kidney failure, unspecified; I50.23 Acute on chronic systolic (congestive) heart failure; A04.7 Enterocolitis due to Clostridium difficile; E87.2 Acidosis; C78.7 Secondary malignant neoplasm of liver and intrahepatic bile duct; B00.9 Herpesviral infection, unspecified; C79.31 Secondary malignant neoplasm of brain; C79.49 Secondary malignant neoplasm of other parts of nervous system; C79.51 Secondary malignant neoplasm of bone; I42.9 Cardiomyopathy, unspecified; I82.622 Acute embolism and thrombosis of deep veins of left upper extremity; E44.0 Moderate protein-calorie malnutrition; D70.3 Neutropenia due to infection; N39.0 Urinary tract infection, site not specified; N13.30 Unspecified hydronephrosis; J44.9 Chronic obstructive pulmonary disease, unspecified; N18.3 Chronic kidney disease, stage 3 (moderate); H91.90 Unspecified hearing loss, unspecified ear; D64.9 Anemia, unspecified; Z66 Do not resuscitate; R50.81 Fever presenting with conditions classified elsewhere; E87.6 Hypokalemia; K59.00 Constipation, unspecified; Z51.5 Encounter for palliative care; B96.89 Other specified bacterial agents as the cause of diseases classified elsewhere; Z93.6 Other artificial openings of urinary tract status; Z90.10 Acquired absence of unspecified breast and nipple; Z86.711 Personal history of pulmonary embolism; Z85.3 Personal history of malignant neoplasm of breast
CPT/HCPCS: 36430; 36600; 70450; 71010; 74420; 80048; 80053; 80061; 80076; 80202; 82140; 82565; 82805; 83605; 83735; 83880; 84155; 85007; 85014; 85018; 85025; 85027; 85379; 85610; 85730; 86850; 86900; 86901; 86920; 87015; 87040; 87070; 87077; 87086; 87102; 87116; 87186; 87205; 87206; 87493; 87641; 93005; 93306; 93971; 94620; 94640; 94664; C1769; C9113; J0131; J0171; J0461; J0610; J0692; J0696; J1100; J1642; J1644; J1650; J1940; J2060; J2270; J2405; J2550; J2997; J3010; J3370; J3475; J3480; J7030; J7042; J7050; P9016; P9045; Q0169; Q9967

== ENCOUNTER 2016-12-30 09:59 | Day surgery (SDC) | payer MEDICARE, OTHER ==
[~2016-12-30] VITALS: Ht 160 cm; Wt 54.5 kg
[~2016-12-30 09:59] MED LIST changes: +AMIT1TAB79 PO; +CARV3.125 PO; -CEPH250 PO; +ENOX60P SQ; +LACT PO; +LACTCHW3 CHEW; +LEVA500T PO; +MAGN400T2 PO; +SPIR25 PO; +VANC500I3 PO; +WALKER WHEELS/F1 MIS
[2016-12-30 10:11] VITALS: BP 155/92; PULSE 95; RESP 20; TEMP 97.3; O2SAT 94
[2016-12-30] MEDS ORDERED: Infusaport/Implanted VAD PRN NS Lock Flush IVF (11:00)
[2016-12-30] MEDS ORDERED: SODIUM CHLOR 0.9% 1000 ML INJ 1,000 ML IV SCH (11:00)
--- NOTE | 2016-12-30 13:28 | PD.RAD ---
Post Procedure Progress Note Pre Procedure Diagnosis: (1) Breast carcinoma metastatic to multiple sites Post Procedure Diagnosis: (1) Breast carcinoma metastatic to multiple sites Procedure Date: Dec 30, 2016 Supervising Radiologist: Yariel Purvis Proceduralist/Assist: Emerita Vo, RT(R)(), Rhina Dodd RT(R)(CV) Anesthesia: Local Plan of Activity Patient to Unit: ROPU Patient Condition: Fair See PACS Report for procedural detail/treatment Spinal Procedure Lumbar Puncture L3-L4 Fluid Removal (CCs): 8 Fluid Description: Clear Puncture Time: 13:12 Additional Detail: Intra thecal injection of 100mg Cytarabine Yariel Purvis MD Dec 30, 2016 13:28
[2016-12-30 13:30] VITALS: BP 161/93; PULSE 88; RESP 18; TEMP 98.2; O2SAT 92
[2016-12-30] MEDS ORDERED: SODIUM CHLORIDE 0.9% IT ONE ×2 (14:00)
[2016-12-30] MEDS ORDERED: CYTARABINE IT ONE ×2 (14:00)
[2016-12-30 15:35] VITALS: BP 147/79; PULSE 86; RESP 16; O2SAT 96
--- NOTE | 2017-01-03 09:26 | RADRPT ---
EXAM DATE/TIME: 12/30/2016 13:03 [facility] COMPARISON: No previous studies available for comparison. INDICATIONS : Patient with a history of metastatic breast cancer. MEDICAL HISTORY : Breast cancer with mets to liver Migraines Anemia Pericarditis Pneumonia Hydronephrosis Cataracts PE Osteoarthritis DVT COPD SURGICAL HISTORY : RT ureteral stent IVC filter Appendectomy Breast biopsy Liver biopsy Left mastectomy Port placement ENCOUNTER: Initial ACUITY: 1 month PAIN SCORE: 0/10 LUMBAR PUNCTURE TIME: 1312 hours FLUORO TIME: 1.4 minutes IMAGE SERIES: 1 ACCESS LEVEL: L2-3 PROCEDURE : Fluoroscopic guided lumbar puncture. Instillation of chemotherapy. 100 mg cytarabine. The risks, benefits and alternatives to the procedure were explained and verbal and written consent w as obtained. The site was prepped in sterile fashion. Full sterile technique was used, including ca p, mask, sterile gloves and gown and a large sterile sheet. Hand hygiene and 2% chlorhexidine and/or betadine/alcohol prep was utilized per protocol for cutaneous antisepsis. The skin and subcutaneous tissues were infiltrated with local anesthetic solution. With fluoroscopic guidance the lumbar thecal sac was punctured at the level above. The prescribed ch emo therapeutic was injected. The patient tolerated the procedure well and there were no complications. CONCLUSION: Uncomplicated fluoroscopically guided lumbar puncture with chemotherapy injection. Yariel Purvis MD on January 03, 2017 at 9:21 Board Certified Radiologist. This report was verified electronically.
[2017-01-18] MEDS ORDERED: VANC250C2 PO (10:51)
== END 2016-12-30 16:00 | disposition home or self-care (01) ==
LOC: HROP 09:59 → HRIP 10:00 → HROP 16:00
PROVIDERS: ATTEND Internal Medicine Hematology & Oncology
DX: C50.919 Malignant neoplasm of unspecified site of unspecified female breast (principal); C78.7 Secondary malignant neoplasm of liver and intrahepatic bile duct
CPT/HCPCS: 77003; 96450; J1642; J7030; J9100; 62270

== ENCOUNTER 2017-01-13 09:46 | Day surgery (SDC) | payer MEDICARE, OTHER ==
[~2017-01-13] VITALS: Ht 160 cm; Wt 51.4 kg
[~2017-01-13 09:46] MED LIST changes: -ADVAI250I PO; -AMIT25TA20 PO; -CALCCHW6 CHEW; -DOCU1CAP39 PO; -FERR500T PO; -FLAXOIL4 PO; -LEVA500T PO; -MULT-65 PO; -PERC5TAB12 PO; -SALM10002 PO
[2017-01-13 10:25] VITALS: BP 121/82; PULSE 76; RESP 20; TEMP 96.5; O2SAT 93
[2017-01-13 11:12] LABS: APTT (PATIENT) 25.7 SEC (24.3-30.1); INTERNATIONAL NORMALIZED RATIO 1.1 RATIO; PROTHROMBIN TIME - PATIENT 11.7 SEC (9.8-11.6)
[2017-01-13] MEDS ORDERED: CYTARABINE IT ONE (12:00)
[2017-01-13] MEDS ORDERED: SODIUM CHLORIDE 0.9% IT ONE (12:00)
[2017-01-13 12:45] VITALS: BP 121/60; PULSE 73; RESP 16; TEMP 97.7; O2SAT 95
--- NOTE | 2017-01-13 13:07 | PD.RAD ---
Post Procedure Progress Note Pre Procedure Diagnosis: (1) Breast carcinoma metastatic to multiple sites Post Procedure Diagnosis: (1) Breast carcinoma metastatic to multiple sites Procedure Date: Jan 13, 2017 Supervising Radiologist: Edward Tate Proceduralist/Assist: RT Mamie(R)() Anesthesia: Local Plan of Activity Patient to Unit: ROPU Patient Condition: Good See PACS Report for procedural detail/treatment Spinal Procedure Lumbar Puncture L2-L3 Puncture Time: 12:50 Edward Tate MD Jan 13, 2017 13:07
--- NOTE | 2017-01-13 14:14 | RADRPT ---
EXAM DATE/TIME: 01/13/2017 12:20 [facility] COMPARISON: No previous studies available for comparison. INDICATIONS : Patient with a history of breast cancer. MEDICAL HISTORY : Hydronephrosis C-Diff DVT Pericarditis Breast CA with mets to liver SURGICAL HISTORY : Bilateral nephrostomy tubes ENCOUNTER: Subsequent ACUITY: 3 weeks PAIN SCORE: 3/10 Back LUMBAR PUNCTURE TIME: 1233 hours FLUORO TIME: 1.3 minutes IMAGE SERIES: 0 ACCESS LEVEL: L2-3 PROCEDURE : Fluoroscopic guided lumbar puncture. Instillation of chemotherapy. The risks, benefits and alternatives to the procedure were explained and verbal and written consent w as obtained. The site was prepped in sterile fashion. Full sterile technique was used, including ca p, mask, sterile gloves and gown and a large sterile sheet. Hand hygiene and 2% chlorhexidine and/or betadine/alcohol prep was utilized per protocol for cutaneous antisepsis. The skin and subcutaneous tissues were infiltrated with local anesthetic solution. With fluoroscopic guidance the lumbar thecal sac was punctured at the level above. The prescribed ch emo therapeutic was injected. The patient tolerated the procedure well and there were no complications. CONCLUSION: Uncomplicated fluoroscopically guided lumbar puncture with chemotherapy injection. Edward Tate MD on January 13, 2017 at 14:13 Board Certified Radiologist. This report was verified electronically.
[2017-01-13 15:00] VITALS: BP 120/65; PULSE 70; RESP 14; O2SAT 96
[2017-01-18] MEDS ORDERED: VANC250C2 PO (10:51)
== END 2017-01-13 15:15 | disposition home or self-care (01) ==
LOC: HROP 09:46 → HRIP 09:49 → HROP 15:15
PROVIDERS: ATTEND Internal Medicine Hematology & Oncology
DX: C78.7 Secondary malignant neoplasm of liver and intrahepatic bile duct (principal); C50.919 Malignant neoplasm of unspecified site of unspecified female breast
CPT/HCPCS: 77003; 85610; 85730; 96450; J1642

== ENCOUNTER 2017-01-27 10:17 | Day surgery (SDC) | payer MEDICARE, OTHER ==
[~2017-01-27] VITALS: Ht 160 cm; Wt 51.4 kg
[~2017-01-27 10:17] MED LIST changes: -ENOX60P SQ; -LACT PO; -LACTCHW3 CHEW; -MAGN400T2 PO; +VANC250C2 PO; -VANC500I3 PO; -WALKER WHEELS/F1 MIS
[2017-01-27 10:41] VITALS: BP 122/76; PULSE 76; RESP 20; O2SAT 94
[2017-01-27] MEDS ORDERED: CYTARABINE IT ONE ×2 (11:00)
[2017-01-27] MEDS ORDERED: SODIUM CHLORIDE 0.9% IT ONE ×2 (11:00)
[2017-01-27 12:45] VITALS: BP 137/69; PULSE 75; RESP 18; TEMP 97.6; O2SAT 95
--- NOTE | 2017-01-27 13:05 | PD.RAD ---
Post Procedure Progress Note Pre Procedure Diagnosis: (1) Metastatic breast cancer Post Procedure Diagnosis: (1) Metastatic breast cancer Procedure Date: Jan 27, 2017 Supervising Radiologist: Edward Tate Proceduralist/Assist: RT Tammy(R) Anesthesia: Local Plan of Activity Patient to Unit: ROPU Patient Condition: Good See PACS Report for procedural detail/treatment Spinal Procedure Lumbar Puncture L3-L4 Fluid Removal (CCs): 6 Fluid Description: Clear Puncture Time: 12:30 Edward Tate MD Jan 27, 2017 13:05
[2017-01-27 13:49] LABS: GROSS BLOOD TUBE #1 0 (0); SUPERNATE COLOR TUBE #1 CLEAR (CLEAR); VOLUME TUBE # 1 5.2 ML; WBC TUBE #1 0 /MM3 (0-10)
[2017-01-27 13:50] LABS: CSF LYMPHOCYTES 0 %; CSF NEUTROPHILS 0 %
[2017-01-27 14:18] VITALS: BP 130/70; PULSE 76; RESP 16; O2SAT 93
--- NOTE | 2017-01-27 16:03 | RADRPT ---
EXAM DATE/TIME: 01/27/2017 12:31 [facility] COMPARISON: No previous studies available for comparison. INDICATIONS : Patient with history of breast cancer in need of lumbar puncture with intrathecal chemotherapy inject ion. MEDICAL HISTORY : Breast cancer with mets to liver,brain, and bone Migraines Anemia Pericarditis Pneumonia Hydronephrosis Cataracts PE Osteoarthritis DVT COPD SURGICAL HISTORY : RT ureteral stent IVC filter Appendectomy Breast biopsy Liver biopsy Left mastectomy Port placement ENCOUNTER: Subsequent ACUITY: > 1 year PAIN SCORE: 0/10 LUMBAR PUNCTURE TIME: 1232 hours FLUORO TIME: 0.78 minutes IMAGE SERIES: ACCESS LEVEL: L3-4 FLUID: 5 cc of clear CSF was collected and sent to the laboratory for analysis. PROCEDURE : Fluoroscopic guided lumbar puncture. Instillation of chemotherapy. The risks, benefits and alternatives to the procedure were explained and verbal and written consent w as obtained. The site was prepped in sterile fashion. Full sterile technique was used, including ca p, mask, sterile gloves and gown and a large sterile sheet. Hand hygiene and 2% chlorhexidine and/or betadine/alcohol prep was utilized per protocol for cutaneous antisepsis. The skin and subcutaneous tissues were infiltrated with local anesthetic solution. With fluoroscopic guidance the lumbar thecal sac was punctured at the level above. The prescribed ch emo therapeutic was injected. The patient tolerated the procedure well and there were no complications. CONCLUSION: Uncomplicated fluoroscopically guided lumbar puncture with chemotherapy injection. Edward Tate MD on January 27, 2017 at 16:01 Board Certified Radiologist. This report was verified electronically.
== END 2017-01-27 14:50 | disposition home or self-care (01) ==
LOC: HROP 10:17 → HRIP 10:18 → HROP 14:50
PROVIDERS: ATTEND Internal Medicine Hematology & Oncology
DX: C50.912 Malignant neoplasm of unspecified site of left female breast (principal); C78.7 Secondary malignant neoplasm of liver and intrahepatic bile duct; C79.31 Secondary malignant neoplasm of brain; C79.51 Secondary malignant neoplasm of bone; Z90.12 Acquired absence of left breast and nipple
CPT/HCPCS: 77003; 89051; 96450; J9100

== ENCOUNTER 2017-02-09 00:23 | Inpatient (IN) | payer MEDICARE, OTHER ==
[~2017-02-09] VITALS: Ht 160 cm; Wt 58.0 kg
[2017-02-09] VITALS (23 sets, daily range): BP systolic 76–122; BP diastolic 40–58; PULSE 78–128; RESP 14–20; TEMP 97.6–102.7; O2SAT 90–100
[2017-02-09] MEDS ORDERED: SODIUM CHLOR 0.9% 1000 ML INJ 1,000 ML IV SCH (00:52)
[2017-02-09] MEDS ORDERED: ONDANSETRON HCL 4 MG/2 ML VIAL IVP ONE (01:00)
[2017-02-09] MEDS ORDERED: SODIUM CHLORIDE 0.9% FLUSH 10 ML FLUSH IV FLUSH PRN ×2 (01:00→02:00)
[2017-02-09] MEDS ORDERED: FAMOTIDINE 20 MG/2 ML VIAL IV PUSH ONE (01:00)
[2017-02-09] MEDS ORDERED: SODIUM CHLOR 0.9% 1000 ML INJ 1,000 ML IV ONE (01:00)
--- NOTE | 2017-02-09 01:03 | PD ---
HPI Chief Complaint: GI Complaint Time Seen by Provider: 00:43 Travel History International Travel<30 days: No Contact w/Intl Traveler<30days: No Traveled to known affect area: No History of Present Illness HPI The patient is a 76-year-old female who presents emergency department for nausea and vomiting. The patient has a history of stage IV breast cancer with known metastasis to the liver and bone. The patient is currently followed by her oncologist, Dr. Leach. The patient is currently undergoing chemotherapy 2 weeks on, one week off, had her last chemotherapy approximately one week ago from last Monday. The patient denies any history of chronic gastritis or similar effects after having her chemotherapy. The patient states she awakened this morning, had cereal for breakfast, then developed nausea and vomiting. The patient took multiple doses of Zofran at home without any alleviation of her symptoms. She denies any diarrhea or abdominal pain, however, does have a remote history of C. difficile. The patient denies any fever, chills, or sweats. She does have a chronic, occasional, dry and nonproductive cough. She denies any current chest pain or shortness of breath. The patient also has bilateral nephrostomy tubes are placed by Dr. Sierra. The patient does complain of generalized weakness secondary to dehydration. She states she does not currently have a primary physician. PFSH Past Medical History Anemia: Yes Cancer: Yes (BREAST CA, METS TO LIVER AND BONES) Cardiovascular Problems: No Chemotherapy: Yes (LAST CHEMO ABOUT A WEEK AGO.) Diabetes: No Diminished Hearing: No Endocrine: No Genitourinary: Yes (RIGHT STENT) Hepatitis: No Hiatal Hernia: No Immune Disorder: No Musculoskeletal: No Neurologic: Yes (MIGRAINES) Psychiatric: No Reproductive: No Respiratory: Yes (COPD, PULMONARY EMBOLUS) Immunizations Current: Yes Migraines: Yes (CHRONIC ) Pneumonia: Yes Radiation Therapy: Yes Thyroid Disease: No Menopausal: Yes Past Surgical History Abdominal Surgery: Yes (APPY) AICD: No Appendectomy: Yes Body Medical Devices: RIGHT CHEST IMPLANTED PORT, vena cava filter placed 2009 Cardiac Surgery: No Ear Surgery: No Endocrine Surgery: No Eye Surgery: Yes (BILATERAL CATARACT) Genitourinary Surgery: Yes (URETERAL STENT) Gynecologic Surgery: Yes (HYSTERECTOMY) Hysterectomy: Yes Joint Replacement: No Oral Surgery: No Pacemaker: No Thoracic Surgery: Yes (LEFT MASTECTOMY WITH LYMPH NODES REMOVED, RIGHT IMPLANTED PORT) Other Surgery: Yes (L MASTECTOMY, PORT PLACEMENT, BIOPSY BONY LESION 2012, IVC FILTER PLACEME) Social History Alcohol Use: No Tobacco Use: No Substance Use: No Allergies-Medications (Allergen,Severity, Reaction): Coded Allergies: Benadryl (Verified Allergy, Severe, THROAT CLOSES, 02/09/17) Reported Meds & Prescriptions Reported Meds & Active Scripts Active Elavil (Amitriptyline HCl) 25 Mg Tab 25 Mg PO HS Review of Systems Except as stated in HPI: all other systems reviewed are Neg General / Constitutional: No: Fever HENT: No: Lightheadedness Cardiovascular: No: Chest Pain or Discomfort Respiratory: No: Shortness of Breath Gastrointestinal: Positive: Nausea, Vomiting, No: Diarrhea, Abdominal Pain Genitourinary: Positive: Other (bilateral nephrostomy tubes), No: Dysuria Musculoskeletal: Positive: Weakness Neurologic: Positive: Weakness Physical Exam Narrative GENERAL: Awake, alert, pleasant SKIN: Focused skin assessment warm/dry. HEAD: Atraumatic. Normocephalic. EYES: No injection or drainage. ENT: No nasal bleeding or discharge. Dry mucous membranes. NECK: Trachea midline. No JVD. CARDIOVASCULAR: Regular, tachycardic with a heart rate of 120. Port [address] right chest wall. RESPIRATORY: No accessory muscle use. Clear to auscultation. Breath sounds equal bilaterally. GASTROINTESTINAL: Abdomen soft, non-tender, nondistended. No rebound tenderness. MUSCULOSKELETAL: No obvious deformities. No clubbing. No cyanosis. No edema. NEUROLOGICAL: Awake and alert. No obvious cranial nerve deficits. Motor grossly within normal limits. Normal speech. PSYCHIATRIC: Appropriate mood and affect; insight and judgment normal. Data Data Last Documented VS Vital Signs Date Time Temp Pulse Resp B/P Pulse Ox O2 Delivery O2 Flow Rate FiO2 02/09/17 00:47 18 02/09/17 00:45 99.7 117 98/54 95 Room Air Orders Complete Blood Count With Diff (02/09/17 00:52) Comprehensive Metabolic Panel (02/09/17 00:52) Lipase (02/09/17 00:52) Lactic Acid (02/09/17 00:52) Urinalysis - C+S If Indicated (02/09/17 00:52) Iv Access Insert/Monitor (02/09/17 00:52) Ecg Monitoring (4/20/17 00:52) Oximetry (02/09/17 00:52) Ondansetron Inj (Zofran Inj) (02/09/17 01:00) Sodium Chlor 0.9% 1000 Ml Inj (Ns 1000 M (02/09/17 00:52) Sodium Chloride 0.9% Flush (Ns Flush) (02/09/17 01:00) Electrocardiogram (02/09/17 00:52) Chest, Single Ap (02/09/17 00:52) Famotidine Inj (Pepcid Inj) (02/09/17 01:00) Blood Culture (02/09/17 00:52) Sodium Chlor 0.9% 1000 Ml Inj (Ns 1000 M (02/09/17 01:00) Urine Culture (02/09/17 01:10) Ceftriaxone Inj (Rocephin Inj) (02/09/17 01:45) Admit Order (Ed Use Only) (02/09/17 01:56) Labs Laboratory Tests Test 02/09/17 02/09/17 01:00 01:10 White Blood Count 5.6 TH/MM3 Red Blood Count 2.76 MIL/MM3 Hemoglobin 8.4 GM/DL Hematocrit 24.7 % Mean Corpuscular Volume 89.4 FL Mean Corpuscular Hemoglobin 30.5 PG Mean Corpuscular Hemoglobin 34.2 % Concent Red Cell Distribution Width 18.1 % Platelet Count 214 TH/MM3 Mean Platelet Volume 7.4 FL Neutrophils (%) (Auto) 81.7 % Lymphocytes (%) (Auto) 6.5 % Monocytes (%) (Auto) 11.5 % Eosinophils (%) (Auto) 0.1 % Basophils (%) (Auto) 0.2 % Neutrophils # (Auto) 4.6 TH/MM3 Lymphocytes # (Auto) 0.4 TH/MM3 Monocytes # (Auto) 0.6 TH/MM3 Eosinophils # (Auto) 0.0 TH/MM3 Basophils # (Auto) 0.0 TH/MM3 CBC Comment DIFF FINAL Differential Comment Sodium Level 135 MEQ/L Potassium Level 4.6 MEQ/L Chloride Level 103 MEQ/L Carbon Dioxide Level 21.4 MEQ/L Anion Gap 11 MEQ/L Blood Urea Nitrogen 30 MG/DL Creatinine 2.22 MG/DL Estimat Glomerular Filtration 21 ML/MIN Rate Random Glucose 113 MG/DL Lactic Acid Level 0.8 mmol/L Calcium Level 8.3 MG/DL Total Bilirubin 1.2 MG/DL Aspartate Amino Transf 15 U/L (AST/SGOT) Alanine Aminotransferase 15 U/L (ALT/SGPT) Alkaline Phosphatase 121 U/L Total Protein 6.6 GM/DL Albumin 3.1 GM/DL Lipase 87 U/L Urine Color YELLOW Urine Turbidity CLOUDY Urine pH 6.5 Urine Specific [place] 1.014 Urine Protein 100 mg/dL Urine Glucose (UA) NEG mg/dL Urine Ketones NEG mg/dL Urine Occult Blood MOD Urine Nitrite NEG Urine Bilirubin NEG Urine Urobilinogen LESS THAN 2.0 MG/DL Urine Leukocyte Esterase LARGE Urine RBC 26 /hpf Urine WBC /hpf Urine WBC Clumps MANY Urine Squamous Epithelial <1 /hpf Cells Urine Bacteria OCC /hpf Urine Mucus FEW /lpf Microscopic Urinalysis Comment CULTURE INDICATED MDM Medical Decision Making Medical Screen Exam Complete: Yes Emergency Medical Condition: Yes Medical Record Reviewed: Yes Interpretation(s) EKG reveals sinus tachycardia with a heart rate of 109. Laboratory Tests Test 02/09/17 02/09/17 01:00 01:10 White Blood Count 5.6 TH/MM3 Red Blood Count 2.76 MIL/MM3 Hemoglobin 8.4 GM/DL Hematocrit 24.7 % Mean Corpuscular Volume 89.4 FL Mean Corpuscular Hemoglobin 30.5 PG Mean Corpuscular Hemoglobin 34.2 % Concent Red Cell Distribution Width 18.1 % Platelet Count 214 TH/MM3 Mean Platelet Volume 7.4 FL Neutrophils (%) (Auto) 81.7 % Lymphocytes (%) (Auto) 6.5 % Monocytes (%) (Auto) 11.5 % Eosinophils (%) (Auto) 0.1 % Basophils (%) (Auto) 0.2 % Neutrophils # (Auto) 4.6 TH/MM3 Lymphocytes # (Auto) 0.4 TH/MM3 Monocytes # (Auto) 0.6 TH/MM3 Eosinophils # (Auto) 0.0 TH/MM3 Basophils # (Auto) 0.0 TH/MM3 CBC Comment DIFF FINAL Differential Comment Sodium Level 135 MEQ/L Potassium Level 4.6 MEQ/L Chloride Level 103 MEQ/L Carbon Dioxide Level 21.4 MEQ/L Anion Gap 11 MEQ/L Blood Urea Nitrogen 30 MG/DL Creatinine 2.22 MG/DL Estimat Glomerular Filtration 21 ML/MIN Rate Random Glucose 113 MG/DL Lactic Acid Level 0.8 mmol/L Calcium Level 8.3 MG/DL Total Bilirubin 1.2 MG/DL Aspartate Amino Transf 15 U/L (AST/SGOT) Alanine Aminotransferase 15 U/L (ALT/SGPT) Alkaline Phosphatase 121 U/L Total Protein 6.6 GM/DL Albumin 3.1 GM/DL Lipase 87 U/L Urine Color YELLOW Urine Turbidity CLOUDY Urine pH 6.5 Urine Specific [place] 1.014 Urine Protein 100 mg/dL Urine Glucose (UA) NEG mg/dL Urine Ketones NEG mg/dL Urine Occult Blood MOD Urine Nitrite NEG Urine Bilirubin NEG Urine Urobilinogen LESS THAN 2.0 MG/DL Urine Leukocyte Esterase LARGE Urine RBC 26 /hpf Urine WBC /hpf Urine WBC Clumps MANY Urine Squamous Epithelial <1 /hpf Cells Urine Bacteria OCC /hpf Urine Mucus FEW /lpf Microscopic Urinalysis Comment CULTURE INDICATED Last Impressions Chest X-Ray 02/09/17 0052 Signed Impressions: Service Date/Time: January 00:49 - CONCLUSION: Lungs are mostly clear. Sclerotic bones suspected widespread metastatic disease Jhon Harvey MD Differential Diagnosis Differential diagnosis includes gastritis, dehydration, peptic ulcer disease, chemotherapy side effect, electrolyte abnormality, sepsis, complicated UTI with nephrostomy tube, pneumonia. Narrative Course The patient's port was accessed, labs are drawn and sent, and the patient was placed on cardiac telemetry monitoring and continuous pulse oximetry monitoring. The patient was administered Zofran and IV fluids. UA was sent to lab. Chest x-ray was obtained. Blood culture and lactic acid were sent to lab. The patient's creatinine was elevated at 2.22, she does have a baseline is EKG stage III, however, her GFR is now a 21, consistent with acute on chronic renal failure, possibly secondary to dehydration. The patient has taken Zofran several times at home but has persistent nausea/vomiting. UA reveals infection, she does have bilateral nephrostomy tubes, consistent with complicated UTI. Therefore, patient was administered Rocephin 1 g intravenously. The patient is tachycardic, afebrile, but will require IV antibiotics, IV right hydration, and IV antiemetics. Therefore, the on-call medical service was paged for admission. I discussed the patient with Dr. Link who agrees with admission. Sepsis Criteria SIRS Criteria (2 or more): Heart rate over 90 Physician Communication Physician Communication I discussed the patient with Dr. Link who agrees with admission. Diagnosis Primary Impression: Complicated UTI (urinary tract infection) Additional Impressions: Dehydration Acute on chronic kidney failure Admitting Information Admitting Physician Requests: Admit Condition: Stable Antwan Pan MD Feb 09, 2017 01:03
--- NOTE | 2017-02-09 01:11 | RADRPT ---
EXAM DATE/TIME: 02/09/2017 00:49 [facility] COMPARISON: CHEST SINGLE AP, December 19, 2016, 5:47. INDICATIONS : Weakness. MEDICAL HISTORY : Carcinoma, breast. Chronic obstructive pulmonary disease. SURGICAL HISTORY : Mastectomy, left. ENCOUNTER: Initial ACUITY: 1 day PAIN SCORE: 0/10 LOCATION: Bilateral chest FINDINGS: A single view of the chest demonstrates the lungs to be symmetrically aerated without evidence of mas s, infiltrate or effusion. The cardiomediastinal contours are unremarkable. Increased density throug hout the bones consistent with sclerotic metastatic disease. Right IJ [id number] catheter in good position. CONCLUSION: Lungs are mostly clear. Sclerotic bones suspected widespread metastatic disease Jhon Harvey MD on February 09, 2017 at 1:09 Board Certified Radiologist. This report was verified electronically.
[2017-02-09 01:16] LABS: AUTOMATED NEUTROPHIL # 4.6 TH/MM3 (1.8-7.7); BASOPHIL % 0.2 % (0.0-2.0); EOSINOPHIL % 0.1 % (0.0-4.0); HEMATOCRIT 24.7 % (35.0-46.0); HEMO FLAGS DIFF FINAL; LYMPH % 6.5 % (9.0-44.0); LYMPHOCYTE # 0.4 TH/MM3 (1.0-4.8); MEAN CELL VOLUME 89.4 FL (80.0-100.0); MEAN CORPUSCULAR HEMOGLOBIN 30.5 PG (27.0-34.0); MEAN CORPUSCULAR HGB CONC 34.2 % (32.0-36.0); MONO % 11.5 % (0.0-8.0); NEUT % 81.7 % (16.0-70.0); PLATELET COUNT 214 TH/MM3 (150-450); RED BLOOD COUNT 2.76 MIL/MM3 (4.00-5.30); RED CELL DISTRIBUTION WIDTH 18.1 % (11.6-17.2); WHITE BLOOD COUNT 5.6 TH/MM3 (4.0-11.0)
[2017-02-09 01:24] LABS: BACTERIA, URINE OCC /hpf; BLOOD, URINE MOD (NEG); GLUCOSE,URINE NEG (NEG); KETONE, URINE NEG (NEG); MUCUS URINE FEW /lpf (OCC); NITRITE,URINE NEG (NEG); PH, URINE 6.5 (5.0-8.5); SQUAMOUS EPITHELIAL CELL URINE <1 /hpf (0-5); URINE COLOR YELLOW (YELLW/STRAW)
[2017-02-09 01:25] LABS: COMMENT (UR) CULTURE INDICATED; CULTURE IF INDICATED CULTURE INDICATED
[2017-02-09 01:28] LABS: ALT (GPT) 15 U/L (10-53); ANION GAP 11 MEQ/L (5-15); AST (GOT) 15 U/L (15-37); BICARBONATE 21.4 MEQ/L (21.0-32.0); CHLORIDE 103 MEQ/L (98-107); GLOMERULAR FILTRATION RATE 21 ML/MIN (>89); POTASSIUM 4.6 MEQ/L (3.5-5.1); SODIUM (NA) 135 MEQ/L (136-145)
[2017-02-09 01:31] LABS: ALKALINE PHOSPHATASE 121 U/L (45-117); BLOOD UREA NITROGEN 30 MG/DL (7-18); TOTAL BILIRUBIN ADULT 1.2 MG/DL (0.2-1.0)
[2017-02-09] MEDS ORDERED: cefTRIAXone INJ 1,000 MG in SODIUM CHLORIDE 0.9% INJ 100 ML IV ONE (01:45)
[2017-02-09] MEDS ORDERED: ONDANSETRON HCL 4 MG/2 ML VIAL IVP PRN (02:00)
[2017-02-09] MEDS ORDERED: NALOXONE HCL 0.4 MG/ML AMP IV PRN (02:00)
[2017-02-09] MEDS ORDERED: MAGNESIUM HYDROXIDE SUSP 30 ML CUP PO PRN (02:00)
[2017-02-09] MEDS: SODIUM CHLOR 0.9% 1000 ML INJ 1,000 ML IV SCH ×3 (02:00→21:15)
--- NOTE | 2017-02-09 02:10 | HHI.HP ---
[facility] Service [place] [facility] Primary Care Physician Demario Leach MD Admission Diagnosis complicated urinary tract infection, dehydration, nausea/vomiting Diagnoses: Chief Complaint: UTI, Nausea, vomiting. Travel History International Travel<30 Days: No Contact w/Intl Traveler <30 Da: No Traveled to Known Affected Are: No Sepsis Criteria SIRS Criteria (2 or more): Heart rate over 90 Sepsis Criteria (SIRS+source): Infect source susp/known History of Present Illness Ms. Carrion is a pleasant 76-year-old female with a history of stage IV breast cancer who presents to the emergency department today for 22,017 due to nausea and vomiting. Patient is currently undergoing chemotherapy with last chemotherapy on 01/31/2017. Patient started experiencing nausea vomiting today. Zofran did not provide any relief. She denies any fever or chills. Patient denies any diarrhea or abdominal pain. Patient has bilateral nephrostomy tube placed in [place] but currently being managed by Dr. Sierra. Patient denies any chest pain, shortness of breath. No changes in bowel habits. Patient was originally diagnosed with breast cancer in 2007. In 2012 she was found to have bone metastasis. In 2014 liver metastasis was present and in 2015 brain metastasis was found. Patient underwent brain radiation completed in November 2016. She follows up with Dr. Demario Leach (medical oncology). Review of Systems Except as stated in HPI: all other systems reviewed are Neg Past Family Social History Past Medical History Stage IV breast cancer with metastasis to bones, liver, brain. Past Surgical History Left mastectomy, hysterectomy Reported Medications Amitriptyline 25 mg by mouth daily at bedtime. Allergies: Coded Allergies: Benadryl (Verified Allergy, Severe, THROAT CLOSES, 02/09/17) Family History No family history of breast cancer. No family history of Alzheimer's or Parkinson's. Social History Patient denies using tobacco or alcohol. Physical Exam Vital Signs Vital Signs Date Time Temp Pulse Resp B/P Pulse Ox O2 Delivery O2 Flow Rate FiO2 02/09/17 00:47 18 02/09/17 00:45 99.7 117 18 98/54 95 Room Air 02/09/17 00:27 99.5 128 14 99/56 95 Room Air Physical Exam GENERAL: This is a well-nourished, well-developed patient, in no apparent distress. SKIN: No rashes, ecchymoses or lesions. Warm and dry. HEAD: Atraumatic. Normocephalic. No temporal or scalp tenderness. EYES: Pupils equal round and reactive. No injection or drainage. ENT: Nose without bleeding, purulent drainage or septal hematoma. Airway patent. NECK: Trachea midline. No lymphadenopathy. Supple, nontender, no meningeal signs. CARDIOVASCULAR: Regular rate and rhythm without murmurs, gallops, or rubs. No JVD. RESPIRATORY: Clear to auscultation. Breath sounds equal bilaterally. No wheezes , rales, or rhonchi. GASTROINTESTINAL: Abdomen soft, non-tender, nondistended. No guarding. MUSCULOSKELETAL: Extremities without clubbing, cyanosis, or edema. NEUROLOGICAL: Awake and alert. Cranial nerves II through XII intact. No focal neurological deficits. Normal speech. Laboratory Laboratory Tests Test 02/09/17 02/09/17 01:00 01:10 White Blood Count 5.6 Red Blood Count 2.76 Hemoglobin 8.4 Hematocrit 24.7 Mean Corpuscular Volume 89.4 Mean Corpuscular Hemoglobin 30.5 Mean Corpuscular Hemoglobin 34.2 Concent Red Cell Distribution Width 18.1 Platelet Count 214 Mean Platelet Volume 7.4 Neutrophils (%) (Auto) 81.7 Lymphocytes (%) (Auto) 6.5 Monocytes (%) (Auto) 11.5 Eosinophils (%) (Auto) 0.1 Basophils (%) (Auto) 0.2 Neutrophils # (Auto) 4.6 Lymphocytes # (Auto) 0.4 Monocytes # (Auto) 0.6 Eosinophils # (Auto) 0.0 Basophils # (Auto) 0.0 CBC Comment DIFF FINAL Differential Comment Sodium Level 135 Potassium Level 4.6 Chloride Level 103 Carbon Dioxide Level 21.4 Anion Gap 11 Blood Urea Nitrogen 30 Creatinine 2.22 Estimat Glomerular Filtration 21 Rate Random Glucose 113 Lactic Acid Level 0.8 Calcium Level 8.3 Total Bilirubin 1.2 Aspartate Amino Transf 15 (AST/SGOT) Alanine Aminotransferase 15 (ALT/SGPT) Alkaline Phosphatase 121 Total Protein 6.6 Albumin 3.1 Lipase 87 Urine Color YELLOW Urine Turbidity CLOUDY Urine pH 6.5 Urine Specific [place] 1.014 Urine Protein 100 Urine Glucose (UA) NEG Urine Ketones NEG Urine Occult Blood MOD Urine Nitrite NEG Urine Bilirubin NEG Urine Urobilinogen LESS THAN 2.0 Urine Leukocyte Esterase LARGE Urine RBC 26 Urine WBC Urine WBC Clumps MANY Urine Squamous Epithelial <1 Cells Urine Bacteria OCC Urine Mucus FEW Microscopic Urinalysis Comment CULTURE INDICATED Date/Time Procedure Status Source Growth 02/09/17 01:10 Urine Culture Received Urine Clean Catch Pending 02/09/17 01:00 Aerobic Blood Culture Received Blood Other Pending 02/09/17 01:00 Anaerobic Blood Culture Received Blood Other Pending Result Diagram: 02/09/179902/09/1799 Imaging Last Impressions Chest X-Ray 02/09/1751 Signed Impressions: Service Date/Time: January 00:49 - CONCLUSION: Lungs are mostly clear. Sclerotic bones suspected widespread metastatic disease Jhon Harvey MD Assessment and Plan Problem List: (1) Nausea & vomiting ICD Code: R11.2 Status: Acute (2) Complicated UTI (urinary tract infection) ICD Code: N39.0 Status: Acute (3) Acute on chronic kidney failure ICD Code: N17.9 Status: Acute (4) CKD (chronic kidney disease) stage 3, GFR 30-59 ml/min ICD Code: N18.3 Status: Chronic (5) Metastatic breast cancer ICD Code: C50.919 Status: Chronic Assessment and Plan Ms. Carrion is a pleasant 76-year-old female with a history of metastatic breast cancer who presents to the emergency department today due to nausea and vomiting that started on 02/08/2017. Patient's last chemotherapy was on 01/31/2017. - Nausea and vomiting - Widely metastatic breast cancer. - Will provide supportive treatments with IV fluid, Zofran and Compazine. - Consult Dr. Demario Leach (Oncology). - Probable UTI, Complicated - Patient is s/p bilateral nephrostomy tube placement. - Follow urine culture and sensitivity. - Continue ceftriaxone 1 g every [address] consult [address] Sierra for an evaluation. - Acute kidney injury - Creatinine 2.22. Baseline is around 1.5. - CKD stage III - Will monitor BUN, creatinine, expect improvement with IV fluid. DNR. Heparin SQ. Physician Certification 2 Midnight Certification Type: Admission for Inpatient Services Order for Inpatient Services The services are ordered in accordance with Medicare regulations or non- Medicare payer requirements, as applicable. In the case of services not specified as inpatient-only, they are appropriately provided as inpatient services in accordance with the 2-midnight benchmark. Estimated LOS (days): 2 days is the estimated time the patient will need to remain in the hospital, assuming treatment plan goals are met and no additional complications. Post-Hospital Plan: Home Constantino Link DO Feb 09, 2017 2:10 am
[2017-02-09] MEDS ORDERED: PROCHLORPERAZINE 25 MG SUPP RECTAL PRN (02:45)
[2017-02-09] MEDS: SODIUM CHLORIDE 0.9% FLUSH 10 ML FLUSH IV FLUSH SCH ×2 (09:00→21:00)
[2017-02-09] MEDS ORDERED: HEPARIN SODIUM - SQ 10,000 UNITS/ML VIAL SQ SCH (09:00)
--- NOTE | 2017-02-09 09:21 | MB ---
cc: KILEY CHUN MD DATE OF CONSULTATION 02/09/2017 DATE OF 1940 CONSULT [facility] REASON FOR CONSULTATION Patient with metastatic breast carcinoma now presenting with a complicated urinary tract infection/urosepsis. CURRENT TREATMENT The patient is on palliative systemic therapy with Navelbine/Herceptin. She is also on treatment with intrathecal cytarabine injections for management of leptomeningeal metastases. CURRENT DISEASE STATUS Her systemic disease appears to be well-controlled based on restaging PET/CT imaging from earlier this year. Imaging studies of the brain are pending to reevaluate her intracranial disease burden. CHIEF COMPLAINT One-day history of fatigue, weakness and nausea. The patient reports feeling chilled as well. She was noted to have a temperature of 100.7 degrees Fahrenheit earlier this morning. HISTORY OF PRESENT ILLNESS Ms. Carrion is a very pleasant 76-year-old female whom I have been caring for since 2012 when she presented with diffusely metastatic carcinoma of the breast. She had extensive bony metastases at the time of presentation. Her original diagnosis of breast carcinoma dates back to 2007 when she was diagnosed with a stage III hormone receptor positive, HER2 negative breast carcinoma which was treated with surgical resection, adjuvant systemic therapy, radiation as well as adjuvant endocrine therapy. Unfortunately in 2012, she had recurrence of metastatic disease. Her treatment history has been summarized in my previous notes, but consists of Xeloda followed by palliative endocrine therapy, followed by various systemic cytotoxic treatments. Unfortunately in the fall of 2014, she had a period of rapid disease proliferation and underwent rebiopsy. It turned out her disease had transformed to HER2 positive. She was then put on anti HER2 based treatment and continues to respond to treatment from a systemic standpoint. Earlier this year, however, she presented with leptomeningeal disease spread. She was treated with palliative whole-brain radiation therapy, as well as initiated on intrathecal cytarabine which is delivered every two weeks. She, so far, had three injections. To complicate matters, in November of 2016, she developed acute renal failure secondary to bilateral hydronephrosis. She required bilateral percutaneous nephrostomy tubes to be placed. These remain in place and without them her renal function destabilizes. She has also internalized bilateral ureteric stents in place. Briefly in November of 2016, she was the recipient of three or four hemodialysis treatments which is acutely delivered while she was visiting a [facility] in [place]. She has since then not required hemodialysis. She presents to the hospital with 24 hours of nausea, decreased p.o. intake and subjective sensation of dehydration. In the ER, she was noted to have low grade fever and was also noted to have acute on chronic renal failure. She has been treated with empiric IV antibiotics with ceftriaxone and was resuscitated with IV fluids. Her urinalysis is indicated of a urinary tract infection. PAST MEDICAL HISTORY 1. Metastatic breast carcinoma. 2. Recent history of C. diff colitis. 3. Bilateral ureteric obstruction with resultant bilateral hydronephrosis. 4. Leptomeningeal metastases 5. Extensive bony metastases 6. Liver metastases 7. History of pneumonia. 8. Pulmonary embolism (in 2008). 9. Superficial venous thrombosis of the left upper extremity in 2017) now no longer and anticoagulation). 10. Chronic anemia related to myelosuppression from chemotherapy. 11. Chronic renal insufficiency 12. Recent C. diff colitis. PAST SURGICAL HISTORY 1. Appendectomy 2. Left breast biopsy 3. Left breast mastectomy 4. Complete hysterectomy 5. Liver biopsy 6. CT-guided biopsy of pelvic bony lesion. 7. Hysterectomy complete 8. Infusion port placement 9. IVC filter placement 10. Right and left-sided ureteric stent placement. 11. Ultrasound-guided biopsy of thyroid nodules. 12. Tympanoplasty 13. Bilateral ureteric stent placement 14. Vas cath placement and removal in November 2016. GYNECOLOGIC HISTORY 3, para 3, postmenopausal. FAMILY HISTORY Mother at the age of 92, father at 68, maternal aunt had rectal cancer. SOCIAL HISTORY Lives at home with her . 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 She never smoked. She never was a heavy drinker. She lived most of her life in [facility]. One of her three sons in a motor vehicle collision in 1999. She has two remaining sons who are otherwise healthy. Her younger son recently completed treatment for non-Hodgkin lymphoma in [place]. ALLERGIES DIPHENHYDRAMINE MEDICATIONS Current inpatient medications: 1. Ceftriaxone one gram q.24 h. 1. Famotidine 20 mg IV x1 2. Heparin 5000 units subcu q.12 h. 3. Zofran 4 mg IV q.6 h as needed for nausea and vomiting 4. Prochlorperazine 25 mg per rectum q12h as needed 5. Normal saline 100 cc/hour REVIEW OF SYSTEMS A 13-point review of systems is obtained. The following are the pertinent positives and negatives. CONSTITITUTIONAL: Fatigue, weakness, fevers and chills. HEENT: Denies headaches, blurry vision, difficulty swallowing soreness in the throat, nosebleeds. RESPIRATORY: Denies difficulty breathing, cough, hemoptysis or pleuritic chest pain. CARDIOVASCULAR: Denies angina-like chest pain, PND, orthopnea, lower extremity swelling. GI: Reports having had nausea, adversity to food, denies constipation, diarrhea hematochezia, melena, abdominal distension or jaundice. : Has bilateral nephrostomy tubes. There has been no change in urine output. OPHTHALMIC ASSISTANT: No focal sensory or motor deficits. MUSCULOSKELETAL: She denies acute complaints. No other complaints reported. PHYSICAL EXAMINATION Temperature 100.7 degrees Fahrenheit, heart rate 99 beats minute, blood pressure 122/57, O2 sats 90% on room air. GENERAL APPEARANCE: Ms. Carrion is an elderly female, she is laying in bed, she appears to be in no acute distress. She speaks to me in full sentences. HEENT: Head is atraumatic, normocephalic, conjunctive are pale, sclerae are anicteric, EOMI, PERRLA, oral exam dry mucous membranes. NECK: No palpable cervical or supraclavicular adenopathy. RESPIRATORY: Good air movement bilaterally. No added breath sounds. CARDIOVASCULAR: Regular rhythm, tachycardiac, S1-S2. No obvious murmurs, rubs or gallops. ABDOMEN: Thin belly, soft and nontender, nondistended. She has bilateral percutaneous nephrostomy tubes posteriorly. The one on the left side seems to be draining well, the one of the right side has less urine in the bag. EXTREMITIES: Lower extremitiers, no pretibial edema. No calf tenderness. OPHTHALMIC ASSISTANT: No obvious focal sensory or motor deficits. MUSCULOSKELETAL: Adequate muscle mass, tone and strength. LABORATORY FINDINGS Urinalysis dated 02/09/2017: The urine was turbid and cloudy, protein was elevated, blood was present, nitrites were negative, leukocyte esterase was strongly positive, WBC clumps were noted in high-frequency CBC dated 02/09/2017: WBC count 5.6, hemoglobin 8.4 gm/dl, hematocrit 24.7%, platelet count is 214, absolute neutrophil count 4.6. Chemistries: Sodium 135, potassium 4.6, chloride 103, bicarbonate 21.4, BUN 30, creatinine 2.2, EGFR 113, calcium 8.3, total bilirubin 1.2, AST 15, ALT 15, alkaline phosphatase 121, albumin 3.1, lactic acid 0.8. Lipase 87. Chest x-ray dated 02/09/2017 reveals extensive bony metastatic disease which is chronic, but the lungs are otherwise clear. ASSESSMENT Ms. Carrion is a very pleasant 76-year-old female with multiple ongoing issues; her underlying issues is metastatic breast carcinoma, she also has chronic renal insufficiency secondary to what appears to be kidney outflow obstruction bilaterally. The patient has required percutaneous nephrostomy tubes, as well as internalized ureteric stents. 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 Her systemic metastatic disease burden which when active involved her axial skeleton extensively, as well as the appendicular skeleton. She has also had extensive liver metastases. The bony and liver metastases seem to be responding well to anti-HER2 therapy which she is on. The response to intrathecal chemotherapy is yet to be determined as far as the leptomeningeal disease is concerned. The patient presents to the hospital with complaints of chills, nausea and fatigue. Her urinalysis is strongly suggestive of urinary tract infection. She is not neutropenic and does not have elevated lactic acid, so it appears she is not septic, but is at high risk for sepsis due to the degree of myelosuppression she has had secondary to chemotherapy. Her white cell counts are within the normal range, but this is after she received growth factor support about a week and half ago. RECOMMENDATIONS 1. Metastatic breast carcinoma: She is on systemic therapy including anti-HER2 therapy as well as intrathecal injections for management of leptomeningeal disease. These will likely be resumed after she is discharged from the hospital unless she decides to change goals of care in the interim. 2. Urosepsis: I will transition her to cefepime at the neutropenic doses. I suspect she has at least a complicated urinary tract infection given the extent of hardware she has in the ureters, i.e. ureteric stents as well as the percutaneous nephrostomies. I will also request interventional radiology to replace her existing percutaneous nephrostomy tubes. Urology has been appropriately consulted to consider removal and replacement of the existing ureteric stents or perhaps removal of the ureteric stents as they seemed not to be benefiting her renal function. 3. Continue IV fluid hydration. 4. Continue Zofran for management of nausea. 5. Hold heparin injections this morning. MD SHARA Wooten/KAILYN /8:00 AM /8:36 AM
[2017-02-09] MEDS: ACETAMINOPHEN 325 MG TAB PO PRN ×2 (09:28→17:45)
[2017-02-09] MEDS: CEFEPIME INJ 1,000 MG in SODIUM CHLORIDE 0.9% INJ 100 ML IV SCH (09:29)
[2017-02-09] MEDS ORDERED: MIDAZOLAM HCL 5 MG/5 ML VIAL ONE (10:35)
[2017-02-09] MEDS ORDERED: fentaNYL CITRATE 250 MCG/5 ML AMP ONE (10:35)
--- NOTE | 2017-02-09 11:57 | PD.RAD ---
Post Procedure Progress Note Pre Procedure Diagnosis: (1) Bilateral ureteral obstruction Post Procedure Diagnosis: (1) Bilateral ureteral obstruction Procedure Date: Feb 09, 2017 Supervising Radiologist: Yariel Purvis Proceduralist/Assist: Emerita Vo, RT(R)(), Kalpana Ruffin RT(R)() Anesthesia: Local, Conscious Sedation Plan of Activity Patient to Unit: Nursing Unit Patient Condition: Good See PACS Report for procedural detail/treatment Drainage Procedure Procedure 1 Imaging Guidance: Fluoroscopy Side: Bilateral Procedure Type: Nephrostomy Procedure: Replacement Hebrew: 8 Fluid Description: Yariel Crews MD Feb 09, 2017 11:57
[2017-02-09] MEDS ORDERED: IOHEXOL 350 MG/ML 50 ML BTL (for RAD DIAG) ONE (12:04)
--- NOTE | 2017-02-09 12:27 | EKG ---
Date Performed: 02/09/2017 Time Performed: 01:06:54 PTAGE: 76 years EKG: SINUS TACHYCARDIA POSSIBLE LEFT ATRIAL ENLARGEMENT ABNORMAL RHYTHM ECG Compared to prior tr acing no significant change PREVIOUS TRACING : 12/17/2016 21.46 DOCTOR: Shamir Rangel Interpretating Date/Time 02/09/2017 12:26:27
[2017-02-09] MEDS ORDERED: cefTRIAXone INJ 1,000 MG in SODIUM CHLORIDE 0.9% INJ 100 ML IV SCH (13:00)
--- NOTE | 2017-02-09 15:22 | RADRPT ---
EXAM DATE/TIME: 02/09/2017 11:13 [facility] COMPARISON: No previous studies available for comparison. INDICATIONS : Patient with a history of UTIs and sepsis, needs nephrostomy tubes changed. MEDICAL HISTORY : Stage IV breast cancer with metastasis to bones, liver, brain SURGICAL HISTORY : Left mastectomy Hysterectomy ENCOUNTER: Initial ACUITY: 2 months PAIN SCORE: 0/10 FLUORO TIME: 2.2 minutes IMAGE SERIES: 2 SEDATION TIME: 15 minutes CONTRAST: 10 cc Omnipaque (iohexol) 350 MEDICATION(S): 1.) 1 mg midazolam (Versed) IV 2.) 50 mcg fentanyl (Sublimaze) IV DEVICE(S): 1.) 8 Portuguese nephrostomy catheter PROCEDURE : 1. Antegrade pyelogram. 2. Nephrostomy tube exchange. 3. Conscious sedation with continuous EKG and oximetry monitoring. The risks, benefits and alternatives to the procedure were explained and verbal and written consent w as obtained. The site was prepped in sterile fashion. Full sterile technique was used, including ca p, mask, sterile gloves and gown and a large sterile sheet. Hand hygiene and 2% chlorhexidine and/or betadine/alcohol prep was utilized per protocol for cutaneous antisepsis. The skin and subcutaneous tissues were infiltrated with local anesthetic solution. With fluoroscopic guidance antegrade pyelo gram was performed. Over a guidewire the prescribed nephrostomy tube was placed. Injection of positive contrast demonstra kary good position of the catheter within the collecting system. Conscious sedation was performed with the prescribed dosages and duration as above in the presence of an independent trained radiology nurse to assist in the monitoring of the patient. EKG and oximetry remained stable throughout the procedure. The patient tolerated the procedure well and there were n o complications. The patient was sent to post anesthesia recovery in stable condition. CONCLUSION: Uncomplicated nephrostomy tube exchange as above. Yariel Purvis MD on February 09, 2017 at 15:18 Board Certified Radiologist. This report was verified electronically.
[2017-02-09 15:48] LABS: APTT (PATIENT) 34.8 SEC (24.3-30.1); INTERNATIONAL NORMALIZED RATIO 1.3 RATIO; PROTHROMBIN TIME - PATIENT 14.8 SEC (9.8-11.6)
[2017-02-09] MEDS: ACETAMINOPHEN 325 MG TAB PO SCH (21:14)
[2017-02-10] VITALS (17 sets, daily range): BP systolic 94–126; BP diastolic 43–63; PULSE 77–102; RESP 18–20; TEMP 97.5–100.4; O2SAT 94–100
[2017-02-10] MEDS: ACETAMINOPHEN 325 MG TAB PO SCH (01:40)
[2017-02-10] MEDS: SODIUM CHLOR 0.9% 1000 ML INJ 1,000 ML IV SCH ×2 (04:45→20:32)
[2017-02-10] MEDS ORDERED: ACETAMINOPHEN 325 MG TAB PO PRN ×2 (05:45→07:00)
[2017-02-10 06:49] LABS: BASOPHIL % 0.3 % (0.0-2.0); EOSINOPHIL % 1.8 % (0.0-4.0); LYMPH % 5.9 % (9.0-44.0); LYMPHOCYTE # 0.2 TH/MM3 (1.0-4.8); MEAN CELL VOLUME 89.5 FL (80.0-100.0); MEAN CORPUSCULAR HGB CONC 34.6 % (32.0-36.0); MONO % 13.5 % (0.0-8.0); NEUT % 78.5 % (16.0-70.0); PLATELET COUNT 133 TH/MM3 (150-450); RED BLOOD COUNT 1.97 MIL/MM3 (4.00-5.30); RED CELL DISTRIBUTION WIDTH 18.5 % (11.6-17.2); WHITE BLOOD COUNT 2.6 TH/MM3 (4.0-11.0)
[2017-02-10 06:53] LABS: HEMO FLAGS DIFF FINAL
[2017-02-10 06:56] LABS: HEMATOCRIT 17.6 % (35.0-46.0)
[2017-02-10] MEDS ORDERED: SODIUM CHLOR 0.9% 250 ML INJ 250 ML IV ONE (07:00)
[2017-02-10] MEDS ORDERED: FUROSEMIDE 20 MG/2 ML VIAL IV PRN (07:00)
[2017-02-10 07:27] LABS: BICARBONATE 18.8 MEQ/L (21.0-32.0); POTASSIUM 4.2 MEQ/L (3.5-5.1)
[2017-02-10 07:55] LABS: CALCIUM-PROTEIN CORRECTED 7.6 MG/DL (8.5-10.1)
[2017-02-10] MEDS: SODIUM CHLORIDE 0.9% FLUSH 10 ML FLUSH IV FLUSH SCH ×2 (08:37→20:35)
[2017-02-10] MEDS: CEFEPIME INJ 1,000 MG in SODIUM CHLORIDE 0.9% INJ 100 ML IV SCH (08:37)
--- NOTE | 2017-02-10 08:51 | PQ ---
Physician Query Response Document PATIENT: GISELLE COLE : 1940 ADMIT DATE: 02/09/2017 1:57 AM DISCH DATE: RESPONDING PROVIDER #: reema QUERY TEXT: Sepsis Query Based on your medical judgement, can you further clarify the folowiin. Sepsis (SIRS due to an infection) 2. Sepsis with Organ Dysfunction 3. A localized Infection only 4. Another condition - please specify 5. Unable to determine - please explain. Depending on your selection above, please indicate one of the below if applicable: - Sepsis was present on Admission - Sepsis developed after admission The patient's Clinical Indicators include: 1 DAY OF WEAKNESS FATIGUE AND CHILLS TACHYCARDIA HR 117 T 100.7 - 102.7 URINE which indicated UTI / UROSEPSIS metastatic carcinoma of the breast ACUTRE RENAL FAILURE ON CKF TX Maxipime IV AND IV FLUIDS W FLUID BOLUS Query created by: Arlin Artis on 02/09/2017 2:30 PM RESPONSE TEXT: Sepsis due to Urinary tract infection (Heart rate > 90, Temp 100.7 - 102.7, suspected infection Urina ry tract). Electronically signed by: Jaime Link DO 02/10/2017 8:47 AM
--- NOTE | 2017-02-10 10:57 | PD.CONS ---
HPI Service Urology Consult Requested By Reason for Consult Removal of bilateral ureteral stents Primary Care Physician Demario Leach MD Diagnosis: (1) Nausea & vomiting ICD Code: R11.2 (2) Complicated UTI (urinary tract infection) ICD Code: N39.0 (3) Acute on chronic kidney failure ICD Code: N17.9 (4) CKD (chronic kidney disease) stage 3, GFR 30-59 ml/min ICD Code: N18.3 (5) Metastatic breast cancer ICD Code: C50.919 History of Present Illness 76-year-old female with history bilateral ureteral obstruction related to metastatic breast cancer. Patient has most recently been managed with both bilateral nephrostomy tubes as well as bilateral ureteral stents. Attempts were made to clamp off the nephrostomy tubes in the recent past without success. Patient was now admitted for dehydration and weakness with urosepsis. Her bilateral nephrostomy tubes were changed out yesterday and a urology consult was placed to remove the internal ureteral stents as they may be an ongoing source for infection. Review of Systems Constitutional: COMPLAINS OF: Fatigue, Fever Cardiovascular: DENIES: Chest pain Genitourinary: DENIES: Urinary incontinence, Hematuria Except as stated in HPI: all other systems reviewed are Neg Past Family Social History Past Medical History Metastatic breast cancer Bilateral ureteral obstruction with atrophic changes to the right kidney Past Surgical History Status post left mastectomy with axillary lymph node dissection Status post hysterectomy Status post appendectomy Status post placement of IVC filter Reported Medications Refer to EMR Allergies: Coded Allergies: Benadryl (Verified Allergy, Severe, THROAT CLOSES, 02/09/17) Active Ordered Medications Refer to EMR Family History Reviewed and noncontributory Social History No history tobacco, alcohol or intravenous drug abuse Physical Exam Vital Signs Date Time Temp Pulse Resp B/P Pulse Ox O2 Delivery O2 Flow Rate FiO2 02/10/17 08:45 Room Air 02/10/17 08:00 98.1 93 18 120/63 100 02/10/17 06:00 77 02/10/17 05:00 80 02/10/17 04:00 88 02/10/17 04:00 98.4 82 20 115/54 96 02/10/17 03:00 92 02/10/17 02:00 82 02/10/17 01:00 78 02/10/17 00:00 85 02/10/17 00:00 97.5 87 20 94/43 97 4/21/17 00:00 Room Air 02/09/17 23:00 92 02/09/17 22:00 94 02/09/17 21:26 96 02/09/17 21:00 92 02/09/17 20:00 98 02/09/17 20:00 98.6 88 20 85/46 96 02/09/17 20:00 Room Air 02/09/17 18:14 99.0 102 16 92/58 98 02/09/17 17:48 101.5 120 20 122/48 95 02/09/17 17:29 99.0 82 18 112/57 97 02/09/17 16:28 81 18 97/53 99 02/09/17 15:49 80 16 92/52 100 02/09/17 15:30 78 16 82/52 100 02/09/17 12:55 82 16 76/40 99 02/09/17 12:20 81 16 80/42 99 02/09/17 12:05 81 16 90/40 02/09/17 11:50 97.6 84 18 80/40 99 02/09/17 11:50 97.6 84 18 80/40 99 Physical Exam GENERAL: This is a well-nourished, well-developed patient, in no apparent distress. SKIN: No rashes, ecchymoses or lesions. Cool and dry. HEAD: Atraumatic. Normocephalic. No temporal or scalp tenderness. EYES: Pupils equal round and reactive. Extraocular motions intact. No scleral icterus. No injection or drainage. ENT: Nose without bleeding, purulent drainage or septal hematoma. Throat without erythema, tonsillar hypertrophy or exudate. Uvula midline. Airway patent. NECK: Trachea midline. No JVD or lymphadenopathy. Supple, nontender, no meningeal signs. GASTROINTESTINAL: Abdomen soft, non-tender, nondistended. No hepato-splenomegaly , or palpable masses. No guarding. GENITOURINARY: Bilateral nephrostomy tubes in place and draining well MUSCULOSKELETAL: Extremities without clubbing, cyanosis, or edema. No joint tenderness, effusion, or edema noted. No calf tenderness. Negative Homans sign bilaterally. NEUROLOGICAL: Awake and alert. Cranial nerves II through XII intact. Motor and sensory grossly within normal limits. Five out of 5 muscle strength in all muscle groups. Normal speech. Laboratory Tests Test 02/09/17 02/10/17 02/10/17 14:30 04:57 08:58 Prothrombin Time 14.8 Prothromb Time International 1.3 Ratio Activated Partial 34.8 Thromboplast Time White Blood Count 2.6 Red Blood Count 1.97 Hemoglobin 6.1 Hematocrit 17.6 Mean Corpuscular Volume 89.5 Mean Corpuscular Hemoglobin 31.0 Mean Corpuscular Hemoglobin 34.6 Concent Red Cell Distribution Width 18.5 Platelet Count 133 Mean Platelet Volume 7.7 Neutrophils (%) (Auto) 78.5 Lymphocytes (%) (Auto) 5.9 Monocytes (%) (Auto) 13.5 Eosinophils (%) (Auto) 1.8 Basophils (%) (Auto) 0.3 Neutrophils # (Auto) 2.0 Lymphocytes # (Auto) 0.2 Monocytes # (Auto) 0.3 Eosinophils # (Auto) 0.0 Basophils # (Auto) 0.0 CBC Comment DIFF FINAL Differential Comment Sodium Level 141 Potassium Level 4.2 Chloride Level 113 Carbon Dioxide Level 18.8 Anion Gap 9 Blood Urea Nitrogen 28 Creatinine 2.27 Estimat Glomerular Filtration 21 Rate Random Glucose 85 Calcium Level 6.4 Protein Corrected Calcium 7.6 Total Protein 4.7 Blood Type B POSITIVE Antibody Screen NEGATIVE Crossmatch Leukocyte-Reduced Red Blood Cells Blood Bank Comment Date/Time Procedure Status Source Growth 02/09/17 01:10 Urine Culture Received Urine Clean Catch Pending 02/09/17 01:00 Aerobic Blood Culture Received Blood Other Pending 02/09/17 01:00 Anaerobic Blood Culture Received Blood Other Pending Result Diagram: 02/10/17 0457 02/10/17 0457 Imaging Last Impressions Chest X-Ray 02/09/17 0052 Signed Impressions: Service Date/Time: January 00:49 - CONCLUSION: Lungs are mostly clear. Sclerotic bones suspected widespread metastatic disease Jhon Harvey MD Nephrostomy Tube Change 02/09/17 0000 Signed Impressions: Service Date/Time: January 11:13 - CONCLUSION: Uncomplicated nephrostomy tube exchange as above. Yariel Purvis MD Assessment and Plan Assessment and Plan Urologic impression: #1 bilateral ureteral obstruction related to metastatic breast cancer #2 atrophic right kidney secondary to long-standing obstruction Plan: #1 continue with nephrostomy tubes to gravity drainage #2 patient to have cystoscopy with removal of her bilateral ureteral stents today under local anesthesia Iban Sierra MD Feb 10, 2017 10:57
[2017-02-10] MEDS ORDERED: MIDAZOLAM HCL 2 MG/2 ML VIAL ONE (12:40)
--- NOTE | 2017-02-10 12:44 | PD.ONC.PN ---
Subjective Subjective Remarks Mr. Carrion reports feeling chills this morning, she otherwise denies acute complaints. She denies difficulty breathing, chest pain, PND or orthopnea. She did tolerate the bilateral nephrostomy tube removal and replacement well yesterday. Objective Data Date Time Temp Pulse Resp B/P Pulse Ox O2 Delivery O2 Flow Rate FiO2 02/10/17 08:45 Room Air 02/10/17 08:00 98.1 93 18 120/63 100 02/10/17 06:00 77 02/10/17 05:00 80 02/10/17 04:00 88 02/10/17 04:00 98.4 82 20 115/54 96 02/10/17 03:00 92 02/10/17 02:00 82 02/10/17 01:00 78 02/10/17 00:00 85 02/10/17 00:00 97.5 87 20 94/43 97 02/10/17 00:00 Room Air 02/09/17 23:00 92 02/09/17 22:00 94 02/09/17 21:26 96 02/09/17 21:00 92 02/09/17 20:00 98 02/09/17 20:00 98.6 88 20 85/46 96 02/09/17 20:00 Room Air 02/09/17 18:14 99.0 102 16 92/58 98 02/09/17 17:48 101.5 120 20 122/48 95 02/09/17 17:29 99.0 82 18 112/57 97 02/09/17 16:28 81 18 97/53 99 02/09/17 15:49 80 16 92/52 100 02/09/17 15:30 78 16 82/52 100 02/09/17 12:55 82 16 76/40 99 02/10/17 02/10/17 02/10/17 07:00 15:00 23:00 Intake Total 1525 ml Output Total 575 ml Balance 950 ml Result Diagram: 02/10/17 0457 02/10/17 0457 Laboratory Results Laboratory Tests Test 02/09/17 02/10/17 02/10/17 14:30 04:57 08:58 Prothrombin Time 14.8 SEC Prothromb Time International 1.3 RATIO Ratio Activated Partial 34.8 SEC Thromboplast Time White Blood Count 2.6 TH/MM3 Red Blood Count 1.97 MIL/MM3 Hemoglobin 6.1 GM/DL Hematocrit 17.6 % Mean Corpuscular Volume 89.5 FL Mean Corpuscular Hemoglobin 31.0 PG Mean Corpuscular Hemoglobin 34.6 % Concent Red Cell Distribution Width 18.5 % Platelet Count 133 TH/MM3 Mean Platelet Volume 7.7 FL Neutrophils (%) (Auto) 78.5 % Lymphocytes (%) (Auto) 5.9 % Monocytes (%) (Auto) 13.5 % Eosinophils (%) (Auto) 1.8 % Basophils (%) (Auto) 0.3 % Neutrophils # (Auto) 2.0 TH/MM3 Lymphocytes # (Auto) 0.2 TH/MM3 Monocytes # (Auto) 0.3 TH/MM3 Eosinophils # (Auto) 0.0 TH/MM3 Basophils # (Auto) 0.0 TH/MM3 CBC Comment DIFF FINAL Differential Comment Sodium Level 141 MEQ/L Potassium Level 4.2 MEQ/L Chloride Level 113 MEQ/L Carbon Dioxide Level 18.8 MEQ/L Anion Gap 9 MEQ/L Blood Urea Nitrogen 28 MG/DL Creatinine 2.27 MG/DL Estimat Glomerular Filtration 21 ML/MIN Rate Random Glucose 85 MG/DL Calcium Level 6.4 MG/DL Protein Corrected Calcium 7.6 MG/DL Total Protein 4.7 GM/DL Blood Type B POSITIVE Antibody Screen NEGATIVE Crossmatch Leukocyte-Reduced Red Blood Cells Blood Bank Comment Culture Results Microbiology Date/Time Procedure Status Source Growth 02/09/17 00:55 Aerobic Blood Culture - Preliminary Resulted Blood Other NO GROWTH IN 1 DAY 02/09/17 00:55 Anaerobic Blood Culture - Preliminary Resulted Blood Other NO GROWTH IN 1 DAY 02/09/17 01:00 Aerobic Blood Culture - Preliminary Resulted Blood Other NO GROWTH IN 1 DAY 02/09/17 01:00 Anaerobic Blood Culture - Preliminary Resulted Blood Other NO GROWTH IN 1 DAY 02/09/17 01:10 Urine Culture Received Urine Clean Catch Pending Administered Medications Medications (Trade) Dose Ordered Sig/Randell Route PRN Reason Start Time Stop Time Status Last Admin Dose Admin Sodium Chloride 1,000 ml @ 100 mls/hr Q10H IV 02/09/17 02:00 02/10/17 04:45 Cefepime HCl 1000 mg/Sodium Chloride 100 ml @ 200 mls/hr Q24H IV 02/09/17 09:00 02/10/17 08:37 Sodium Chloride (NS 250 ml Inj) 250 ml @ 15 mls/hr ONCE ONCE IV 02/10/17 07:00 02/10/17 23:39 02/10/17 11:20 Objective Remarks GENERAL APPEARANCE: Ms. Carrion is an elderly female, she is laying in bed, she appears to be in no acute distress. She speaks to me in full sentences. HEENT: Head is atraumatic, normocephalic, conjunctive are pale, sclerae are anicteric, EOMI, PERRLA, oral exam dry mucous membranes. NECK: No palpable cervical or supraclavicular adenopathy. RESPIRATORY: Good air movement bilaterally. No added breath sounds. CARDIOVASCULAR: Regular rhythm, tachycardiac, S1-S2. No obvious murmurs, rubs or gallops. ABDOMEN: Thin belly, soft and nontender, nondistended. She has bilateral percutaneous nephrostomy tubes posteriorly. The one on the left side seems to be draining well, the one of the right side has less urine in the bag. EXTREMITIES: Lower extremitiers, no pretibial edema. No calf tenderness. INTEL RECRUITER: No obvious focal sensory or motor deficits. MUSCULOSKELETAL: Adequate muscle mass, tone and strength. Assessment/Plan Assessment Ms. Carrion is a very pleasant 76-year-old female with multiple ongoing issues; her underlying issues is metastatic breast carcinoma, she also has chronic renal insufficiency secondary to what appears to be kidney outflow obstruction bilaterally. The patient has required percutaneous nephrostomy tubes, as well as internalized ureteric stents. 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 Her systemic metastatic disease burden which when active involved her axial skeleton extensively, as well as the appendicular skeleton. She has also had extensive liver metastases. The bony and liver metastases seem to be responding well to anti-HER2 therapy which she is on. The response to intrathecal chemotherapy is yet to be determined as far as the leptomeningeal disease is concerned. The patient presents to the hospital with complaints of chills, nausea and fatigue. Her urinalysis is strongly suggestive of urinary tract infection. She is not neutropenic and does not have elevated lactic acid, so it appears she is not septic, but is at high risk for sepsis due to the degree of myelosuppression she has had secondary to chemotherapy. Her white cell counts are within the normal range, but this is after she received growth factor support about a week and half ago. Plan 1. Bilateral ureteric stents: Dr. Sierra to remove these later today. 2. Complicated urinary tract infection/urosepsis: Continue cefepime, await cultures. 3. Metastatic breast carcinoma: Systemic treatment on hold until acute issues have resolved. The patient has requested restaging imaging scans of the head to be done prior to her deciding whether or not she wishes to pursue additional treatment. 4. Anemia: 1 unit packed red blood cells to be transfused today. Anemia is likely combination of chronic renal insufficiency and chemotherapy related myelosuppression. No evidence of acute blood loss. Her hemoglobin at presentation was likely artificially elevated due to hemoconcentration due to dehydration. Demario Leach MD Feb 10, 2017 12:44
[2017-02-10] MEDS ORDERED: LIDOCAINE HCL 2% 100 MG/5 ML SYRINGE OTHER ONE (12:48)
--- NOTE | 2017-02-10 13:15 | PD.OP ---
Operative Report Date of Surgery: Feb 10, 2017 Preoperative Diagnosis: (1) Bilateral ureteral obstruction Postoperative Diagnosis: (1) Bilateral ureteral obstruction Procedure: Cystoscopy with removal of bilateral ureteral stents Anesthesia: Local 2% lidocaine jelly Surgeon: Iban Sierra Work Environment Safety Inspector(s): None Operation and Findings: Indication for procedure: Case of a pleasant 76-year-old female with bilateral ureteral obstruction secondary to metastatic breast cancer who is status post recent exchange of bilateral nephrostomy tubes. She presents now for cystoscopy and endoscopic removal of her bilateral ureteral stents. Operative procedure in detail: Patient was brought to the cystoscopy suite and placed supine on the cystoscopy table. She was then repositioned in the dorsolithotomy position and prepped and draped in normal sterile fashion. After an appropriate timeout was undertaken I proceeded with administration of local anesthesia utilizing 2% lidocaine jelly. The jelly was instilled via the urethra and allowed to settle for several minutes. I then proceeded with performing cystoscopic evaluation utilizing the rigid cystoscope with a 20 Portuguese sheath and 30 lens. The distal loops of both previously placed ureteral stents could be seen protruding from the ureteral orifices. I initially remove the left sided stent by grasping the end of the stent with the flexible forceps and gently withdrawing the stent. In similar fashion the contralateral side was accomplished. The patient tolerated the procedures without complications and was transferred back to her room in satisfactory condition. Iban Sierra MD Feb 10, 2017 13:15
--- NOTE | 2017-02-10 13:58 | HHI.PR ---
Subjective Remarks seen 7 pm patient feels a lot stronger after blood transfusion- H and H up to 8 from 6 tolerated procedure well no complaints- feels "great" and very interactive had 2 loose stools today Objective Vitals Vital Signs Date Time Temp Pulse Resp B/P Pulse Ox O2 Delivery O2 Flow Rate FiO2 02/10/17 13:12 94 21 02/10/17 11:30 100.4 102 20 113/52 94 02/10/17 11:00 98 02/10/17 10:00 100 02/10/17 09:00 100 02/10/17 08:45 Room Air 02/10/17 08:00 98.1 93 18 120/63 100 02/10/17 08:00 96 02/10/17 07:00 83 02/10/17 06:00 77 02/10/17 05:00 80 02/10/17 04:00 88 02/10/17 04:00 98.4 82 20 115/54 96 02/10/17 03:00 92 02/10/17 02:00 82 02/10/17 01:00 78 02/10/17 00:00 85 02/10/17 00:00 97.5 87 20 94/43 97 02/10/17 00:00 Room Air 02/09/17 23:00 92 02/09/17 22:00 94 02/09/17 21:26 96 02/09/17 21:00 92 02/09/17 20:00 98 02/09/17 20:00 98.6 88 20 85/46 96 02/09/17 20:00 Room Air 02/09/17 18:14 99.0 102 16 92/58 98 02/09/17 17:48 101.5 120 20 122/48 95 02/09/17 17:29 99.0 82 18 112/57 97 02/09/17 16:28 81 18 97/53 99 02/09/17 15:49 80 16 92/52 100 02/09/17 15:30 78 16 82/52 100 I/O 02/09/17 02/09/17 02/09/17 02/10/17 02/10/17 02/10/17 07:00 15:00 23:00 07:00 15:00 23:00 Intake Total 1525 ml Output Total 575 ml 400 ml Balance 950 ml -400 ml Intake Oral 240 ml IV Total 1285 ml Drainage Total 575 ml 400 ml Result Diagram: 02/10/17 0457 02/10/17 0457 Imaging Last Impressions Chest X-Ray 02/09/17 0052 Signed Impressions: Service Date/Time: January 00:49 - CONCLUSION: Lungs are mostly clear. Sclerotic bones suspected widespread metastatic disease Jhon Harvey MD Nephrostomy Tube Change 02/09/17 0000 Signed Impressions: Service Date/Time: January 11:13 - CONCLUSION: Uncomplicated nephrostomy tube exchange as above. Yariel Purvis MD Objective Remarks awake and alert, NAD lungs clear regular rhythm abdomen soft, left nephrostomy tube in place- extremites no edema neuro exam- unremarkable Procedures 02/10- bilateral ureteral stent removal Assessment to: Continue A/P Problem List: (1) Nausea & vomiting ICD Code: R11.2 Status: Acute (2) Complicated UTI (urinary tract infection) ICD Code: N39.0 Status: Acute (3) Acute on chronic kidney failure ICD Code: N17.9 Status: Acute (4) CKD (chronic kidney disease) stage 3, GFR 30-59 ml/min ICD Code: N18.3 Status: Chronic (5) Metastatic breast cancer ICD Code: C50.919 Status: Chronic Assessment and Plan Ms. Carrion is a pleasant 76-year-old female with a history of metastatic breast cancer who presents to the emergency department today due to nausea and vomiting that started on 02/08/2017. Patient's last chemotherapy was on 01/31/2017. SEpsis secondary to complicated UTI- gram negative rods S/P removal of bilateral ureteral stents today- by dr Sierra- 02/10 -on Cefepime. FF final C and S Widely metastatic breast cancer. - Will provide supportive treatments with IV fluid, Zofran and Compazine. - Consult Dr. Demario Leach (Oncology). Acute anemia- H and H improved S/P transfusion Acute kidney injury - Creatinine 2.22. Baseline is around 1.5. - CKD stage III - Will monitor BUN, creatinine, expect improvement with IV fluid. Loose stools- check stools for C. diff Lactinex 1 tab bid DNR. Heparin SQ. Gely Higginbotham MD Feb 10, 2017 13:58
[2017-02-10 15:40] LABS: HEMATOCRIT 24.4 % (35.0-46.0); REVIEW FLAG FINAL
[2017-02-10] MEDS: LACTOBACILLUS ACIDOPHILUS TAB PO SCH (20:33)
[2017-02-11] VITALS (9 sets, daily range): BP systolic 107–126; BP diastolic 54–70; PULSE 79–94; RESP 16–18; TEMP 97.2–98.4; O2SAT 94–98
[2017-02-11] MEDS: SODIUM CHLOR 0.9% 1000 ML INJ 1,000 ML IV SCH ×2 (03:49→21:35)
[2017-02-11] MEDS: SODIUM CHLORIDE 0.9% FLUSH 10 ML FLUSH IV FLUSH SCH ×2 (09:00→21:35)
--- NOTE | 2017-02-11 09:17 | PD.ONC.PN ---
Subjective Subjective Remarks Afebrile overnight. Pt resting in bed asleep on approach. Awakens easily to verbal stimuli. She denies pain. C/o loost stools since starting the Abx. 4 total overnight. She is asking to get washed up. Objective Data Date Time Temp Pulse Resp B/P Pulse Ox O2 Delivery O2 Flow Rate FiO2 02/11/17 06:02 87 02/11/17 04:00 98.4 86 18 111/54 95 02/11/17 00:00 97.9 87 16 107/55 96 02/10/17 20:00 97.7 87 18 126/55 100 02/10/17 14:30 97.8 80 20 121/59 97 02/10/17 14:00 83 14 104/54 95 Room Air 02/10/17 13:23 97.5 57 12 105/55 96 Room Air 02/10/17 13:12 94 21 02/10/17 11:30 100.4 102 20 113/52 94 02/10/17 11:00 98 02/10/17 10:00 100 Result Diagram: 02/10/17 1515 02/10/17 0457 Laboratory Results Laboratory Tests Test 02/10/17 15:15 Hemoglobin 8.5 GM/DL Hematocrit 24.4 % Culture Results Microbiology Date/Time Procedure Status Source Growth 02/09/17 00:55 Aerobic Blood Culture - Preliminary Resulted Blood Other NO GROWTH IN 1 DAY 02/09/17 00:55 Anaerobic Blood Culture - Preliminary Resulted Blood Other NO GROWTH IN 1 DAY 02/09/17 01:00 Aerobic Blood Culture - Preliminary Resulted Blood Other NO GROWTH IN 1 DAY 02/09/17 01:00 Anaerobic Blood Culture - Preliminary Resulted Blood Other NO GROWTH IN 1 DAY 02/09/17 01:10 Urine Culture - Preliminary Resulted Urine Clean Catch Gram Negative Mark Administered Medications Medications (Trade) Dose Ordered Sig/Randell Route PRN Reason Start Time Stop Time Status Last Admin Dose Admin Sodium Chloride 1,000 ml @ 100 mls/hr Q10H IV 02/09/17 02:00 02/11/17 03:49 Cefepime HCl/ Sodium Chloride (Maxipime Inj/NS Inj) 100 ml @ 200 mls/hr Q24H IV 02/09/17 09:00 02/10/17 08:37 Lactobacillus Acidophilus (Lactinex) 1 tab Q12HR PO 02/10/17 21:00 4/21/17 20:33 Objective Remarks GENERAL: Pleasant older female, lying in bed in no distress. SKIN: Warm and dry. HEAD: Normocephalic. EYES: No scleral icterus. No injection or drainage. NECK: Supple, trachea midline. No JVD or lymphadenopathy. CARDIOVASCULAR: Regular rate and rhythm without murmurs. RESPIRATORY: Breath sounds equal bilaterally. No accessory muscle use. GENITOURINARY: Bilateral nephrostomy tubes draining clear yellow urine. GASTROINTESTINAL: Abdomen soft, non-tender, nondistended. EXTREMITIES: No cyanosis. LUE edema. NEUROLOGICAL: No obvious focal deficit. Awake, alert, and oriented x3. Assessment/Plan Assessment Ms. Carrion is a very pleasant 76-year-old female with multiple ongoing issues; her underlying issues is metastatic breast carcinoma, she also has chronic renal insufficiency secondary to what appears to be kidney outflow obstruction bilaterally. The patient has required percutaneous nephrostomy tubes, as well as internalized ureteric stents. 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 Her systemic metastatic disease burden which when active involved her axial skeleton extensively, as well as the appendicular skeleton. She has also had extensive liver metastases. The bony and liver metastases seem to be responding well to anti-HER2 therapy which she is on. The response to intrathecal chemotherapy is yet to be determined as far as the leptomeningeal disease is concerned. The patient presents to the hospital with complaints of chills, nausea and fatigue. Her urinalysis is strongly suggestive of urinary tract infection. She is not neutropenic and does not have elevated lactic acid, so it appears she is not septic, but is at high risk for sepsis due to the degree of myelosuppression she has had secondary to chemotherapy. Her white cell counts are within the normal range, but this is after she received growth factor support about a week and half ago. Plan 1. Bilateral ureteric stents removed yesterday by Dr Sierra. 2. Micro shows gram negative rods; continue Cefepime. 3. CT scan of her brain today; pt deciding whether she would like to have further treatment for her metastatic breast cancer. 4. Hgb 9.1 today; she received 1 unit PRBC's yesterday. Attending Statement The exam, history, and the medical decision-making described in the above note were completed with the assistance of the mid-level provider. I reviewed and agree with the findings presented. I attest that I had a [id number] encounter with the patient on the same day, and personally performed and documented my assessment and findings in the medical record. Ms. Carrion was seen and examined. She reports feeling very well. Has been afebrile. S/p removal of the bilateral ureteric stents. Clear for d/c home in the AM of 02/12 on Levofloxacin 500mg po daily x 5 days. F/u with me in my [place] clinic next Monday. Mona Wang Feb 11, 2017 09:17 Demario Leach MD Feb 11, 2017 18:13
[2017-02-11] MEDS: LACTOBACILLUS ACIDOPHILUS TAB PO SCH ×2 (09:38→21:35)
[2017-02-11] MEDS: CEFEPIME INJ 1,000 MG in SODIUM CHLORIDE 0.9% INJ 100 ML IV SCH (09:39)
[2017-02-11 10:54] LABS: AUTOMATED NEUTROPHIL # 2.6 TH/MM3 (1.8-7.7); BASOPHIL % 0.4 % (0.0-2.0); EOSINOPHIL # 0.1 TH/MM3 (0-0.4); EOSINOPHIL % 3.1 % (0.0-4.0); HEMATOCRIT 26.2 % (35.0-46.0); LYMPH % 9.9 % (9.0-44.0); LYMPHOCYTE # 0.4 TH/MM3 (1.0-4.8); MEAN CELL VOLUME 86.8 FL (80.0-100.0); MEAN CORPUSCULAR HGB CONC 34.6 % (32.0-36.0); MONO % 14.9 % (0.0-8.0); NEUT % 71.7 % (16.0-70.0); PLATELET COUNT 229 TH/MM3 (150-450); RED BLOOD COUNT 3.02 MIL/MM3 (4.00-5.30); RED CELL DISTRIBUTION WIDTH 18.2 % (11.6-17.2); WHITE BLOOD COUNT 3.6 TH/MM3 (4.0-11.0)
[2017-02-11 11:00] LABS: HEMO FLAGS AUTO DIFF
--- NOTE | 2017-02-11 11:24 | RADRPT ---
EXAM DATE/TIME: 02/11/2017 10:27 [facility] COMPARISON: CT BRAIN W/O CONTRAST, December 16, 2016, 4:29. INDICATIONS : Evaluate for metastatic disease. RADIATION DOSE: 50.21 CTDIvol (mGy) MEDICAL HISTORY : Carcinoma, breast. SURGICAL HISTORY : Mastectomy, left. ENCOUNTER: Initial ACUITY: 1 day PAIN SCALE: 0/10 LOCATION: Bilateral head TECHNIQUE: Multiple contiguous axial images were obtained of the head. Using automated exposure control and adj ustment of the mA and/or kV according to patient size, radiation dose was kept as low as reasonably a chievable to obtain optimal diagnostic quality images. FINDINGS: CEREBRUM: The ventricles are normal for age. No evidence of midline shift, mass lesion, hemorrhage or acute in farction. No extra-axial fluid collections are seen. POSTERIOR FOSSA: The cerebellum and brainstem are intact. The 4th ventricle is midline. The cerebellopontine angle i s unremarkable. EXTRACRANIAL: The visualized portion of the orbits is intact. SKULL: The calvaria is intact. No evidence of skull fracture. CONCLUSION: No acute disease. Edward Stone MD on February 11, 2017 at 11:22 Board Certified Radiologist. This report was verified electronically.
[2017-02-11 11:30] LABS: CALCIUM-PROTEIN CORRECTED 7.7 MG/DL (8.5-10.1); POTASSIUM 3.6 MEQ/L (3.5-5.1); TOTAL BILIRUBIN ADULT 0.5 MG/DL (0.2-1.0)
[2017-02-11 11:42] LABS: BANDS 38 % (0-6); EOSINOPHILS 2 % (0-4); NEUTROPHIL # MANUAL DIFF 2.6 TH/MM3 (1.8-7.7); POLYS (SEG NEUTROPHILS) 35 % (16-70); WBC DIFF SAMPLE 100
[2017-02-11 11:44] LABS: PLATELET ESTIMATE SMEAR NORMAL (NORMAL); PLATELET MORPHOLOGY NORMAL (NORMAL); SCAN/DIFF FINAL DIFF MANUAL
[2017-02-11] MEDS ORDERED: LACT PO (16:22)
[2017-02-11] MEDS ORDERED: LEVA500T PO (16:22)
--- NOTE | 2017-02-11 16:23 | HHI.PR ---
Subjective Remarks Sitting next to the window denied any complain, at the bedside Patient asked when is she can be discharged She is afebrile Objective Vitals Vital Signs Date Time Temp Pulse Resp B/P Pulse Ox O2 Delivery O2 Flow Rate FiO2 02/11/17 13:18 79 02/11/17 12:00 97.2 81 18 124/60 98 02/11/17 08:00 98.1 94 16 111/56 94 02/11/17 06:02 87 02/11/17 04:00 98.4 86 18 111/54 95 02/11/17 00:00 97.9 87 16 107/55 96 02/10/17 20:00 97.7 87 18 126/55 100 I/O 02/10/17 02/10/17 02/10/17 02/11/17 02/11/17 02/11/17 07:00 15:00 23:00 07:00 15:00 23:00 Intake Total 1525 ml 480 ml Output Total 575 ml 400 ml Balance 950 ml -400 ml 480 ml Intake Oral 240 ml 480 ml IV Total 1285 ml Drainage Total 575 ml 400 ml # Voids 1 # Bowel Movements 1 Result Diagram: 02/11/17 1017 02/11/17 1017 Objective Remarks GENERAL: This is a well-nourished, well-developed patient, in no apparent distress. CARDIOVASCULAR: Regular rate and rhythm without murmurs, gallops, or rubs. RESPIRATORY: Clear to auscultation. Breath sounds equal bilaterally. No wheezes , rales, or rhonchi. GASTROINTESTINAL: Abdomen soft, non-tender, nondistended. Normal active bowel sounds, nephrostomy acute in place MUSCULOSKELETAL: Extremities without clubbing, cyanosis, or edema. NEURO: Alert & Oriented x4 to person, place, time, situation. Moves all ext x4 Procedures 02/10- bilateral ureteral stent removal A/P Problem List: (1) Nausea & vomiting ICD Code: R11.2 Status: Acute (2) Complicated UTI (urinary tract infection) ICD Code: N39.0 Status: Acute (3) Acute on chronic kidney failure ICD Code: N17.9 Status: Acute (4) CKD (chronic kidney disease) stage 3, GFR 30-59 ml/min ICD Code: N18.3 Status: Chronic (5) Metastatic breast cancer ICD Code: C50.919 Status: Chronic Assessment and Plan 02/11: hemoglobin stable at 9.1, awaiting hematology oncology input him a creatinine trending down A/p: Ms. Carrion is a pleasant 76-year-old female with a history of metastatic breast cancer who presents to the emergency department today due to nausea and vomiting that started on 02/08/2017. Patient's last chemotherapy was on 01/31/2017. Sepsis secondary to complicated UTI- KLEBSIELLA PNEUMONIAE STENOTROPHOMONAS MALTOPHILIA S/P removal of bilateral ureteral stents today- by dr Sierra- 02/10 -on Cefepime. Switch to Levaquin at discharge Widely metastatic breast cancer. - Will provide supportive treatments with IV fluid, Zofran and Compazine. - Consult Dr. Demario Leach (Oncology). Acute anemia- H and H improved S/P transfusion Acute kidney injury - Creatinine 2.22. Baseline is around 1.5. - CKD stage III - Will monitor BUN, creatinine, expect improvement with IV fluid. Loose stools- check stools for C. diff Lactinex 1 tab bid DNR. Heparin SQ. Flip Murphy MD Feb 11, 2017 16:23
[2017-02-12 00:24] VITALS: BP 117/69; PULSE 81; RESP 18; TEMP 98.8; O2SAT 94
[2017-02-12 04:00] VITALS: BP 137/74; PULSE 78; RESP 18; TEMP 98.5; O2SAT 94
[2017-02-12 08:00] VITALS: BP 141/63; PULSE 69; RESP 17; TEMP 98.2; O2SAT 94
[2017-02-12 08:01] LABS: AUTOMATED NEUTROPHIL # 2.2 TH/MM3 (1.8-7.7); BASOPHIL % 0.8 % (0.0-2.0); EOSINOPHIL # 0.1 TH/MM3 (0-0.4); EOSINOPHIL % 4.4 % (0.0-4.0); HEMATOCRIT 24.6 % (35.0-46.0); LYMPH % 10.6 % (9.0-44.0); LYMPHOCYTE # 0.3 TH/MM3 (1.0-4.8); MEAN CELL VOLUME 87.3 FL (80.0-100.0); MEAN CORPUSCULAR HEMOGLOBIN 29.3 PG (27.0-34.0); MEAN CORPUSCULAR HGB CONC 33.5 % (32.0-36.0); MONO % 17.2 % (0.0-8.0); PLATELET COUNT 202 TH/MM3 (150-450); RED BLOOD COUNT 2.82 MIL/MM3 (4.00-5.30); RED CELL DISTRIBUTION WIDTH 17.9 % (11.6-17.2); WHITE BLOOD COUNT 3.2 TH/MM3 (4.0-11.0)
[2017-02-12 08:05] LABS: HEMO FLAGS AUTO DIFF
[2017-02-12 09:13] LABS: CALCIUM-PROTEIN CORRECTED 7.9 MG/DL (8.5-10.1)
[2017-02-12 09:36] LABS: BANDS 23 % (0-6); EOSINOPHILS 5 % (0-4); METAMYELOCYTES 1 % (0-1); MYELOCYTES 2 % (0-0); NEUTROPHIL # MANUAL DIFF 2.1 TH/MM3 (1.8-7.7); POLYS (SEG NEUTROPHILS) 39 % (16-70); WBC DIFF SAMPLE 100
[2017-02-12 09:39] LABS: KERATOCYTES OCC (NORMAL); PLATELET ESTIMATE SMEAR NORMAL (NORMAL); PLATELET MORPHOLOGY NORMAL (NORMAL); SCAN/DIFF FINAL DIFF MANUAL
[2017-02-12] MEDS: CEFEPIME INJ 1,000 MG in SODIUM CHLORIDE 0.9% INJ 100 ML IV SCH (09:40)
[2017-02-12] MEDS: LACTOBACILLUS ACIDOPHILUS TAB PO SCH (09:40)
[2017-02-12] MEDS: SODIUM CHLORIDE 0.9% FLUSH 10 ML FLUSH IV FLUSH SCH (09:40)
[2017-02-12] MEDS: SODIUM CHLOR 0.9% 1000 ML INJ 1,000 ML IV SCH (10:00)
[2017-02-12 11:04] VITALS: PULSE 67
[2017-02-12 12:00] VITALS: BP 139/67; PULSE 81; RESP 16; TEMP 97.3; O2SAT 99
--- NOTE | 2017-02-13 09:24 | HHI.DS ---
Discharge Summary Admission Date Feb 09, 2017 at 01:57 Discharge Date: Feb 12, 2017 Admitting Diagnosis complicated urinary tract infection, dehydration, nausea/vomiting (1) Nausea & vomiting ICD Code: R11.2 (2) Complicated UTI (urinary tract infection) ICD Code: N39.0 (3) Acute on chronic kidney failure ICD Code: N17.9 (4) CKD (chronic kidney disease) stage 3, GFR 30-59 ml/min ICD Code: N18.3 (5) Metastatic breast cancer ICD Code: C50.919 Procedures 02/10- bilateral ureteral stent removal Brief History - From Admission Ms. Carrion is a pleasant 76-year-old female with a history of stage IV breast cancer who presents to the emergency department today for 22,017 due to nausea and vomiting. Patient is currently undergoing chemotherapy with last chemotherapy on 01/31/2017. Patient started experiencing nausea vomiting today. Zofran did not provide any relief. She denies any fever or chills. Patient denies any diarrhea or abdominal pain. Patient has bilateral nephrostomy tube placed in [place] but currently being managed by Dr. Sierra. Patient denies any chest pain, shortness of breath. No changes in bowel habits. Patient was originally diagnosed with breast cancer in 2007. In 2012 she was found to have bone metastasis. In 2014 liver metastasis was present and in 2015 brain metastasis was found. Patient underwent brain radiation completed in November 2016. She follows up with Dr. Demario Leach (medical oncology). CBC/BMP: 02/12/17 0710 02/12/17 0710 Significant Findings Laboratory Tests Test 02/10/17 02/11/17 02/12/17 15:15 10:17 07:10 Hemoglobin 8.5 GM/DL 9.1 GM/DL 8.3 GM/DL (11.6-15.3) (11.6-15.3) (11.6-15.3) Hematocrit 24.4 % 26.2 % 24.6 % (35.0-46.0) (35.0-46.0) (35.0-46.0) White Blood Count 3.6 TH/MM3 3.2 TH/MM3 (4.0-11.0) (4.0-11.0) Red Blood Count 3.02 MIL/MM3 2.82 MIL/MM3 (4.00-5.30) (4.00-5.30) Red Cell Distribution Width 18.2 % 17.9 % (11.6-17.2) (11.6-17.2) Neutrophils (%) (Auto) 71.7 % (16.0-70.0) Monocytes (%) (Auto) 14.9 % 17.2 % (0.0-8.0) (0.0-8.0) Lymphocytes # (Auto) 0.4 TH/MM3 0.3 TH/MM3 (1.0-4.8) (1.0-4.8) Band Neutrophils % 38 % (0-6) 23 % (0-6) Monocytes % 16 % (0-8) 19 % (0-8) Chloride Level 113 MEQ/L 114 MEQ/L (98-107) (98-107) Carbon Dioxide Level 19.0 MEQ/L 20.0 MEQ/L (21.0-32.0) (21.0-32.0) Blood Urea Nitrogen 24 MG/DL (7-18) Creatinine 1.89 MG/DL 1.53 MG/DL (0.50-1.00) (0.50-1.00) Estimat Glomerular Filtration 26 ML/MIN (>89) 33 ML/MIN (>89) Rate Calcium Level 6.8 MG/DL 6.7 MG/DL (8.5-10.1) (8.5-10.1) Protein Corrected Calcium 7.7 MG/DL 7.9 MG/DL (8.5-10.1) (8.5-10.1) Aspartate Amino Transf 14 U/L (15-37) (AST/SGOT) Alkaline Phosphatase 131 U/L (45-117) Total Protein 5.4 GM/DL 4.8 GM/DL (6.4-8.2) (6.4-8.2) Albumin 2.1 GM/DL (3.4-5.0) Eosinophils (%) (Auto) 4.4 % (0.0-4.0) Eosinophils % 5 % (0-4) Myelocytes 2 % (0-0) Keratocytes OCC (NORMAL) PE at Discharge GENERAL: This is a well-nourished, well-developed patient, in no apparent distress. CARDIOVASCULAR: Regular rate and rhythm without murmurs, gallops, or rubs. RESPIRATORY: Clear to auscultation. Breath sounds equal bilaterally. No wheezes , rales, or rhonchi. GASTROINTESTINAL: Abdomen soft, non-tender, nondistended. Normal active bowel sounds, nephrostomy acute in place MUSCULOSKELETAL: Extremities without clubbing, cyanosis, or edema. NEURO: Alert & Oriented x4 to person, place, time, situation. Moves all ext x4 Hospital Course Ms. Carrion is a pleasant 76-year-old female with a history of metastatic breast cancer who presents to the emergency department today due to nausea and vomiting that started on 02/08/2017. Patient's last chemotherapy was on 01/31/2017. Patient was found to have Sepsis secondary to complicated UTI- KLEBSIELLA PNEUMONIAE STENOTROPHOMONAS MALTOPHILIA S/P removal of bilateral ureteral stents today- by dr Sierra- 02/10-on Cefepime. Switch to Levaquin at discharge Widely metastatic breast cancer.Will provide supportive treatments with IV fluid , Zofran and Compazine. Consult Dr. Demario Leach (Oncology). Acute anemia- H and H improved S/P transfusion Acute kidney injury - Creatinine 2.22. Baseline is around 1.5. CKD stage III monitor BUN, creatinine, expect improvement with IV fluid. Discussed with Dr. Leach oncologist on day of discharge, patient cleared to be discharged and follow up as an outpatient Pt Condition on Discharge: Fair Discharge Disposition: Discharge Home Discharge Time: <= 30 minutes Discharge Instructions DIET: Follow Instructions for: Heart Healthy Diet Activities you can perform: Weight Bearing as [place] New Medications: Levofloxacin (Levaquin) 500 Mg Tab 500 MG PO Q48H Infection #7 Ref 0 TAB Lactobacillus Acidophilus (Acidophilus/l-Sporogenes) 1 Tab Tab 1 TAB PO Q12HR prophylaxis #30 TAB Continued Medications: Amitriptyline HCl (Elavil) 25 Mg Tab 25 MG PO HS Mood #30 TAB Flip Murphy MD Feb 13, 2017 09:24
== END 2017-02-12 13:55 | disposition home or self-care (01) | DRG 872 ==
LOC: NEPC 00:23 → NEDA 01:57 → N04A 05:06 → HCIS 15:04 → N04B 02-10 14:35
PROVIDERS: ADMIT Hospitalist; ATTEND Hospitalist
PROC: 30233N1 Transfusion of Nonautologous Red Blood Cells into Peripheral Vein, Percutaneous Approach (ICD-10-PCS; 2017-02-10)
PROC: 0TP98DZ Removal of Intraluminal Device from Ureter, Via Natural or Artificial Opening Endoscopic (ICD-10-PCS; principal; 2017-02-10 12:23)
DX: A41.9 Sepsis, unspecified organism (principal); N17.9 Acute kidney failure, unspecified; C79.51 Secondary malignant neoplasm of bone; C78.7 Secondary malignant neoplasm of liver and intrahepatic bile duct; N13.1 Hydronephrosis with ureteral stricture, not elsewhere classified; E86.0 Dehydration; D64.81 Anemia due to antineoplastic chemotherapy; N39.0 Urinary tract infection, site not specified; J44.9 Chronic obstructive pulmonary disease, unspecified; B96.1 Klebsiella pneumoniae [K. pneumoniae] as the cause of diseases classified elsewhere; N18.3 Chronic kidney disease, stage 3 (moderate); G43.909 Migraine, unspecified, not intractable, without status migrainosus; Z93.6 Other artificial openings of urinary tract status; Z86.711 Personal history of pulmonary embolism; Z66 Do not resuscitate; D63.1 Anemia in chronic kidney disease
CPT/HCPCS: 36430; 50435; 70450; 71010; 80048; 80053; 81001; 83605; 83690; 84155; 85007; 85014; 85018; 85025; 85027; 85610; 85730; 86850; 86900; 86901; 86920; 87040; 87077; 87086; 87186; 93005; 96361; 96374; 96375; 99152; C1729; C1769; J0692; J0696; J2250; J2405; J3010; J7030; J7050; P9016; Q9967

== ENCOUNTER 2017-02-24 09:47 | Day surgery (SDC) | payer MEDICARE, OTHER ==
[~2017-02-24] VITALS: Ht 160 cm; Wt 51.8 kg
[~2017-02-24 09:47] MED LIST changes: -CARV3.125 PO; +LACT PO; +LEVA500T PO; -SPIR25 PO; -VANC250C2 PO
[2017-02-24 10:10] VITALS: BP 158/94; PULSE 94; RESP 20; TEMP 97.3; O2SAT 98
[2017-02-24] MEDS ORDERED: CYTARABINE INJ 100 MG in SYRINGE/BAG 1 EA IT ONE (10:30)
[2017-02-24] MEDS ORDERED: SODIUM CHLOR 0.9% 1000 ML INJ 1,000 ML IV SCH (10:45)
[2017-02-24] MEDS ORDERED: SODIUM BICARBONATE 8.4% INJ 50 ML ONE (12:54)
--- NOTE | 2017-02-24 13:16 | PD.RAD ---
Post Procedure Progress Note Pre Procedure Diagnosis: (1) Metastatic breast cancer Post Procedure Diagnosis: (1) Metastatic breast cancer Procedure Date: February 24, 2017 Supervising Radiologist: Erlin Ashraf Anesthesia: Local Plan of Activity Patient to Unit: Nursing Unit Patient Condition: Fair Additional Comments: LP completed without difficulty. Chemotherapy administered without difficulty. Full dictated report to follow. See PACS Report for procedural detail/treatment Erlin Ashraf MD February 24, 2017 13:16
[2017-02-24 13:30] VITALS: BP 156/81; PULSE 76; RESP 16; TEMP 97.7; O2SAT 96
--- NOTE | 2017-02-24 13:37 | RADRPT ---
EXAM DATE/TIME: 02/24/2017 13:05 [facility] COMPARISON: CHANGE OF NEPHROSTOMY CATH, LT, February 09, 2017, 11:13. INDICATIONS : Patient with a history of malignant neoplasm of the brain. MEDICAL HISTORY : Stage IV breast cancer with metastasis to bones, liver, brain SURGICAL HISTORY : Left mastectomy Hysterectomy ENCOUNTER: Subsequent ACUITY: > 1 year PAIN SCORE: 0/10 LUMBAR PUNCTURE TIME: 1310 hours FLUORO TIME: 1.1 minutes IMAGE SERIES: 0 ACCESS LEVEL: L4-5 PROCEDURE : Fluoroscopic guided lumbar puncture. Instillation of chemotherapy. The risks, benefits and alternatives to the procedure were explained and verbal and written consent w as obtained. The site was prepped in sterile fashion. Full sterile technique was used, including ca p, mask, sterile gloves and gown and a large sterile sheet. Hand hygiene and 2% chlorhexidine and/or betadine/alcohol prep was utilized per protocol for cutaneous antisepsis. The skin and subcutaneous tissues were infiltrated with local anesthetic solution. With fluoroscopic guidance the lumbar thecal sac was punctured at the level above. intrathecal positi on was verified in the AP and lateral projections.. Intrathecal position was verified in the AP and l ateral projections The prescribed chemotherapy dose was verified and administered without difficulty. The patient tolerated the procedure well and there were no complications. CONCLUSION: Uncomplicated fluoroscopically guided lumbar puncture with chemotherapy injection. Erlin Ashraf MD on February 24, 2017 at 13:34 Board Certified Radiologist. This report was verified electronically.
[2017-02-24 15:16] VITALS: BP 137/80; PULSE 100; RESP 18; O2SAT 97
== END 2017-02-24 15:30 | disposition home or self-care (01) ==
LOC: HROP 09:47 → HRIP 09:50 → HROP 15:30
PROVIDERS: ATTEND Internal Medicine Hematology & Oncology
DX: C78.7 Secondary malignant neoplasm of liver and intrahepatic bile duct (principal); Z90.12 Acquired absence of left breast and nipple; I82.509 Chronic embolism and thrombosis of unspecified deep veins of unspecified lower extremity; J44.9 Chronic obstructive pulmonary disease, unspecified; D64.9 Anemia, unspecified
CPT/HCPCS: 77003; 96450; J1642; J7030

== ENCOUNTER 2017-03-24 09:48 | Day surgery (SDC) | payer MEDICARE, OTHER ==
[~2017-03-24] VITALS: Ht 160 cm; Wt 52.3 kg
[2017-03-24] MEDS ORDERED: LEVO250T7 PO (10:21)
[2017-03-24] MEDS ORDERED: AMIT25TA9 PO (10:21)
[2017-03-24 10:22] VITALS: BP 141/74; PULSE 92; RESP 20; O2SAT 99
[2017-03-24] MEDS ORDERED: SODIUM CHLOR 0.9% 1000 ML INJ 1,000 ML IV SCH (10:30)
[2017-03-24] MEDS ORDERED: SODIUM CHLORIDE 0.9% FLUSH 10 ML FLUSH IV FLUSH PRN (10:45)
[2017-03-24] MEDS ORDERED: SODIUM CHLORIDE 0.9% IT ONE ×2 (12:00)
[2017-03-24] MEDS ORDERED: CYTARABINE IT ONE ×2 (12:00)
[2017-03-24] MEDS ORDERED: SODIUM BICARBONATE 8.4% INJ 50 ML ONE (12:09)
[2017-03-24 12:30] VITALS: BP 138/73; PULSE 75; RESP 18; TEMP 97.8; O2SAT 100
--- NOTE | 2017-03-24 12:32 | PD.RAD ---
Post Procedure Progress Note Pre Procedure Diagnosis: (1) Metastatic breast cancer Post Procedure Diagnosis: (1) Metastatic breast cancer Procedure Date: Mar 24, 2017 Supervising Radiologist: Naveen Rowe Proceduralist/Assist: Angelita Thorne, RT(R), Emerita Chiang, RT(R) Estimated blood loss: 0 ml Anesthesia: Local Plan of Activity Patient to Unit: ROPU Patient Condition: Good Additional Comments: L3-4 puncture See PACS Report for procedural detail/treatment Naveen Rowe MD Mar 24, 2017 12:32
--- NOTE | 2017-03-24 12:35 | RADRPT ---
EXAM DATE/TIME: 03/24/2017 12:14 [facility] COMPARISON: LUMBAR PUNCTURE W/CHEMO INJECT, February 24, 2017, 13:05. INDICATIONS : Patient with a history of malignant neoplasm of brain. MEDICAL HISTORY : Stage IV breast cancer with metastasis to bones, liver, brain C-Diff SURGICAL HISTORY : Left mastectomy Hysterectomy Port DELORES filter Appendectomy ENCOUNTER: Subsequent ACUITY: > 1 year PAIN SCORE: 0/10 LUMBAR PUNCTURE TIME: 1213 hours FLUORO TIME: 0.4 minutes IMAGE SERIES: 0 ACCESS LEVEL: L2-3 PROCEDURE : Fluoroscopic guided lumbar puncture. Instillation of chemotherapy. The risks, benefits and alternatives to the procedure were explained and verbal and written consent w as obtained. The site was prepped in sterile fashion. Full sterile technique was used, including ca p, mask, sterile gloves and gown and a large sterile sheet. Hand hygiene and 2% chlorhexidine and/or betadine/alcohol prep was utilized per protocol for cutaneous antisepsis. The skin and subcutaneous tissues were infiltrated with local anesthetic solution. With fluoroscopic guidance the lumbar thecal sac was punctured at the level above. The prescribed ch emo therapeutic was injected. The patient tolerated the procedure well and there were no complications. CONCLUSION: Uncomplicated fluoroscopically guided lumbar puncture with chemotherapy injection. Naveen Rowe MD on March 24, 2017 at 12:32 Board Certified Radiologist. This report was verified electronically.
[2017-03-24 14:30] VITALS: BP 128/70; PULSE 82; RESP 16; O2SAT 98
== END 2017-03-24 14:45 | disposition home or self-care (01) ==
LOC: HROP 09:48 → HRIP 09:48 → HROP 14:45
PROVIDERS: ATTEND Internal Medicine Hematology & Oncology
DX: C79.31 Secondary malignant neoplasm of brain (principal); C50.912 Malignant neoplasm of unspecified site of left female breast; C79.51 Secondary malignant neoplasm of bone; C78.7 Secondary malignant neoplasm of liver and intrahepatic bile duct; Z90.12 Acquired absence of left breast and nipple; Z88.8 Allergy status to other drugs, medicaments and biological substances
CPT/HCPCS: 77003; 96450; J1642; J7030; J9100

== ENCOUNTER 2017-04-21 09:56 | Day surgery (SDC) | payer MEDICARE, OTHER ==
[~2017-04-21] VITALS: Ht 160 cm; Wt 52.3 kg
[~2017-04-21 09:56] MED LIST changes: -AMIT1TAB79 PO; +AMIT25TA9 PO; +LEVO250T7 PO
[2017-04-21 10:19] VITALS: BP 135/70; PULSE 53; RESP 18; TEMP 97.6; O2SAT 98
[2017-04-21] MEDS ORDERED: SODIUM CHLORIDE 0.9% FLUSH 10 ML FLUSH IV FLUSH PRN (11:00)
[2017-04-21] MEDS ORDERED: SODIUM CHLOR 0.9% 1000 ML INJ 1,000 ML IV SCH (11:00)
[2017-04-21] MEDS ORDERED: CYTARABINE ONE ×2 (11:00)
[2017-04-21] MEDS ORDERED: SODIUM CHLORIDE 0.9% ONE ×2 (11:00)
[2017-04-21] MEDS ORDERED: SODIUM BICARBONATE 8.4% INJ 50 ML ONE (12:22)
--- NOTE | 2017-04-21 12:38 | PD.RAD ---
Post Procedure Progress Note Pre Procedure Diagnosis: (1) Metastatic breast cancer Post Procedure Diagnosis: (1) Metastatic breast cancer Procedure Date: Apr 21, 2017 Supervising Radiologist: Naveen Rowe Proceduralist/Assist: RT Ally(R)(CV) Anesthesia: Local Plan of Activity Patient to Unit: ROPU Patient Condition: Good Additional Comments: L2-3 puncture See PACS Report for procedural detail/treatment Naveen Rowe MD Apr 21, 2017 12:38
[2017-04-21 12:40] VITALS: BP 128/72; PULSE 93; RESP 20; O2SAT 94
[2017-04-21 13:15] VITALS: BP 138/72; PULSE 89; RESP 18; O2SAT 92
[2017-04-21 14:55] VITALS: BP 132/69; PULSE 88; RESP 18; O2SAT 94
--- NOTE | 2017-04-21 15:48 | RADRPT ---
EXAM DATE/TIME: 04/21/2017 12:16 [facility] COMPARISON: LUMBAR PUNCTURE W/CHEMO INJECT, March 24, 2017, 12:14. INDICATIONS : Patient has breast cancer with metastasis to bones, liver, brain in need of LP with chemo injection. MEDICAL HISTORY : Stage IV breast cancer with metastasis to bones, liver, brain Migraines Anemia Pericarditis Pneumonia Hydronephrosis Cataracts PE Osteoarthritis DVT COPD SURGICAL HISTORY : Left mastectomy Hysterectomy Port RT ureteral stent IVC filter Appendectomy Breast biopsy Liver biopsy ENCOUNTER: Subsequent ACUITY: > 1 year PAIN SCORE: 0/10 LUMBAR PUNCTURE TIME: 1227 hours FLUORO TIME: 0.4 minutes IMAGE SERIES: 0 ACCESS LEVEL: L2-3 PROCEDURE : Fluoroscopic guided lumbar puncture. Instillation of chemotherapy. The risks, benefits and alternatives to the procedure were explained and verbal and written consent w as obtained. The site was prepped in sterile fashion. Full sterile technique was used, including ca p, mask, sterile gloves and gown and a large sterile sheet. Hand hygiene and 2% chlorhexidine and/or betadine/alcohol prep was utilized per protocol for cutaneous antisepsis. The skin and subcutaneous tissues were infiltrated with local anesthetic solution. With fluoroscopic guidance the lumbar thecal sac was punctured at the level above. The prescribed ch emo therapeutic was injected. The patient tolerated the procedure well and there were no complications. CONCLUSION: Uncomplicated fluoroscopically guided lumbar puncture with chemotherapy injection. Naveen Rowe MD on April 21, 2017 at 15:44 Board Certified Radiologist. This report was verified electronically.
== END 2017-04-21 15:00 | disposition home or self-care (01) ==
LOC: HROP 09:56 → HRIP 09:57 → HROP 15:00
PROVIDERS: ATTEND Internal Medicine Hematology & Oncology
DX: C50.919 Malignant neoplasm of unspecified site of unspecified female breast (principal); C78.7 Secondary malignant neoplasm of liver and intrahepatic bile duct; C79.51 Secondary malignant neoplasm of bone; C79.31 Secondary malignant neoplasm of brain
CPT/HCPCS: 62270; 77003; J7030

== ENCOUNTER 2017-05-15 07:18 | Day surgery (SDC) | payer MEDICARE, OTHER ==
[~2017-05-15] VITALS: Ht 160 cm; Wt 52.3 kg
[~2017-05-15 07:18] MED LIST changes: -LACT PO; -LEVA500T PO
[2017-05-15 07:38] VITALS: BP 102/60; PULSE 115; RESP 20; TEMP 97.9; O2SAT 92
[2017-05-15] MEDS ORDERED: SODIUM CHLORIDE 0.9% 1000 ML IV SCH (08:00)
[2017-05-15] MEDS ORDERED: SODIUM CHLORIDE 0.9% FLUSH 10 ML FLUSH IV FLUSH PRN (08:00)
[2017-05-15] MEDS ORDERED: LEVOFLOXACIN 500 MG PREMIX 100 ML - nephrostomy tube insertion or exchange IV SCH (08:00)
[2017-05-15] MEDS ORDERED: MIDAZOLAM HCL 2 MG/2 ML VIAL ONE (08:48)
[2017-05-15 09:25] VITALS: BP 107/68; PULSE 93; RESP 18; TEMP 98.2; O2SAT 95
[2017-05-15] MEDS ORDERED: IOHEXOL 350 MG/ML 50 ML BTL (for RAD DIAG) ONE (09:26)
--- NOTE | 2017-05-15 09:26 | PD.RAD ---
Post Procedure Progress Note Pre Procedure Diagnosis: (1) Metastatic breast cancer (2) Bilateral ureteral obstruction Post Procedure Diagnosis: (1) Metastatic breast cancer (2) Bilateral ureteral obstruction Procedure Date: May 15, 2017 Supervising Radiologist: Edward Tate Proceduralist/Assist: Rhina Dodd, RT(R)(CV), Vero Moran RT(R) Anesthesia: Conscious Sedation Plan of Activity Patient to Unit: ROPU Patient Condition: Good See PACS Report for procedural detail/treatment Drainage Procedure Procedure 1 Imaging Guidance: Fluoroscopy Side: Bilateral Procedure Type: Nephrostomy Procedure: Exchange Bel[place]ian: 8 Drainage: [place] drainage Fluid Description: Clear, Yellow Edward Tate MD May 15, 2017 09:26
[2017-05-15 09:40] VITALS: BP 104/57; PULSE 93; RESP 16; O2SAT 95
--- NOTE | 2017-05-15 10:05 | RADRPT ---
EXAM DATE/TIME: 05/15/2017 08:45 [facility] COMPARISON: No previous studies available for comparison. INDICATIONS : Patient with history of hydronephrosis in need of nephrostomy tube exchange. MEDICAL HISTORY : Metastatic carcinoma of the breast, Leptomeningeal metastasis, Migraines, Anemia, Pericarditis, Recur rent UTI, C-Diff, Pulmonary embolism, Radiation and chemotherapy, Renal dysfunction SURGICAL HISTORY : Breast biopsy, Liver biopsy, Bilateral nephrostomy tube placement, Thyroid biopsy, Colonoscopy, IVC F ilter, Left mastectomy, Port placement, Complete hysterectomy, Right ureteral stent ENCOUNTER: Subsequent ACUITY: >1 year PAIN SCORE: 0/10 FLUORO TIME: 1.6 minutes IMAGE SERIES: 1 SEDATION TIME: 10 minutes CONTRAST: 10 cc Omnipaque (iohexol) 350 MEDICATION(S): 1.) 1.5 mg midazolam (Versed) IV 2.) 75 mcg fentanyl (Sublimaze) IV DEVICE(S): 1.) 8 Citizen Of [place] nephrostomy catheter PROCEDURE : 1. Antegrade pyelogram. 2. Nephrostomy tube exchange. 3. Conscious sedation with continuous EKG and oximetry monitoring. The risks, benefits and alternatives to the procedure were explained and verbal and written consent w as obtained. The site was prepped in sterile fashion. Full sterile technique was used, including ca p, mask, sterile gloves and gown and a large sterile sheet. Hand hygiene and 2% chlorhexidine and/or betadine/alcohol prep was utilized per protocol for cutaneous antisepsis. The skin and subcutaneous tissues were infiltrated with local anesthetic solution. With fluoroscopic guidance antegrade pyelo gram was performed. Under direct fluoroscopic guidance, an angled Glidewire was manipulated through the existing nephrost vin catheter and coiled in the renal pelvis. The existing tube was removed intact. A new 8 Citizen [place] pig tail nephrostomy tube was inserted and formed up in the renal pelvis. This was secured and connected to gravity drainage. Conscious sedation was performed with the prescribed dosages and duration as above in the presence of an independent trained radiology nurse to assist in the monitoring of the patient. EKG and oximetry remained stable throughout the procedure. The patient tolerated the procedure well and there were n o complications. The patient was sent to post anesthesia recovery in stable condition. CONCLUSION: Uncomplicated nephrostomy tube exchange as above. Edward Tate MD on May 15, 2017 at 10:03 Board Certified Radiologist. This report was verified electronically.
--- NOTE | 2017-05-15 10:05 | RADRPT ---
EXAM DATE/TIME: 05/15/2017 08:45 [facility] COMPARISON: No previous studies available for comparison. INDICATIONS : Patient with history of hydronephrosis in need of nephrostomy tube exchange. MEDICAL HISTORY : Metastatic carcinoma of the breast, Leptomeningeal metastasis, Migraines, Anemia, Pericarditis, Recur rent UTI, C-Diff, Pulmonary embolism, Radiation and chemotherapy, Renal dysfunction SURGICAL HISTORY : Breast biopsy, Liver biopsy, Bilateral nephrostomy tube placement, Thyroid biopsy, Colonoscopy, IVC F ilter, Left mastectomy, Port placement, Complete hysterectomy, Right ureteral stent ENCOUNTER: Subsequent ACUITY: >1 year PAIN SCORE: 0/10 FLUORO TIME: 1.6 minutes IMAGE SERIES: 1 SEDATION TIME: 10 minutes CONTRAST: 10 cc Omnipaque (iohexol) 350 MEDICATION(S): 1.) 1.5 mg midazolam (Versed) IV 2.) 75 mcg fentanyl (Sublimaze) IV DEVICE(S): 1.) 8 [place] nephrostomy catheter PROCEDURE : 1. Antegrade pyelogram. 2. Nephrostomy tube exchange. 3. Conscious sedation with continuous EKG and oximetry monitoring. The risks, benefits and alternatives to the procedure were explained and verbal and written consent w as obtained. The site was prepped in sterile fashion. Full sterile technique was used, including ca p, mask, sterile gloves and gown and a large sterile sheet. Hand hygiene and 2% chlorhexidine and/or betadine/alcohol prep was utilized per protocol for cutaneous antisepsis. The skin and subcutaneous tissues were infiltrated with local anesthetic solution. With fluoroscopic guidance antegrade pyelo gram was performed. Under direct fluoroscopic guidance, an angled Glidewire was manipulated through the existing nephrost vin tube and coiled in the renal pelvis. The tube was removed intact. A new 8 [place] pigtail nephrost vin tube was introduced and formed up in the renal pelvis. This was connected to gravity drainage. Conscious sedation was performed with the prescribed dosages and duration as above in the presence of an independent trained radiology nurse to assist in the monitoring of the patient. EKG and oximetry remained stable throughout the procedure. The patient tolerated the procedure well and there were n o complications. The patient was sent to post anesthesia recovery in stable condition. CONCLUSION: Uncomplicated nephrostomy tube exchange as above. Edward Tate MD on May 15, 2017 at 10:01 Board Certified Radiologist. This report was verified electronically.
[2017-05-15 10:20] VITALS: BP 94/62; PULSE 86; RESP 18; O2SAT 97
[2017-05-15 10:50] VITALS: BP 94/59; PULSE 86; RESP 18; O2SAT 97
== END 2017-05-15 11:10 | disposition home or self-care (01) ==
LOC: HRIP 07:18 → HROP 07:18
PROVIDERS: ATTEND Urology
DX: N13.5 Crossing vessel and stricture of ureter without hydronephrosis (principal); N13.30 Unspecified hydronephrosis; Z86.711 Personal history of pulmonary embolism; Z85.3 Personal history of malignant neoplasm of breast; Z87.440 Personal history of urinary (tract) infections
CPT/HCPCS: 50435; C1729; C1769; J1642; J1956; J2250; J3010; J7030; Q9967

== ENCOUNTER 2017-05-19 09:50 | Day surgery (SDC) | payer MEDICARE, OTHER ==
[~2017-05-19] VITALS: Ht 160 cm; Wt 52.3 kg
[2017-05-19] MEDS ORDERED: SODIUM CHLOR 0.9% 1000 ML INJ 1,000 ML IV SCH (10:00)
[2017-05-19 10:09] VITALS: BP 114/72; PULSE 100; RESP 18; TEMP 97.6; O2SAT 96
[2017-05-19] MEDS ORDERED: SODIUM CHLORIDE 0.9% OTHER ONE ×2 (10:30)
[2017-05-19] MEDS ORDERED: CYTARABINE OTHER ONE ×2 (10:30)
[2017-05-19] MEDS ORDERED: SODIUM BICARBONATE 8.4% INJ 50 ML ONE (13:39)
[2017-05-19 14:05] VITALS: BP 129/72; PULSE 84; RESP 20; TEMP 98.6; O2SAT 92
[2017-05-19 14:20] VITALS: BP 116/72; PULSE 85; RESP 16; O2SAT 92
--- NOTE | 2017-05-19 14:35 | PD.RAD ---
Post Procedure Progress Note Pre Procedure Diagnosis: (1) Metastatic breast cancer Post Procedure Diagnosis: (1) Metastatic breast cancer Procedure Date: May 19, 2017 Supervising Radiologist: Naveen Rowe Proceduralist/Assist: Vero Moran RT(R), RT Blessing(R)() Anesthesia: Local Plan of Activity Patient to Unit: ROPU Patient Condition: Good Additional Comments: L2-3 puncture See PACS Report for procedural detail/treatment Naveen Rowe MD May 19, 2017 14:35
[2017-05-19 14:50] VITALS: BP 114/71; PULSE 84; RESP 20; O2SAT 97
[2017-05-19 15:20] VITALS: BP 114/65; PULSE 84; RESP 20; O2SAT 94
[2017-05-19 15:50] VITALS: BP 118/69; PULSE 92; RESP 20; O2SAT 94
--- NOTE | 2017-05-19 16:45 | RADRPT ---
EXAM DATE/TIME: 05/19/2017 13:58 [facility] COMPARISON: LUMBAR PUNCTURE W/CHEMO INJECT, April 21, 2017, 12:16. INDICATIONS : Patient has breast cancer with metastasis to bones, liver, brain in need of lumbar puncture with chem otherapy injection. MEDICAL HISTORY : Stage IV breast cancer with metastasis to bones,liver, and brain Migraines Anemia Pericarditis Pneumonia Hydronephrosis Cataracts PE Osteoarthritis DVT COPD SURGICAL HISTORY : Left mastectomy Hysterectomy Port RT ureteral stent IVC filter Appendectomy Breast biopsy Liver biopsy ENCOUNTER: Subsequent ACUITY: > 1 year PAIN SCORE: 0/10 LUMBAR PUNCTURE TIME: 1352 hours FLUORO TIME: 0.38 minutes IMAGE SERIES: 0 ACCESS LEVEL: L2-3 PROCEDURE : Fluoroscopic guided lumbar puncture. Instillation of chemotherapy. The risks, benefits and alternatives to the procedure were explained and verbal and written consent w as obtained. The site was prepped in sterile fashion. Full sterile technique was used, including ca p, mask, sterile gloves and gown and a large sterile sheet. Hand hygiene and 2% chlorhexidine and/or betadine/alcohol prep was utilized per protocol for cutaneous antisepsis. The skin and subcutaneous tissues were infiltrated with local anesthetic solution. With fluoroscopic guidance the lumbar thecal sac was punctured at the level above. The prescribed ch emo therapeutic was injected. The patient tolerated the procedure well and there were no complications. CONCLUSION: Uncomplicated fluoroscopically guided lumbar puncture with chemotherapy injection. Naveen Rowe MD on May 19, 2017 at 16:41 Board Certified Radiologist. This report was verified electronically.
== END 2017-05-19 16:15 | disposition home or self-care (01) ==
LOC: HROP 09:50 → HRIP 09:53 → HROP 16:15
PROVIDERS: ATTEND Internal Medicine Hematology & Oncology
DX: C79.51 Secondary malignant neoplasm of bone (principal); C79.31 Secondary malignant neoplasm of brain; C78.7 Secondary malignant neoplasm of liver and intrahepatic bile duct; C50.919 Malignant neoplasm of unspecified site of unspecified female breast; D64.9 Anemia, unspecified; I31.9 Disease of pericardium, unspecified; J44.9 Chronic obstructive pulmonary disease, unspecified; G43.909 Migraine, unspecified, not intractable, without status migrainosus
CPT/HCPCS: 77003; 96450; J1642; J7030; J9100

== ENCOUNTER 2017-06-16 09:46 | Day surgery (SDC) | payer MEDICARE, OTHER ==
[~2017-06-16] VITALS: Ht 160 cm; Wt 52.0 kg
[2017-06-16 10:03] VITALS: BP 125/73; PULSE 109; RESP 18; TEMP 97.7; O2SAT 94
[2017-06-16] MEDS ORDERED: SODIUM CHLOR 0.9% 1000 ML INJ 1,000 ML IV SCH (10:30)
[2017-06-16] MEDS ORDERED: SODIUM CHLORIDE 0.9% ONE ×2 (11:00)
[2017-06-16] MEDS ORDERED: CYTARABINE ONE ×2 (11:00)
[2017-06-16] MEDS ORDERED: SODIUM BICARBONATE 8.4% INJ 50 ML ONE (12:36)
--- NOTE | 2017-06-16 12:52 | PD.RAD ---
Post Procedure Progress Note Pre Procedure Diagnosis: (1) Metastatic breast cancer Post Procedure Diagnosis: (1) Metastatic breast cancer Procedure Date: Jun 16, 2017 Supervising Radiologist: Charan Pat JR Proceduralist/Assist: Bijan Ayala, RT(R), Kalpana Ruffin RT(R)() Anesthesia: Local Plan of Activity Patient to Unit: ROPU Patient Condition: Good See PACS Report for procedural detail/treatment Spinal Procedure Lumbar Puncture L2-L3 Fluid Description: Clear Puncture Time: 12:37 Findings: Clear CSF noted. Cytarabine 100 mg instilled intrathecally as ordered. Jr. Bi,Charan Hanna MD Jun 16, 2017 12:52
--- NOTE | 2017-06-16 13:39 | RADRPT ---
EXAM DATE/TIME: 06/16/2017 12:45 [facility] COMPARISON: No previous studies available for comparison. INDICATIONS : Patient is in need of a lumbar puncture with chemotherapy injection. MEDICAL HISTORY : History of breast cancer with metastases to liver, lung, brain and bone, anemia, CKD, PE, hydronephro sis, pericarditis, liver masses, brain masses. SURGICAL HISTORY : History of IVC filter, port placement, bilateral neprostomy tubes, ureteral stent, mastectomy, hyster ectomy, axiallry lymph node dissection, appendectomy, breast biopsy, thyroid biopsy, pelvic bone biop sy, liver biopsy, colonoscopy. ENCOUNTER: Subsequent ACUITY: > 1 year PAIN SCORE: 0/10 LUMBAR PUNCTURE TIME: 1237 hours FLUORO TIME: 0.63 minutes IMAGE SERIES: 2 ACCESS LEVEL: L3-4 PROCEDURE : Fluoroscopic guided lumbar puncture. Instillation of chemotherapy. The risks, benefits and alternatives to the procedure were explained and verbal and written consent w as obtained. The site was prepped in sterile fashion. Full sterile technique was used, including ca p, mask, sterile gloves and gown and a large sterile sheet. Hand hygiene and 2% chlorhexidine and/or betadine/alcohol prep was utilized per protocol for cutaneous antisepsis. The skin and subcutaneous tissues were infiltrated with local anesthetic solution. With fluoroscopic guidance the lumbar thecal sac was punctured at the level above. CSF sampling was not requested. The prescribed chemo therapeutic agent was injected. 100 mg Cytarabine The patient tolerated the procedure well and there were no complications. CONCLUSION: Uncomplicated fluoroscopically guided lumbar puncture with chemotherapy injection. Charan Pat Jr., MD on June 16, 2017 at 13:35 Board Certified Radiologist. This report was verified electronically.
[2017-06-16 14:45] VITALS: BP 133/69; PULSE 78; RESP 18; O2SAT 96
== END 2017-06-16 15:30 | disposition home or self-care (01) ==
LOC: HROP 09:46 → HRIP 09:47 → HROP 15:30
PROVIDERS: ATTEND Internal Medicine Hematology & Oncology
DX: C50.919 Malignant neoplasm of unspecified site of unspecified female breast (principal); C79.31 Secondary malignant neoplasm of brain; C78.7 Secondary malignant neoplasm of liver and intrahepatic bile duct; C78.00 Secondary malignant neoplasm of unspecified lung; C79.51 Secondary malignant neoplasm of bone; N18.3 Chronic kidney disease, stage 3 (moderate); D63.1 Anemia in chronic kidney disease; Z86.711 Personal history of pulmonary embolism
CPT/HCPCS: 77003; 96450; J9100

== ENCOUNTER 2017-07-14 09:54 | Day surgery (SDC) | payer MEDICARE, OTHER ==
[~2017-07-14] VITALS: Ht 160 cm; Wt 52.2 kg
[2017-07-14 10:09] VITALS: BP 124/80; PULSE 109; RESP 18; TEMP 97.6; O2SAT 99
[2017-07-14] MEDS ORDERED: SODIUM CHLORIDE 0.9% FLUSH 10 ML FLUSH IV FLUSH PRN (10:45)
[2017-07-14] MEDS ORDERED: SODIUM CHLOR 0.9% 1000 ML INJ 1,000 ML IV SCH (11:00)
[2017-07-14] MEDS ORDERED: SODIUM CHLORIDE 0.9% IT ONE ×4 (12:00→13:00)
[2017-07-14] MEDS ORDERED: CYTARABINE IT ONE ×4 (12:00→13:00)
[2017-07-14] MEDS ORDERED: SODIUM BICARBONATE 8.4% INJ 50 ML ONE (12:32)
[2017-07-14 12:50] VITALS: BP 129/78; PULSE 81; RESP 18; TEMP 97.5; O2SAT 98
--- NOTE | 2017-07-14 12:50 | PD.RAD ---
Post Procedure Progress Note Pre Procedure Diagnosis: (1) Metastatic breast cancer Post Procedure Diagnosis: (1) Metastatic breast cancer Procedure Date: Jul 14, 2017 Supervising Radiologist: Erlin Ashraf Estimated blood loss: None Anesthesia: Local Plan of Activity Patient to Unit: ROPU Patient Condition: Good Additional Comments: LP completed without difficulty. CSF was clear. Chemo administered without incident. Full dictated report to follow. See PACS Report for procedural detail/treatment Erlin Ashraf MD Jul 14, 2017 12:50
--- NOTE | 2017-07-14 14:23 | RADRPT ---
EXAM DATE/TIME: 07/14/2017 12:33 [facility] COMPARISON: LUMBAR PUNCTURE W/CHEMO INJECT, June 16, 2017, 12:45. 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 MEDICAL HISTORY : History of breast cancer with metastases to liver, lung, brain and bone, anemia, CKD, PE, hydronephro sis, pericarditis, liver masses, brain masses. SURGICAL HISTORY : History of IVC filter, port placement, bilateral neprostomy tubes, ureteral stent, mastectomy, hyster ectomy, axiallry lymph node dissection, appendectomy, breast biopsy, thyroid biopsy, pelvic bone biop sy, liver biopsy, colonoscopy. ENCOUNTER: Subsequent ACUITY: > 1 year PAIN SCORE: 0/10 LUMBAR PUNCTURE TIME: 1238 hours FLUORO TIME: 0.7 minutes IMAGE SERIES: 1 ACCESS LEVEL: L2-3 PROCEDURE : Fluoroscopic guided lumbar puncture. Instillation of chemotherapy. The risks, benefits and alternatives to the procedure were explained and verbal and written consent w as obtained. The site was prepped in sterile fashion. Full sterile technique was used, including ca p, mask, sterile gloves and gown and a large sterile sheet. Hand hygiene and 2% chlorhexidine and/or betadine/alcohol prep was utilized per protocol for cutaneous antisepsis. The skin and subcutaneous tissues were infiltrated with local anesthetic solution. With fluoroscopic guidance the lumbar thecal sac was punctured at the level above. The prescribed ch emo therapeutic was injected. The patient tolerated the procedure well and there were no complications. CONCLUSION: Uncomplicated fluoroscopically guided lumbar puncture with chemotherapy injection. Erlin Ashraf MD on July 14, 2017 at 14:21 Board Certified Radiologist. This report was verified electronically.
[2017-07-14 14:37] VITALS: BP 125/78; PULSE 80; RESP 18; O2SAT 96
== END 2017-07-14 14:53 | disposition home or self-care (01) ==
LOC: HROP 09:54 → HRIP 09:55 → HROP 14:53
PROVIDERS: ATTEND Internal Medicine Hematology & Oncology
DX: C50.919 Malignant neoplasm of unspecified site of unspecified female breast (principal); C78.7 Secondary malignant neoplasm of liver and intrahepatic bile duct; C78.00 Secondary malignant neoplasm of unspecified lung; C79.51 Secondary malignant neoplasm of bone; C79.31 Secondary malignant neoplasm of brain
CPT/HCPCS: 77003; 96365; 96450; J1642; J9100

== ENCOUNTER 2017-07-25 22:30 | Emergency (ER) | payer MEDICARE, OTHER ==
[~2017-07-25] VITALS: Ht 160 cm; Wt 55.0 kg
[2017-07-25 22:33] VITALS: BP 151/86; PULSE 107; RESP 18; TEMP 98.1; O2SAT 100
[2017-07-25 23:48] VITALS: BP 140/91; PULSE 86; RESP 16; TEMP 98; O2SAT 97
[2017-07-25] MEDS ORDERED: compazine (23:58)
[2017-07-25] MEDS ORDERED: ZOFR4TAB PO (23:58)
[2017-07-26] MEDS ORDERED: SODIUM CHLOR 0.9% 1000 ML INJ 1,000 ML IV ONE (00:15)
[2017-07-26] MEDS ORDERED: ONDANSETRON HCL 4 MG/2 ML VIAL IV ONE (00:15)
[2017-07-26 00:31] VITALS: RESP 20; O2SAT 99
[2017-07-26 00:40] LABS: AUTOMATED NEUTROPHIL # 7.1 TH/MM3 (1.8-7.7); BASOPHIL % 0.2 % (0.0-2.0); EOSINOPHIL # 0.1 TH/MM3 (0-0.4); EOSINOPHIL % 1.3 % (0.0-4.0); HEMATOCRIT 30.7 % (35.0-46.0); HEMO FLAGS DIFF FINAL; LYMPH % 5.7 % (9.0-44.0); LYMPHOCYTE # 0.5 TH/MM3 (1.0-4.8); MEAN CELL VOLUME 96.3 FL (80.0-100.0); MEAN CORPUSCULAR HEMOGLOBIN 33.5 PG (27.0-34.0); MEAN CORPUSCULAR HGB CONC 34.8 % (32.0-36.0); MONO % 6.5 % (0.0-8.0); NEUT % 86.3 % (16.0-70.0); PLATELET COUNT 165 TH/MM3 (150-450); RED BLOOD COUNT 3.19 MIL/MM3 (4.00-5.30); RED CELL DISTRIBUTION WIDTH 16.5 % (11.6-17.2); WHITE BLOOD COUNT 8.2 TH/MM3 (4.0-11.0)
[2017-07-26 00:51] LABS: APTT (PATIENT) 27.1 SEC (24.3-30.1); INTERNATIONAL NORMALIZED RATIO 1.1 RATIO; PROTHROMBIN TIME - PATIENT 11.7 SEC (9.8-11.6)
[2017-07-26 00:54] LABS: ALT (GPT) 19 U/L (10-53); ANION GAP 7 MEQ/L (5-15); AST (GOT) 42 U/L (15-37); BLOOD UREA NITROGEN 18 MG/DL (7-18); CHLORIDE 100 MEQ/L (98-107); GLOMERULAR FILTRATION RATE 35 ML/MIN (>89); POTASSIUM 4.5 MEQ/L (3.5-5.1); SODIUM (NA) 137 MEQ/L (136-145)
[2017-07-26 00:57] LABS: ALKALINE PHOSPHATASE 123 U/L (45-117); TOTAL BILIRUBIN ADULT 0.8 MG/DL (0.2-1.0)
[2017-07-26] MEDS ORDERED: DIATRIZOATE MEGLUM/DIATRIZOATE SOD 9 ML CUP ONE (00:59)
--- NOTE | 2017-07-26 01:01 | PD ---
HPI Chief Complaint: GI Complaint Time Seen by Provider: 23:56 Travel History International Travel<30 days: No Contact w/Intl Traveler<30days: No Traveled to known affect area: No History of Present Illness HPI The patient is a 77 year old female who presents to the [facility] emergency department with a history of nausea and vomiting that she reports began earlier today. She reports that prior to going to chemotherapy for her metastatic breast cancer under the care of , she felt slightly nauseated. She reports that normally she is able to tolerate the chemotherapy well. She denies having any recent changes or increase in the dose of her chemotherapy. She reports that when the chemotherapy ended at approximate 5 PM and she was getting in her car she then developed vomiting. She was told by her physician that if she continued to have vomiting she should come to the emergency department. She was also told that she should follow-up in the office in the morning to have an IV infusion of normal saline for rehydration. The patient reports that she has been urinating regularly. She has bilateral nephrostomy tubes in place. She reports that her right kidney function slightly less than the left. She reports that the urine has appeared normal in color without a strong odor or increased cloudiness. She denies having any recent fevers. She reports that she has had some chronic cough that she's been dealing with over the last few months. She also reports that she has been on antibiotics up until last week. She reports that she was on Levaquin every 3 days for suppression of infection in her urine. Review of systems otherwise, the patient denies any neck pain, chest pain, shortness of breath, abdominal pain, diarrhea, or neurologic symptoms. [facility] Past Medical History Narrative Medical The patient's past medical history is significant for metastatic invasive lobular carcinoma of the breast currently under chemotherapy, leptomeningeal metastasis, liver metastasis, migraine headaches, recurrent urinary tract infections, history of pericarditis, history of pneumonia, history of renal dysfunction, history of bilateral nephrostomy tube placement, history of C. difficile colitis, history of pulmonary embolism. Anemia: Yes Cancer: Yes (brain) Cardiovascular Problems: No Chemotherapy: Yes (LAST CHEMO ABOUT A WEEK AGO.01/31) COPD: Yes Diabetes: No Diminished Hearing: No Endocrine: No Genitourinary: Yes Hepatitis: No Hiatal Hernia: No Immune Disorder: No Musculoskeletal: No Neurologic: No Psychiatric: No Reproductive: No Respiratory: No Immunizations Current: No Migraines: Yes (CHRONIC ) Pneumonia: Yes Radiation Therapy: Yes Thyroid Disease: No Tetanus Vaccination: Unknown Menopausal: Yes Past Surgical History Narrative Surgical The patient's past surgical history is significant for an appendectomy, breast biopsy, CT-guided liver biopsy, bilateral nephrostomy tube placement, IVC filter placement, left mastectomy and axillary lymph node dissection, Infuse-a- Port placement, hysterectomy. Abdominal Surgery: Yes AICD: No Appendectomy: Yes Body Medical Devices: RIGHT CHEST IMPLANTED PORT, vena cava filter placed 2008 Cardiac Surgery: No Ear Surgery: No Endocrine Surgery: No Eye Surgery: Yes (cataracts) Genitourinary Surgery: Yes (bilateral nephrostomy tubes) Gynecologic Surgery: Yes (Hysterectomy) Hysterectomy: Yes Joint Replacement: No Oral Surgery: No Pacemaker: No Thoracic Surgery: Yes (left mastectomy) Other Surgery: Yes (L MASTECTOMY, PORT PLACEMENT, BIOPSY BONY LESION 2012, IVC FILTER PLACEME) Social History Alcohol Use: No Tobacco Use: No Substance Use: No Allergies-Medications (Allergen,Severity, Reaction): Coded Allergies: diphenhydramine (Unverified Allergy, Severe, THROAT CLOSES, 07/14/17) Reported Meds & Prescriptions Reported Meds & Active Scripts Active Prochlorperazine Supp (Prochlorperazine) 25 Mg Supp 25 Mg RECTAL Q12H PRN Zithromax (Azithromycin) 250 Mg Tab 250 Mg PO DAILY Cefuroxime (Cefuroxime Axetil) 500 Mg Tab 500 Mg PO BID Reported [compazine] Zofran (Ondansetron HCl) 4 Mg Tab 4 Mg PO Q6HR PRN Amitriptyline (Amitriptyline HCl) 25 Mg Tab 25 Mg PO HS Review of Systems General / Constitutional: No: Fever Eyes: No: Visual changes HENT: Positive: Congestion, No: Headaches Cardiovascular: No: Chest Pain or Discomfort Respiratory: Positive: Cough, No: Shortness of Breath Gastrointestinal: Positive: Nausea, Vomiting, Abdominal Pain, Constipation, Changes in Bowel Habits Genitourinary: No: Dysuria Musculoskeletal: No: Pain Skin: No Rash Neurologic: No: Weakness, Focal Abnormalities, Change in Mentation, Slurred Speech, Sensory Disturbance Psychiatric: No: Depression Endocrine: No: Polydipsia Hematologic/Lymphatic: No: Easy Bruising Physical Exam Narrative General: The patient is a well-developed well-nourished female in no acute distress. Head and Neck exam: Head is normocephalic atraumatic. Eyes: EOMI, pupils are equal round and reactive to light. Nose: Midline septum with pink mucous membranes Mouth: Dentition unremarkable. Moist mucus membranes. Posterior oropharynx is not erythematous. No tonsillar hypertrophy. Uvula midline. Airway patent. Neck: No palpable lymphadenopathy. No nuchal rigidity. No thyromegaly. Cardiovascular: Regular rate and rhythm without murmurs, gallops, or rubs. Lungs: Clear to auscultation bilaterally. No wheezes, rhonchi, or rales. Abdomen: Soft, without tenderness to palpation in all 4 quadrants of the abdomen. No guarding, rebound, or rigidity. Normal bowel sounds are audible. No tenderness on palpation of McBurney's point. Extremities: No clubbing, cyanosis, or edema. 2+ pulses in all 4 extremities. No calf tenderness on palpation. Back: No spinous process tenderness to palpation. No costovertebral angle tenderness to palpation. The patient has bilateral nephrostomy tubes in place with clean, dry, and intact bandages. No evidence of erythema or edema, no drainage around the site. The patient has yellow clear urine noted in each bag. Neurologic Exam: Grossly nonfocal. Skin Exam: No rash noted. Intact skin that is warm and dry. Data Data Last Documented VS Vital Signs Date Time Temp Pulse Resp B/P (MAP) Pulse Ox O2 Delivery O2 Flow Rate FiO2 07/26/17 00:53 20 96 Room Air 07/26/17 00:31 07/25/17 23:48 98.0 86 Orders Orders Electrocardiogram (07/26/17 00:02) Complete Blood Count With Diff (07/26/17 00:02) Comprehensive Metabolic Panel (07/26/17:02) Prothrombin Time / Inr (Pt) (07/26/17:02) Act Partial Throm Time (Ptt) (07/26/17:) Lipase (07/26/17:02) Urinalysis - C+S If Indicated (07/26/17 00:) Iv Access Insert/Monitor (07/26/17 00:02) Ecg Monitoring (07/26/17:02) Oximetry (10/4/17 00:02) Sodium Chlor 0.9% 1000 Ml Inj (Ns 1000 M (07/26/17 00:15) Ondansetron Inj (Zofran Inj) (07/26/17 00:15) Oral Contrast - Adult (07/26/17 00:37) Diatrizoate Liq (Md Gonzalez Liq) (07/26/17 00:59) Ct Abd/Pel W Iv Contrast(Rout) (07/26/17 01:25) Iodixanol 320 Inj (Rad Ct) (Visipaque 32 (07/26/17 02:35) Sodium Chlorid 0.9% 500 Ml Inj (Ns 500 M (07/26/17 02:45) Oral Rehydration (07/26/17 03:23) Ceftriaxone Inj (Rocephin Inj) (07/26/17 03:45) Azithromycin Inj (Zithromax Inj) (07/26/17 03:45) Urine Culture (07/26/17 03:31) Prochlorperazine Inj (Compazine Inj) (07/26/17 04:15) Labs Laboratory Tests Test 07/26/17 00:22 07/26/17 03:31 White Blood Count 8.2 TH/MM3 Red Blood Count 3.19 MIL/MM3 Hemoglobin 10.7 GM/DL Hematocrit 30.7 % Mean Corpuscular Volume 96.3 FL Mean Corpuscular Hemoglobin 33.5 PG Mean Corpuscular Hemoglobin Concent 34.8 % Red Cell Distribution Width 16.5 % Platelet Count 165 TH/MM3 Mean Platelet Volume 7.4 FL Neutrophils (%) (Auto) 86.3 % Lymphocytes (%) (Auto) 5.7 % Monocytes (%) (Auto) 6.5 % Eosinophils (%) (Auto) 1.3 % Basophils (%) (Auto) 0.2 % Neutrophils # (Auto) 7.1 TH/MM3 Lymphocytes # (Auto) 0.5 TH/MM3 Monocytes # (Auto) 0.5 TH/MM3 Eosinophils # (Auto) 0.1 TH/MM3 Basophils # (Auto) 0.0 TH/MM3 CBC Comment DIFF FINAL Differential Comment Prothrombin Time 11.7 SEC Prothromb Time International Ratio 1.1 RATIO Activated Partial Thromboplast Time 27.1 SEC Blood Urea Nitrogen 18 MG/DL Creatinine 1.46 MG/DL Random Glucose 120 MG/DL Total Protein 6.9 GM/DL Albumin 3.5 GM/DL Calcium Level 9.5 MG/DL Alkaline Phosphatase 123 U/L Aspartate Amino Transf (AST/SGOT) 42 U/L Alanine Aminotransferase (ALT/SGPT) 19 U/L Total Bilirubin 0.8 MG/DL Sodium Level 137 MEQ/L Potassium Level 4.5 MEQ/L Chloride Level 100 MEQ/L Carbon Dioxide Level 30.0 MEQ/L Anion Gap 7 MEQ/L Estimat Glomerular Filtration Rate 35 ML/MIN Lipase 152 U/L Urine Color YELLOW Urine Turbidity HAZY Urine pH 8.5 Urine Specific Warren 1.011 Urine Protein 30 mg/dL Urine Glucose (UA) NEG mg/dL Urine Ketones NEG mg/dL Urine Occult Blood NEG Urine Nitrite POS Urine Bilirubin NEG Urine Urobilinogen LESS THAN 2.0 MG/DL Urine Leukocyte Esterase LARGE Urine RBC 3 /hpf Urine WBC 3 /hpf Urine Squamous Epithelial Cells <1 /hpf Urine Triple Phosphate Crystals MANY /hpf Urine Amorphous Sediment RARE Urine Bacteria RARE /hpf Urine Hyaline Casts 1 /lpf Urine Mucus FEW /lpf Microscopic Urinalysis Comment CULTURE INDICATED MDM Medical Decision Making Medical Screen Exam Complete: Yes Emergency Medical Condition: Yes Medical Record Reviewed: Yes Differential Diagnosis Dehydration, versus electrolyte derangements, versus pneumonia, versus urinary tract infection Narrative Course During the course of the patients emergency department visit, the patients history, examination, and differential diagnosis were reviewed with the patient. The patient had IV access obtained and blood work sent for analysis. The patient was placed on a monitor and storage bin tender with oximetry and blood pressure monitoring. An ECG was done on arrival. The patient's ECG reveals a sinus rhythm heart rate of 81, no acute ST segment elevation or depression. The patient was initially provided normal saline 1 L IV fluid bolus, Zofran 4 mg IV. The patients laboratory studies were reviewed and remarkable for a white count of 8.2, hemoglobin 10.7, platelets 165 with 86.3 neutrophils, CMP is remarkable for creatinine 1.46, glucose 120, AST 42, ALT 19, alkaline phosphatase 123, lipase 152, PT 11.7, PTT 27.1. Urinalysis shows positive nitrite, many triple phosphate crystals, rare bacteria, culture indicated. Radiology studies were reviewed and remarkable for a CT scan of the abdomen and pelvis that shows a right lower lobe pneumonia, cirrhosis of the liver with mild ascites. The patient was given Rocephin 1 g IV, azithromycin 500 mg IV for the right lower lobe lung congestion. The patient will be given a prescription for Ceftin and Zithromax. The patient was treated with an additional 500 mL IV fluid bolus, Compazine 5 mg IV for persistent nausea. The patient will be given a prescription for a Compazine suppository. The patient was offered admission for intractable nausea, however the patient reports that she prefers to be discharged and follow-up with her oncologist in the morning. The patient has been able to tolerate by mouth liquids here in the emergency department The patient is resting comfortably and feels better, is alert and in no distress. The patients results and examination findings were discussed with the patient. The repeat examination is unremarkable and benign. The history, exam, diagnostic testing, and current condition do not suggest any significant pathology to warrant further testing, continued ED treatment, admission, or surgical evaluation at this point. The vital signs have been stable. The patient does not have uncontrollable pain, intractable vomiting, or other significant symptoms. The patient's condition is stable and appropriate for discharge. The patient will pursue further outpatient evaluation with a primary care physician or other designated or consulting physician as indicated in the discharge instructions. The patient expressed understanding and was agreeable with this plan. Diagnosis Primary Impression: Nausea & vomiting Qualified Codes: R11.2 - Nausea with vomiting, unspecified Additional Impression: Pneumonia Qualified Codes: J18.1 - Lobar pneumonia, unspecified organism Referrals: Demario Leach MD 1 day Patient Instructions: Acute Nausea and Vomiting (ED), Community Acquired Pneumonia (ED), General Instructions Med/Other Pt SpecificInfo: Prescription(s) given Scripts Prochlorperazine Supp (Prochlorperazine Supp) 25 Mg Supp 25 MG RECTAL Q12H Y for NAUSEA OR VOMITING, #3 SUPP 0 Refills Prov: Malathi Cannon MD 07/26/17 Azithromycin (Zithromax) 250 Mg Tab 250 MG PO DAILY for Infection, #4 TAB 0 Refills Prov: Malathi Cannon MD 07/26/17 Cefuroxime (Cefuroxime) 500 Mg Tab 500 MG PO BID for Infection, #20 TAB 0 Refills Prov: Malathi Cannon MD 07/26/17 Disposition: 01 DISCHARGE HOME Condition: Stable Malathi Cannon MD Jul 26, 2017 01:01
[2017-07-26] MEDS ORDERED: IODIXANOL 320 MG/ML 10 ML VIAL (for Rad CT) IVCONTRAST ONE (02:35)
[2017-07-26] MEDS ORDERED: SODIUM CHLORID 0.9% 500 ML INJ 500 ML IV ONE (02:45)
--- NOTE | 2017-07-26 03:18 | RADRPT ---
EXAM DATE/TIME: 07/26/2017 02:32 [facility] COMPARISON: CT ABDOMEN & PELVIS W CONTRAST, June 02, 2015, 23:00. INDICATIONS : Abdominal pain with vomiting. Chemo earlier today. IV CONTRAST: 45 cc Visipaque (iodixanol) IV ORAL CONTRAST: No oral contrast ingested. RADIATION DOSE: 5.08 CTDIvol (mGy) MEDICAL HISTORY : Chronic obstructive pulmonary disease. Deep venous thrombosis. Brain cancer. SURGICAL HISTORY : Hysterectomy. IVC Filter placement.Mastectomy, left.Bilateral nephrostomy tubes. ENCOUNTER: Initial ACUITY: 1 day PAIN SCALE: 4/10 LOCATION: Bilateral abdomen TECHNIQUE: Volumetric scanning of the abdomen and pelvis was performed. Using automated exposure control and ad justment of the mA and/or kV according to patient size, radiation dose was kept as low as reasonably achievable to obtain optimal diagnostic quality images. DICOM format image data is available electro nically for review and comparison. FINDINGS: A cirrhotic liver is noted. There is heterogeneity and several low density areas measuring up to 3.3 cm in size. A round 16mm low density lesion is seen in the posterior segment of the right hepatic lob e not seen previously. I don't see an enhancing mass. There is small to moderate perihepatic and diff use ascites. Spleen size upper limits of normal. A subcentimeter splenic cyst anteriorly is unchanged. Pancreas and adrenal glands are within normal limits. Percutaneous nephrostomy tubes are seen of both kidneys. Moderate right and mild to moderate left hyd ronephrosis present. Unchanged 15 mm cyst of the left midzone. No stones are demonstrated. No obstruction or acute inflammatory changes are seen of the colon. Moderate stool throughout the col on. Ill-defined patchy infiltrates seen in the right lung base. Tiny bilateral pleural effusions are also noted. Diffusely sclerotic osseous structures are again noted. CONCLUSION: 1. Right lung base pneumonia. 2. Cirrhosis of the liver with small moderate ascites. Liver is heterogeneous and with several low de nsity areas including a 16mm area in the right hepatic lobe not clearly seen previously. Nonemergent MRI evaluation of the liver is recommended 3. Moderate right and mild to moderate left hydronephrosis. Bilateral percutaneous nephrostomy tubes are present. 4. No obstruction or acute inflammatory changes. 5. Diffuse sclerotic metastatic bone disease again noted. Edward Centeno MD on July 26, 2017 at 3:09 Board Certified Radiologist. This report was verified electronically.
[2017-07-26] MEDS ORDERED: AZITHROMYCIN INJ 500 MG in SODIUM CHLOR 0.9% 250 ML INJ 250 ML IV ONE (03:45)
[2017-07-26] MEDS ORDERED: cefTRIAXone INJ 1,000 MG in SODIUM CHLORIDE 0.9% INJ 100 ML IV ONE (03:45)
[2017-07-26 03:53] LABS: BACTERIA, URINE RARE /hpf; BLOOD, URINE NEG (NEG); GLUCOSE,URINE NEG (NEG); HYALINE CAST, URINE 1 /lpf (RARE); KETONE, URINE NEG (NEG); MUCUS URINE FEW /lpf (OCC); NITRITE,URINE POS (NEG); PH, URINE 8.5 (5.0-8.5); SQUAMOUS EPITHELIAL CELL URINE <1 /hpf (0-5); TRIPLE PHOSPHATE CRYSTAL,URINE MANY /hpf; URINE COLOR YELLOW (YELLW/STRAW)
[2017-07-26 03:54] LABS: COMMENT (UR) CULTURE INDICATED; CULTURE IF INDICATED CULTURE INDICATED
[2017-07-26] MEDS ORDERED: PROCHLORPERAZINE INJ 10 MG/2 ML VIAL IV PUSH ONE (04:15)
[2017-07-26] MEDS ORDERED: PROC25SU22 RECTAL (05:10)
[2017-07-26] MEDS ORDERED: ZITH250T PO (05:10)
[2017-07-26] MEDS ORDERED: CEFU1TAB20 PO (05:10)
[2017-07-26 05:46] VITALS: BP 121/73; PULSE 88; RESP 18; O2SAT 99
--- NOTE | 2017-07-26 10:07 | EKG ---
Date Performed: 07/26/2017 Time Performed: 00:47:07 PTAGE: 77 years EKG: Sinus rhythm NORMAL ECG PREVIOUS TRACING : 02/09/2017 01.06 DOCTOR: Jhon Keith Interpretating Date/Time 07/26/2017 10:05:05
== END 2017-07-26 06:23 | disposition home or self-care (01) ==
LOC: NEPE 22:30
DX: C50.919 Malignant neoplasm of unspecified site of unspecified female breast (principal); R11.2 Nausea with vomiting, unspecified; R10.9 Unspecified abdominal pain; J44.0 Chronic obstructive pulmonary disease with (acute) lower respiratory infection; J18.1 Lobar pneumonia, unspecified organism; C79.51 Secondary malignant neoplasm of bone; C78.7 Secondary malignant neoplasm of liver and intrahepatic bile duct; Z93.6 Other artificial openings of urinary tract status; Z90.12 Acquired absence of left breast and nipple; Z90.710 Acquired absence of both cervix and uterus; Z79.899 Other long term (current) drug therapy
CPT/HCPCS: 74177; 80053; 81001; 83690; 85025; 85610; 85730; 87086; 93005; 96361; 96365; 96366; 96367; 96375; 99285; J0456; J0696; J0780; J1642; J2405; J7030; J7040; J7050; Q9963; Q9967